=== PATIENT | female | born 1955 | race Two or more races ===

== ENCOUNTER → 2020-06-14 13:26 | Outpatient (BNVA) | payer MEDICARE, SELFPAY | PROVIDERS: PCP Internal Medicine; Visit Provider Advanced Practice Midwife | DX: Z76.89 Persons encountering health services in other specified circumstances (principal) ==

== ENCOUNTER 2020-07-06 09:36 | Outpatient (REF) | payer MEDICARE, SELFPAY ==
[2020-07-06 10:52] LABS: Alanine Aminotransferase 10 U/L (0-31); Albumin Level 4.1 g/dL (3.5-5.0); Alkaline Phosphatase 78 U/L (39-117); Anion Gap 12 (12-20); Aspartate Amino Transferase 18 U/L (5-31); Bilirubin Total 0.7 mg/dL (0.0-1.0); Blood Urea Nitrogen 16 mg/dL (9-16); Calcium 9.4 mg/dL (8.4-10.2); Carbon Dioxide 32 mmol/L (22-29); Chloride 97 mmol/L (96-108); Cholesterol 232 mg/dL; Estimated Glomerular Filt Rate > 60; Glucose Fasting 93 mg/dL (60-99); HDL Cholesterol 78 mg/dL; LDL Cholesterol Calculated 133 mg/dl; Potassium 4.2 mmol/l (3.3-5.1); Sodium 137 mmol/L (135-145); Total Protein 7.5 g/dL (6.5-8.0); Triglycerides 105 mg/dL
== END 2020-07-06 09:37 | disposition home or self-care (01) ==
LOC: HO.LAB 09:36
PROVIDERS: PCP Internal Medicine; Visit Provider Internal Medicine
DX: I10 Essential (primary) hypertension (principal)
CPT/HCPCS: 80053; 80061

== ENCOUNTER 2020-10-17 15:07 | Outpatient (REF) | payer MEDICARE, SELFPAY ==
--- NOTE | ~2020-10-17 | MM_ITS ---
EXAMINATION: MM SCREENING DIGITAL BREAST TOMOSYNTHESIS, BILATERAL CLINICAL INFORMATION: Screening. Asymptomatic. The lifetime risk of breast cancer based on the Tyrer-Cuzick Model is 4%. COMPARISON: Mammography: 07/28/2019, 04/24/2013 TECHNIQUE: Digital breast tomosynthesis is performed in both the craniocaudal and mediolateral oblique views along with computer-aided detection (CAD). Synthesized 2D images are generated from the tomosynthesis. Additional left MLO view is provided. FINDINGS: There are scattered areas of fibroglandular density (ACR BI-RADS breast composition Category b). Breast tissue composition borders on predominantly fatty. Background fibroglandular and stromal densities are similar to prior exams. There is no interval mass or architectural abnormality or developing density. No abnormal calcifications. The axilla and skin contours are unremarkable. No significant changes. MM/MM tomosynthesis screening BI IMPRESSION: No mammographic evidence of malignancy. ASSESSMENT: BI-RADS 1: Negative RECOMMENDATION: Routine annual mammography screening. This patient's information was entered into a reminder system with a target due date for their next mammogram.
== END 2020-10-17 15:08 | disposition home or self-care (01) ==
LOC: HO.MAMMO 15:07
PROVIDERS: PCP Internal Medicine; Visit Provider Internal Medicine
DX: Z12.31 Encounter for screening mammogram for malignant neoplasm of breast (principal)
CPT/HCPCS: 77063; 77067

== ENCOUNTER 2020-10-26 12:54 | Outpatient (REF) | payer MEDICARE, SELFPAY ==
--- NOTE | ~2020-10-26 | XR_ITS ---
EXAMINATION: XR LUMBOSACRAL SPINE CLINICAL INFORMATION: Pain COMPARISON: Previous exam December 2019 TECHNIQUE: Three views of the lumbosacral spine. FINDINGS: There is mild curvature of the lumbar spine to the right. Bone alignment is otherwise normal. No fracture or dislocation is seen. There is degenerative disc disease and spondylosis at L4-L5 and L5-S1. There is lower lumbar spine facet arthritis. There is evidence of atherosclerotic disease. XR/XR lumbar spine 2-3V IMPRESSION: Degenerative changes.
--- NOTE | ~2020-10-26 | XR_ITS ---
EXAMINATION: XR HIP, RIGHT CLINICAL INFORMATION: Pain in the right hip COMPARISON: X-rays of the right hip December 2019 TECHNIQUE: Two views of the right hip. FINDINGS: Right hip joint: Bones and soft tissues are normal. No fracture. Alignment is anatomic. Hip joint space is maintained. Miscellaneous: Degenerative changes of the symphysis pubis unchanged. XR/XR hip RT min 2V IMPRESSION: Normal right hip.
[2020-10-26 14:32] LABS: Alanine Aminotransferase 11 U/L (0-31); Albumin Level 4.2 g/dL (3.5-5.0); Alkaline Phosphatase 72 U/L (39-117); Anion Gap 12 (12-20); Aspartate Amino Transferase 15 U/L (5-31); Bilirubin Total 0.5 mg/dL (0.0-1.0); Blood Urea Nitrogen 18 mg/dL (9-16); Calcium 9.6 mg/dL (8.4-10.2); Carbon Dioxide 30 mmol/L (22-29); Chloride 100 mmol/L (96-108); Cholesterol 239 mg/dL; Estimated Glomerular Filt Rate > 60; Glucose Fasting 92 mg/dL (60-99); HDL Cholesterol 79 mg/dL; LDL Cholesterol Calculated 139 mg/dl; Sodium 138 mmol/L (135-145); Total Protein 7.3 g/dL (6.5-8.0); Triglycerides 107 mg/dL
== END 2020-10-26 12:55 | disposition home or self-care (01) ==
LOC: HO.HMGCLDS 12:54
PROVIDERS: PCP Internal Medicine; Visit Provider Internal Medicine
DX: E78.5 Hyperlipidemia, unspecified (principal); I10 Essential (primary) hypertension; M54.9 Dorsalgia, unspecified; M25.551 Pain in right hip
CPT/HCPCS: 36415; 72100; 73502; 80053; 80061

== ENCOUNTER 2020-11-15 08:52 | Outpatient (REF) | payer MEDICARE, SELFPAY ==
--- NOTE | ~2020-11-15 | XR_ITS ---
EXAMINATION: XR KNEE, LEFT CLINICAL INFORMATION: Pain in the left knee. COMPARISON: Left knee 04/01/2020 TECHNIQUE: Four views of the left knee. FINDINGS: There is mild reduction in tricompartment joint space with periarticular marginal osteophytes especially in the medial and patellofemoral compartment. No bony erosive changes, loose bodies or joint effusion are seen. No soft tissue swelling or calcifications are seen. Previously seen calcification adjacent to the medial femoral condyle is not visualized at this time. XR/XR knee LT 4V IMPRESSION: Mild tricompartmental degenerative arthritic changes without any loose bodies, joint effusion or bony erosive changes. No major change compared to 04/01/2020
== END 2020-11-15 08:53 | disposition home or self-care (01) ==
LOC: HO.XRAY 08:52
PROVIDERS: PCP Internal Medicine; Visit Provider Internal Medicine
DX: M25.562 Pain in left knee (principal)
CPT/HCPCS: 73564

== ENCOUNTER 2020-12-06 10:00 | Outpatient (REF) | payer MEDICARE, SELFPAY ==
--- NOTE | ~2020-12-06 | XR_ITS ---
EXAMINATION: XR STANDING AP KNEES XR KNEE, RIGHT XR KNEE, LEFT CLINICAL INFORMATION: Bilateral knee pain COMPARISON: Standing AP knees and right knee 02/02/2016, radiographs left knee 11/15/2020 TECHNIQUE: Standing AP view of both knees is performed. Each knee is also imaged in lateral and axial patella views. FINDINGS: Right: There is no fracture, dislocation, or destructive process. There is normal bony mineralization. Tricompartment osteoarthritis is present greater medial knee joint compartment with joint narrowing and mild genu varus. No erosive change or definite chondrocalcinosis. There are marginal osteophytes from the femoral condyles and tibial plateau. There is trace fluid suprapatellar bursa. No significant effusion. Hoffa's fat pad appears normal. Axial view patella shows lateral tilting and borderline lateralization with narrowing of the lateral patellofemoral joint and lateral patellar spur. Left: There is no fracture, dislocation, or destructive process. There is normal bony mineralization. Tricompartment osteoarthritis is present, greater medial knee joint compartment with joint narrowing. Severity is less than that on the right. No erosive change or definite chondrocalcinosis. There are marginal osteophytes from the femoral condyles and tibial plateau. There is trace fluid suprapatellar bursa. No significant effusion. Hoffa's fat pad appears within normal. Axial view patella shows lateral tilting and borderline lateralization with narrowing of the lateral patellofemoral joint. XR/XR knee RT 2V IMPRESSION: 1. 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 2. Bilateral patellar tilting and borderline lateralization with narrowing lateral patellofemoral joints. 3. No erosive change or chondrocalcinosis. No significant effusion.
--- NOTE | ~2020-12-06 | XR_ITS ---
EXAMINATION: XR STANDING AP KNEES XR KNEE, RIGHT XR KNEE, LEFT CLINICAL INFORMATION: Bilateral knee pain COMPARISON: Standing AP knees and right knee 02/02/2016, radiographs left knee 11/15/2020 TECHNIQUE: Standing AP view of both knees is performed. Each knee is also imaged in lateral and axial patella views. FINDINGS: Right: There is no fracture, dislocation, or destructive process. There is normal bony mineralization. Tricompartment osteoarthritis is present greater medial knee joint compartment with joint narrowing and mild genu varus. No erosive change or definite chondrocalcinosis. There are marginal osteophytes from the femoral condyles and tibial plateau. There is trace fluid suprapatellar bursa. No significant effusion. Hoffa's fat pad appears normal. Axial view patella shows lateral tilting and borderline lateralization with narrowing of the lateral patellofemoral joint and lateral patellar spur. Left: There is no fracture, dislocation, or destructive process. There is normal bony mineralization. Tricompartment osteoarthritis is present, greater medial knee joint compartment with joint narrowing. Severity is less than that on the right. No erosive change or definite chondrocalcinosis. There are marginal osteophytes from the femoral condyles and tibial plateau. There is trace fluid suprapatellar bursa. No significant effusion. Hoffa's fat pad appears within normal. Axial view patella shows lateral tilting and borderline lateralization with narrowing of the lateral patellofemoral joint. XR/XR knee LT 2V IMPRESSION: 1. 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 2. Bilateral patellar tilting and borderline lateralization with narrowing lateral patellofemoral joints. 3. No erosive change or chondrocalcinosis. No significant effusion.
--- NOTE | ~2020-12-06 | XR_ITS ---
EXAMINATION: XR STANDING AP KNEES XR KNEE, RIGHT XR KNEE, LEFT CLINICAL INFORMATION: Bilateral knee pain COMPARISON: Standing AP knees and right knee 02/02/2016, radiographs left knee 11/15/2020 TECHNIQUE: Standing AP view of both knees is performed. Each knee is also imaged in lateral and axial patella views. FINDINGS: Right: There is no fracture, dislocation, or destructive process. There is normal bony mineralization. Tricompartment osteoarthritis is present greater medial knee joint compartment with joint narrowing and mild genu varus. No erosive change or definite chondrocalcinosis. There are marginal osteophytes from the femoral condyles and tibial plateau. There is trace fluid suprapatellar bursa. No significant effusion. Hoffa's fat pad appears normal. Axial view patella shows lateral tilting and borderline lateralization with narrowing of the lateral patellofemoral joint and lateral patellar spur. Left: There is no fracture, dislocation, or destructive process. There is normal bony mineralization. Tricompartment osteoarthritis is present, greater medial knee joint compartment with joint narrowing. Severity is less than that on the right. No erosive change or definite chondrocalcinosis. There are marginal osteophytes from the femoral condyles and tibial plateau. There is trace fluid suprapatellar bursa. No significant effusion. Hoffa's fat pad appears within normal. Axial view patella shows lateral tilting and borderline lateralization with narrowing of the lateral patellofemoral joint. XR/XR knee standing BI IMPRESSION: 1. 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 2. Bilateral patellar tilting and borderline lateralization with narrowing lateral patellofemoral joints. 3. No erosive change or chondrocalcinosis. No significant effusion.
== END 2020-12-06 10:01 | disposition home or self-care (01) ==
LOC: HO.HOSX 10:00
PROVIDERS: Visit Provider Physician Assistant
DX: M17.0 Bilateral primary osteoarthritis of knee (principal); M25.562 Pain in left knee; M25.561 Pain in right knee; E66.01 Morbid (severe) obesity due to excess calories; M54.9 Dorsalgia, unspecified; I10 Essential (primary) hypertension; I48.91 Unspecified atrial fibrillation; Z88.8 Allergy status to other drugs, medicaments and biological substances
CPT/HCPCS: 73560; 73565; 99202

== ENCOUNTER 2021-01-31 14:00 | Outpatient (RCR) | payer MEDICARE, SELFPAY ==
--- NOTE | 2020-12-15 14:34 | MHC.PT.EP ---
[facility] [place] Office [place] Office [place] Office [address] Viet Macdonald [address] [phone] F: [phone] F: [phone] F: [phone] F: [phone] Physical Therapy Plan of Care Date of Evaluation: Date of Surgery: Diagnosis: dorsalgia Assessment: 65 y/o female referred to PT with dorsalgia. Reports pain and difficulty with hosuehold chores, bending, squatting, walking, stair management, and sleeping. Of note, PMH significant for AFIB, HTN, and asthma. Examination shows decreased lumbar AROM, decreased thoracic mobility, decreased B LE and core strength, decreased hip AROM, impaired postural awareness and impaired gait pattern. Recommend PT 2x/week for 5 weeks to address impairments, implement HEP, and optimize functional mobility. Frequency and Duration: The patient will be seen 2x/week for 5 weeks Short Term Goals: 3 weeks 1. I with HEP 2. Improve lumbar AROM by 25% 3. Pt will demonstrate 25% squat with proper mechanics Half-Way Goals: 5 weeks 1. I with HEP and self management of sx 2. Pt will impmrove B LE strength by one MMT grade to facilitate walking 3. 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 Treatment Plan: Modalities to reduce pain, spasms and effusion. Manual therapy to restore motion and function. Therapeutic exercise to improve strength and flexibility. Neuromuscular re-education for posture and balance. Therapeutic activities to return to functional activities of daily living. Electronically signed by: Linsey Huynh PT Please sign and return to therapist. Thank you for your referral.
--- NOTE | 2021-02-06 16:26 | MHC.PT.DC ---
[facility] [place] Office [place] Office [place] Office [address] Viet Macdonald [address] [phone] F: [phone] F: [phone] F: [phone] F: [phone] Physical Therapy Discharge Report Diagnosis: dorsalgia Date of Surgery: Date of Evaluation: 12/15/20 Date of Discharge: 02/06/21 Treatments to Date: 7 Cancellations to Date: 0 No Shows to Date: 0 Discharge Status: Visit Non-compliance Discharge Summary: Patient with too many no shows and cancellations. DC per attendance policy. DC to HEP. Patient was called and made aware. Electronically signed by: Mahsa Chang PT Please sign and return to therapist. Thank you for your referral.
== END 2021-02-06 16:26 | disposition home or self-care (01) ==
LOC: HO.PTCHIC 14:00
PROVIDERS: PCP Internal Medicine; Visit Provider Internal Medicine
DX: M54.9 Dorsalgia, unspecified (principal)
CPT/HCPCS: 97110; 97161

== ENCOUNTER 2021-05-16 10:13 | Outpatient (REF) | payer MEDICARE, SELFPAY ==
[2021-05-16 10:23] LABS: MANUAL DIFF FLAG NO
[2021-05-16 10:43] LABS: Basophils Percent Auto 0.3 % (0-2); Eosinophils Absolute Auto 0.1 X10*3/uL (0.0-0.4); Eosinophils Percent Auto 1.2 % (0-4); Hematocrit 42.7 % (37.0-47.0); Hemoglobin 13.1 g/dl (12.0-16.0); Imm Gran Abs Auto 0.01 X10*3/uL (0.00-0.03); Imm Gran Pct Auto 0.1 % (0.0-0.4); Lymphocytes Absolute Auto 2.1 X10*3/uL (1.2-4.9); Lymphocytes Percent Auto 29.1 % (20-40); Mean Corpuscular HGB Conc 30.7 g/dl (31.0-35.0); Mean Corpuscular Hemoglobin 22.6 pg (27.0-33.0); Mean Corpuscular Volume 73.7 fL (80.0-98.0); Mean Platelet Volume 11.1 fL (9.4-12.3); Monocytes Absolute Auto 0.7 X10*3/uL (0.1-1.2); Monocytes Percent Auto 9.2 % (2-11); Neutrophils Absolute Auto 4.42 x10*3/uL (2.0-8.3); Neutrophils Percent Auto 60.1 % (45-73); Platelet Count 265 X10*3/uL (160-400); Red Blood Count 5.79 X10*6/uL (4.20-5.50); Red Cell Distribution Width 15.9 % (11.0-16.0); White Blood Count 7.4 X10*3/uL (4.8-10.8)
[2021-05-16 11:27] LABS: Alanine Aminotransferase 13 U/L (0-31); Albumin Level 4.2 g/dL (3.5-5.0); Alkaline Phosphatase 68 U/L (39-117); Anion Gap 12 (12-20); Aspartate Amino Transferase 19 U/L (5-31); Bilirubin Total 0.8 mg/dL (0.0-1.0); Blood Urea Nitrogen 25 mg/dL (9-16); Calcium 9.1 mg/dL (8.4-10.2); Carbon Dioxide 30 mmol/L (22-29); Chloride 101 mmol/L (96-108); Cholesterol 228 mg/dL; Estimated Glomerular Filt Rate 45; Glucose Fasting 97 mg/dL (60-99); HDL Cholesterol 75 mg/dL; LDL Cholesterol Calculated 136 mg/dl; Potassium 4.5 mmol/L (3.3-5.1); Sodium 138 mmol/L (135-145); Total Protein 7.4 g/dL (6.5-8.0); Triglycerides 87 mg/dL
[2021-05-20 13:26] LABS: Vitamin D 25-OH, D2 <4 ng/mL; Vitamin D 25-OH, D3 26 ng/mL; Vitamin D 25-OH, Total 26 ng/mL (30-100)
== END 2021-05-16 10:14 | disposition home or self-care (01) ==
LOC: HO.LAB 10:13
PROVIDERS: PCP Internal Medicine; Visit Provider Internal Medicine
DX: E55.9 Vitamin D deficiency, unspecified (principal); E78.5 Hyperlipidemia, unspecified; D64.9 Anemia, unspecified; M17.0 Bilateral primary osteoarthritis of knee
CPT/HCPCS: 36415; 80053; 80061; 82306; 85025

== ENCOUNTER 2021-06-15 13:11 | Outpatient (REF) | payer MEDICARE, SELFPAY ==
--- NOTE | ~2021-06-15 | US_ITS ---
EXAMINATION: US ABDOMEN LIMITED CLINICAL INFORMATION: Unspecified abdominal pain. COMPARISON: None. TECHNIQUE: Real-time imaging of the right lower quadrant. Technically difficult study secondary to body habitus. FINDINGS: Limited imaging through the right lower quadrant reveals peristaltic bowel. No evidence of hernia, mass or fluid collection. US/US abdomen limited IMPRESSION: Limited imaging through the right lower quadrant reveals no focal mass, hernia or fluid collection.
== END 2021-06-15 13:12 | disposition home or self-care (01) ==
LOC: HO.HMGCX 13:11
PROVIDERS: PCP Internal Medicine; Visit Provider Internal Medicine
DX: R10.9 Unspecified abdominal pain (principal)
CPT/HCPCS: 76705

== ENCOUNTER → 2021-07-04 11:23 | Outpatient (BNVA) | payer MEDICARE, SELFPAY | PROVIDERS: PCP Internal Medicine; Visit Provider Advanced Practice Midwife ==

== ENCOUNTER 2021-07-27 12:57 | Outpatient (REF) | payer MEDICARE, SELFPAY ==
--- NOTE | ~2021-07-27 | US_ITS ---
EXAMINATION: US PELVIS CLINICAL INFORMATION: Pelvic and perineal pain COMPARISON: None TECHNIQUE: Ultrasound of the pelvis is performed using both transabdominal and transvaginal transducers along with Doppler. Transvaginal imaging is performed due to inadequate visualization transabdominally. FINDINGS: Uterus: The uterus is anteverted, anteflexed and measures 6.2 cm in length, 3.1 mL in AP and 4.1 cm in transverse dimension. The endometrium is heterogeneous with double wall endometrial thickness measuring 1.0 cm. The uterus is smooth in contour and has normal myometrial echogenicity. No visible fibroid. There are small nabothian cysts seen in the cervix. Adnexa: Both ovaries are visualized. There is normal color flow to the adnexa. There is no ovarian torsion. There is no pelvic ascites or fluid collection. Right ovary measures 2.2 x 1.3 x 1.5 cm and volume 2.2 mL. Left ovary measures 2.0 x 1.1 x 1.7 cm and volume 2.0 mL. US/US pelvic and transvaginal IMPRESSION: Nabothian cysts in cervix. Heterogeneous endometrium measuring 1.0 cm. The ovaries are unremarkable.
== END 2021-07-27 12:58 | disposition home or self-care (01) ==
LOC: HO.US 12:57
PROVIDERS: Visit Provider Advanced Practice Midwife
DX: Z01.419 Encounter for gynecological examination (general) (routine) without abnormal findings (principal); R10.2 Pelvic and perineal pain
CPT/HCPCS: 76830; 76856

== ENCOUNTER → 2021-08-10 10:40 | Outpatient (BNVA) | payer MEDICARE, SELFPAY | PROVIDERS: PCP Internal Medicine; Visit Provider Advanced Practice Midwife | DX: R93.89 Abnormal findings on diagnostic imaging of other specified body structures (principal); R10.2 Pelvic and perineal pain; E66.01 Morbid (severe) obesity due to excess calories | CPT/HCPCS: 99212 ==

== ENCOUNTER 2021-08-11 13:17 | Outpatient (REF) | payer MEDICARE, SELFPAY ==
--- NOTE | ~2021-08-11 | XR_ITS ---
EXAMINATION: XR HIP, RIGHT CLINICAL INFORMATION: Pain right hip COMPARISON: None TECHNIQUE: Two views of the right hip. FINDINGS: Bones and soft tissues are normal. No fracture. Alignment is anatomic. Hip joint space is maintained. XR/XR hip RT min 2V IMPRESSION: Unremarkable right hip.
== END 2021-08-11 13:18 | disposition home or self-care (01) ==
LOC: HO.XRAY 13:17
PROVIDERS: PCP Internal Medicine; Visit Provider Internal Medicine
DX: M25.551 Pain in right hip (principal)
CPT/HCPCS: 73502

== ENCOUNTER → 2021-08-29 14:20 | Outpatient (BNVA) | payer MEDICARE, SELFPAY | PROVIDERS: PCP Internal Medicine; Referring Provider Internal Medicine; Visit Provider Nurse Practitioner Family | DX: R10.9 Unspecified abdominal pain (principal); I10 Essential (primary) hypertension; I48.0 Paroxysmal atrial fibrillation; E78.00 Pure hypercholesterolemia, unspecified; M25.551 Pain in right hip; Z88.8 Allergy status to other drugs, medicaments and biological substances | CPT/HCPCS: 99202 ==

== ENCOUNTER → 2021-09-18 14:42 | Outpatient (BNVA) | payer MEDICARE, SELFPAY | PROVIDERS: PCP Internal Medicine; Visit Provider Physician Assistant | DX: M54.16 Radiculopathy, lumbar region (principal) | CPT/HCPCS: 99202 ==

== ENCOUNTER 2021-09-19 09:10 | Outpatient (REF) | payer MEDICARE, SELFPAY ==
[2021-09-19 10:29] LABS: Alanine Aminotransferase 11 U/L (0-31); Albumin Level 4.1 g/dL (3.5-5.0); Alkaline Phosphatase 62 U/L (39-117); Anion Gap 11 (12-20); Aspartate Amino Transferase 17 U/L (5-31); Bilirubin Total 0.8 mg/dL (0.0-1.0); Blood Urea Nitrogen 22 mg/dL (9-16); Calcium 9.6 mg/dL (8.4-10.2); Carbon Dioxide 30 mmol/L (22-29); Chloride 102 mmol/L (96-108); Cholesterol 228 mg/dL; Estimated Glomerular Filt Rate 47; Glucose Fasting 94 mg/dL (60-99); HDL Cholesterol 75 mg/dL; LDL Cholesterol Calculated 138 mg/dl; Lipase 25 U/L (8-78); Potassium 4.8 mmol/L (3.3-5.1); Sodium 138 mmol/L (135-145); Total Protein 7.5 g/dL (6.5-8.0); Triglycerides 75 mg/dL
[2021-09-19 10:54] LABS: TSH reflex Free T4 1.79 uIU/mL (0.32-4.0)
[2021-09-19 11:02] LABS: Folate 14.5 ng/mL (> or = 4.0); Vitamin B12 598 pg/mL (200-900)
[2021-09-20 20:37] LABS: Transglutaminase Ab IgG <1.0 U/mL; Transglutaminase IgA <1.0 U/mL
[2021-09-23 13:26] LABS: Vitamin D 25-OH, D2 <4 ng/mL; Vitamin D 25-OH, D3 31 ng/mL; Vitamin D 25-OH, Total 31 ng/mL (30-100)
== END 2021-09-19 09:11 | disposition home or self-care (01) ==
LOC: HO.LAB 09:10
PROVIDERS: Absent Provider Internal Medicine; PCP Internal Medicine; Visit Provider Nurse Practitioner Family
DX: Z12.11 Encounter for screening for malignant neoplasm of colon (principal); R10.11 Right upper quadrant pain; R19.7 Diarrhea, unspecified; E78.5 Hyperlipidemia, unspecified; E55.9 Vitamin D deficiency, unspecified; R14.0 Abdominal distension (gaseous)
CPT/HCPCS: 36415; 80053; 80061; 82306; 82607; 82746; 83690; 84443; 86364

== ENCOUNTER → 2021-09-22 08:49 | Outpatient (BNVA) | payer MEDICARE, SELFPAY | PROVIDERS: PCP Internal Medicine; Visit Provider Nurse Practitioner Family | DX: M53.3 Sacrococcygeal disorders, not elsewhere classified (principal); M47.816 Spondylosis without myelopathy or radiculopathy, lumbar region; M54.16 Radiculopathy, lumbar region; M51.36 Other intervertebral disc degeneration, lumbar region; M25.551 Pain in right hip; E66.01 Morbid (severe) obesity due to excess calories; Z68.42 Body mass index [BMI] 45.0-49.9, adult | CPT/HCPCS: 99202 ==

== ENCOUNTER 2021-10-31 06:28 | Outpatient (REF) | payer OTHER, SELFPAY ==
--- NOTE | ~2021-10-31 | FL_ITS ---
EXAMINATION: XR FLUOROSCOPY WITH IMAGES CLINICAL INFORMATION: M53.3 - Sacrococcygeal disorders, not elsewhere classified COMPARISON: Radiographs lumbar spine 10/26/2020 TECHNIQUE: Fluoroscopy performed by Dr. New Pratt. Fluoroscopy time: 0.1 minutes DAP: 2.12 Gycm2 Images: 1 FINDINGS: Spinal needle overlies mid to lower right SI joint. There is contrast in the periarticular soft tissues with probable early intra-articular contrast. There is some spurring of the lower lumbar vertebral bodies again seen. FL/FL guidance in treatment room IMPRESSION: Fluoroscopy for pain management procedure.
== END 2021-10-31 06:29 | disposition home or self-care (01) ==
LOC: HO.RADIR 06:28
PROVIDERS: Visit Provider Anesthesiology
DX: M53.3 Sacrococcygeal disorders, not elsewhere classified (principal); M47.816 Spondylosis without myelopathy or radiculopathy, lumbar region; M54.16 Radiculopathy, lumbar region; M51.36 Other intervertebral disc degeneration, lumbar region; M25.551 Pain in right hip; E66.01 Morbid (severe) obesity due to excess calories; Z68.42 Body mass index [BMI] 45.0-49.9, adult
CPT/HCPCS: 27096; J2795; J3300; Q9967

== ENCOUNTER → 2021-11-07 12:52 | Outpatient (BNVA) | payer MEDICARE, MEDICAID, SELFPAY | PROVIDERS: PCP Internal Medicine; Visit Provider Nurse Practitioner Family | DX: M53.3 Sacrococcygeal disorders, not elsewhere classified (principal); M51.36 Other intervertebral disc degeneration, lumbar region; E66.01 Morbid (severe) obesity due to excess calories; Z68.42 Body mass index [BMI] 45.0-49.9, adult; Z98.890 Other specified postprocedural states | CPT/HCPCS: 99212 ==

== ENCOUNTER 2022-01-26 13:29 | Outpatient (REF) | payer MEDICARE, MEDICAID, SELFPAY ==
--- NOTE | ~2022-01-26 | MM_ITS ---
EXAMINATION: MM SCREENING DIGITAL BREAST TOMOSYNTHESIS, BILATERAL CLINICAL INFORMATION: Screening. Asymptomatic. The lifetime risk of breast cancer based on the Tyrer-Cuzick Model is 5%. COMPARISON: Mammography: 10/17/2020, 07/28/2019, 04/24/2013 TECHNIQUE: Digital breast tomosynthesis is performed in both the craniocaudal and mediolateral oblique views along with computer-aided detection (CAD). Synthesized 2D images are generated from the tomosynthesis. Additional bilateral CC views are obtained. FINDINGS: There are scattered areas of fibroglandular density (ACR BI-RADS breast composition Category b). There are no significant masses, abnormal calcifications, or other abnormalities. Breast tissue composition borders on predominantly fatty. Background stromal and fibroglandular densities are similar to prior studies. No developing density. No significant changes. MM/MM tomosynthesis screening BI IMPRESSION: No mammographic evidence of malignancy. ASSESSMENT: BI-RADS 1: Negative RECOMMENDATION: Routine annual mammography screening. This patient's information was entered into a reminder system with a target due date for their next mammogram.
--- NOTE | ~2022-01-26 | MM_ITS ---
EXAMINATION: BONE DENSITOMETRY CLINICAL INDICATION: Asymptomatic menopausal state. COMPARISON: None (current study represents initial baseline exam). TECHNIQUE: Using a [employer] DXA System (software version: 13.1) manufactured by [employer], dual-energy x-ray absorptiometry was performed of the lumbar spine and left hip. The images are of good technical quality. Summary results are attached. FINDINGS: AP SPINE L1-L4: BMD 1.361 g/cm2, Z-score 2.0, T-score 1.5, normal. LEFT FEMUR, NECK: BMD 0.918 g/cm2, Z-score 0.0, T-score -0.9, normal. LEFT FEMUR, TOTAL: BMD 0.959 g/cm2, Z-score 0.1, T-score -0.4, normal. IDENTIFIED RISK FACTORS: Dementia, anticonvulsants, menopause. HISTORY OF FRACTURE: No insufficiency fracture reported. MEDICATIONS: Vitamin D. MM/XR DEXA axial skeleton IMPRESSION: 1. DIAGNOSIS: Normal bone density based on the lowest T-score value of -0.9 in the femoral neck applying World Health Organization criteria. 2. 10- 10-YEAR FRACTURE RISK PREDICTION, FRAX: According to the guidelines, FRAX calculation should only be performed on patients in the osteopenia bone density category. Therefore, FRAX was not performed on this patient. 3. Treatment Recommendations: NOF guidelines recommend consideration for treatment in postmenopausal women and men age 50 and older presenting with the following: -A hip or vertebral (clinical or morphometric) fracture. -T-score less than or equal to -2.5 at the femoral neck or spine after appropriate evaluation to exclude secondary causes. -Low bone mass at the hip or spine and a 10-year fracture probability by FRAX of greater than or equal to 3% for hip fracture or greater than or equal to 20% for major osteoporotic fracture based on the [place] adapted WHO algorithm. 4. Other Recommendations: All treatment decisions require clinical judgment and consideration of individual patient factors, including patient preferences, comorbidities, previous drug use, risk factors not captured in the FRAX model (e.g. frailty, falls, vitamin D deficiency, increased bone turnover, interval significant decline in bone density) and possible under or overestimation of fracture risk by FRAX. FUTURE SCAN RECOMMENDATION: People with diagnosed cases of osteoporosis or at high risk for fracture should have regular bone mineral density tests. For patients eligible for Medicare, routine testing is allowed once every 2 years. The testing frequency can be increased to one year for patients who have rapidly progressing disease, those who are receiving or discontinuing medical therapy to restore bone mass, or have additional risk factors.
== END 2022-01-26 13:30 | disposition home or self-care (01) ==
LOC: HO.MAMMO 13:29
PROVIDERS: Visit Provider Internal Medicine
DX: Z12.31 Encounter for screening mammogram for malignant neoplasm of breast (principal); Z13.820 Encounter for screening for osteoporosis; Z78.0 Asymptomatic menopausal state
CPT/HCPCS: 77063; 77067; 77080

== ENCOUNTER 2022-07-20 08:40 | Outpatient (REF) | payer MEDICARE, MEDICAID, SELFPAY ==
[2022-07-20 08:56] LABS: MANUAL DIFF FLAG NO
[2022-07-20 09:32] LABS: Basophils Absolute Auto 0.1 X10*3/uL (0.0-0.2); Basophils Percent Auto 0.6 % (0-2); Eosinophils Absolute Auto 0.1 X10*3/uL (0.0-0.4); Eosinophils Percent Auto 1.7 % (0-4); Hematocrit 38.3 % (37.0-47.0); Hemoglobin 11.8 g/dl (12.0-16.0); Imm Gran Abs Auto 0.03 X10*3/uL (0.00-0.03); Imm Gran Pct Auto 0.4 % (0.0-0.4); Lymphocytes Absolute Auto 1.9 X10*3/uL (1.2-4.9); Lymphocytes Percent Auto 24.3 % (20-40); Mean Corpuscular HGB Conc 30.8 g/dl (31.0-35.0); Mean Corpuscular Hemoglobin 22.6 pg (27.0-33.0); Mean Corpuscular Volume 73.4 fL (80.0-98.0); Mean Platelet Volume 11.6 fL (9.4-12.3); Monocytes Absolute Auto 0.8 X10*3/uL (0.1-1.2); Monocytes Percent Auto 9.5 % (2-11); Neutrophils Percent Auto 63.5 % (45-73); Platelet Count 299 X10*3/uL (160-400); Red Blood Count 5.22 X10*6/uL (4.20-5.50); Red Cell Distribution Width 15.6 % (11.0-16.0); White Blood Count 7.9 X10*3/uL (4.8-10.8)
[2022-07-20 11:34] LABS: Alanine Aminotransferase 10 U/L (0-31); Albumin Level 4.1 g/dL (3.5-5.0); Alkaline Phosphatase 69 U/L (39-117); Anion Gap 16 (12-20); Aspartate Amino Transferase 18 U/L (5-31); Bilirubin Total 0.4 mg/dL (0.0-1.0); Blood Urea Nitrogen 24 mg/dL (9-16); Calcium 9.7 mg/dL (8.4-10.2); Carbon Dioxide 29 mmol/L (22-29); Chloride 101 mmol/L (96-108); Cholesterol 228 mg/dL; Estimated Glomerular Filt Rate 37; Glucose Fasting 89 mg/dL (60-99); HDL Cholesterol 69 mg/dL; LDL Cholesterol Calculated 138 mg/dl; Potassium 4.5 mmol/L (3.3-5.1); Sodium 141 mmol/L (135-145); Total Protein 7.3 g/dL (6.5-8.0); Triglycerides 107 mg/dL
[2022-07-20 11:36] LABS: Vitamin D 25-OH Total 30.7 ng/mL (>30)
== END 2022-07-20 08:41 | disposition home or self-care (01) ==
LOC: HO.LAB 08:40
PROVIDERS: PCP Internal Medicine; Visit Provider Internal Medicine
DX: M47.816 Spondylosis without myelopathy or radiculopathy, lumbar region (principal); E55.9 Vitamin D deficiency, unspecified; E78.5 Hyperlipidemia, unspecified
CPT/HCPCS: 36415; 80053; 80061; 82306; 85025

== ENCOUNTER → 2022-08-02 08:51 | Outpatient (BNVA) | payer MEDICARE, MEDICAID, SELFPAY | PROVIDERS: Visit Provider Advanced Practice Midwife | DX: Z13.89 Encounter for screening for other disorder (principal) ==

== ENCOUNTER 2022-09-25 09:53 | Outpatient (REF) | payer MEDICARE, SELFPAY ==
--- NOTE | ~2022-09-25 | XR_ITS ---
EXAMINATION: XR HIP, RIGHT CLINICAL INFORMATION: Pain. COMPARISON: None available. TECHNIQUE: Two views of the right hip. FINDINGS: There is no visible acute fracture, dislocation or subluxation. No bony erosive changes. The soft tissues are normal. XR/XR hip RT min 2V IMPRESSION: Unremarkable right hip exam.
--- NOTE | ~2022-09-25 | XR_ITS ---
EXAMINATION: XR RIBS, RIGHT CLINICAL INFORMATION: Pleurodynia. COMPARISON: None available. TECHNIQUE: Chest and right RIBS 4 views. FINDINGS: CHEST: The lungs are well-expanded and clear acute process. The heart size and pulmonary vascularity is normal. RIGHT RIBS: Multiple views of right ribs reveal no visible fracture or bony abnormality. There is mild spondylosis mid to lower dorsal spine. XR/XR ribs RT min 3V w CXR1V IMPRESSION: 1. Unremarkable chest exam. 2. Unremarkable right rib exam. 3. There is mild spondylosis mid to lower dorsal spine.
== END 2022-09-25 09:54 | disposition home or self-care (01) ==
LOC: HO.XRAY 09:53
PROVIDERS: PCP Internal Medicine; Visit Provider Internal Medicine
DX: M25.551 Pain in right hip (principal); R07.81 Pleurodynia
CPT/HCPCS: 71101; 73502

== ENCOUNTER 2022-12-07 09:02 | Outpatient (REF) | payer MEDICARE, SELFPAY ==
[2022-12-07 10:25] LABS: Alanine Aminotransferase 13 U/L (0-31); Albumin Level 4.1 g/dL (3.5-5.0); Alkaline Phosphatase 70 U/L (39-117); Anion Gap 14 (12-20); Aspartate Amino Transferase 18 U/L (5-31); Bilirubin Total 0.7 mg/dL (0.0-1.0); Blood Urea Nitrogen 18 mg/dL (9-16); Calcium 9.6 mg/dL (8.4-10.2); Carbon Dioxide 29 mmol/L (22-29); Chloride 104 mmol/L (96-108); Cholesterol 235 mg/dL; Estimated Glomerular Filt Rate 50; Glucose Fasting 94 mg/dL (60-99); HDL Cholesterol 68 mg/dL; LDL Cholesterol Calculated 145 mg/dl; Potassium 4.3 mmol/L (3.3-5.1); Sodium 143 mmol/L (135-145); Total Protein 7.4 g/dL (6.5-8.0); Triglycerides 113 mg/dL
[2022-12-07 10:41] LABS: Vitamin D 25-OH Total 32.9 ng/mL (>30)
== END 2022-12-07 09:03 | disposition home or self-care (01) ==
LOC: HO.LAB 09:02
PROVIDERS: PCP Internal Medicine; Visit Provider Internal Medicine
DX: E66.01 Morbid (severe) obesity due to excess calories (principal); Z68.42 Body mass index [BMI] 45.0-49.9, adult; E78.5 Hyperlipidemia, unspecified; E55.9 Vitamin D deficiency, unspecified
CPT/HCPCS: 36415; 80053; 80061; 82306

== ENCOUNTER 2023-01-22 14:23 | Outpatient (AMB) | payer MEDICARE, MEDICAID, SELFPAY ==
[2023-01-22 14:39] VITALS: BP 132/78; BMI 50.8
--- NOTE | 2023-01-22 14:39 | MHC.PC.OV ---
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 Accompanied by: Self / Same As Patient Allergies ibuprofen [From MOTRIN] Allergy (Intermediate, Verified 01/22/23 14:46) REDNESS, HIVES,GI Medication List - Last Reconciled 01/22/23 by Mi Hua MD acetaminophen 1,000 mg (2 x 500 mg) PO Q8H 90 days albuterol sulfate 2.5 mg inhalation Q6H PRN albuterol sulfate 90 mcg/actuation 1 puff PO Q4H PRN 30 days amlodipine 5 mg PO DAILY apixaban (Eliquis) 5 mg PO BID 30 days atorvastatin 40 mg PO BEDTIME 90 days cholecalciferol (vitamin D3) 50 mcg PO DAILY 90 days [compression stockings As directed] [cpap supplies As directed] flecainide 100 mg PO DIRECTED 90 days fluticasone propionate 50 mcg/actuation (Flonase Allergy Relief) 1 spray intranasal DAILY 30 days furosemide 20 mg PO DAILY 90 days gabapentin 600 mg PO BID 90 days lidocaine 5% 1 patch topical DAILY 90 days lisinopril 40 mg PO DAILY 90 days lorazepam (Ativan) 0.5 mg PO BEDTIME PRN 2 days metoprolol succinate ER 25 mg PO DAILY 90 days miscellaneous medical supply (Anti-Embolism Stockings) Use daily scopolamine base 1 patch transdermal Q3D PRN 12 days sertraline 50 mg PO QAM 90 days sumatriptan succinate 50 mg PO ONCE PRN 90 days Tobacco use date assessed: 08/01/22 Fall risk assessment: No Falls in past year Last assessed Fall Risk: 01/22/23 Dental Screening Dental Screen Date: 01/22/23 Did you have a dental visit in the last 12 months?: Yes Did you have a dental problem in the last 6 months where you did not have access to dental care?: No Was dental information given to patient?: Patient has dentist HPI HPI Comments History of Present Illness Details This is a 67-year-old female with mild recurrent major depression and morbid obesity that comes for her physical exam. Last mammogram was January 2022 and she has another mammogram scheduled for this month. Last colonoscopy was at 48 years old and will be referred for another colonoscopy. OBGYN pelvic exam are up-to-date. No need for Pap smears. She is morbidly obese with a BMI of 50.8 and was advised to diet and exercise as tolerated. Depression stable with sertraline. Has atrial fibrillation follow by cardiology. Last bone density was January 2022 and was normal. [facility] Medical History (Updated 01/22/23 @ 14:57 by Mi Hua MD) Asthma Back pain Essential hypertension History of atrial fibrillation Left knee pain Leg edema Migraines Moderate asthma Paroxysmal atrial fibrillation Pure hypercholesterolemia Right hip pain Vaginal pruritus Venous (peripheral) insufficiency Venous (peripheral) insufficiency Surgical History History of mammogram History of tubal ligation Hx laparoscopic cholecystectomy Family History Father HTN (hypertension) CVD (cardiovascular disease) Diabetes Mother HTN (hypertension) CVD (cardiovascular disease) Sister Bone cancer Lymphoma Family/Other Substance use disorder Social History Housing: Apartment Alcohol intake: former Patient Tobacco Use Status: Never used Tobacco e-Cigarette/Vaping Use: Never Used Second Hand Smoke Exposure: No service: No Current occupational status: disabled Cognitive needs: Yes Hearing needs: No Vision needs: No Female Reproductive History Menstrual Age of Menarche: 11 Questionnaire Thrive Questionnaire Date Thrive assessed: 08/01/22 REGINALD-7 AMB Questionnaire REGINALD-7 Date REGINALD - 7 assessed: 08/01/22 Source: Developed by Drs. Wero Lowery, Anat Stafford, Mark Slater and colleagues, with an educational lex from [employer] at work. Review of Systems Const All systems reviewed & are unremarkable except as noted in HPI and below Eyes Reports no additional complaints, Denies change in vision and Denies other visual disturbances Card Denies chest pain at rest, Denies chest pain with activity, Denies edema, Denies irregular heart rhythm, Denies claudication, Denies dyspnea, Denies dyspnea on exertion, Denies orthopnea, Denies paroxysmal nocturnal dyspnea and Denies slow heart rate Resp Denies cough, Denies dyspnea and Denies dyspnea on exertion GI Denies abdominal pain, Denies change in bowel habits, Denies excessive flatus, Denies nausea and Denies vomiting Denies urinary incontinence, Denies urinary hesitancy and Denies urinary urgency Musc Denies abnormal gait, Denies atrophy, Denies deformity and Denies limited range of motion Skin/Breast Denies bleeding lesions, Denies changing lesions and Denies rash Neuro Denies abnormal gait and Denies lack of coordination Physical exam (Primary Care) Vital Signs: Last Vital Signs BP 132/78 01/22/23 14:39 BMI result Body Mass Index 50.8 Tobacco/Smoking Status: Tobacco use Status Tobacco use date assessed 08/01/22 01/22/23 14:42 Patient Tobacco Use Status Never used Tobacco 01/22/23 14:42 e-Cigarette/Vaping Use Never Used 01/22/23 14:42 Thrive Assessment: Date of Thrive Assessment Date Thrive assessed 08/01/22 01/22/23 14:42 Const Orientation/consciousness: patient oriented x3 HENMT Head: Yes normal to inspection, Yes normocephalic and Yes atraumatic Ears: external ears normal Eyes General: appearance normal, both eyes and all related structures Eyelids: Yes eyelids normal Conjunctivae: conjunctivae normal Neck Neck: Yes normal visual inspection and Yes supple Resp Effort & Inspection: normal respiratory effort Auscultation: clear to auscultation bilaterally Cardio Jugular venous distension: no JVD Rate: regular rate Rhythm: regular rhythm Heart sounds: S1 normal heart sound present and S2 normal heart sound present GI Inspection: Yes normal to inspection Palpation (GI): Soft to palpation and nontender Auscultation: normal bowel sounds Skin General skin exam: no rashes or lesions noted Neuro General: patient oriented x3 and no focal motor deficits Extrem General: Yes full ROM Psych Appearance: grossly normal Assessment and Plan Assessment & Plan (1) Physical exam: Code(s): Z00.00 - Encounter for general adult medical examination without abnormal findings Plan: Repeat in a year (2) Obesity, morbid, BMI 50 or higher: Code(s): E66.01 - Morbid (severe) obesity due to excess calories Plan: Advised to diet and exercise. BMI goal is less than 30. (3) Mild recurrent major depression: Code(s): F33.0 - Major depressive disorder, recurrent, mild Plan: Continue SSRIs (4) Paroxysmal atrial fibrillation: Code(s): I48.0 - Paroxysmal atrial fibrillation Plan: Continue flecainide and chronic anticoagulation. Orders: Orders Comprehensive [place]. Panel Fast 4 Months N18.30 - Chronic kidney disease, stage 3 unspecified Lipid Panel 4 Months E78.5 - Hyperlipidemia, unspecified Vitamin D 25-OH Total 4 Months E55.9 - Vitamin D deficiency, unspecified Referrals Gastroenterology Referral Z12.11 - Encounter for screening for malignant neoplasm of colon Coding Level of Care Code Est Pt Prev Care >65y(39082) Diagnoses Physical exam Z00.00 Obesity, morbid, BMI 50 or higher E66.01 Mild recurrent major depression F33.0 Paroxysmal atrial fibrillation I48.0 Time Spent (min) 32
== END 2023-01-22 15:00 | disposition home or self-care (01) ==
PROVIDERS: Visit Provider Internal Medicine
DX: Z00.00 Encounter for general adult medical examination without abnormal findings (principal); E66.01 Morbid (severe) obesity due to excess calories; F33.0 Major depressive disorder, recurrent, mild; I48.0 Paroxysmal atrial fibrillation
CPT/HCPCS: 99397

== ENCOUNTER 2023-02-21 13:30 | Outpatient (REF) | payer MEDICARE, SELFPAY | END 2023-02-21 13:31 | disposition home or self-care (01) | LOC: HO.MAMMO 13:30 | PROVIDERS: PCP Internal Medicine; Visit Provider Internal Medicine | DX: Z12.31 Encounter for screening mammogram for malignant neoplasm of breast (principal) | CPT/HCPCS: 77063; 77067 ==

== ENCOUNTER → 2023-02-21 14:00 | Outpatient (BNV) | payer MEDICARE, SELFPAY | PROVIDERS: PCP Internal Medicine; Visit Provider Radiology Diagnostic Radiology | DX: Z12.31 Encounter for screening mammogram for malignant neoplasm of breast (principal) | CPT/HCPCS: 77063; 77067 ==

== ENCOUNTER 2023-02-22 09:51 | Outpatient (AMB) | payer MEDICARE, SELFPAY ==
--- NOTE | 2023-02-22 10:58 | MHC.OFFWIV ---
Intake Vital Signs 02/22/23 11:03 Height 5 ft Weight 117.934 kg BMI 50.8 BP 120/68 Blood Pressure Location Rt brachial Position Sitting Pulse 49 L Pulse Source Pulse Oximeter Temp 96.5 F L Temp Source Temporal Artery Scan Pulse Oximetry (%) 98 Oxygen Delivery Method Room Air Intake Visit Reasons: EP, Left lower leg pain Intake Note: Pt is here c/o left lower leg pain for the last three days. Pt states no injuries or falls. Patient Tobacco Use Status: Never used Tobacco Allergies ibuprofen [From MOTRIN] Allergy (Intermediate, Verified 02/22/23 11:03) REDNESS, HIVES,GI HPI HPI Comments History of Present Illness Details 67-year-old female presents with chronic lower back pain and pain radiating to her left lower extremity. She does report several falls back in August, and has a history of chronic back pain and was evaluated by pain management back in October of 2021. Patient states that she has been taking a 1000 mg of Tylenol every 3 hours for the past 3 days. She does not report any symptoms indicating cauda equina, denies fevers, chills, recent falls, weakness or dizziness. [facility] Medical History Asthma Back pain Essential hypertension History of atrial fibrillation Left knee pain Leg edema Migraines Moderate asthma Paroxysmal atrial fibrillation Pure hypercholesterolemia Right hip pain Vaginal pruritus Venous (peripheral) insufficiency Venous (peripheral) insufficiency Surgical History History of mammogram History of tubal ligation Hx laparoscopic cholecystectomy Family History Father HTN (hypertension) CVD (cardiovascular disease) Diabetes Mother HTN (hypertension) CVD (cardiovascular disease) Sister Bone cancer Lymphoma Family/Other Substance use disorder Social History Housing: Apartment Alcohol intake: former Patient Tobacco Use Status: Never used Tobacco e-Cigarette/Vaping Use: Never Used Second Hand Smoke Exposure: No service: No Current occupational status: disabled Cognitive needs: Yes Hearing needs: No Vision needs: No Female Reproductive History Menstrual Age of Menarche: 11 Review of Systems Const Details: Constitutional: No Fever, No Chills Cardiovascular: No Chest Pain, No SOB Respiratory: No Cough, No Dyspnea Gastrointestinal: No Nausea, No Vomiting, No Diarrhea, No abdominal Pain Genitourinary: No Dysuria, No Hematuria Musculoskeletal: positive lower back pain radiating to the left lower leg, No Myalgias, No Joint Swelling Skin: No Skin lacerations, No rash Neuro: No Weakness, No Numbness, No Paresthesias, No Dizziness, No Headache All systems reviewed & are unremarkable except as noted in HPI and below Physical Exam Vital Signs: Last Vital Signs Temp 96.5 F L 02/22/23 11:03 Pulse 49 L 02/22/23 11:03 BP 120/68 02/22/23 11:03 Pulse Ox 98 02/22/23 11:03 Oxygen Delivery Method Room Air 02/22/23 11:03 BMI result Body Mass Index 50.8 Appearance: Alert. Oriented X3. No acute distress. Eyes: Pupils equal, round and reactive to light. Neck: Normal inspection. Neck supple. CVS: Normal heart rate and rhythm. Pulses normal. Respiratory: No respiratory distress. Skin: Skin warm and dry. Normal skin color. Normal skin turgor. Extremities: No lower extremity edema. Ambulatory with cane. Neuro: No motor deficit. No sensory deficit. Cranial nerves 2-12 intact. Assessment & Plan Assessment & Plan (1) Lumbar radiculopathy: Code(s): M54.16 - Radiculopathy, lumbar region (2) Sciatica: Code(s): M54.30 - Sciatica, unspecified side Plan 67-year-old female with past medical history of chronic lower back pain, morbid obesity, lumbar spondylosis, AFib on Eliquis, hypertension, hyperlipidemia, CKD stage 3, presents with chronic lower back pain and pain radiating to her left lower extremity. She does report several falls back in August, and has a history of chronic back pain and was evaluated by pain management back in October of 2021. Patient states that she has been taking a 1000 mg of Tylenol every 3 hours for the past 3 days. She does not report any symptoms indicating cauda equina, denies fevers, chills, recent falls, weakness or dizziness. Patient is alert oriented x4, answering questions appropriately, afebrile, nontoxic. While patient does report multiple falls during our discussion, I do not feel that these falls have any association with the back pain that she has been experiencing over the past 4 days. States that she fell in August, but not recently. Review of records indicates that patient was evaluated by pain management for lumbar spondylosis and chronic lower back with radiculopathy. I feel that patient's symptoms are consistent with prior presentation. Patient is adamant that she has been taking a 1000 mg every 3 hours, but is unable to give me the last time she took the medication. I did not feel that providing her medication would be beneficial at this time, as she is on gabapentin, Ativan, had a lidocaine patch, and is on Eliquis for AFib. I did recommend that patient continue to take Tylenol 650 mg every 6 hours, I did discuss the dangers of overdosing on Tylenol with her. Will order lumbar x-rays, and have patient follow-up with pain management. I did make a referral to pain management. matrix repairer utilized for all correspondence. Google translate utilized for discharge instructions. Patient verbalized understanding of discharge instructions. Verbalized understandings of signs and symptoms indicating need for emergent intervention. Orders: Orders XR lumbar spine 2-3V Today M54.16 - Radiculopathy, lumbar region, M54.30 - Sciatica, unspecified side Referrals Pain Management Referral M54.16 - Radiculopathy, lumbar region, M54.30 - Sciatica, unspecified side Patient Instructions: Se le evalu? por dolor de espalda lumbar que se irradia a la pierna izquierda. Urie Tylenol 650 mg cada 6 horas para controlar el dolor. Tylenol es el mismo medicamento que el paracetamol. Es muy peligroso sufrir rajni sobredosis de rj medicamento. Si lilli 1000 mg de Tylenol, solo puede tomarlo cada 8 horas. Seguimiento con manejo del dolor. Lo he referido a la [facility]. Bety por elegir esta atenci?n de urgencia para mercado evaluaci?n. Por favor, josé un seguimiento con el m?dico de atenci?n primaria seg?n sea necesario. Regrese al departamento de emergencias por cualquier s?ntoma nuevo, preocupante o que empeore You were evaluated for lumbar back pain radiating to the left leg. Take Tylenol 650 mg every 6 hours for pain management. Tylenol is the same medication is acetaminophen. It Is very dangerous to overdose on this medication. If you take 1000 mg of Tylenol, you can only take it every 8 hours. Follow-up with pain management. I have referred you to [facility]. Thank you for choosing this urgent care for evaluation. Please follow-up with primary care physician as needed. Return to the emergency department for any new, concerning, or worsening symptoms. Coding Level of Care Code Est Pt Level 3 (08564) Diagnoses Lumbar radiculopathy M54.16 Sciatica M54.30
[2023-02-22 11:03] VITALS: BP 120/68; PULSE 49; TEMP 35.8; O2SAT 98; BMI 50.8
== END 2023-02-22 11:34 | disposition home or self-care (01) ==
PROVIDERS: PCP Internal Medicine; Visit Provider Nurse Practitioner Family
DX: M54.16 Radiculopathy, lumbar region (principal); M54.30 Sciatica, unspecified side
CPT/HCPCS: 99213

== ENCOUNTER 2023-02-22 11:31 | Outpatient (REF) | payer MEDICARE, SELFPAY ==
--- NOTE | ~2023-02-22 | XR_ITS ---
EXAMINATION: XR LUMBOSACRAL SPINE CLINICAL INFORMATION: Radiculopathy COMPARISON: 10/26/2020 TECHNIQUE: Three views of the lumbosacral spine. FINDINGS: There is no significant interval change in appearance of straightening of lumbar lordosis and narrowing cough L3-L4 more prominent L4-L5 and L5-S1 with marginal spurring. Pedicles are preserved. Sacroiliac joints unremarkable. Soft tissues are normal. XR/XR lumbar spine 2-3V IMPRESSION: Degenerative changes in lower lumbar spine with straightening of lumbar lordosis.
== END 2023-02-22 11:32 | disposition home or self-care (01) ==
LOC: HO.HMGCX 11:31
PROVIDERS: PCP Internal Medicine; Visit Provider Nurse Practitioner Family
DX: M54.16 Radiculopathy, lumbar region (principal); M54.30 Sciatica, unspecified side
CPT/HCPCS: 72100

== ENCOUNTER 2023-03-08 12:47 | Outpatient (AMB) | payer MEDICARE, SELFPAY ==
--- NOTE | 2023-03-08 12:58 | A.OFFVIS_ITS ---
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 She was last seen in our office in October,. Patient reports worsening low back pain with radiation into her left lateral hip and lateral leg and anterior cruz and her toes with numbness and tingling and occasional weakness. Reports multiple falls due to back pain since August. Denies any hip or groin pain. Bending forward, walking, prolonged sitting or standing, changing positions increase her pain. Pain negatively affects her daily general activities, mood, sleep and quality of life. Her recent lumbar spine xray on 02/22/23 showed degenerative changes in lower lumbar spine with straightening of lumbar lordosis, and narrowing L3-L4 more prominent L4-L5 and L5-S1 with marginal spurring. No previous lumbar spine MRI has been done per patient. Patient avoids NSAIDs due to allergies as well as CKD stage 3 with last Renal follow up in December 2022. Patient takes Tylenol, lidocaine patches and gabapentin for moderate pain with minimal effects. She is interested in interventional treatments to alleviate her radicular symptoms. She takes Eliquis for Afib. Denies any fever, abdominal or groin pain, bladder or bowel incontinence or saddle anesthesia. PRIOR: Patient presents today for follow up to assess response to Right Diagnostic SIJ on 10/31/[address] Pratt. Patient reports that her pain was 10/10 prior to procedure and 9/10 immediately after procedure, with slow reduction of pain that day to 7/10 for 48 hours post procedure. She reports after 48 hours, her pain has decreased and still ongoing 2/10 with 80% pain relief and only increases to 3/10 with walking or stairs climbing. Patient is not willing to undergo same procedure in order to establish reproducible response to the treatment. She denies pain with internal and external right hip rotations on exam today and only mild pain with provocative test for right SIJ. Patient reports lidocaine patches have been helpful as well for her lower back pain. Patient states she would like to pause all interventional treatment options at this time and will call us once her pain significantly returns. [facility] Medical History Asthma Back pain Essential hypertension History of atrial fibrillation Left knee pain Leg edema Migraines Moderate asthma Paroxysmal atrial fibrillation Pure hypercholesterolemia Right hip pain Vaginal pruritus Venous (peripheral) insufficiency Venous (peripheral) insufficiency Surgical History History of mammogram History of tubal ligation Hx laparoscopic cholecystectomy Family History Father HTN (hypertension) CVD (cardiovascular disease) Diabetes Mother HTN (hypertension) CVD (cardiovascular disease) Sister Bone cancer Lymphoma Family/Other Substance use disorder Social History Housing: Apartment Alcohol intake: former Patient Tobacco Use Status: Never used Tobacco e-Cigarette/Vaping Use: Never Used Second Hand Smoke Exposure: No service: No Current occupational status: disabled Cognitive needs: Yes Hearing needs: No Vision needs: No Female Reproductive History Menstrual Age of Menarche: 11 Review of Systems Const All systems reviewed & are unremarkable except as noted in HPI and below Physical Exam Vital Signs: Last Vital Signs Pulse 64 03/08/23 13:04 BP 154/65 H 03/08/23 13:04 Pulse Ox 98 03/08/23 13:04 Oxygen Delivery Method Room Air 03/08/23 13:04 BMI result Body Mass Index 51.2 General: Appears afebrile. Alert and oriented. Mood and affect appropriate. Follows and participates in conversation appropriately. Respiratory effort is unlabored. No cough. Able to transition from sit to stand unassisted. Const General: no acute distress Nutritional Appearance: obese morbidly obese Limitations: no limitations Back/Spine/Pelvis Other: Patient is able to walk and stand on heels and tip toes with moderate difficulty on the left. Antalgic gait with limping. Can flex forward to 65-70 degrees and extend to 5-10 degrees before experiencing lumbar pain. Demonstrates 5/5 strength of quadriceps bilaterally as well as flexion/dorsiflexion of bilateral feet against resistance. 2+ pedal pulses bilaterally. Seated straight leg rise with dorsiflexion positive on the left. +1 patellar and achilles reflexes bilaterally. Facet loading test positive bilaterally. Kaykay sign positive bilaterally, Jass?s, ASHLEY and Stinchfield tests are positive on the left. No groin pain with I/E hip rotations. Valsalva maneuver negative. Results Reviewed Results Reviewed: XR LUMBOSACRAL SPINE 02/22/23 CLINICAL INFORMATION: Radiculopathy COMPARISON: 10/26/2020 FINDINGS: There is no significant interval change in appearance of straightening of lumbar lordosis and narrowing cough L3-L4 more prominent L4-L5 and L5-S1 with marginal spurring. Pedicles are preserved. Sacroiliac joints unremarkable. Soft tissues are normal. IMPRESSION: Degenerative changes in lower lumbar spine with straightening of lumbar lordosis. XR LUMBOSACRAL SPINE 10/26/20 CLINICAL INFORMATION: Pain COMPARISON: Previous exam December 2019 FINDINGS: There is mild curvature of the lumbar spine to the right. Bone alignment is otherwise normal. No fracture or dislocation is seen. There is degenerative disc disease and spondylosis at L4-L5 and L5-S1. There is lower lumbar spine facet arthritis. There is evidence of atherosclerotic disease. IMPRESSION: Degenerative changes. Assessment & Plan Assessment & Plan (1) Lumbar spondylosis: Code(s): M47.816 - Spondylosis without myelopathy or radiculopathy, lumbar region (2) Lumbar back pain with radiculopathy affecting left lower extremity: Code(s): M54.16 - Radiculopathy, lumbar region (3) Frequent falls: Code(s): R29.6 - Repeated falls (4) Obesity, morbid, BMI 50 or higher: Code(s): E66.01 - Morbid (severe) obesity due to excess calories Plan MRI of the lumbar spine to assess for neural integrity and compression. Patient reports frequent falls due to significant back pain and loosing her balance. Pain appears to be a combination of facetogenic, discogenic and radicular pain components. Will consider interventions targeted towards these pain generators based on the MRI results. Patient will return to the clinic to discuss results of the MRI findings when it is done and consider interventional therapy as indicated. Patient is aware to call if pain worsens or if she develops any red flag symptoms to seek emergency care. Patient denies any cauda equina syndrome symptoms at this time. All questions and concerns have been answered and the patient agreed with the plan. Follow up for MRI results and sooner as needed. Orders: Orders MR lumbar spine wo con Today M47.816 - Spondylosis without myelopathy or radiculopathy, lumbar region, M54.16 - Radiculopathy, lumbar region, R29.6 - Repeated falls Coding Level of Care Code Est Pt Level 4 (10746) Diagnoses Lumbar spondylosis M47.816 Lumbar back pain with radiculopathy affecting left lower extremity M54.16 Frequent falls R29.6 Obesity, morbid, BMI 50 or higher E66.01
[2023-03-08 13:04] VITALS: BP 154/65; PULSE 64; O2SAT 98; BMI 51.2
== END 2023-03-08 13:13 | disposition home or self-care (01) ==
PROVIDERS: PCP Internal Medicine; Visit Provider Nurse Practitioner Family
DX: M47.816 Spondylosis without myelopathy or radiculopathy, lumbar region (principal); M54.16 Radiculopathy, lumbar region; R29.6 Repeated falls; E66.01 Morbid (severe) obesity due to excess calories; Z68.43 Body mass index [BMI] 50.0-59.9, adult
CPT/HCPCS: 99214

== ENCOUNTER → 2023-03-08 12:47 | Outpatient (BNVA) | payer MEDICARE, SELFPAY | PROVIDERS: PCP Internal Medicine; Visit Provider Nurse Practitioner Family | DX: M47.26 Other spondylosis with radiculopathy, lumbar region (principal); R29.6 Repeated falls; E66.01 Morbid (severe) obesity due to excess calories; Z68.43 Body mass index [BMI] 50.0-59.9, adult | CPT/HCPCS: 99212 ==

== ENCOUNTER 2023-05-23 14:05 | Outpatient (AMB) | payer MEDICARE, SELFPAY ==
--- NOTE | 2023-05-23 14:10 | A.OFFPC_ITS ---
Vital Signs 05/23/23 14:22 Height 5 ft Weight 262 lb BMI 51.2 BP 158/80 H Blood Pressure Location Lt brachial Position Sitting Pulse 51 Pulse Source Pulse Oximeter Pulse Oximetry (%) 100 Oxygen Delivery Method Room Air Intake Visit Reasons: rescheduled appt Intake Note: Patient here for a follow up bp, weakness on right arm and pain, rash around groin Nutritional Services Director Required: Yes Accompanied by: Self / Same As Patient Allergies ibuprofen [From MOTRIN] Allergy (Intermediate, Verified 05/23/23 14:37) REDNESS, HIVES,GI Medication List - Last Reconciled 05/23/23 by JUDITH Garcia acetaminophen 1,000 mg (2 x 500 mg) PO Q8H 90 days albuterol sulfate 2.5 mg inhalation Q6H PRN albuterol sulfate 90 mcg/actuation 1 puff PO Q4H PRN 30 days amlodipine 5 mg PO DAILY apixaban (Eliquis) 5 mg PO BID 30 days atorvastatin 40 mg PO BEDTIME 90 days cholecalciferol (vitamin D3) 50 mcg PO DAILY 90 days [compression stockings As directed] [cpap supplies As directed] flecainide 100 mg PO DIRECTED 90 days fluticasone propionate 50 mcg/actuation (Flonase Allergy Relief) 1 spray intranasal DAILY 30 days furosemide 20 mg PO DAILY 90 days gabapentin 600 mg PO BID 90 days lidocaine 5% 1 patch topical DAILY 90 days lisinopril 40 mg PO DAILY 90 days lorazepam (Ativan) 0.5 mg PO BEDTIME PRN 2 days metoprolol succinate ER 25 mg PO DAILY 90 days miscellaneous medical supply (Anti-Embolism Stockings) Use daily rosuvastatin 20 mg PO BEDTIME 90 days scopolamine base 1 patch transdermal Q3D PRN 12 days sertraline 100 mg PO DAILY sumatriptan succinate 50 mg PO ONCE PRN 90 days torsemide 10 mg PO DAILY Ventolin HFA 90 mcg/actuation (albuterol sulfate) 2 puffs inhalation Q6H PRN 30 days NS Tobacco use date assessed: 08/01/22 Fall risk assessment: No Falls in past year Last assessed Fall Risk: 05/23/23 Dental Screening Dental Screen Date: 05/23/23 Did you have a dental visit in the last 12 months?: Yes Did you have a dental problem in the last 6 months where you did not have access to dental care?: No Was dental information given to patient?: Patient has dentist HPI HPI Comments History of Present Illness Details 67-year-old female past medical history significant for hypertension, asthma, migraines, paroxysmal AFib, hypercholesteremia lumbar spondylosis, depression and CKD, obesity. Patient presents today for follow-up visit. Review of the patient currently lumbar spondylosis patient lumbar spine MRI in June. Patient follow with nephrology for her CKD. Patient reports ongoing right arm pain and decreased range of motion, denies acute injury. Patient states over the counter Tylenol with some relief her pain. Discussed referral to physical therapy, patient agreeable. Patient also reports she gets recurrent right groin rash due to wearing overnight pads at night for urinary leakage. Patient states does not have rash at this time, likely fungal. Will send nystatin powder. Patient reminded to get previously ordered fasting blood work completed. Patient reports she no longer has a MILLSTONE CLEANER, but her grandaaughter comes on the weekend to help her with graphic user interface designer. [facility] multi media specialist utilized for this appointment. [facility] Medical History Asthma Back pain Essential hypertension History of atrial fibrillation Left knee pain Leg edema Migraines Moderate asthma Paroxysmal atrial fibrillation Pure hypercholesterolemia Right hip pain Vaginal pruritus Venous (peripheral) insufficiency Venous (peripheral) insufficiency Surgical History History of mammogram History of tubal ligation Hx laparoscopic cholecystectomy Family History Father HTN (hypertension) CVD (cardiovascular disease) Diabetes Mother HTN (hypertension) CVD (cardiovascular disease) Sister Bone cancer Lymphoma Family/Other Substance use disorder Social History Housing: Apartment Alcohol intake: former Patient Tobacco Use Status: Never used Tobacco e-Cigarette/Vaping Use: Never Used Second Hand Smoke Exposure: No service: No Current occupational status: disabled Cognitive needs: Yes Hearing needs: No Vision needs: No Female Reproductive History Menstrual Age of Menarche: 11 Questionnaire Thrive Questionnaire Date Thrive assessed: 08/01/22 REGINALD-7 AMB Questionnaire REGINALD-7 Date REGINALD - 7 assessed: 08/01/22 Source: Developed by Drs. Wero Lowery, Anat Stafford, Mark Slater and colleagues, with an educational lex from [employer]. Review of Systems Const Denies chills, Denies fatigue, Denies fever(s) and Denies poor appetite Eyes Denies no additional complaints ENT Reports Normal hearing present Card Denies chest pain, Denies syncope, Denies rapid heart rate and Denies dyspnea Resp Denies cough and Denies dyspnea GI Denies change in stool character, Denies constipation, Denies diarrhea, Denies nausea and Denies vomiting Denies urinary frequency, Denies dysuria and Denies urinary urgency Musc Reports other (right arm pain ) Neuro Reports Normal hearing present, Denies confusion and Denies syncope Psych Denies confusion Endo Denies fatigue Physical exam (Primary Care) Vital Signs: Last Vital Signs Pulse 51 05/23/23 14:22 BP 158/80 H 05/23/23 14:22 Pulse Ox 100 05/23/23 14:22 Oxygen Delivery Method Room Air 05/23/23 14:22 BMI result Body Mass Index 51.2 Tobacco/Smoking Status: Tobacco use Status Tobacco use date assessed 08/01/22 05/23/23 14:12 Patient Tobacco Use Status Never used Tobacco 05/23/23 14:12 e-Cigarette/Vaping Use Never Used 05/23/23 14:12 Thrive Assessment: Date of Thrive Assessment Date Thrive assessed 08/01/22 05/23/23 14:12 Const General: No confusion Orientation/consciousness: No confusion HENMT Head: Yes normocephalic and Yes atraumatic Eyes Conjunctivae: conjunctivae normal Chest Chest palpation & inspection: normal inspection of the chest Resp Effort & Inspection: normal respiratory effort Auscultation: clear to auscultation bilaterally, no crackles, no rhonchi and no wheezes Cardio Rate: regular rate Rhythm: regular rhythm Heart sounds: S1 normal heart sound present and S2 normal heart sound present GI Inspection: Yes normal to inspection Neuro General: No confusion Cranial nerves: Yes Normal hearing present Extrem General: No edema Right upper extremity: normal to inspection, normal capillary refill and shoulder/upper arm Details: abnormal ROM Details: pain with active ROM Details: in ABduction and external rotation- and pain with passive ROM Details: with ABduction and external rotation- Left upper extremity: normal to inspection and full ROM Office Procedures Flu Questionnaire Does the patient have a severe egg allergy?: No Immunizations flu vacc [id number] 6mos up(PF) 60 mcg(15 mcgx4)/0.5 mL IM syringe Performing Provider: JUDITH Garcia [place] [facility] [place] [facility] [place] [facility] Documented (not given) by: SILVIANO Jain on 05/23/23 14:35 Reason Not Given: Patient Refused Assessment and Plan Assessment & Plan (1) Right arm pain: Code(s): M79.601 - Pain in right arm Plan: Can take [id number] Tylenol as needed for pain. Will refer to physical therapy. (2) Essential hypertension: Code(s): I10 - Essential (primary) hypertension Plan: Continue on metoprolol, lisinopril, amlodipine. Follow low-salt diet and exercise. (3) Groin rash: Code(s): R21 - Rash and other nonspecific skin eruption Plan: Patient describing likely recurrent fungal rash due to urinary incontinence will send nystatin powder for this. (4) CKD (chronic kidney disease) stage 3, GFR 30-59 ml/min: Code(s): N18.30 - Chronic kidney disease, stage 3 unspecified Plan: Continue to follow with Nephrology. (5) KARISSA (obstructive sleep apnea): Code(s): G47.33 - Obstructive sleep apnea (adult) (pediatric) Plan: Continue to use CPAP for greater than 4 hours a night and benefits from this. (6) Lumbar spondylosis: Code(s): M47.816 - Spondylosis without myelopathy or radiculopathy, lumbar region Plan: Continue with pain management. (7) Paroxysmal atrial fibrillation: Code(s): I48.0 - Paroxysmal atrial fibrillation Plan: Continue on flecainide and Eliquis Orders: Orders Influenza [id number] Immunization 05/23/23 Z23 - Encounter for immunization PT Evaluation and Treatment 05/23/23 M79.601 - Pain in right arm, S80.00XA - Contusion of unspecified knee, initial encounter Medications: New nystatin 1 appl topical BID 30 grams 0RF R21 - Rash and other nonspecific skin eruption Coding Level of Care Code Est Pt Level 4 (68339) Diagnoses Right arm pain M79.601 Essential hypertension I10 Groin rash R21 CKD (chronic kidney disease) stage 3, GFR 30-59 ml/min N18.30 KARISSA (obstructive sleep apnea) G47.33 Lumbar spondylosis M47.816 Paroxysmal atrial fibrillation I48.0
[2023-05-23 14:22] VITALS: BP 158/80; PULSE 51; O2SAT 100; BMI 51.2
== END 2023-05-23 15:08 | disposition home or self-care (01) ==
PROVIDERS: PCP Internal Medicine; Visit Provider Nurse Practitioner Family
DX: I12.9 Hypertensive chronic kidney disease with stage 1 through stage 4 chronic kidney disease, or unspecified chronic kidney disease (principal); N18.30 Chronic kidney disease, stage 3 unspecified; I48.0 Paroxysmal atrial fibrillation; M79.601 Pain in right arm; R21 Rash and other nonspecific skin eruption; G47.33 Obstructive sleep apnea (adult) (pediatric); M47.816 Spondylosis without myelopathy or radiculopathy, lumbar region
CPT/HCPCS: 99214

== ENCOUNTER 2023-06-28 07:58 | Outpatient (REF) | payer MEDICARE, SELFPAY ==
--- NOTE | ~2023-06-28 | MR_ITS ---
EXAMINATION: MR LUMBAR SPINE WITHOUT CONTRAST CLINICAL INFORMATION: Right lower extremity pain. Radiculopathy. COMPARISON: Lumbar spine radiographs 02/22/2023. TECHNIQUE: MRI of the lumbar spine was obtained using routine sequences without contrast. FINDINGS: Alignment is normal. Vertebral body heights are preserved. There are mixed degenerative endplate changes at L4-L5. There is slight loss of intervertebral disc height and T2 signal intensity at L4-L5 related to disc degeneration. Disc desiccation visualized at multiple additional levels. The tip of the conus medullaris is located at L2. No mass effect on the conus. Visualized distal cord signal intensity is normal. At L1-L2 there is a bulging disc. Bilateral facet degenerative change. No canal stenosis. No mass effect on traversing or foraminal nerve roots. At L2-L3 there is a small right subarticular protrusion superimposed upon a bulging disc. No canal stenosis. No mass effect on the traversing or foraminal nerve roots. At L3-L4 there is a bulging disc. Bilateral facet degenerative change. No canal stenosis. No mass effect on traversing or foraminal nerve roots. At L4-L5 there is an asymmetrically bulging disc to the left. Bilateral facet degenerative change. No canal stenosis. Subtle abutment of left traversing L5 nerve roots. No foraminal nerve root compression. At L5-S1 there is a slightly bulging disc. Bilateral facet degenerative change. Moderate compression of the right L5 foraminal nerve root. Limited visualization of the retroperitoneal anatomy reveals no abnormal finding. Psoas and paraspinal structures. MR/MR lumbar spine wo con IMPRESSION: There is multilevel degenerative spondylosis of the lumbar spine. A bulging disc in conjunction with facet degenerative change at L5-S1 causes moderate compression of the right L5 foraminal nerve root. Otherwise no substantial mass effect on the traversing or foraminal nerve roots elsewhere within the lumbar spine. No canal stenosis.
[2023-06-28 09:22] LABS: Alanine Aminotransferase 10 U/L (0-31); Albumin Level 3.8 g/dL (3.5-5.0); Alkaline Phosphatase 64 U/L (39-117); Anion Gap 10 (12-20); Aspartate Amino Transferase 17 U/L (5-31); Bilirubin Total 0.4 mg/dL (0.0-1.0); Blood Urea Nitrogen 16 mg/dL (9-16); Calcium 9.4 mg/dL (8.4-10.2); Carbon Dioxide 30 mmol/L (22-29); Chloride 104 mmol/L (96-108); Cholesterol 202 mg/dL (<200); Estimated Glomerular Filt Rate 47; Glucose Fasting 93 mg/dL (60-99); HDL Cholesterol 69 mg/dL (>40); LDL Cholesterol Calculated 120 mg/dL (<100); Potassium 4.3 mmol/L (3.3-5.1); Sodium 140 mmol/L (135-145); Total Protein 7.2 g/dL (6.5-8.0); Triglycerides 66 mg/dL (<150)
[2023-06-28 09:35] LABS: Vitamin D 25-OH Total 40.9 ng/mL (>30)
== END 2023-06-28 07:59 | disposition home or self-care (01) ==
LOC: HO.MRI 07:58
PROVIDERS: Absent Provider Internal Medicine; PCP Internal Medicine; Visit Provider Nurse Practitioner Family
DX: M54.16 Radiculopathy, lumbar region (principal); M47.816 Spondylosis without myelopathy or radiculopathy, lumbar region; E78.5 Hyperlipidemia, unspecified; E55.9 Vitamin D deficiency, unspecified; N18.30 Chronic kidney disease, stage 3 unspecified; R29.6 Repeated falls
CPT/HCPCS: 36415; 72148; 80053; 80061; 82306

== ENCOUNTER 2023-08-01 12:51 | Outpatient (AMB) | payer MEDICARE, SELFPAY ==
--- NOTE | 2023-08-01 12:52 | MHC.OFFVIS ---
Intake Vital Signs 08/01/23 12:57 Height 5 ft Weight 270 lb BMI 52.7 BP 179/72 H Blood Pressure Location Rt brachial Position Sitting Pulse 68 Pulse Source Pulse Oximeter Pulse Oximetry (%) 97 Oxygen Delivery Method Room Air Intake Visit Reasons: MRI follow up/lvm Intake Note: Pain today 01/21 Head Sawyer Required: Yes Head Sawyer Language: Lapping Machine Set Up Operator Name: [id number] MA Accompanied by: Self / Same As Patient Allergies ibuprofen [From MOTRIN] Allergy (Intermediate, Verified 05/23/23 14:37) REDNESS, HIVES,GI HPI HPI Comments History of Present Illness Details Patient presents today to review recent lumbar spine MRI results. Patient continues to endorse right sided radicular pain with associated numbness and tingling in her right thigh and lateral right leg and toes without weakness or foot drop on the right. She reports occasional symptoms in left lower extremity. Reports axial low back pain with movements and prolonged standing. Radicular pain increases with walking and bending forward. Patient is concerned about her weight and BMI 52.7. Patient reports she is interested in Weight Management Referral to assist her in weight loss goals and to reduce back pain and pain in her joints. She denies any recent cough, cold, infection, fever or other significant changes in medical history since last office visit. Denies any changes to medications, medical history or recent hospitalizations. PRIOR: Patient presents today for follow up for low back pain with left radicular symptoms after long absence. She was last seen in our office in October,. Patient reports worsening low back pain with radiation into her left lateral hip and lateral leg and anterior cruz and her toes with numbness and tingling and occasional weakness. Reports multiple falls due to back pain since August. Denies any hip or groin pain. Bending forward, walking, prolonged sitting or standing, changing positions increase her pain. Pain negatively affects her daily general activities, mood, sleep and quality of life. Her recent lumbar spine xray on 02/22/23 showed degenerative changes in lower lumbar spine with straightening of lumbar lordosis, and narrowing L3-L4 more prominent L4-L5 and L5-S1 with marginal spurring. No previous lumbar spine MRI has been done per patient. Patient avoids NSAIDs due to allergies as well as CKD stage 3 with last Renal follow up in December 2022. Patient takes Tylenol, lidocaine patches and gabapentin for moderate pain with minimal effects. She is interested in interventional treatments to alleviate her radicular symptoms. She takes Eliquis for Afib. Denies any fever, abdominal or groin pain, bladder or bowel incontinence or saddle anesthesia. PRIOR: Patient presents today for follow up to assess response to Right Diagnostic SIJ on 10/31/[address] Pratt. Patient reports that her pain was 10/10 prior to procedure and 9/10 immediately after procedure, with slow reduction of pain that day to 7/10 for 48 hours post procedure. She reports after 48 hours, her pain has decreased and still ongoing 2/10 with 80% pain relief and only increases to 3/10 with walking or stairs climbing. Patient is not willing to undergo same procedure in order to establish reproducible response to the treatment. She denies pain with internal and external right hip rotations on exam today and only mild pain with provocative test for right SIJ. Patient reports lidocaine patches have been helpful as well for her lower back pain. Patient states she would like to pause all interventional treatment options at this time and will call us once her pain significantly returns. [facility] Medical History Venous (peripheral) insufficiency Leg edema Pure hypercholesterolemia Paroxysmal atrial fibrillation Back pain Right hip pain Asthma Left knee pain Venous (peripheral) insufficiency History of atrial fibrillation Migraines Vaginal pruritus Moderate asthma Essential hypertension Surgical History History of mammogram History of tubal ligation Hx laparoscopic cholecystectomy Family History Father HTN (hypertension) CVD (cardiovascular disease) Diabetes Mother HTN (hypertension) CVD (cardiovascular disease) Sister Bone cancer Lymphoma Family/Other Substance use disorder Social History Housing: Apartment Alcohol intake: former Patient Tobacco Use Status: Never used Tobacco e-Cigarette/Vaping Use: Never Used Second Hand Smoke Exposure: No service: No Current occupational status: disabled Cognitive needs: Yes Hearing needs: No Vision needs: No Female Reproductive History Menstrual Age of Menarche: 11 Review of Systems Const All systems reviewed & are unremarkable except as noted in HPI and below Physical Exam Vital Signs: Last Vital Signs Pulse 68 08/01/23 12:57 BP 179/72 H 08/01/23 12:57 Pulse Ox 97 08/01/23 12:57 Oxygen Delivery Method Room Air 08/01/23 12:57 BMI result Body Mass Index 52.7 General: Appears afebrile. Alert and oriented. Mood and affect appropriate. Follows and participates in conversation appropriately. Respiratory effort is unlabored. No cough. Able to transition from sit to stand unassisted. Const General: no acute distress Nutritional Appearance: obese morbidly obese Limitations: no limitations Back/Spine/Pelvis Other: Patient is able to walk and stand on heels and tip toes with moderate difficulty on the right. Antalgic gait with limping. Can flex forward to 60-70 degrees and extend to 5-10 degrees before experiencing lumbar pain. Demonstrates 5/5 strength of quadriceps bilaterally as well as flexion/dorsiflexion of bilateral feet against resistance. 2+ pedal pulses bilaterally. Seated straight leg rise with dorsiflexion positive on the right, equivocal on the left. +1 patellar and achilles reflexes bilaterally. Facet loading test positive bilaterally. Kaykay sign positive bilaterally, Jass?s, ASHLEY and Stinchfield tests are positive on the left. No groin pain with I/E hip rotations. Valsalva maneuver negative. Cervical Spine: cervical ROM normal, cervical muscular tenderness and No Cervical spine tenderness Thoracic/Lumbar Spine: thoracic and lumbar spine normal to inspection, No Thoracic/lumbar spine scar(s), Lasegue's sign positive, pain with thoraco-lumbar ROM, paraspinal muscle tenderness, thoraco-lumbar ROM limited, No thoracic spinal tenderness and lumbar spinal tenderness (L4-S1) Pelvis: buttock tenderness bilaterally Sacroiliac joints: bilaterally tender to palpation Results Reviewed Results Reviewed: XR LUMBOSACRAL SPINE 02/22/23 CLINICAL INFORMATION: Radiculopathy COMPARISON: 10/26/2020 FINDINGS: There is no significant interval change in appearance of straightening of lumbar lordosis and narrowing cough L3-L4 more prominent L4-L5 and L5-S1 with marginal spurring. Pedicles are preserved. Sacroiliac joints unremarkable. Soft tissues are normal. IMPRESSION: Degenerative changes in lower lumbar spine with straightening of lumbar lordosis. MR LUMBAR SPINE WITHOUT CONTRAST 06/28/23 CLINICAL INFORMATION: Right lower extremity pain. Radiculopathy. COMPARISON: Lumbar spine radiographs 02/22/2023. FINDINGS: Alignment is normal. Vertebral body heights are preserved. There are mixed degenerative endplate changes at L4-L5. There is slight loss of intervertebral disc height and T2 signal intensity at L4-L5 related to disc degeneration. Disc desiccation visualized at multiple additional levels. The tip of the conus medullaris is located at L2. No mass effect on the conus. Visualized distal cord signal intensity is normal. At L1-L2 there is a bulging disc. Bilateral facet degenerative change. No canal stenosis. No mass effect on traversing or foraminal nerve roots. At L2-L3 there is a small right subarticular protrusion superimposed upon a bulging disc. No canal stenosis. No mass effect on the traversing or foraminal nerve roots. At L3-L4 there is a bulging disc. Bilateral facet degenerative change. No canal stenosis. No mass effect on traversing or foraminal nerve roots. At L4-L5 there is an asymmetrically bulging disc to the left. Bilateral facet degenerative change. No canal stenosis. Subtle abutment of left traversing L5 nerve roots. No foraminal nerve root compression. At L5-S1 there is a slightly bulging disc. Bilateral facet degenerative change. Moderate compression of the right L5 foraminal nerve root. Limited visualization of the retroperitoneal anatomy reveals no abnormal finding. Psoas and paraspinal structures. IMPRESSION: There is multilevel degenerative spondylosis of the lumbar spine. A bulging disc in conjunction with facet degenerative change at L5-S1 causes moderate compression of the right L5 foraminal nerve root. Otherwise no substantial mass effect on the traversing or foraminal nerve roots elsewhere within the lumbar spine. No canal stenosis. Assessment & Plan Assessment & Plan (1) Obesity, morbid, BMI 50 or higher: Code(s): E66.01 - Morbid (severe) obesity due to excess calories (2) Degenerative disc disease, lumbar: Code(s): M51.36 - Other intervertebral disc degeneration, lumbar region (3) Lumbar radiculopathy: Code(s): M54.16 - Radiculopathy, lumbar region (4) Lumbar spondylosis: Code(s): M47.816 - Spondylosis without myelopathy or radiculopathy, lumbar region (5) Osteoarthritis of both knees: Code(s): M17.0 - Bilateral primary osteoarthritis of knee Plan 1. For ongoing radicular pain, we will schedule Bilateral L4-L5 TFESI with local and fluoroscopy. 2. For ongoing axial low back pain will tentatively plan for diagnostic bilateral L3-L4 DR L5 medial branch blocks with local and fluoroscopy. If she has significant relief from the diagnostic blocks for her axial low back pain, will consider either therapeutic injections, Sprint PNS or RFA depending on her preference. 3. Weight Management Referral to assist to address morbid obesity which significantly affects patient's low back and bilateral knee pain. Current BMI 52.7. All questions and concerns have been answered and patient agreed with the plan. Follow up after injections and sooner as needed. Anticoagulation: Patient on anticoagulation (Eliquis) and instructions given on when to pause with prescribing physician permission. Justification for interventional therapy: ? Patient with average pain > 6/10 ? Patient has exhausted conservative therapy The risks, consequences, alternatives, and benefits of various treatment options were discussed with the patient in great detail, including conservative management, injections and procedures. Patient is aware of hyperglycemic effects of steroids. Orders: Referrals Medical Weight Management Referral E66.01 - Morbid (severe) obesity due to excess calories, M51.36 - Other intervertebral disc degeneration, lumbar region, M54.16 - Radiculopathy, lumbar region Coding Level of Care Code Est Pt Level 4 (86169) Diagnoses Obesity, morbid, BMI 50 or higher E66.01 Degenerative disc disease, lumbar M51.36 Lumbar radiculopathy M54.16 Lumbar spondylosis M47.816 Osteoarthritis of both knees M17.0
[2023-08-01 12:57] VITALS: BP 179/72; PULSE 68; O2SAT 97; BMI 52.7
== END 2023-08-01 13:13 | disposition home or self-care (01) ==
PROVIDERS: PCP Internal Medicine; Visit Provider Nurse Practitioner Family
DX: E66.01 Morbid (severe) obesity due to excess calories (principal); M51.36 Other intervertebral disc degeneration, lumbar region; M54.16 Radiculopathy, lumbar region; M47.816 Spondylosis without myelopathy or radiculopathy, lumbar region; M17.0 Bilateral primary osteoarthritis of knee
CPT/HCPCS: 99214

== ENCOUNTER → 2023-08-01 12:51 | Outpatient (BNVA) | payer MEDICARE, SELFPAY | PROVIDERS: PCP Internal Medicine; Visit Provider Nurse Practitioner Family | DX: M51.36 Other intervertebral disc degeneration, lumbar region (principal); M54.16 Radiculopathy, lumbar region; M47.816 Spondylosis without myelopathy or radiculopathy, lumbar region; M17.0 Bilateral primary osteoarthritis of knee; E66.01 Morbid (severe) obesity due to excess calories; Z68.43 Body mass index [BMI] 50.0-59.9, adult | CPT/HCPCS: 99212 ==

== ENCOUNTER 2023-09-18 13:10 | Outpatient (AMB) | payer MEDICARE, SELFPAY ==
[2023-09-18 13:13] VITALS: BP 150/70; BMI 51.0
--- NOTE | 2023-09-18 13:13 | A.OFFPC_ITS ---
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 Accompanied by: Self / Same As Patient Allergies ibuprofen [From MOTRIN] Allergy (Intermediate, Verified 09/18/23 13:38) REDNESS, HIVES,GI Medication List - Last Reconciled 09/18/23 by Mi Hua MD acetaminophen 1,000 mg (2 x 500 mg) PO Q8H 90 days albuterol sulfate 2.5 mg inhalation Q6H PRN albuterol sulfate 90 mcg/actuation 1 puff PO Q4H PRN 30 days amlodipine 5 mg PO DAILY apixaban (Eliquis) 5 mg PO BID 30 days atorvastatin 40 mg PO BEDTIME 90 days cholecalciferol (vitamin D3) 50 mcg PO DAILY 90 days [compression stockings As directed] [cpap supplies As directed] flecainide 100 mg PO DIRECTED 90 days fluticasone propionate 50 mcg/actuation (Flonase Allergy Relief) 1 spray intranasal DAILY 30 days furosemide 20 mg PO DAILY 90 days gabapentin 600 mg PO BID 90 days lidocaine 5% 1 patch topical DAILY 90 days lisinopril 40 mg PO DAILY 90 days lorazepam (Ativan) 0.5 mg PO BEDTIME PRN 2 days metoprolol succinate ER 25 mg PO DAILY 90 days miscellaneous medical supply (Anti-Embolism Stockings) Use daily rosuvastatin 20 mg PO BEDTIME 90 days torsemide 10 mg PO DAILY Ventolin HFA 90 mcg/actuation (albuterol sulfate) 2 puffs inhalation Q6H PRN 30 days NS Tobacco use date assessed: 09/18/23 Fall risk assessment: No Falls in past year Last assessed Fall Risk: 09/18/23 Dental Screening Dental Screen Date: 09/18/23 Did you have a dental visit in the last 12 months?: No Did you have a dental problem in the last 6 months where you did not have access to dental care?: No Was dental information given to patient?: Patient has dentist HPI HPI Comments History of Present Illness Details This is a 68-year-old female with hypertension, paroxysmal atrial fibrillation, dyslipidemia and morbid obesity with BMI of 51 that comes today for follow-up on her conditions. Blood pressure still elevated and I will increase amlodipine from 5 mg to 10 mg. Blood pressure will be recheck in 3 weeks by nurse navigator. On chronic anticoagulation for atrial fibrillation and the goal is heart rate control. Lipid panel will be order. She is morbidly obese with a BMI of 51 and would like to go to weight management for evaluation of weight loss surgery. Denies any chest pain or shortness of breath. She also has chronic kidney disease stage 3 with a GFR of 57 and is aware that has to avoid NSAIDs. [facility] Medical History (Updated 09/18/23 @ 14:27 by Mi Hua MD) Mild recurrent major depression Morbid obesity with BMI of 45.0-49.9, adult Venous (peripheral) insufficiency Leg edema Pure hypercholesterolemia Paroxysmal atrial fibrillation Back pain Right hip pain Asthma Left knee pain Venous (peripheral) insufficiency History of atrial fibrillation Migraines Vaginal pruritus Moderate asthma Essential hypertension Surgical History History of mammogram History of tubal ligation Hx laparoscopic cholecystectomy Family History Father HTN (hypertension) CVD (cardiovascular disease) Diabetes Mother HTN (hypertension) CVD (cardiovascular disease) Sister Bone cancer Lymphoma Family/Other Substance use disorder Social History Housing: Apartment Alcohol intake: former Patient Tobacco Use Status: Never used Tobacco e-Cigarette/Vaping Use: Never Used Second Hand Smoke Exposure: No service: No Current occupational status: disabled Cognitive needs: Yes Hearing needs: No Vision needs: No Female Reproductive History Menstrual Age of Menarche: 11 Questionnaire PHQ-9 Over the last 2 weeks, how often have you been bothered by any of the following problems? 1. Little interest or pleasure in doing things: several days 2. Feeling down, depressed, or hopeless: several days 3. Trouble falling or staying asleep, or sleeping too much: not at all 4. Feeling tired or having little energy: several days 5. Poor appetite or overeating: several days 6. Feeling bad about yourself - or that you are a failure or have let yourself or your family down: not at all 7. Trouble concentrating on things, such as reading the newspaper or watching television: several days 8. Moving or speaking so slowly that other people could have noticed. Or the opposite - being so fidgety or restless that you have been moving around a lot more than usual: several days 9. Thoughts that you would be better off or of hurting yourself in some way: not at all Total score: 6 Depression Screening Interpretation: Positive Depression Screening Follow-up: Existing condition Depression Screening Done: Yes 53945 - PHQ-9 Billing: Yes Source: Developed by Drs. Wero Lowery, Anat Stafford, Mark Slater and colleagues, with an educational lex from [employer]. Thrive Questionnaire Date Thrive assessed: 09/18/23 I am a: Patient What is your living situation today?: I have a steady place to live Within the past 12 months, did the food you bought not last and you didn't have the money to get more?: Never true Within the past 12 months, did you worry whether your food would run out before you got money to buy more?: Never true Do you have trouble paying for medicines?: No Do you have trouble getting transportation to medical appointments?: No Do you have trouble paying your heating and electricity bill?: No Do you have trouble taking care of your child, family member or friend?: No Do you have trouble with day-to-day activities such as bathing, preparing meals, shopping, managing finances, etc.?: No Are you currently unemployed and looking for a job?: No Are you interested in more education?: No Please select the resources that you would like help with: None Currently or been in a relationship where the following occur: no concerns reported THRIVE Score: 0 AUDIT C Alcohol Use Questionnaire (AUDIT-C) 1. How often do you have a drink containing alcohol?: Never Total Score: 0 REGINALD-7 AMB Questionnaire REGINALD-7 Date REGINALD - 7 assessed: 09/18/23 Feeling nervous, anxious, or on edge: 0 = Not at all Not being able to stop or control worryin = Not at all Worrying too much about different things: 0 = Not at all Trouble relaxin = Not at all Being so restless that it is hard to sit still: 0 = Not at all Becoming easily annoyed or irritable: 0 = Not at all Feeling afraid as if something awful might happen: 0 = Not at all Total REGINALD-7 score (0-4 normal; 5-9 mild; 10-14 moderate; 15-21 severe): 0 Source: Developed by Drs. Wero Lowery, Anat Stafford, Mark Slater and colleagues, with an educational lex from [employer]. REGINALD-7 Assessment Billing REGINALD-7 Assessment Tool: REGINALD-7 Assessment 54571 Review of Systems Const All systems reviewed & are unremarkable except as noted in HPI and below Eyes Reports no additional complaints, Denies change in vision and Denies other visual disturbances Card Denies chest pain at rest, Denies chest pain with activity, Denies edema, Denies irregular heart rhythm, Denies claudication, Denies dyspnea, Denies dyspnea on exertion, Denies orthopnea, Denies paroxysmal nocturnal dyspnea and Denies slow heart rate Resp Denies cough, Denies dyspnea and Denies dyspnea on exertion GI Denies abdominal pain, Denies change in bowel habits, Denies excessive flatus, Denies nausea and Denies vomiting Denies urinary incontinence, Denies urinary hesitancy and Denies urinary urgency Musc Denies abnormal gait, Denies atrophy, Denies deformity and Denies limited range of motion Skin/Breast Denies bleeding lesions, Denies changing lesions and Denies rash Neuro Denies abnormal gait and Denies lack of coordination Physical exam (Primary Care) Vital Signs: Last Vital Signs BP 150/70 H 09/18/23 13:13 BMI result Body Mass Index 51.0 Tobacco/Smoking Status: Tobacco use Status Tobacco use date assessed 09/18/23 09/18/23 13:22 Patient Tobacco Use Status Never used Tobacco 09/18/23 13:22 e-Cigarette/Vaping Use Never Used 09/18/23 13:22 PHQ-9: PHQ-9 Score PHQ-9: Total score 6 09/18/23 13:22 Depression Screening Interpretation: Positive Depression Screening Follow-up: Existing condition Thrive Assessment: Date of Thrive Assessment Date Thrive assessed 09/18/23 09/18/23 13:22 Currently or been in a relationship where the following occur: no concerns reported Eyes General: appearance normal, both eyes and all related structures Eyelids: Yes eyelids normal Conjunctivae: conjunctivae normal Neck Neck: Yes normal visual inspection and Yes supple Resp Effort & Inspection: normal respiratory effort Auscultation: clear to auscultation bilaterally Cardio Jugular venous distension: no JVD Rate: regular rate Rhythm: regular rhythm Heart sounds: S1 normal heart sound present and S2 normal heart sound present Extrem General: Yes full ROM Assessment and Plan Assessment & Plan (1) Essential hypertension: Code(s): I10 - Essential (primary) hypertension Plan: Continue lisinopril. Increase amlodipine to 10 mg. Blood pressure goal is equal or less than 130/80. (2) Dyslipidemia: Code(s): E78.5 - Hyperlipidemia, unspecified Plan: Continue statins. (3) CKD (chronic kidney disease) stage 3, GFR 30-59 ml/min: Code(s): N18.30 - Chronic kidney disease, stage 3 unspecified Qualifiers: Chronic kidney disease stage 3 subtype: stage 3a (GFR 45-59) Qualified Code(s): N18.31 - Chronic kidney disease, stage 3a Plan: Avoid NSAIDs. Blood pressure should be less than 130/80. (4) Obesity, morbid, BMI 50 or higher: Code(s): E66.01 - Morbid (severe) obesity due to excess calories Plan: Referred to weight management. BMI goal is less than 30. (5) Paroxysmal atrial fibrillation: Code(s): I48.0 - Paroxysmal atrial fibrillation Plan: Continue chronic anticoagulation. Continue flecainide. The goal is heart rate control. Orders: Orders Lipid Panel 4 Months E78.5 - Hyperlipidemia, unspecified Comprehensive [place]. Panel Fast 4 Months N18.30 - Chronic kidney disease, stage 3 unspecified Referrals Gastroenterology Referral Z12.11 - Encounter for screening for malignant neoplasm of colon Medical Weight Management Referral E66.01 - Morbid (severe) obesity due to excess calories Medications: New amlodipine 10 mg PO DAILY 90 days 90 tabs 1RF Coding Level of Care Code Est Pt Level 4 (52561) Diagnoses Essential hypertension I10 Dyslipidemia E78.5 Stage 3a chronic kidney disease N18.31 Chronic kidney disease stage 3 subtype: stage 3a (GFR 45-59) Obesity, morbid, BMI 50 or higher E66.01 Paroxysmal atrial fibrillation I48.0 Additional Codes REGINALD-7 Assessment Billing - REGINALD-7 Assessment Tool: REGINALD-7 Assessment 09956 ([id number]) Time Spent (min) 24
== END 2023-09-18 13:51 | disposition home or self-care (01) ==
PROVIDERS: PCP Internal Medicine; Visit Provider Internal Medicine
DX: I12.9 Hypertensive chronic kidney disease with stage 1 through stage 4 chronic kidney disease, or unspecified chronic kidney disease (principal); N18.31 Chronic kidney disease, stage 3a; E78.5 Hyperlipidemia, unspecified; I48.0 Paroxysmal atrial fibrillation
CPT/HCPCS: 99214

== ENCOUNTER 2023-09-24 06:16 | Outpatient (REF) | payer MEDICARE, SELFPAY ==
--- NOTE | ~2023-09-24 | FL_ITS ---
EXAMINATION: XR FLUOROSCOPY WITH IMAGES CLINICAL INFORMATION: Radiculopathy. COMPARISON: None available. TECHNIQUE: Fluoroscopy Supervised By: JUDITH Andersen. Fluoroscopy Time: 0.4 minutes. Cumulative Dose: 8.58 mGy. DAP: 0.149 Gy-cm2. Images: 4. FINDINGS: There are 4 digital images of lumbar spine revealing needle positioned adjacent to the L4 pedicles with contrast opacifying the epidural space. There is moderate ventral spondylosis at L4-L5 and L5-S1 disc levels. No aggressive lytic or sclerotic process seen. FL/FL guidance in treatment room IMPRESSION: Fluoroscopy guidance was provided to referrer for pain management as described above.
== END 2023-09-24 06:17 | disposition home or self-care (01) ==
LOC: CF 06:16
PROVIDERS: Visit Provider Anesthesiology
DX: M54.16 Radiculopathy, lumbar region (principal); M51.36 Other intervertebral disc degeneration, lumbar region; M47.816 Spondylosis without myelopathy or radiculopathy, lumbar region; M17.0 Bilateral primary osteoarthritis of knee; E66.01 Morbid (severe) obesity due to excess calories
CPT/HCPCS: 64483; J3301; Q9967

== ENCOUNTER 2023-09-24 10:36 | Outpatient (AMB) | payer MEDICARE, SELFPAY ==
[2023-09-24 10:44] VITALS: BP 144/72; PULSE 50; RESP 16; O2SAT 99; BMI 51.0
--- NOTE | 2023-09-24 10:44 | MHC.OFFVIS ---
Intake Vital Signs 09/24/23 10:44 09/24/23 11:42 Height 5 ft Weight 261 lb BMI 51.0 BP 144/72 H 140/88 H Blood Pressure Location Lt brachial Lt brachial Position Sitting Sitting Respiration 16 18 Pulse 50 56 Pulse Source Pulse Oximeter Pulse Oximeter Pulse Oximetry (%) 99 97 Oxygen Delivery Method Room Air Room Air Comment Pre-Op Post-Op Intake Visit Reasons: BILATERAL L4, L5 TFESI Allergies ibuprofen [From MOTRIN] Allergy (Intermediate, Verified 09/18/23 13:38) REDNESS, HIVES,GI PFSH Medical History (Updated 09/18/23 @ 14:27 by Mi Hua MD) Mild recurrent major depression Morbid obesity with BMI of 45.0-49.9, adult Venous (peripheral) insufficiency Leg edema Pure hypercholesterolemia Paroxysmal atrial fibrillation Back pain Right hip pain Asthma Left knee pain Venous (peripheral) insufficiency History of atrial fibrillation Migraines Vaginal pruritus Moderate asthma Essential hypertension Surgical History History of mammogram History of tubal ligation Hx laparoscopic cholecystectomy Family History Father HTN (hypertension) CVD (cardiovascular disease) Diabetes Mother HTN (hypertension) CVD (cardiovascular disease) Sister Bone cancer Lymphoma Family/Other Substance use disorder Social History Housing: Apartment Alcohol intake: former Patient Tobacco Use Status: Never used Tobacco e-Cigarette/Vaping Use: Never Used Second Hand Smoke Exposure: No service: No Current occupational status: disabled Cognitive needs: Yes Hearing needs: No Vision needs: No Female Reproductive History Menstrual Age of Menarche: 11 Physical Exam Vital Signs: Last Vital Signs Pulse 56 09/24/23 11:42 Resp 18 09/24/23 11:42 BP 140/88 H 09/24/23 11:42 Pulse Ox 97 09/24/23 11:42 Oxygen Delivery Method Room Air 09/24/23 11:42 BMI result Body Mass Index 51.0 Assessment & Plan Assessment & Plan (1) Obesity, morbid, BMI 50 or higher: Code(s): E66.01 - Morbid (severe) obesity due to excess calories Plan: Transforaminal epidural steroid injection Informed consent was thoroughly explained to the patient before the procedure.? The patient came to the operating room.? He was positioned prone on operating table with a pillow under his abdomen.? Time-out was performed delineating correct site and side of the procedure, nature of the injection, name and date of of the patient. The lower back of the patient was prepped with ChloraPrep and draped with sterile utility towels.? C-arm was brought over the operating field and sq picture of L4 vertebra were demonstrated on the screen.? The right side was chosen as the side of the injection.? Tilting machine ipsilateral to the right at the level of L4 the most prominent picture of the right pedicle was obtained on the screen.? 3 mm below the level of the lowest point of the pedicle projection to the skin small amount of lidocaine 1% 3-4 cc was injected to anesthetize the skin.? After that 5 in 22 gauge Quincke point needle was inserted through the skin wheal and was advanced to were the L4-5 foramina on anterior posterior , lateral and oblique views intermittently.? When tip of the needle entered foramina projection on AP view injection of the contrast was performed demonstrating epidural and perineural spread of the contrast.? On the lateral view contrast was spread in the epidural fashion. After that injection of the treatment medicine 4 cc of lidocaine 1% mixed with Kenalog 20 mg was injected into the foramina.? Injection of the contrast and injection of the treatment medicine was observed live on the screen.? No intrathecal and no intravascular spread of the contrast was noted. After that the procedure was performed in the mirroring fashion on L4-5 level on the left. Upon completion of the procedure sterile Band-Aids were applied. Patient tolerated procedure well he was taken outside of the operating room where she recovered uneventfully.? He went home without immediate complications. (2) Degenerative disc disease, lumbar: Code(s): M51.36 - Other intervertebral disc degeneration, lumbar region (3) Lumbar radiculopathy: Code(s): M54.16 - Radiculopathy, lumbar region (4) Lumbar spondylosis: Code(s): M47.816 - Spondylosis without myelopathy or radiculopathy, lumbar region (5) Osteoarthritis of both knees: Code(s): M17.0 - Bilateral primary osteoarthritis of knee Plan 1. For ongoing radicular pain, we will schedule Bilateral L4-L5 TFESI with local and fluoroscopy. 2. For ongoing axial low back pain will tentatively plan for diagnostic bilateral L3-L4 DR L5 medial branch blocks with local and fluoroscopy. If she has significant relief from the diagnostic blocks for her axial low back pain, will consider either therapeutic injections, Sprint PNS or RFA depending on her preference. 3. Weight Management Referral to assist to address morbid obesity which significantly affects patient's low back and bilateral knee pain. Current BMI 52.7. All questions and concerns have been answered and patient agreed with the plan. Follow up after injections and sooner as needed. Anticoagulation: Patient on anticoagulation (Eliquis) and instructions given on when to pause with prescribing physician permission. Justification for interventional therapy: ? Patient with average pain > 6/10 ? Patient has exhausted conservative therapy The risks, consequences, alternatives, and benefits of various treatment options were discussed with the patient in great detail, including conservative management, injections and procedures. Patient is aware of hyperglycemic effects of steroids. Orders: Orders FL guidance in treatment room Today M54.16 - Radiculopathy, lumbar region Coding Level of Care Code Procedure Only Diagnoses Obesity, morbid, BMI 50 or higher E66.01 Degenerative disc disease, lumbar M51.36 Lumbar radiculopathy M54.16 Lumbar spondylosis M47.816 Osteoarthritis of both knees M17.0
[2023-09-24 11:42] VITALS: BP 140/88; PULSE 56; RESP 18; O2SAT 97
== END 2023-09-24 11:39 | disposition home or self-care (01) ==
LOC: HO.PMCPRC 10:36
PROVIDERS: PCP Internal Medicine; Visit Provider Anesthesiology
DX: M54.16 Radiculopathy, lumbar region (principal)
CPT/HCPCS: 64483

== ENCOUNTER 2023-10-07 13:20 | Outpatient (REF) | payer MEDICARE, SELFPAY ==
[2023-10-07 15:35] LABS: Alanine Aminotransferase 13 U/L (0-31); Albumin Level 4.1 g/dL (3.5-5.0); Alkaline Phosphatase 68 U/L (39-117); Anion Gap 12 (12-20); Aspartate Amino Transferase 17 U/L (5-31); Bilirubin Total 0.6 mg/dL (0.0-1.0); Blood Urea Nitrogen 18 mg/dL (9-16); Calcium 9.6 mg/dL (8.4-10.2); Carbon Dioxide 27 mmol/L (22-29); Chloride 106 mmol/L (96-108); Cholesterol 207 mg/dL (<200); Estimated Glomerular Filt Rate 49; Glucose Fasting 80 mg/dL (60-99); HDL Cholesterol 74 mg/dL (>40); LDL Cholesterol Calculated 114 mg/dL (<100); Potassium 4.3 mmol/L (3.3-5.1); Sodium 141 mmol/L (135-145); Total Protein 7.6 g/dL (6.5-8.0); Triglycerides 99 mg/dL (<150)
[2023-10-10 07:48] LABS: TS Negative Control Passed; TS Panel A 0; TS Panel B 2; TS Positive Control Passed; TSpotTB Negative (Negative)
== END 2023-10-07 13:21 | disposition home or self-care (01) ==
LOC: HO.LAB 13:20
PROVIDERS: PCP Internal Medicine; Visit Provider Internal Medicine
DX: N18.30 Chronic kidney disease, stage 3 unspecified (principal); E78.5 Hyperlipidemia, unspecified; Z11.1 Encounter for screening for respiratory tuberculosis
CPT/HCPCS: 36415; 80053; 80061; 86481

== ENCOUNTER 2023-11-22 13:17 | Outpatient (AMB) | payer MEDICARE, SELFPAY ==
[2023-11-22 13:23] VITALS: BP 132/68; PULSE 62; TEMP 36.5; O2SAT 100; BMI 49.9
--- NOTE | 2023-11-22 13:23 | MHC.OFFWIV ---
Intake Vital Signs 11/22/23 13:23 Height 5 ft Weight 255 lb 6 oz BMI 49.9 BP 132/68 Blood Pressure Location Lt brachial Position Sitting Pulse 62 Pulse Source Pulse Oximeter Temp 97.7 F Temp Source Temporal Artery Scan Pulse Oximetry (%) 100 Oxygen Delivery Method Room Air Intake Visit Reasons: EP cough for a week Intake Note: Pt presents to the office today for c/o a cough for a week in the mornings and afternoons. She states she has congestion and nausea as well. Patient Tobacco Use Status: Never used Tobacco Allergies ibuprofen [From MOTRIN] Allergy (Intermediate, Verified 11/22/23 13:24) REDNESS, HIVES,GI HPI HPI Comments History of Present Illness Details 68 y/o female patient who presents to the in clinic with c/o cough x 1 week. Reports trying OTC remedies with no much relief. [facility] Medical History (Updated 09/18/23 @ 14:27 by Mi Hua MD) Mild recurrent major depression Morbid obesity with BMI of 45.0-49.9, adult Venous (peripheral) insufficiency Leg edema Pure hypercholesterolemia Paroxysmal atrial fibrillation Back pain Right hip pain Asthma Left knee pain Venous (peripheral) insufficiency History of atrial fibrillation Migraines Vaginal pruritus Moderate asthma Essential hypertension Surgical History History of mammogram History of tubal ligation Hx laparoscopic cholecystectomy Family History Father HTN (hypertension) CVD (cardiovascular disease) Diabetes Mother HTN (hypertension) CVD (cardiovascular disease) Sister Bone cancer Lymphoma Family/Other Substance use disorder Social History Housing: Apartment Alcohol intake: former Patient Tobacco Use Status: Never used Tobacco e-Cigarette/Vaping Use: Never Used Second Hand Smoke Exposure: No service: No Current occupational status: disabled Cognitive needs: Yes Hearing needs: No Vision needs: No Female Reproductive History Menstrual Age of Menarche: 11 Physical Exam Vital Signs: Last Vital Signs Temp 97.7 F 11/22/23 13:23 Pulse 62 11/22/23 13:23 BP 132/68 11/22/23 13:23 Pulse Ox 100 11/22/23 13:23 Oxygen Delivery Method Room Air 11/22/23 13:23 BMI result Body Mass Index 49.9 Const General: comfortable and no acute distress Nutritional Appearance: obese Orientation/consciousness: patient oriented x3 HEENT Head: Yes normocephalic Ears: external ears normal and TM abnormal bulging and with fluid behind the TM bilateral; not perforated, not retracted and not scarred General nose exam: Normal nasal mucous membranes and turbinates present Face and sinus: Yes sinuses nontender Mouth: moist mucous membranes Throat: Yes posterior oropharynx normal Resp Effort & Inspection: normal respiratory effort and able to speak in complete sentences Auscultation: clear to auscultation bilaterally, no crackles, no rales, no rhonchi and no wheezes Cardio Rate: regular rate Rhythm: regular rhythm Neuro General: patient oriented x3 Assessment & Plan Assessment & Plan (1) Cough in adult: Code(s): R05.9 - Cough, unspecified Plan: - OTC cough remedies. - RTC if not better. Orders: Orders SARS-CoV2/FLU/RSV Today R05.9 - Cough, unspecified, R09.89 - Other specified symptoms and signs involving the circulatory and respiratory systems Medications: New benzonatate 100 mg PO TID 30 caps 0RF cough R05.9 - Cough, unspecified cetirizine (Zyrtec) 10 mg PO DAILY PRN 30 tabs 0RF allergy symptoms J30.9 - Allergic rhinitis, unspecified Changed From fluticasone propionate 50 mcg/actuation (Flonase Allergy Relief) administer into each nostril 1 spray intranasal DAILY 30 days 16 grams 1RF J30.9 - Allergic rhinitis, unspecified To fluticasone propionate 50 mcg/actuation (Flonase Allergy Relief) administer into each nostril 2 sprays intranasal DAILY 30 days 16 grams 1RF J30.9 - Allergic rhinitis, unspecified Coding Level of Care Code Est Pt Level 3 (91734) Diagnoses Cough in adult R05.9 Time Spent (min) 15
== END 2023-11-22 13:53 | disposition home or self-care (01) ==
PROVIDERS: PCP Internal Medicine; Visit Provider Nurse Practitioner Family
DX: R05.9 Cough, unspecified (principal)
CPT/HCPCS: 99213

== ENCOUNTER 2023-11-22 13:38 | Outpatient (REF) | payer MEDICARE, SELFPAY ==
[2023-11-22 17:12] LABS: Influenza A PCR NEGATIVE (Negative); Influenza B PCR NEGATIVE (Negative); Resp Syncy Virus RNA Qual PCR NEGATIVE (Negative); SARS COV2 PCR INHOUSE POSITIVE (Negative)
== END 2023-11-22 13:39 | disposition home or self-care (01) ==
LOC: HO.LAB 13:38
PROVIDERS: Visit Provider Nurse Practitioner Family
DX: R09.89 Other specified symptoms and signs involving the circulatory and respiratory systems (principal); R05.9 Cough, unspecified; J06.9 Acute upper respiratory infection, unspecified
CPT/HCPCS: 0241U

== ENCOUNTER 2024-01-02 14:12 | Outpatient (AMB) | payer MEDICARE, SELFPAY ==
--- NOTE | 2024-01-02 14:15 | MHC.OFFWIV ---
Intake Vital Signs 01/02/24 14:17 Height 5 ft BP 130/78 Blood Pressure Location Lt brachial Position Sitting Pulse 76 Pulse Source Pulse Oximeter Temp 98.6 F Temp Source Oral Pulse Oximetry (%) 97 Intake Visit Reasons: EP RT shoulder/side pain/shingles? Intake Note: patient is here for right shoulder and side pain, patient suspects it may be shingles Patient Tobacco Use Status: Never used Tobacco Allergies ibuprofen [From MOTRIN] Allergy (Intermediate, Verified 01/02/24 14:18) REDNESS, HIVES,GI Do you need a note to return to daycare/school/sports/work: No HPI HPI Comments History of Present Illness Details Patient is a 68-year-old female complaining of pins and needle pain on her right shoulder to her right forearm as well as her right side of her body extending from her shoulder down to her right hip. She has taken Tylenol with no relief. She states laying on her right side makes it worse and nothing seems to make it better. She denies any weakness in any of these areas on her right side. She denies any additional traumas or falls since the ones noted in October of 2021. Records indicate she was seeing pain management in 2022 for right hip radiculopathy and lumbar spondylosis; she was given lidocaine patches but she states she is out of these patches. She also has not returned to pain management. [facility] Medical History (Updated 01/02/24 @ 15:04 by Shama Duarte PA-C) Mild recurrent major depression Morbid obesity with BMI of 45.0-49.9, adult Venous (peripheral) insufficiency Leg edema Pure hypercholesterolemia Paroxysmal atrial fibrillation Back pain Right hip pain Asthma Left knee pain Venous (peripheral) insufficiency History of atrial fibrillation Migraines Vaginal pruritus Moderate asthma Essential hypertension Surgical History History of mammogram History of tubal ligation Hx laparoscopic cholecystectomy Family History Father HTN (hypertension) CVD (cardiovascular disease) Diabetes Mother HTN (hypertension) CVD (cardiovascular disease) Sister Bone cancer Lymphoma Family/Other Substance use disorder Social History Housing: Apartment Alcohol intake: former Patient Tobacco Use Status: Never used Tobacco e-Cigarette/Vaping Use: Never Used Second Hand Smoke Exposure: No service: No Current occupational status: disabled Cognitive needs: Yes Hearing needs: No Vision needs: No Female Reproductive History Menstrual Age of Menarche: 11 Review of Systems Const All systems reviewed & are unremarkable except as noted in HPI and below Physical Exam Vital Signs: Last Vital Signs Temp 98.6 F 01/02/24 14:17 Pulse 76 01/02/24 14:17 BP 130/78 01/02/24 14:17 Pulse Ox 97 01/02/24 14:17 Const General: cooperative, healthy appearing, comfortable, no acute distress and well developed Orientation/consciousness: patient oriented x3 Limitations: no limitations HEENT Head: Yes normal to inspection Eyes General: appearance normal, both eyes and all related structures Neck Neck: Yes normal visual inspection and Yes full ROM Skin General skin exam: no rashes or lesions noted Neuro General: patient oriented x3 Extrem General: Yes normal to inspection Right upper extremity: normal to inspection, full ROM and shoulder/upper arm Details: normal to inspection, tenderness Location: of the proximal humerus and normal ROM; no swelling Right lower extremity: normal to inspection and full ROM Assessment & Plan Assessment & Plan (1) Nerve pain: Code(s): M79.2 - Neuralgia and neuritis, unspecified Plan: Advised I would send a small dose of gabapentin to help her pain at night so she can sleep. Also will send lidocaine patches but should follow-up with pain management or her primary care doctor. Plan See above Medications: New gabapentin 100 mg PO BEDTIME 20 caps 0RF lidocaine 5% leave on most painful area for up to 12 hrs 2 patches topical DAILY 30 ea 0RF Discontinued gabapentin Discontinued Reason: Doctor's Order 600 mg PO BID 90 days 180 tabs 1RF Coding Level of Care Code Est Pt Level 4 (14200) Diagnoses Nerve pain M79.2
[2024-01-02 14:17] VITALS: BP 130/78; PULSE 76; TEMP 37; O2SAT 97
== END 2024-01-02 15:02 | disposition home or self-care (01) ==
PROVIDERS: PCP Internal Medicine; Visit Provider Physician Assistant
DX: M79.2 Neuralgia and neuritis, unspecified (principal)
CPT/HCPCS: 99214

== ENCOUNTER 2024-01-06 08:08 | Outpatient (REF) | payer MEDICARE, SELFPAY ==
[2024-01-06 08:17] LABS: MANUAL DIFF FLAG NO
[2024-01-06 08:40] LABS: Basophils Absolute Auto 0.1 X10*3/uL (0.0-0.2); Basophils Percent Auto 0.8 % (0-2); Eosinophils Absolute Auto 0.1 X10*3/uL (0.0-0.4); Eosinophils Percent Auto 1.6 % (0-4); Hematocrit 37.8 % (37.0-47.0); Hemoglobin 11.9 g/dl (12.0-16.0); Imm Gran Abs Auto 0.02 X10*3/uL (0.00-0.03); Imm Gran Pct Auto 0.3 % (0.0-0.4); Lymphocytes Absolute Auto 1.5 X10*3/uL (1.2-4.9); Mean Corpuscular HGB Conc 31.5 g/dl (31.0-35.0); Mean Corpuscular Hemoglobin 23.2 pg (27.0-33.0); Mean Corpuscular Volume 73.5 fL (80.0-98.0); Mean Platelet Volume 10.8 fL (9.4-12.3); Monocytes Absolute Auto 0.9 X10*3/uL (0.1-1.2); Monocytes Percent Auto 11.4 % (2-11); Neutrophils Absolute Auto 5.3 x10*3/uL (2.0-8.3); Neutrophils Percent Auto 66.9 % (45-73); Platelet Count 315 X10*3/uL (160-400); Red Blood Count 5.14 X10*6/uL (4.20-5.50); Red Cell Distribution Width 16.5 % (11.0-16.0)
[2024-01-06 09:19] LABS: Alanine Aminotransferase 18 U/L (0-31); Albumin Level 3.6 g/dL (3.5-5.0); Alkaline Phosphatase 127 U/L (39-117); Anion Gap 14 (12-20); Aspartate Amino Transferase 30 U/L (5-31); Bilirubin Total 0.8 mg/dL (0.0-1.0); Blood Urea Nitrogen 25 mg/dL (9-16); Calcium 9.6 mg/dL (8.4-10.2); Carbon Dioxide 28 mmol/L (22-29); Chloride 101 mmol/L (96-108); Cholesterol 192 mg/dL (<200); Estimated Glomerular Filt Rate 28; Glucose Fasting 89 mg/dL (60-99); HDL Cholesterol 32 mg/dL (>40); LDL Cholesterol Calculated 137 mg/dL (<100); Potassium 4.7 mmol/L (3.3-5.1); Sodium 138 mmol/L (135-145); Triglycerides 118 mg/dL (<150)
[2024-01-06 09:31] LABS: Vitamin D 25-OH Total 46.8 ng/mL (>30)
== END 2024-01-06 08:09 | disposition home or self-care (01) ==
LOC: HO.LAB 08:08
PROVIDERS: PCP Internal Medicine; Visit Provider Internal Medicine
DX: E55.9 Vitamin D deficiency, unspecified (principal); E78.5 Hyperlipidemia, unspecified; N18.31 Chronic kidney disease, stage 3a
CPT/HCPCS: 36415; 80053; 80061; 82306; 85025

== ENCOUNTER 2024-01-18 10:46 | Emergency (ER) | payer MEDICARE, SELFPAY ==
--- NOTE | ~2024-01-18 | XR_ITS ---
EXAMINATION: XR LUMBOSACRAL SPINE CLINICAL INFORMATION: Reason for Exam back pain COMPARISON: Lumbar spine radiographs 02/22/2023 TECHNIQUE: 3 views of the lumbar spine FINDINGS: 5 nonrib-bearing lumbar-type vertebral bodies. Vertebral body heights are maintained. Loss of the usual lumbar lordosis. Moderate to advanced multilevel degenerative disc disease worst at L5-S1 where there is loss of disc space height and facet arthropathy. Findings are slightly progressed from prior. Right upper quadrant cholecystectomy clips. Atherosclerotic vascular calcification. XR/XR lumbar spine 2-3V IMPRESSION: 1. Loss of the usual lumbar lordosis. Moderate to advanced multilevel degenerative disc disease worst at L5-S1 where there is loss of disc space height and facet arthropathy. Findings are slightly progressed from prior.
[2024-01-18 10:58] VITALS: BP 116/56; PULSE 85; RESP 16; TEMP 36.3; O2SAT 95; BMI 47.2
--- OUTSIDE RECORDS SUMMARY | 2024-01-18 11:11 | XMS_ITS | Continuity of Care Document ---
Author Organization [facility] Address [address] [place] [phone]- Care Team Providers Care Dermatologist Managing Partner Name Role Phone Nalini Goldberg MD Primary Care Physician Encounter [facility] [place] Date(s): 02/01/20 - 03/02/20 [facility] [address] [place] [id number]- [facility] Allergies, Adverse Reactions, Alerts Substance Reaction Severity Status ibuprofen stomach pain dizziness Active Motrin Active Immunizations Given and Recorded Vaccine Date Status Refusal Reason influenza virus vaccine, inactivated 04/17/18 Give n influenza virus vaccine, inactivated 1 04/11/11 Gi eulogio pneumococcal 23-valent vaccine 04/17/18 Given tetanus/diphtheria/pertussis, acel(Tdap) 2 08/06/11 Given 1Admin Note: VIS 02/06/2011GIVEN 2Admin Note: [facility] ([facility]) VIS 06/01/08 GIVEN Medications amLODIPine 5 mg oral tablet 5 mg, 1, tablet, By Mouth, Daily, Refills 0, Maintenance, 01/21/18 14:23:12 EDT Start Date: 01/21/18 Status: Ordered apixaban 5 mg oral tablet = 5 mg, By Mouth, 2 times a day, # 60 tablet, 3 Refills, Maintenance, 04/17/18 10:17:20 EDT, Tablet Start Date: 04/17/18 Status: Ordered BP machine. Dx Htn BP machine. Dx Htn, See Instructions, # 1 each, Refills 0, Tot. Refills 0, Maintenance, use as directed, 01/14/12 16:26:50 Start Date: 01/14/12 Status: Ordered Cartia XT 240 mg/24 hours oral capsule, extended release 1 capsule = 240 mg, By Mouth, Daily, TK 1 C PO QD, # 30 capsule, 11 Refills, Maintenance, 11/23/19 15:47:00 EDT, CD Capsule, [facility] #[id number], 152, cm, 12/18/18 14:30:00 EDT, Height, 109, kg, 11/13/18 19:09:00 EDT, Dry Weight Start Date: 11/23/19 Stop Date: 11/17/20 Status: Ordered Compression Stockings See Instructions, # 1 pair, Refills 3, Tot. Refills 3, Maintenance, surgical, knee length 20-30 mm Hg, 11/26/12 14:59:12 Start Date: 11/26/12 Status: Ordered Compression Stockings See Instructions, # 3 pair, Refills 3, Tot. Refills 3, Maintenance, surgical, thigh high length 20-30 mm Hg, 01/09/16 15:33:20, Compound Start Date: 01/09/16 Status: Ordered Compression Stockings See Instructions, # 1 pair, Refills 2, Tot. Refills 2, Maintenance, surgical, thigh high length 20-30 mm Hg, 06/29/11 12:00:51 Start Date: 06/29/11 Status: Ordered Compression Stockings See Instructions, # 2 pair, Refills 3, Tot. Refills 3, Maintenance, surgical, knee length 20-30 mm Hg, 11/08/11 12:00:36 Start Date: 11/08/11 Status: Ordered Compression Stockings See Instructions, # 3 pair, Refills 3, Tot. Refills 3, Maintenance, surgical, panty hose length 20-30 mm Hg Dx: Varicose veins, 08/28/16 14:15:47, Compound Start Date: 08/28/16 Status: Ordered flecainide 100 mg oral tablet 100 mg, 1, tablet, By Mouth, Every 12 hours, # 60 tablet, Refills 5, Tot. Refills 5, Maintenance, 02/01/20 13:31:00 EDT, Route to Pharmacy Electronically, [facility] #[id number], 152, cm, 11/30/19 15:57:00 EDT, Height, 109, kg, 11/13/18 19:09:00... Start Date: 02/01/20 Stop Date: 07/30/20 Status: Ordered Gabapentin = 600 mg, By Mouth, 2 times a day, 0 Refills, Maintenance Start Date: 05/12/10 Status: Ordered lisinopril 40 mg oral tablet 1 tablet = 40 mg, By Mouth, Daily, wolof., # 30 tablet, 0 Refills, Maintenance, 11/14/18 16:06:42EDT, Tablet Start Date: 11/14/18 Stop Date: 12/14/18 Status: Ordered nebivolol 2.5 mg oral tablet 1 tablet = 2.5 mg, By Mouth, Daily, # 30 tablet, 5 Refills, Maintenance, 12/16/19 15:21:00 EDT, Tablet, [facility] #[id number], 152, cm, 11/30/19 15:57:00 EDT, Height, 109, kg, 11/13/18 19:09:00EDT, Dry Weight Start Date: 12/16/19 Status: Ordered sertraline 50 mg oral tablet 1 tablet = 50 mg, By Mouth, Daily in AM, Maintenance, 04/15/18 14:15:38 EDT, Tablet Start Date: 04/15/18 Status: Ordered torsemide 20 mg oral tablet 0.5 tablet = 10 mg, By Mouth, Daily, # 15 tablet, 5 Refills, Maintenance, 02/15/20 9:26:00 EDT, Tablet, [facility] #[id number], 152, cm, 11/30/19 15:57:00 EDT, Height, 109, kg, 11/13/18 19:09:00EDT, Dry Weight Start Date: 02/15/20 Stop Date: 08/13/20 Status: Ordered Problem List Condition Effective Dates Status Health Status Inform ant AF (atrial fibrillation)(Confirmed) Active Hyperlipidemia(Confirmed) Active Hypertension(Confirmed) Active Migraine(Confirmed) Active Obesity(Confirmed) Active KARISSA - Obstructive sleep apnea(Confirmed) Active Varicose vein(Confirmed) Active Well female adult(Confirmed) Active Social History Social History Type Response Smoking Status Never smoker entered on: 01/09/16 Sex
--- OUTSIDE RECORDS SUMMARY | 2024-01-18 11:11 | XMS_ITS | Continuity of Care Document ---
Author Organization [facility] Address Unknown Care Team Providers Care Herbicide Sprayer Name Role Phone Mesfin Hua MD, Mi Ambrose Primary Care Physician [place] [facility] [place] Date(s): 07/06/21 - 08/05/21 [facility] Allergies, Adverse Reactions, Alerts Substance Reaction Severity Status ibuprofen stomach pain dizziness Active Motrin Active Immunizations Given and Recorded Vaccine Date Status Refusal Reason influenza virus vaccine, inactivated 04/17/18 Give n influenza virus vaccine, inactivated 1 04/11/11 Gi eulogio pneumococcal 23-valent vaccine 04/17/18 Given tetanus/diphtheria/pertussis, acel(Tdap) 2 08/06/11 Given 1Admin Note: VIS 02/06/2011GIVEN 2Admin Note: [facility] ([facility]) VIS 06/01/08 GIVEN Medications Acetaminophen = 500 mg, 0 Refills, Maintenance, 12/01/20 13:34:00 EDT, Partial fill upon patient request if the prescription is for a schedule II opioid drug. Start Date: 12/01/20 Status: Ordered Albuterol (Eqv-ProAir HFA) Inhalation, Every 6 hours, 0 Refills, Maintenance, 12/01/20 13:34:00 EDT, Partial fill upon patientrequest if the prescription is for a schedule II opioid drug. Start Date: 12/01/20 Status: Ordered apixaban 5 mg oral tablet = 5 mg, By Mouth, 2 times a day, # 60 tablet, 3 Refills, Maintenance, 04/17/18 10:17:20 EDT, Tablet Start Date: 04/17/18 Status: Ordered BP machine. Dx Htn BP machine. Dx Htn, See Instructions, # 1 each, Refills 0, Tot. Refills 0, Maintenance, use as directed, 01/14/12 16:26:50 Start Date: 7/2/12 Status: Ordered Compression Stockings See Instructions, # 1 pair, Refills 2, Tot. Refills 2, Maintenance, surgical, thigh high length 20-30 mm Hg, 06/29/11 12:00:51 Start Date: 06/29/11 Status: Ordered flecainide 100 mg oral tablet 1, tablet, By Mouth, Every 12 hours, # 60 tablet, Refills 12, Tot. Refills 0, Maintenance, :33:00 EDT, Route to Pharmacy Electronically, [facility] #[id number], 152, cm, 12/01/20 13:10:00 EDT, Height, 114.5, kg, 04/15/20 11:03:00 EDT, D... Start Date: 12/05/20 Status: Ordered Gabapentin = 600 mg, By Mouth, 2 times a day, 0 Refills, Maintenance Start Date: 05/12/10 Status: Ordered lisinopril 40 mg oral tablet 1 tablet = 40 mg, By Mouth, Daily, stateless., # 30 tablet, 0 Refills, Maintenance, 11/14/18 16:06:42EDT, Tablet Start Date: 11/14/18 Stop Date: 12/14/18 Status: Ordered metoprolol 25 mg oral tablet, extended release 25 mg, 1, tablet, By Mouth, Daily, # 30 tablet, Refills 5, Tot. Refills 5, Maintenance, 12/01/20 13:59:00 EDT, Route to Pharmacy Electronically, [facility] #[id number], Partial fill upon patientrequest if the prescription is for a schedule II op... Start Date: 12/01/20 Stop Date: 05/30/21 Status: Ordered Metoprolol Succinate ER 25 mg oral tablet, extended release 1 tablet, By Mouth, Daily, # 30 tablet, 6 Refills, [facility] #[id number], 152, cm, 12/01/20 13:10:00 EDT, Height, 114.5, kg, 04/15/20 11:03:00 EDT, Dry Weight Start Date: 05/26/21 Status: Ordered Metoprolol Succinate ER 25 mg oral tablet, extended release 1 tablet, By Mouth, Daily, # 30 tablet, 5 Refills, [facility] #[id number], 152, cm, 12/01/20 13:10:00 EDT, Height, 114.5, kg, 04/15/20 11:03:00 EDT, Dry Weight Start Date: 03/07/21 Status: Ordered Metoprolol Succinate ER 25 mg oral tablet, extended release 1 tablet, By Mouth, Daily, # 30 tablet, 11 Refills, [facility] #[id number], 152, cm, 12/01/20 13:10:00 EDT, Height, 114.5, kg, 04/15/20 11:03:00 EDT, Dry Weight Start Date: 05/19/21 Status: Ordered sertraline 50 mg oral tablet 1 tablet = 50 mg, By Mouth, Daily in AM, Maintenance, 04/15/18 14:15:38 EDT, Tablet Start Date: 04/15/18 Status: Ordered Topiramate = 50 mg, By Mouth, Daily, 0 Refills, Maintenance, 12/01/20 13:34:00 EDT, Partial fill upon patient request if the prescription is for a schedule II opioid drug. Start Date: 12/01/20 Status: Ordered torsemide 20 mg oral tablet 0.5 tablet = 10 mg, By Mouth, Daily, # 15 tablet, 5 Refills, Maintenance, 06/10/20 7:27:00 EST, Tablet, [facility] #[id number], 152, cm, 04/15/20 10:56:00 EDT, Height, 114.5, kg, 04/15/20 11:03:00 EDT, Dry Weight Start Date: 06/10/20 Stop Date: 12/07/20 Status: Ordered torsemide 20 mg oral tablet 0.5 tablet, By Mouth, Daily, # 15 tablet, 5 Refills, Maintenance, 02/13/21 14:06:00 EDT, [facility] #[id number], 152, cm, 12/01/20 13:10:00 EDT, Height, 114.5, kg, 04/15/20 11:03:00 EDT, Dry Weight Start Date: 02/13/21 Status: Ordered Problem List Condition Effective Dates Status Health Status Inform ant AF (atrial fibrillation)(Confirmed) Active Hyperlipidemia(Confirmed) Active Hypertension(Confirmed) Active Migraine(Confirmed) Active Obesity(Confirmed) Active KARISSA - Obstructive sleep apnea(Confirmed) Active Varicose vein(Confirmed) Active Well female adult(Confirmed) Active Social History Social History Type Response Smoking Status Never smoker entered on: 01/09/16 Sex
--- OUTSIDE RECORDS SUMMARY | 2024-01-18 11:11 | XMS_ITS | Continuity of Care Document ---
Author Organization [facility] Address [address] [place] [id number]- Care Team Providers Care Band Cutter Name Role Phone Mesfin Hua MD, Mi Ambrose Primary Care Physician [place] [facility] [place]22 - 12/19/22 [facility] [address] [place] [id number]- [place] Allergies, Adverse Reactions, Alerts Substance Reaction Severity [...] By Mouth, 2 times a day, # 180 tablet, 3 Refills, Maintenance, 05/01/22 13:21:00 EDT, Tablet, [facility] #[id number], 152, cm, 05/01/22 10:29:00 EDT, Height Start Date: 05/01/22 Stop Date: 04/26/23 Status: Ordered BP machine. Dx Htn BP machine. Dx Htn, See Instructions, # 1 each, Refills 0, Tot. Refills 0, Maintenance, use as directed, 01/14/12 16:26:50 Start Date: 01/14/12 Status: Ordered Compression Stockings See Instructions, # 1 pair, Refills 2, Tot. Refills 2, Maintenance, surgical, thigh high length 20-30 mm Hg, 06/29/11 12:00:51 Start Date: 06/29/11 Status: Ordered flecainide 100 mg oral tablet 1, tablet, By Mouth, Every 12 hours, for 30 days, # 60 tablet, Refills 11, Tot. Refills 11, Hard Stop 02/15/23 16:23:00 EDT, 02/20/22 16:23:00 EDT, Route to Pharmacy Electronically, [facility] #[id number], 152, cm, 02/15/22 15:27:00 EDT, Height,... Start Date: 02/20/22 Stop Date: 02/15/23 Status: Ordered flecainide 100 mg oral tablet 1, tablet, By Mouth, Every 12 hours, # 180 tablet, Refills 3, Tot. Refills 3, Maintenance, 02/16/2316:23:00 EDT, Route to Pharmacy Electronically, [facility] #[id number], 152, cm, 05/01/22 10:29:00 EDT, Height Start Date: 02/15/23 Stop Date: 02/10/24 Status: Ordered Gabapentin = 600 mg, By Mouth, 2 times a day, 0 Refills, Maintenance Start Date: 05/12/10 Status: Ordered lisinopril 40 mg oral tablet 1 tablet = 40 mg, By Mouth, Daily, persian., # 30 tablet, 0 Refills, Maintenance, 11/14/18 16:06:42EDT, Tablet Start Date: 11/14/18 Stop Date: 12/14/18 Status: Ordered metoprolol 25 mg oral tablet, extended release 25 mg, 1, tablet, By Mouth, Daily, # 30 tablet, Refills 5, Tot. Refills 5, Maintenance, 12/01/20 13:59:00 EDT, Route to Pharmacy Electronically, [facility] #[id number], Partial fill upon patientrequest if the prescription is for a schedule II op... Start Date: 12/01/20 Stop Date: 05/30/21 Status: Ordered Metoprolol Succinate ER 25 mg oral tablet, extended release 1 tablet, By Mouth, Daily, # 30 tablet, 6 Refills, [facility] #[id number], 152, cm, 12/01/20 13:10:00 EDT, Height, 114.5, kg, 04/15/20 11:03:00 EDT, Dry Weight Start Date: 05/26/21 Status: Ordered Metoprolol Succinate ER 25 mg oral tablet, extended release 1 tablet, By Mouth, Daily, # 30 tablet, 11 Refills, [facility] #[id number], 152, cm, 12/01/20 13:10:00 EDT, Height, 114.5, kg, 04/15/20 11:03:00 EDT, Dry Weight Start Date: 05/19/21 Status: Ordered nortriptyline 25 mg oral capsule 25 mg, 1, capsule, By Mouth, Daily at supper, # 90 capsule, Refills 2, Tot. Refills 2, Maintenance,09/14/22 14:03:00 EST, Route to Pharmacy Electronically, [facility] #[id number], aware pt on sertraline, 152, cm, 05/01/22 10:29:00 EDT, Height Start Date: 09/14/22 Stop Date: 06/11/23 Status: Ordered ondansetron 4 mg oral tablet 1 tablet = 4 mg, By Mouth, Every 12 hours, PRN Migraine Headache, take at onset of migraines, # 10 tablet, 2 Refills, Acute 05/01/23 10:52:00 EDT, 05/01/22 10:51:00 EDT, Tablet, [facility] #[id number], Partial fill upon patient request if the pre... Start Date: 05/01/22 Stop Date: 05/01/23 Status: Ordered sertraline 50 mg oral tablet 1 tablet = 50 mg, By Mouth, Daily in AM, Maintenance, 04/15/18 14:15:38 EDT, Tablet Start Date: 04/15/18 Status: Ordered torsemide 20 mg oral tablet 0.5 tablet = 10 mg, By Mouth, Daily, # 15 tablet, 5 Refills, Maintenance, 06/10/20 7:27:00 EST, Tablet, [facility] #[id number], 152, cm, 04/15/20 10:56:00 EDT, Height, 114.5, kg, 04/15/20 11:03:00 EDT, Dry Weight Start Date: 06/10/20 Stop Date: 12/07/20 Status: Ordered torsemide 20 mg oral tablet 0.5 tablet, By Mouth, Daily, # 45 tablet, 3 Refills, Maintenance, 05/01/22 13:20:00 EDT, [facility] #[id number], 152, cm, 05/01/22 10:29:00 EDT, Height Start Date: 05/01/22 Stop Date: 04/26/23 Status: Ordered Problem List Condition Confirmation Course Effective Dates Status H ealth Status Informant AF (atrial fibrillation) Confirmed Active Hyperlipidemia Confirmed Active Hypertension Confirmed Active Migraine Confirmed Active Obesity Confirmed Active KARISSA - Obstructive sleep apnea Confirmed Active Severe obesity Confirmed Active Varicose vein Confirmed Active Well female adult Confirmed Active Social History Social History Type Response Smoking Status Never smoker entered on: 01/09/16 Sex Patient Care team information Care Team Personnel Name: Mesfin Hua MD , Mi Ambrose Position: Reference Physician Member Role: PCP Address: Address: [address] [place] [address]- Care Team Related Persons Name: EVELYN PAUL Address: [address] [place] [address] Name: SYLVESTER MEDRANO Address: [address] [place] [address]
--- OUTSIDE RECORDS SUMMARY | 2024-01-18 11:11 | XMS_ITS | Continuity of Care Document ---
Author Organization [facility] Address [address] [facility], [address] Floor, [address] [place] [id number]- Care Team Providers Care Cdl Driver Name Role Phone Mesfin Hua MD, Mi Ambrose Primary Care Physician [place] [facility] [place] 09/14/22 - 10/14/22 [facility] [address] [facility], [address], [address] [place] [id number] Attending Physician: Jessica Quintana Admitting Physician: AdmJessica wilcox Referring Physician: AdmtrJessica Allergies, Adverse Reactions, Alerts Substance Reaction Severity [...] 3 Refills, Maintenance, 05/01/22 13:21:00 EDT, Tablet, [facility] #[id number], 152, cm, 05/01/22 10:29:00 EDT, Height Start [...] 02/20/22 16:23:00 EDT, Route to Pharmacy Electronically, [facility] #[id number], 152, cm, 02/15/22 15:27:00 EDT, Height,... Start Date: 02/20/22 Stop Date: 02/15/23 Status: Ordered flecainide 100 mg oral tablet 1, tablet, By Mouth, Every 12 hours, # 180 tablet, Refills 3, Tot. Refills 3, Maintenance, 02/16/2316:23:00 EDT, Route to Pharmacy Electronically, [facility] #[id number], 152, cm, 05/01/22 10:29:00 EDT, Height Start Date: 02/15/23 Stop Date: 02/10/24 Status: Ordered Gabapentin = 600 mg, By Mouth, 2 times a day, 0 Refills, Maintenance Start Date: 05/12/10 Status: Ordered lisinopril 40 mg oral tablet 1 tablet = 40 mg, By Mouth, Daily, turkmen., # 30 tablet, 0 Refills, Maintenance, 11/14/18 16:06:42EDT, Tablet Start Date: 11/14/18 Stop Date: 12/14/18 Status: Ordered metoprolol 25 mg oral tablet, extended release 25 mg, 1, tablet, By Mouth, Daily, # 30 tablet, Refills 5, Tot. Refills 5, Maintenance, 12/01/20 13:59:00 EDT, Route to Pharmacy Electronically, [facility] #[id number], Partial fill upon patientrequest if the prescription is for a schedule II op... Start Date: 12/01/20 Stop Date: 05/30/21 Status: Ordered Metoprolol Succinate ER 25 mg oral tablet, extended release 1 tablet, By Mouth, Daily, # 30 tablet, 6 Refills, [facility] #[id number], 152, cm, 12/01/20 13:10:00 EDT, Height, 114.5, kg, 04/15/20 11:03:00 EDT, Dry Weight Start Date: 05/26/21 Status: Ordered Metoprolol Succinate ER 25 mg oral tablet, extended release 1 tablet, By Mouth, Daily, # 30 tablet, 11 Refills, [facility] #[id number], 152, cm, 12/01/20 13:10:00 EDT, Height, 114.5, kg, 04/15/20 11:03:00 EDT, Dry Weight Start Date: 05/19/21 Status: Ordered nortriptyline 25 mg oral capsule 25 mg, 1, capsule, By Mouth, Daily at supper, # 90 capsule, Refills 2, Tot. Refills 2, Maintenance,09/14/22 14:03:00 EST, Route to Pharmacy Electronically, [facility] #[id number], aware pt on sertraline, 152, cm, 05/01/22 10:29:00 EDT, Height Start Date: 09/14/22 Stop Date: 06/11/23 Status: Ordered ondansetron 4 mg oral tablet 1 tablet = 4 mg, By Mouth, Every 12 hours, PRN Migraine Headache, take at onset of migraines, # 10 tablet, 2 Refills, Acute 05/01/23 10:52:00 EDT, 05/01/22 10:51:00 EDT, Tablet, [facility] #[id number], Partial fill upon patient request if the [...] 5 Refills, Maintenance, 06/10/20 7:27:00 EST, Tablet, [facility] #[id number], 152, cm, 04/15/20 10:56:00 EDT, Height, 114.5, kg, 04/15/20 11:03:00 EDT, Dry Weight Start Date: 06/10/20 Stop Date: 12/07/20 Status: Ordered torsemide 20 mg oral tablet 0.5 tablet, By Mouth, Daily, # 45 tablet, 3 Refills, Maintenance, 05/01/22 13:20:00 EDT, [facility] #[id number], 152, cm, 05/01/22 10:29:00 EDT, Height Start [...] Reference Physician Member Role: PCP Address: Address: [address] [place] [phone]- Care Team Related Persons Name: EVELYN PAUL Address: [address] [place] [address] Name: SYLVESTER MEDRANO Address: [address] [place] [address]
--- OUTSIDE RECORDS SUMMARY | 2024-01-18 11:11 | XMS_ITS | Continuity of Care Document ---
Author Organization [facility] Address [address] [place] [address]- Care Team Providers Care Mobile Marketing Specialist Name Role Phone Nalini Goldberg MD Primary Care Physician [place] [facility] [place] [facility] [address] [place] [id number] Attending Physician: Admtr, Ar8 Admitting Physician: Admtr, Ar8 Referring Physician: Admtr, Ar8 Allergies, Adverse Reactions, Alerts Substance Reaction Severity [...] Refills, Maintenance, 11/23/19 15:47:00 EDT, CD Capsule, [facility] #[id number], 152, cm, 12/18/18 14:30:00 EDT, Height, 109, [...] Every 12 hours, # 60 tablet, Refills 0, Tot. Refills 0, Maintenance, 11/03/20 8:00:00 EDT, Route to Pharmacy Electronically, [facility] #[id number], 152, cm, 04/15/20 10:56:00 EDT, Height, 114.5, kg, 04/15/20 11:03:00 EDT, . Start Date: 11/03/20 Status: Ordered Gabapentin = 600 mg, By Mouth, 2 times a day, 0 Refills, Maintenance Start Date: 05/12/10 Status: Ordered lisinopril 40 mg oral tablet 1 tablet = 40 mg, By Mouth, Daily, mauritian., # 30 tablet, 0 Refills, Maintenance, 11/14/18 16:06:42EDT, Tablet Start Date: 11/14/18 Stop Date: 12/14/18 Status: Ordered nebivolol 2.5 mg oral tablet 1 tablet = 2.5 mg, By Mouth, Daily, # 30 tablet, 5 Refills, Maintenance, 03/09/20 15:56:00 EDT, Tablet, [facility] #[id number], 152, cm, 11/30/19 15:57:00 EDT, Height, 109, kg, 11/13/18 19:09:00EDT, Dry Weight Start Date: 03/09/20 Stop Date: 09/05/20 Status: Ordered sertraline 50 mg oral tablet 1 tablet = 50 mg, By Mouth, Daily in AM, Maintenance, 04/15/18 14:15:38 EDT, Tablet Start Date: 04/15/18 Status: Ordered torsemide 20 mg oral tablet 0.5 tablet = 10 mg, By Mouth, Daily, # 15 tablet, 5 Refills, Maintenance, 06/10/20 7:27:00 EST, Tablet, [facility] #[id number], 152, cm, 04/15/20 10:56:00 EDT, Height, 114.5, kg, 04/15/20 11:03:00 EDT, Dry Weight Start Date: 06/10/20 Stop Date: 12/07/20 Status: Ordered Problem List Condition Effective Dates Status Health Status Inform ant AF (atrial fibrillation)(Confirmed) Active Hyperlipidemia(Confirmed) Active Hypertension(Confirmed) Active Migraine(Confirmed) Active Obesity(Confirmed) Active KARISSA - Obstructive sleep apnea(Confirmed) Active Varicose vein(Confirmed) Active Well female adult(Confirmed) Active Social History Social History Type Response Smoking Status Never smoker entered on: 01/09/16 Sex
--- OUTSIDE RECORDS SUMMARY | 2024-01-18 11:11 | XMS_ITS | Continuity of Care Document ---
Author Organization [facility] Address [address] [place] [address]- Care Team Providers Care Aquarium Specialist Name Role Phone Yusuf TYLER, Nalini Weber Primary Care Physician En[facility] ACCT R [id number] Date(s): 12/01/19 - 12/08/[address] [address]- [facility] Attending Physician: Brenna TYLER, Amos Minaya Admitting Physician: Amos Ceja MD Referring Physician: Brenna TYLER, Amos Minaya Allergies, Adverse Reactions, Alerts Substance Reaction Severity [...] Refills, Maintenance, 11/23/19 15:47:00 EDT, CD Capsule, [facility] #[id number], 152, cm, 12/18/18 14:30:00 EDT, Height, 109, [...] tablet, Refills 5, Tot. Refills 5, Maintenance, 02/26/19 15:18:58 EDT, Route to Pharmacy Electronically, [id number], [facility] #[id number] Start Date: 02/26/19 Stop Date: 08/25/19 Status: Ordered Gabapentin = 600 mg, By Mouth, 2 times a day, 0 Refills, Maintenance Start Date: 05/12/10 Status: Ordered lisinopril 40 mg oral tablet 1 tablet = 40 mg, By Mouth, Daily, albanian., # 30 tablet, 0 Refills, Maintenance, 11/14/18 16:06:42EDT, Tablet Start Date: 11/14/18 Stop Date: 12/14/18 Status: Ordered sertraline 50 mg oral tablet 1 tablet = 50 mg, By Mouth, Daily in AM, Maintenance, 04/15/18 14:15:38 EDT, Tablet Start Date: 04/15/18 Status: Ordered torsemide 20 mg oral tablet 0.5 tablet = 10 mg, By Mouth, Daily, # 15 tablet, 5 Refills, Maintenance, 08/24/19 8:16:00 EST, Tablet, [facility] #[id number], 152, cm, 12/18/18 14:30:00 EDT, Height, 109, kg, 11/13/18 19:09:00EDT, Dry Weight Start Date: 08/24/19 Stop Date: 02/20/20 Status: Ordered Problem List Condition Effective Dates Status Health Status Inform ant AF (atrial fibrillation)(Confirmed) Active Hyperlipidemia(Confirmed) Active Hypertension(Confirmed) Active Migraine(Confirmed) Active Obesity(Confirmed) Active KARISSA - Obstructive sleep apnea(Confirmed) Active Varicose vein(Confirmed) Active Well female adult(Confirmed) Active Vital Signs Most recent to oldest [Reference Range]: 1 Height 152 cm (11/30/19 3:57 PM) Weight 119 kg (11/30/19 3:57 PM) Body Mass Index [18.5-24.99] 51.51 *>HHI* (11/30/19 3:57 PM) Social History Social History Type Response Smoking Status Never smoker entered on: 01/09/16 Sex
--- OUTSIDE RECORDS SUMMARY | 2024-01-18 11:12 | XMS_ITS | Continuity of Care Document ---
Author Organization [facility] Address [address] [place] [address]- Care Team Providers Care Extension Specialist Name Role Phone Nalini Goldberg MD Primary Care Physician [place] [facility] [place] 04/15/20 - 05/15/20 [facility] [address] [place] [address]- [facility] Attending Physician: AdmJessica wilcox Admitting Physician: AdmtrJessica Referring Physician: Admtr, ArHanna Allergies, Adverse Reactions, Alerts Substance Reaction Severity [...] Refills, Maintenance, 11/23/19 15:47:00 EDT, CD Capsule, [facility] #[id number], 152, cm, 12/18/18 14:30:00 EDT, Height, 109, [...] 02/01/20 13:31:00 EDT, Route to Pharmacy Electronically, [facility] #[id number], 152, cm, 11/30/19 15:57:00 EDT, Height, 109, kg, 11/13/18 19:09:00... Start Date: 02/01/20 Stop Date: 07/30/20 Status: Ordered Gabapentin = 600 mg, By Mouth, 2 times a day, 0 Refills, Maintenance Start Date: 05/12/10 Status: Ordered lisinopril 40 mg oral tablet 1 tablet = 40 mg, By Mouth, Daily, chinese., # 30 tablet, 0 Refills, Maintenance, 11/14/18 16:06:42EDT, Tablet Start Date: 11/14/18 Stop Date: 12/14/18 Status: Ordered nebivolol 2.5 mg oral tablet 1 tablet = 2.5 mg, By Mouth, Daily, # 30 tablet, 5 Refills, Maintenance, 03/09/20 15:56:00 EDT, Tablet, [facility] #[id number], 152, cm, 11/30/19 15:57:00 EDT, Height, 109, [...] 5 Refills, Maintenance, 02/15/20 9:26:00 EDT, Tablet, [facility] #[id number], 152, cm, 11/30/19 15:57:00 EDT, Height, 109, [...]
--- OUTSIDE RECORDS SUMMARY | 2024-01-18 11:12 | XMS_ITS | Continuity of Care Document ---
Author Organization [facility] Address [address] [place] [address]- Care Team Providers Care High School Director Name Role Phone Mesfin Hua MD, Parisa Primary Care Physician [phone] Encounter [facility] [place] Date(s): 04/26/23 - 05/26/23 [facility] [address] [place] [address]- [place] Allergies, Adverse Reactions, Alerts Substance Reaction [...] day, # 180 tablet, 3 Refills, Maintenance, 04/26/23 17:16:00 EDT, Tablet, [facility] #[id number], 152.4, cm, 04/23/23 9:59:00 EDT, Height, 121.5, kg, 04/23/23 9:59:00EDT, Dry Weight Start Date: 04/26/23 Stop Date: 04/20/24 Status: Ordered BP machine. Dx Htn BP [...] Maintenance, 02/16/2316:23:00 EDT, Route to Pharmacy Electronically, [facility] #[id number], 152, cm, 05/01/22 10:29:00 EDT, Height Start Date: 02/15/23 Stop Date: 02/10/24 Status: Ordered Gabapentin = 600 mg, By Mouth, 2 times a day, 0 Refills, Maintenance Start Date: 05/12/10 Status: Ordered lisinopril 40 mg oral tablet 1 tablet = 40 mg, By Mouth, Daily, estonian., # 30 tablet, 0 Refills, Maintenance, 11/14/18 16:06:42EDT, Tablet Start Date: 11/14/18 Stop Date: 12/14/18 Status: Ordered Metoprolol Succinate ER 25 mg oral tablet, extended release 1 tablet, By Mouth, Daily, # 30 tablet, 6 Refills, [facility] #[id number], 152, cm, 12/01/20 13:10:00 EDT, Height, 114.5, kg, 04/15/20 11:03:00 EDT, Dry Weight Start Date: 05/26/21 Status: Ordered nortriptyline 25 mg oral capsule 25 mg, 1, capsule, By Mouth, Daily at supper, # 90 capsule, Refills 2, Tot. Refills 2, Maintenance,06/11/23 14:03:00 EST, Route to Pharmacy Electronically, [facility] #[id number], aware pt on sertraline, 152, cm, 03/21/23 9:53:00 EDT, Height Start Date: 06/11/23 Stop Date: 03/07/24 Status: Ordered Rosuvastatin = 20 mg, By Mouth, Daily, 0 Refills, Maintenance, 04/23/23 9:45:00 EDT, Partial fill upon patient request if the prescription is for a schedule II opioid drug. Start Date: 04/23/23 Status: Ordered sertraline 50 mg oral tablet 1 tablet = 50 mg, By Mouth, Daily in AM, Maintenance, 04/15/18 14:15:38 EDT, Tablet Start Date: 04/15/18 Status: Ordered torsemide 20 mg oral tablet 0.5 tablet, By Mouth, Daily, # 45 tablet, 3 Refills, Maintenance, 05/01/22 13:20:00 EDT, [facility] #[id number], 152, cm, 05/01/22 10:29:00 EDT, Height Start [...] Reference Physician Member Role: PCP Address: Address: [address] [place] [address] [address] [place] [address]- Name: Raulito Uriarte MD Position: [facility] Renal MD Member Role: Lifetime Consulting Physician Address: Address: [address] [place] [address] [facility] [place] [address]- Care Team Related Persons Name: EVELYN PAUL Address: [address] [place] [address] Name: SYLVESTER MEDRANO Address: home [address] [place] [address]
--- OUTSIDE RECORDS SUMMARY | 2024-01-18 11:12 | XMS_ITS | Continuity of Care Document ---
Author Organization [facility] Address [address] [place] [address]- Care Team Providers Care Pediatric Sports Medicine Specialist Name Role Phone Yusuf TYLER, Nalini Weber Primary Care Physician [phone] [place] [facility] [place] [id number] Date(s): 11/30/19 - 12/30/[address] [address]- [facility] Attending Physician: Jessica Quintana Admitting Physician: Jessica Quintana Referring Physician: Jessica Quintana Allergies, Adverse Reactions, Alerts Substance Reaction Severity [...] Refills, Maintenance, 11/23/19 15:47:00 EDT, CD Capsule, [facility] #[id number], 152, cm, 12/18/18 14:30:00 EDT, Height, 109, [...] 02/26/19 15:18:58 EDT, Route to Pharmacy Electronically, [id number], [facility] #[id number] Start Date: 02/26/19 Stop Date: 08/25/19 Status: Ordered Gabapentin = 600 mg, By Mouth, 2 times a day, 0 Refills, Maintenance Start Date: 05/12/10 Status: Ordered lisinopril 40 mg oral tablet 1 tablet = 40 mg, By Mouth, Daily, telugu., # 30 tablet, 0 Refills, Maintenance, 11/14/18 16:06:42EDT, Tablet Start Date: 11/14/18 Stop Date: 12/14/18 Status: Ordered nebivolol 2.5 mg oral tablet 1 tablet = 2.5 mg, By Mouth, Daily, # 30 tablet, 5 Refills, Maintenance, 12/16/19 15:21:00 EDT, Tablet, [facility] #[id number], 152, cm, 11/30/19 15:57:00 EDT, Height, 109, [...] 5 Refills, Maintenance, 08/24/19 8:16:00 EST, Tablet, [facility] #[id number], 152, cm, 12/18/18 14:30:00 EDT, Height, 109, [...]
--- OUTSIDE RECORDS SUMMARY | 2024-01-18 11:12 | XMS_ITS | Continuity of Care Document ---
Author Organization [facility] Address [address] [place] [address]- Care Team Providers Care Call Worker Person Name Role Phone Mesfin Hua MD, iM Ambrose Primary Care Physician [phone] [place] [facility] [place](s): 02/19/23 - 03/21/23 [facility] [address] [place] [address]- [place] Allergies, Adverse Reactions, Alerts Substance Reaction [...] 3 Refills, Maintenance, 05/01/22 13:21:00 EDT, Tablet, [facility] #[id number], 152, cm, 05/01/22 10:29:00 EDT, Height Start [...] Maintenance, 02/16/2316:23:00 EDT, Route to Pharmacy Electronically, [facility] #[id number], 152, cm, 05/01/22 10:29:00 EDT, Height Start Date: 02/15/23 Stop Date: 02/10/24 Status: Ordered Gabapentin = 600 mg, By Mouth, 2 times a day, 0 Refills, Maintenance Start Date: 05/12/10 Status: Ordered lisinopril 40 mg oral tablet 1 tablet = 40 mg, By Mouth, Daily, canadian., # 30 tablet, 0 Refills, Maintenance, 11/14/18 16:06:42EDT, Tablet Start Date: 11/14/18 Stop Date: 12/14/18 Status: Ordered metoprolol 25 mg oral tablet, extended release 25 mg, 1, tablet, By Mouth, Daily, # 30 tablet, Refills 5, Tot. Refills 5, Maintenance, 12/01/20 13:59:00 EDT, Route to Pharmacy Electronically, [facility] #[id number], Partial fill upon patientrequest if the prescription is for a schedule II op... Start Date: 12/01/20 Stop Date: 05/30/21 Status: Ordered Metoprolol Succinate ER 25 mg oral tablet, extended release 1 tablet, By Mouth, Daily, # 30 tablet, 6 Refills, [facility] #[id number], 152, cm, 12/01/20 13:10:00 EDT, Height, 114.5, kg, 04/15/20 11:03:00 EDT, Dry Weight Start Date: 05/26/21 Status: Ordered Metoprolol Succinate ER 25 mg oral tablet, extended release 1 tablet, By Mouth, Daily, # 30 tablet, 11 Refills, [facility] #[id number], 152, cm, 12/01/20 13:10:00 EDT, Height, 114.5, kg, 04/15/20 11:03:00 EDT, Dry Weight Start Date: 05/19/21 Status: Ordered nortriptyline 25 mg oral capsule 25 mg, 1, capsule, By Mouth, Daily at supper, # 90 capsule, Refills 2, Tot. Refills 2, Maintenance,06/11/23 14:03:00 EST, Route to Pharmacy Electronically, [facility] #[id number], aware pt on sertraline, 152, cm, 03/21/23 9:53:00 EDT, Height Start Date: 06/11/23 Stop Date: 03/07/24 Status: Ordered nortriptyline 25 mg oral capsule 25 mg, 1, capsule, By Mouth, Daily at supper, for 90 days, # 90 capsule, Refills 2, Tot. Refills 2,Hard Stop 06/11/23 14:03:00 EST, 09/14/22 14:03:00 EST, Route to Pharmacy Electronically, [facility] #[id number], aware pt on sertraline, 152, cm... Start Date: 09/14/22 Stop Date: 06/11/23 Status: Ordered ondansetron 4 mg oral tablet 1 tablet = 4 mg, By Mouth, Every 12 hours, PRN Migraine Headache, take at onset of migraines, # 10 tablet, 2 Refills, Acute 05/01/23 10:52:00 EDT, 05/01/22 10:51:00 EDT, Tablet, [facility] #[id number], Partial fill upon patient request if the [...] 5 Refills, Maintenance, 06/10/20 7:27:00 EST, Tablet, [facility] #[id number], 152, cm, 04/15/20 10:56:00 EDT, Height, 114.5, kg, 04/15/20 11:03:00 EDT, Dry Weight Start Date: 06/10/20 Stop Date: 12/07/20 Status: Ordered torsemide 20 mg oral tablet 0.5 tablet, By Mouth, Daily, # 45 tablet, 3 Refills, Maintenance, 05/01/22 13:20:00 EDT, [facility] #[id number], 152, cm, 05/01/22 10:29:00 EDT, Height Start Date: 05/01/22 Stop Date: 04/26/23 Status: Ordered Problem List Condition Confirmation Course Effective Dates Status H ealth Status Informant AF (atrial fibrillation) Confirmed Active Hyperlipidemia Confirmed Active Hypertension Confirmed Active Migraine Confirmed Active Obesity Confirmed Active KARSISA - Obstructive sleep apnea Confirmed Active Severe obesity Confirmed Active Varicose vein Confirmed Active Well female adult Confirmed Active Social History Social History Type Response Smoking Status Never smoker entered on: 01/09/16 Sex Patient Care team information Care Team Personnel Name: Mesfin Hua MD , Mi Ambrose Position: Reference Physician Member Role: PCP Address: Address: [address] [place], [place] [address] Name: Raulito rUiarte MD Position: [facility] Renal MD Member Role: Lifetime Consulting Physician Address: Address: [address] [place] [address] [facility] [place], [place] [address] Care Team Related Persons Name: EVELYN PAUL Address: [address] [place] [address] Name: SYLVESTER MEDRANO Address: [address] [place] [address]
--- OUTSIDE RECORDS SUMMARY | 2024-01-18 11:12 | XMS_ITS | Continuity of Care Document ---
Author Organization [facility] Address [address] [place] [address]- Care Team Providers Care Heading Pinner Name Role Phone Mesfin Hua MD, Mi Ambrose Primary Care Physician [phone] Encounter [facility] [place] Date(s): 03/21/23 - 04/20/23 [facility] [address] [place] [address]- [place] Allergies, Adverse Reactions, Alerts Substance Reaction [...] 3 Refills, Maintenance, 05/01/22 13:21:00 EDT, Tablet, [facility] #[id number], 152, cm, 05/01/22 10:29:00 EDT, Height Start [...] Maintenance, 02/16/2316:23:00 EDT, Route to Pharmacy Electronically, [facility] #[id number], 152, cm, 05/01/22 10:29:00 EDT, Height Start Date: 02/15/23 Stop Date: 02/10/24 Status: Ordered Gabapentin = 600 mg, By Mouth, 2 times a day, 0 Refills, Maintenance Start Date: 05/12/10 Status: Ordered lisinopril 40 mg oral tablet 1 tablet = 40 mg, By Mouth, Daily, botswanan., # 30 tablet, 0 Refills, Maintenance, 11/14/18 16:06:42EDT, Tablet Start Date: 11/14/18 Stop Date: 12/14/18 Status: Ordered metoprolol 25 mg oral tablet, extended release 25 mg, 1, tablet, By Mouth, Daily, # 30 tablet, Refills 5, Tot. Refills 5, Maintenance, 12/01/20 13:59:00 EDT, Route to Pharmacy Electronically, [facility] #[id number], Partial fill upon patientrequest if the prescription is for a schedule II op... Start Date: 12/01/20 Stop Date: 05/30/21 Status: Ordered Metoprolol Succinate ER 25 mg oral tablet, extended release 1 tablet, By Mouth, Daily, # 30 tablet, 6 Refills, [facility] #[id number], 152, cm, 12/01/20 13:10:00 EDT, Height, 114.5, kg, 04/15/20 11:03:00 EDT, Dry Weight Start Date: 05/26/21 Status: Ordered Metoprolol Succinate ER 25 mg oral tablet, extended release 1 tablet, By Mouth, Daily, # 30 tablet, 11 Refills, [facility] #[id number], 152, cm, 12/01/20 13:10:00 EDT, Height, 114.5, kg, 04/15/20 11:03:00 EDT, Dry Weight Start Date: 05/19/21 Status: Ordered nortriptyline 25 mg oral capsule 25 mg, 1, capsule, By Mouth, Daily at supper, # 90 capsule, Refills 2, Tot. Refills 2, Maintenance,06/11/23 14:03:00 EST, Route to Pharmacy Electronically, [facility] #[id number], aware pt on sertraline, 152, cm, 03/21/23 9:53:00 EDT, Height Start Date: 06/11/23 Stop Date: 03/07/24 Status: Ordered nortriptyline 25 mg oral capsule 25 mg, 1, capsule, By Mouth, Daily at supper, for 90 days, # 90 capsule, Refills 2, Tot. Refills 2,Hard Stop 06/11/23 14:03:00 EST, 09/14/22 14:03:00 EST, Route to Pharmacy Electronically, [facility] #[id number], aware pt on sertraline, 152, cm... Start Date: 09/14/22 Stop Date: 06/11/23 Status: Ordered ondansetron 4 mg oral tablet 1 tablet = 4 mg, By Mouth, Every 12 hours, PRN Migraine Headache, take at onset of migraines, # 10 tablet, 2 Refills, Acute 05/01/23 10:52:00 EDT, 05/01/22 10:51:00 EDT, Tablet, [facility] #[id number], Partial fill upon patient request if the [...] 5 Refills, Maintenance, 06/10/20 7:27:00 EST, Tablet, [facility] #[id number], 152, cm, 04/15/20 10:56:00 EDT, Height, 114.5, kg, 04/15/20 11:03:00 EDT, Dry Weight Start Date: 06/10/20 Stop Date: 12/07/20 Status: Ordered torsemide 20 mg oral tablet 0.5 tablet, By Mouth, Daily, # 45 tablet, 3 Refills, Maintenance, 05/01/22 13:20:00 EDT, [facility] #[id number], 152, cm, 05/01/22 10:29:00 EDT, Height Start [...] Physician Member Role: PCP Address: Address: [address] [place] [address]- Name: Raulito Uriarte MD Position: [facility] Renal MD Member Role: Lifetime Consulting Physician Address: Address: [address] [place] [address] [facility] [place] [address]- Care Team Related Persons Name: EVELYN PAUL Address: [address] [place] [address] Name: SYLVESTER MEDRANO Address: [address] [place] [address]
--- OUTSIDE RECORDS SUMMARY | 2024-01-18 11:12 | XMS_ITS | Continuity of Care Document ---
Author Organization [facility] Address [address] [place] [address]- Care Team Providers Care Shelter Supervisor Name Role Phone Yusuf TYLER, Nalini Weber Primary Care Physician [place] [facility] [id number] Date(s): 09/01/19 - 12/30/[address] [address]- [facility] Attending Physician: Brenna TYLER, Amos Minaya Admitting [...] Refills, Maintenance, 11/23/19 15:47:00 EDT, CD Capsule, [facility] #[id number], 152, cm, 12/18/18 14:30:00 EDT, Height, 109, [...] 02/26/19 15:18:58 EDT, Route to Pharmacy Electronically, [id number], [facility] #[id number] Start Date: 02/26/19 Stop Date: 08/25/19 Status: Ordered Gabapentin = 600 mg, By Mouth, 2 times a day, 0 Refills, Maintenance Start Date: 05/12/10 Status: Ordered lisinopril 40 mg oral tablet 1 tablet = 40 mg, By Mouth, Daily, amharic., # 30 tablet, 0 Refills, Maintenance, 11/14/18 16:06:42EDT, Tablet Start Date: 11/14/18 Stop Date: 12/14/18 Status: Ordered nebivolol 2.5 mg oral tablet 1 tablet = 2.5 mg, By Mouth, Daily, # 30 tablet, 5 Refills, Maintenance, 12/16/19 15:21:00 EDT, Tablet, [facility] #[id number], 152, cm, 11/30/19 15:57:00 EDT, Height, 109, [...] 5 Refills, Maintenance, 08/24/19 8:16:00 EST, Tablet, [facility] #[id number], 152, cm, 12/18/18 14:30:00 EDT, Height, 109, [...]
--- OUTSIDE RECORDS SUMMARY | 2024-01-18 11:12 | XMS_ITS | Continuity of Care Document ---
Author Organization [facility] Address [address] [place] [address]- Care Team Providers Care Cognos Bi Developer Name Role Phone Nalini Goldberg MD Primary Care Physician [phone] Encounter [facility] [place] Date(s): 02/22/20 - 03/23/20 [facility] [address] [place] [address]- [facility] Allergies, Adverse Reactions, Alerts Substance Reaction Severity [...] Refills, Maintenance, 11/23/19 15:47:00 EDT, CD Capsule, [facility] #[id number], 152, cm, 12/18/18 14:30:00 EDT, Height, 109, [...] 02/01/20 13:31:00 EDT, Route to Pharmacy Electronically, [facility] #[id number], 152, cm, 11/30/19 15:57:00 EDT, Height, 109, kg, 11/13/18 19:09:00... Start Date: 02/01/20 Stop Date: 07/30/20 Status: Ordered Gabapentin = 600 mg, By Mouth, 2 times a day, 0 Refills, Maintenance Start Date: 05/12/10 Status: Ordered lisinopril 40 mg oral tablet 1 tablet = 40 mg, By Mouth, Daily, hong konger., # 30 tablet, 0 Refills, Maintenance, 11/14/18 16:06:42EDT, Tablet Start Date: 11/14/18 Stop Date: 12/14/18 Status: Ordered nebivolol 2.5 mg oral tablet 1 tablet = 2.5 mg, By Mouth, Daily, # 30 tablet, 5 Refills, Maintenance, 03/09/20 15:56:00 EDT, Tablet, [facility] #09697, 152, cm, 11/30/19 15:57:00 EDT, Height, 109, [...] 5 Refills, Maintenance, 02/15/20 9:26:00 EDT, Tablet, [facility] #02493, 152, cm, 11/30/19 15:57:00 EDT, Height, 109, [...]
--- OUTSIDE RECORDS SUMMARY | 2024-01-18 11:12 | XMS_ITS | Continuity of Care Document ---
Author Organization [facility] Address [address] [place] [address]- Care Team Providers Care Will Call Clerk Name Role Phone Mesfin Hua MD, Mi Ambrose Primary Care Physician [place] [facility] [place] - 03/01/[address] [address]- Allergies, Adverse Reactions, Alerts Substance Reaction Severity [...] 3 Refills, Maintenance, 05/01/22 13:21:00 EDT, Tablet, [facility][id number], 152, cm, 05/01/22 10:29:00 EDT, Height Start [...] Maintenance, 02/16/2316:23:00 EDT, Route to Pharmacy Electronically, [facility] #[id number], 152, cm, 05/01/22 10:29:00 EDT, Height Start Date: 02/15/23 Stop Date: 02/10/24 Status: Ordered Gabapentin = 600 mg, By Mouth, 2 times a day, 0 Refills, Maintenance Start Date: 05/12/10 Status: Ordered lisinopril 40 mg oral tablet 1 tablet = 40 mg, By Mouth, Daily, ivorian., # 30 tablet, 0 Refills, Maintenance, 11/14/18 16:06:42EDT, Tablet Start Date: 11/14/18 Stop Date: 12/14/18 Status: Ordered metoprolol 25 mg oral tablet, extended release 25 mg, 1, tablet, By Mouth, Daily, # 30 tablet, Refills 5, Tot. Refills 5, Maintenance, 12/01/20 13:59:00 EDT, Route to Pharmacy Electronically, [facility] #[id number], Partial fill upon patientrequest if the prescription is for a schedule II op... Start Date: 12/01/20 Stop Date: 05/30/21 Status: Ordered Metoprolol Succinate ER 25 mg oral tablet, extended release 1 tablet, By Mouth, Daily, # 30 tablet, 6 Refills, [facility] #[id number], 152, cm, 12/01/20 13:10:00 EDT, Height, 114.5, kg, 04/15/20 11:03:00 EDT, Dry Weight Start Date: 05/26/21 Status: Ordered Metoprolol Succinate ER 25 mg oral tablet, extended release 1 tablet, By Mouth, Daily, # 30 tablet, 11 Refills, [facility] #[id number], 152, cm, 12/01/20 13:10:00 EDT, Height, 114.5, kg, 04/15/20 11:03:00 EDT, Dry Weight Start Date: 05/19/21 Status: Ordered nortriptyline 25 mg oral capsule 25 mg, 1, capsule, By Mouth, Daily at supper, # 90 capsule, Refills 2, Tot. Refills 2, Maintenance,09/14/22 14:03:00 EST, Route to Pharmacy Electronically, [facility] #[id number], aware pt on sertraline, 152, cm, 05/01/22 10:29:00 EDT, Height Start Date: 09/14/22 Stop Date: 06/11/23 Status: Ordered ondansetron 4 mg oral tablet 1 tablet = 4 mg, By Mouth, Every 12 hours, PRN Migraine Headache, take at onset of migraines, # 10 tablet, 2 Refills, Acute 05/01/23 10:52:00 EDT, 05/01/22 10:51:00 EDT, Tablet, [facility] #[id number], Partial fill upon patient request if the [...] 5 Refills, Maintenance, 06/10/20 7:27:00 EST, Tablet, [facility] #[id number], 152, cm, 04/15/20 10:56:00 EDT, Height, 114.5, kg, 04/15/20 11:03:00 EDT, Dry Weight Start Date: 06/10/20 Stop Date: 12/07/20 Status: Ordered torsemide 20 mg oral tablet 0.5 tablet, By Mouth, Daily, # 45 tablet, 3 Refills, Maintenance, 05/01/22 13:20:00 EDT, [facility] #[id number], 152, cm, 05/01/22 10:29:00 EDT, Height Start [...] Reference Physician Member Role: PCP Address: Address: [address] [place] [address] [address] [place] [id number]- Name: Raulito Uriarte MD Position: [facility] Renal MD Member Role: Lifetime Consulting Physician Address: Address: [address] [place] [address] [facility] [place] [address]- Care Team Related Persons Name: EVELYN PAUL Address: [address] [place] [address] Name: SYLVESTER MEDRANO Address: [address] [place] [address]
--- OUTSIDE RECORDS SUMMARY | 2024-01-18 11:12 | XMS_ITS | Continuity of Care Document ---
Author Organization [facility] Address [address] [place] [address], [address] Floor, [address] [place] [address]- Care Team Providers Care Law Instructor Name Role Phone Mesfin Hua MD, Mi Ambrose Primary Care Physician [phone] [place] [facility] [place](s): 01/31/22 - 05/31/22 [facility] [address] [facility], 3rd Floor, [address] [place] [address]- Attending Physician: Shamar Navarro NP Admitting Physician: Shamar Navarro NP Allergies, Adverse Reactions, Alerts Substance Reaction Severity [...] 3 Refills, Maintenance, 05/01/22 13:21:00 EDT, Tablet, [facility] #[id number], 152, cm, 05/01/22 10:29:00 EDT, Height Start [...] 02/20/22 16:23:00 EDT, Route to Pharmacy Electronically, [facility] #[id number], 152, cm, 02/15/22 15:27:00 EDT, Height,... Start Date: 02/20/22 Stop Date: 02/15/23 Status: Ordered flecainide 100 mg oral tablet 1, tablet, By Mouth, Every 12 hours, # 180 tablet, Refills 3, Tot. Refills 3, Maintenance, 02/16/2316:23:00 EDT, Route to Pharmacy Electronically, [facility] #[id number], 152, cm, 05/01/22 10:29:00 EDT, Height Start Date: 02/15/23 Stop Date: 02/10/24 Status: Ordered Gabapentin = 600 mg, By Mouth, 2 times a day, 0 Refills, Maintenance Start Date: 05/12/10 Status: Ordered lisinopril 40 mg oral tablet 1 tablet = 40 mg, By Mouth, Daily, tajik., # 30 tablet, 0 Refills, Maintenance, 11/14/18 16:06:42EDT, Tablet Start Date: 11/14/18 Stop Date: 12/14/18 Status: Ordered metoprolol 25 mg oral tablet, extended release 25 mg, 1, tablet, By Mouth, Daily, # 30 tablet, Refills 5, Tot. Refills 5, Maintenance, 12/01/20 13:59:00 EDT, Route to Pharmacy Electronically, [facility] #[id number], Partial fill upon patientrequest if the prescription is for a schedule II op... Start Date: 12/01/20 Stop Date: 05/30/21 Status: Ordered Metoprolol Succinate ER 25 mg oral tablet, extended release 1 tablet, By Mouth, Daily, # 30 tablet, 6 Refills, [facility] #[id number], 152, cm, 12/01/20 13:10:00 EDT, Height, 114.5, kg, 04/15/20 11:03:00 EDT, Dry Weight Start Date: 05/26/21 Status: Ordered Metoprolol Succinate ER 25 mg oral tablet, extended release 1 tablet, By Mouth, Daily, # 30 tablet, 11 Refills, [facility] #[id number], 152, cm, 12/01/20 13:10:00 EDT, Height, 114.5, kg, 04/15/20 11:03:00 EDT, Dry Weight Start Date: 05/19/21 Status: Ordered nortriptyline 25 mg oral capsule 25 mg, 1, capsule, By Mouth, Daily at supper, # 30 capsule, Refills 5, Tot. Refills 5, Maintenance,05/01/22 10:47:00 EDT, Route to Pharmacy Electronically, [facility] #[id number], aware pt on sertraline, 152, cm, 05/01/22 10:29:00 EDT, Height Start Date: 05/01/22 Stop Date: 10/28/22 Status: Ordered ondansetron 4 mg oral tablet 1 tablet = 4 mg, By Mouth, Every 12 hours, PRN Migraine Headache, take at onset of migraines, # 10 tablet, 2 Refills, Acute 05/01/23 10:52:00 EDT, 05/01/22 10:51:00 EDT, Tablet, [facility] #[id number], Partial fill upon patient request if the [...] 5 Refills, Maintenance, 06/10/20 7:27:00 EST, Tablet, [facility] #[id number], 152, cm, 04/15/20 10:56:00 EDT, Height, 114.5, kg, 04/15/20 11:03:00 EDT, Dry Weight Start Date: 06/10/20 Stop Date: 12/07/20 Status: Ordered torsemide 20 mg oral tablet 0.5 tablet, By Mouth, Daily, # 45 tablet, 3 Refills, Maintenance, 05/01/22 13:20:00 EDT, [facility] #[id number], 152, cm, 05/01/22 10:29:00 EDT, Height Start [...] Reference Physician Member Role: PCP Address: Address: [address] [place] [address]- Care Team Related Persons Name: EVELYN PAUL Address: [address] [place] [address] Name: SYLVESTER MEDRANO Address: home [address] [place] [address]
--- OUTSIDE RECORDS SUMMARY | 2024-01-18 11:12 | XMS_ITS | Continuity of Care Document ---
Author Organization [facility] Address [address] [place] [address]- Care Team Providers Care Embossed Or Impressed Lettering Painter Name Role Phone Nalini Goldberg MD Primary Care Physician [place] [facility] [place] [facility] [address] [place] [address]- [facility] Allergies, Adverse Reactions, Alerts [...] Refills, Maintenance, 11/23/19 15:47:00 EDT, CD Capsule, [facility] #[id number], 152, cm, 12/18/18 14:30:00 EDT, Height, 109, [...] 02/01/20 13:31:00 EDT, Route to Pharmacy Electronically, [facility] #[id number], 152, cm, 11/30/19 15:57:00 EDT, Height, 109, kg, 11/13/18 19:09:00... Start Date: 02/01/20 Stop Date: 07/30/20 Status: Ordered Gabapentin = 600 mg, By Mouth, 2 times a day, 0 Refills, Maintenance Start Date: 05/12/10 Status: Ordered lisinopril 40 mg oral tablet 1 tablet = 40 mg, By Mouth, Daily, belizean., # 30 tablet, 0 Refills, Maintenance, 11/14/18 16:06:42EDT, Tablet Start Date: 11/14/18 Stop Date: 12/14/18 Status: Ordered nebivolol 2.5 mg oral tablet 1 tablet = 2.5 mg, By Mouth, Daily, # 30 tablet, 5 Refills, Maintenance, 03/09/20 15:56:00 EDT, Tablet, [facility] #[id number], 152, cm, 11/30/19 15:57:00 EDT, Height, 109, [...] 5 Refills, Maintenance, 02/15/20 9:26:00 EDT, Tablet, [facility] #[id number], 152, cm, 11/30/19 15:57:00 EDT, Height, 109, [...]
--- OUTSIDE RECORDS SUMMARY | 2024-01-18 11:12 | XMS_ITS | Continuity of Care Document ---
Author Organization [facility] Address [address] [place] [address]- Care Team Providers Care Oracle Obiee Developer Name Role Phone Mesfin Hua MD, Parisa Primary Care Physician En[place] [facility] [place](s): 08/08/23 - 12/06/[address] [facility] [address] [place], [place] [id number]- Attending Physician: Freddy Cooper MD Allergies, Adverse Reactions, Alerts Substance Reaction Severity [...] 3 Refills, Maintenance, 04/26/23 17:16:00 EDT, Tablet, [facility] #[id number], 152.4, cm, 04/23/23 9:59:00 EDT, Height, 121.5, [...] tablet, Refills 3, Tot. Refills 3, Maintenance, 06/13/2311:59:00 EST, Route to Pharmacy Electronically, [facility] #[id number], 152.4, cm, 05/27/23 14:39:00 EST, Height, 121.5, kg, 04/23/23 9:59:00 EDT,... Start Date: 06/13/23 Stop Date: 06/07/24 Status: Ordered Gabapentin = 600 mg, By Mouth, 2 times a day, 0 Refills, Maintenance Start Date: 05/12/10 Status: Ordered lisinopril 40 mg oral tablet 1 tablet = 40 mg, By Mouth, Daily, slovenian., # 30 tablet, 0 Refills, Maintenance, 11/14/18 16:06:42EDT, Tablet Start Date: 11/14/18 Stop Date: 12/14/18 Status: Ordered Metoprolol Succinate ER 25 mg oral tablet, extended release 1 tablet, By Mouth, Daily, # 30 tablet, 6 Refills, [facility] #[id number], 152, cm, 12/01/20 13:10:00 EDT, Height, 114.5, kg, 04/15/20 11:03:00 EDT, Dry Weight Start Date: 05/26/21 Status: Ordered nortriptyline 25 mg oral capsule 25 mg, 1, capsule, By Mouth, Daily at supper, # 90 capsule, Refills 2, Tot. Refills 2, Maintenance,06/11/23 14:03:00 EST, Route to Pharmacy Electronically, [facility] #[id number], aware pt on sertraline, 152, cm, 03/21/23 [...] Tablet Start Date: 04/15/18 Status: Ordered torsemide 10 mg oral tablet 1 tablet = 10 mg, By Mouth, Daily, # 30 tablet, 11 Refills, Maintenance, 10/08/23 15:41:00 EDT, Tablet, [facility] #[id number], Partial fill upon patient request if the prescription is for a schedule II opioid drug., 152.4, cm, 05/27/23 14:39:00... Start Date: 10/08/23 Status: Ordered Problem List Condition Confirmation Course [...] Status Never smoker entered on: 01/09/16 Sex Female Patient Care team information Care Team Personnel Name: Mesfin Hua MD , Mi Ambrose Position: Reference Physician Member Role: PCP Address: Address: [address] [place] [address]- Name: Raulito Uriarte MD Position: [facility] Renal MD Member Role: Lifetime Consulting Physician Address: Address: [address] [place] [address] [facility] [place] [address]- Care Team Related Persons Name: EVELYN PAUL Address: [address] [place] [address] Name: SYLVESTER MEDRANO Address: [address] [place] [address]
--- OUTSIDE RECORDS SUMMARY | 2024-01-18 11:12 | XMS_ITS | Continuity of Care Document ---
Author Organization [facility] Address [address] [place] [address]- Care Team Providers Care Road Conductor Name Role Phone Nalini Goldberg MD Primary Care Physician Encounter [facility] [place] Date(s): 05/31/20 - 06/30/20 [facility] [address] [address] Attending Physician: Jessica Quintana Admitting Physician: Jessica Quintana Referring Physician: AdmtrJessica Allergies, Adverse Reactions, Alerts [...] Refills, Maintenance, 11/23/19 15:47:00 EDT, CD Capsule, [facility] #[id number], 152, cm, 12/18/18 14:30:00 EDT, Height, 109, [...] 02/01/20 13:31:00 EDT, Route to Pharmacy Electronically, [facility] #[id number], 152, cm, 11/30/19 15:57:00 EDT, Height, 109, kg, 11/13/18 19:09:00... Start Date: 02/01/20 Stop Date: 07/30/20 Status: Ordered Gabapentin = 600 mg, By Mouth, 2 times a day, 0 Refills, Maintenance Start Date: 05/12/10 Status: Ordered lisinopril 40 mg oral tablet 1 tablet = 40 mg, By Mouth, Daily, liberian., # 30 tablet, 0 Refills, Maintenance, 11/14/18 16:06:42EDT, Tablet Start Date: 11/14/18 Stop Date: 12/14/18 Status: Ordered nebivolol 2.5 mg oral tablet 1 tablet = 2.5 mg, By Mouth, Daily, # 30 tablet, 5 Refills, Maintenance, 03/09/20 15:56:00 EDT, Tablet, [facility] #[id number], 152, cm, 11/30/19 15:57:00 EDT, Height, 109, [...] 5 Refills, Maintenance, 06/10/20 7:27:00 EST, Tablet, [facility] #[id number], 152, cm, 04/15/20 10:56:00 EDT, Height, 114.5, [...]
--- OUTSIDE RECORDS SUMMARY | 2024-01-18 11:12 | XMS_ITS | Continuity of Care Document ---
Author Organization [facility] Address [address] [place] [address]- Care Team Providers Care Music Director Name Role Phone Mesfin Hua MD, Mi Ambrose Primary Care Physician [place] [facility] [place]22 [facility] [address] [place] [address]- Attending Physician: Mimi Enciso NP Allergies, Adverse Reactions, Alerts Substance Reaction [...] 3 Refills, Maintenance, 05/01/22 13:21:00 EDT, Tablet, [facility] #[id number], 152, cm, 05/01/22 10:29:00 EDT, Height Start [...] 02/20/22 16:23:00 EDT, Route to Pharmacy Electronically, [facility] #[id number], 152, cm, 02/15/22 15:27:00 EDT, Height,... Start Date: 02/20/22 Stop Date: 02/15/23 Status: Ordered flecainide 100 mg oral tablet 1, tablet, By Mouth, Every 12 hours, # 180 tablet, Refills 3, Tot. Refills 3, Maintenance, 02/16/2316:23:00 EDT, Route to Pharmacy Electronically, [facility] #[id number], 152, cm, 05/01/22 10:29:00 EDT, Height Start Date: 02/15/23 Stop Date: 02/10/24 Status: Ordered Gabapentin = 600 mg, By Mouth, 2 times a day, 0 Refills, Maintenance Start Date: 05/12/10 Status: Ordered lisinopril 40 mg oral tablet 1 tablet = 40 mg, By Mouth, Daily, qatari., # 30 tablet, 0 Refills, Maintenance, 11/14/18 16:06:42EDT, Tablet Start Date: 11/14/18 Stop Date: 12/14/18 Status: Ordered metoprolol 25 mg oral tablet, extended release 25 mg, 1, tablet, By Mouth, Daily, # 30 tablet, Refills 5, Tot. Refills 5, Maintenance, 12/01/20 13:59:00 EDT, Route to Pharmacy Electronically, [facility] #[id number], Partial fill upon patientrequest if the prescription is for a schedule II op... Start Date: 12/01/20 Stop Date: 05/30/21 Status: Ordered Metoprolol Succinate ER 25 mg oral tablet, extended release 1 tablet, By Mouth, Daily, # 30 tablet, 6 Refills, [facility] #[id number], 152, cm, 12/01/20 13:10:00 EDT, Height, 114.5, kg, 04/15/20 11:03:00 EDT, Dry Weight Start Date: 05/26/21 Status: Ordered Metoprolol Succinate ER 25 mg oral tablet, extended release 1 tablet, By Mouth, Daily, # 30 tablet, 11 Refills, [facility] #[id number], 152, cm, 12/01/20 13:10:00 EDT, Height, 114.5, kg, 04/15/20 11:03:00 EDT, Dry Weight Start Date: 05/19/21 Status: Ordered nortriptyline 25 mg oral capsule 25 mg, 1, capsule, By Mouth, Daily at supper, # 90 capsule, Refills 2, Tot. Refills 2, Maintenance,09/14/22 14:03:00 EST, Route to Pharmacy Electronically, [facility] #[id number], aware pt on sertraline, 152, cm, 05/01/22 10:29:00 EDT, Height Start Date: 09/14/22 Stop Date: 06/11/23 Status: Ordered ondansetron 4 mg oral tablet 1 tablet = 4 mg, By Mouth, Every 12 hours, PRN Migraine Headache, take at onset of migraines, # 10 tablet, 2 Refills, Acute 05/01/23 10:52:00 EDT, 05/01/22 10:51:00 EDT, Tablet, [facility] #[id number], Partial fill upon patient request if the [...] 5 Refills, Maintenance, 06/10/20 7:27:00 EST, Tablet, [facility] #[id number], 152, cm, 04/15/20 10:56:00 EDT, Height, 114.5, kg, 04/15/20 11:03:00 EDT, Dry Weight Start Date: 06/10/20 Stop Date: 12/07/20 Status: Ordered torsemide 20 mg oral tablet 0.5 tablet, By Mouth, Daily, # 45 tablet, 3 Refills, Maintenance, 05/01/22 13:20:00 EDT, [facility] #[id number], 152, cm, 05/01/22 10:29:00 EDT, Height Start Date: 05/01/22 Stop Date: 04/26/23 Status: Ordered Problem List Condition Confirmation Course Effective Dates Status H ealth Status Informant AF (atrial fibrillation) Confirmed Active Hyperlipidemia Confirmed Active Hypertension Confirmed Active Migraine Confirmed Active Obesity Confirmed Active KARISSA - Obstructive sleep apnea Confirmed Active Severe obesity Confirmed Active Varicose vein Confirmed Active Well female adult Confirmed Active Vital Signs Most recent to oldest [Reference Range]: 1 2 Height 152 cm (11/29/22 8:55 AM) 152 cm (11/28/22 1:54 PM) Weight 116 kg (11/29/22 8:55 AM) 116 kg (11/28/22 1:54 PM) Oxygen Saturation [94-100 %] 96 % (11/28/22 1:54 PM) Pulse Rate [55-90 bpm] 82 bpm (11/28/22 1:54 PM) Body Mass Index [18.5-24.99 kg/m2] 50.21 kg/m2 *>HHI* (11/28/22 1:54 PM) Blood Pressure [90-138/55-84 mm Hg] 136/ 56mm Hg (11/28/22 1:54 PM) Blood pressure sites Arm, left (11/28/22 1:54 PM) Social History Social History Type Response Smoking Status Never smoker entered on: 01/09/16 Sex EKG study * Event Display: ECG 12-Lead Authored Date: [id number] Please click on pdf link to open report * Event Display: ECG 12-Lead Authored Date: [id number] Ventricular Rate: 43 BPM Atrial Rate: 43 BPM P-R Interval: 208 ms QRS Duration: 92 ms Q-T Interval: 506 ms QTC Calculation(Bazett): 427 ms P [place]: 78 degrees R [place]: 8 degrees T [place]: 15 degrees Marked sinus bradycardia Abnormal ECG When compared with ECG of 15-FEB-2022 15:01, No significant change was found Confirmed by JENNIFER MAYS MD ([id number]) on 11/28/2022 3:47:04 PM [place]: JENNIFER MAYS MD Cardiology Outpatient Note * Fernie BONILLA, Mimi Deluca: PERFORM, MODIFY Event Display: Cardiology Note Office Authored Date: Patient: ??TRUNG PAUL ? Age:??67 Years?Sex:??Female?:??1955?? Patient Hx Cardiology Shared Clinical Summary Problem list: 1.?? 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 Paroxysmal atrial fibrillation status post NARENDRA guided cardioversion 2017 3.?? Hypertension 4.?? Dyslipidemia 5.?? KARISSA 6.?? Migraines Indication for Consult Follow Up History of Present Illness/Interval History patient is seen today for reevaluation after her granddaughter telephoned in earlier this month reporting her grandmother's only??been able??to walk a short distance without shortness of breath and??legs felt heavy and painful.?? Apparently had been going on for a few months and was becoming increasingly worse.?? Follow-up in the office was recommended ?? On interview??patient is accompanied by her granddaughter??and??was interviewed with the aid of a video diesel engine ii pipe fitter??reports??shortness of breath with walking. ??Also with mopping sweeping doing any activity??or walking upstairs she feels tired.?? She walking around the house she feels tired.?? She notes that night she feels??her chest??tightening??with the??sensation of throbbing??pulse. ??Isbeen going on for 2 months last a few seconds??happens just about every night after she gets into bed.?? She denies any pain with??exertion or activity??only with the fatigue or shortness of breath.?? She is using her CPAP at night.?? She denies any??syncope near syncope falls palpitations.?? She wears a Fitbit and notes her heart rate is never above 48- 50.?? She goes to the center exercising on the treadmill for 20 to 25 minutes.?? She does get chest discomfort on the treadmill??again her heart rate never goes very fast.?? She will have to stop??and it gets better.?? It happened 3 times in August.?? Her legs feel heavy??and swell.?? She tells me her sister??has A- fib. ??She had 9 siblings??but may have had A-fib.?? Her parents both have heart disease. Review of Systems As above??in HPI. Physical Exam Vitals & Measurements HR:??82??(Peripheral)?? BP:??136/56?? SpO2:??96%?? HT:??152??cm?? WT:??116??kg?? BMI:??50.21?? Weight lb/oz: 255 lb 12 oz General: Well-developed well-nourished female in no acute distress HEENT: No scleral icterus or xanthelasmas. ??Carotids with normal upstrokes no bruits. Respiratory: Lungs clear to auscultation bilaterally with normal respiratory effort Cardiac: Heart sounds irregular rate rhythm S1-S2??no murmur rub or gallop noted.?? No JVD or HJR noted. GI: Abdomen soft nontender nondistended Extremities:??No pitting edema noted??to her lower extremities.?? Radial and pedal pulses??palpableand symmetric Neuro: Alert oriented x3 no gross neurological deficits noted. ?? ECG in the office today??at rest revealed a sinus bradycardia at 43 bpm PA interval 208 ms QRS duration 92 ms QT 506 ms QTc 427 ms.?? It was essentially unchanged from previous ECG from 02/15/2022. Assessment/Plan Impression: 1.?? Symptoms of??fatigue shortness of breath??and some chest discomfort with exertion??or exercise 2.?? Sinus bradycardia??without documented recurrent atrial fibrillation 3. ??Hypertension 4. ??Hyperlipidemia 5.?? KARISSA and migraines ?? Recommend: 1.?? I will go ahead and get an exercise nuclear stress test??to assess her heart rate BP response to exercise, looking for dysrhythmias with exertion or exercise??or ischemia??as well as LV function. 2. ??I suspect??her bradycardia may be the culprit for her symptoms. 3. ??Follow-up??with myself or Dr. Garcia after testing. Problem List/Past Medical History Ongoing AF (atrial fibrillation) Hyperlipidemia Hypertension Migraine Obesity KARISSA - Obstructive sleep apnea Severe obesity Varicose vein Well female adult Procedure/Surgical History tubular ligation angioplasty Home Medications Acetaminophen, 500 mg Albuterol (Eqv-ProAir HFA), Inhalation, Every 6 hours apixaban 5 mg oral tablet, 5 mg, By Mouth, 2 times a day, 3 refills BP machine. Dx Htn, See Instructions Compression Stockings, See Instructions, 2 refills flecainide 100 mg oral tablet, 1 tablet, By Mouth, Every 12 hours, 11 refills flecainide 100 mg oral tablet, 1 tablet, By Mouth, Every 12 hours, 3 refills Gabapentin, 600 mg, By Mouth, 2 times a day lisinopril 40 mg oral tablet, 40 mg= 1 tablet, By Mouth, Daily metoprolol 25 mg oral tablet, extended release, 25 mg= 1 tablet, By Mouth, Daily, 5 refills Metoprolol Succinate ER 25 mg oral tablet, extended release, 1 tablet, By Mouth, Daily Metoprolol Succinate ER 25 mg oral tablet, extended release, 1 tablet, By Mouth, Daily nortriptyline 25 mg oral capsule, 25 mg= 1 capsule, By Mouth, Daily at supper, 2 refills ondansetron 4 mg oral tablet, 4 mg= 1 tablet, By Mouth, Every 12 hours, PRN, 2 refills sertraline 50 mg oral tablet, 50 mg= 1 tablet, By Mouth, Daily in AM torsemide 20 mg oral tablet, 10 mg= 0.5 tablet, By Mouth, Daily, 5 refills torsemide 20 mg oral tablet, 0.5 tablet, By Mouth, Daily, 3 refills Diagnostic Impression ECG ECG 12-Lead ?? 13:39:36 Please click on pdf link to open report ?? Signed By: Jennifer Mays DO ?? ECG 12-Lead ?? 13:39:36 Ventricular Rate: 43 BPM Atrial Rate: 43 BPM P-R Interval: 208 ms QRS Duration: 92 ms Q-T Interval: 506 ms QTC Calculation(Bazett): 427 ms P [place]: 78 degrees R [place]: 8 degrees T [place]: 15 degrees Marked sinus bradycardia Abnormal ECG When compared with ECG of 15-FEB-2022 15:01, No significant change was found Confirmed by JENNIFER MAYS MD ([id number]) on 11/28/2022 3:47:04 PM ?? [place]: JENNIFER MAYS MD ?? Signed By: Jennifer Mays DO Echo Echocardiogram - Complete ?? 14:31:46 Summary The left ventricle is normal in size, wall thickness and systolic function. The ejection fraction is 55-60%. No regional wall motion abnormalities seen. LV filling pressures are normal. The right ventricle is normal in size and function. The pulmonary artery systolic pressure estimation is 35-40 mmHg. ?? Comparison No prior study available for comparison. ?? Signature ?? Signed By: Norman Mcclendon DO Patient Care team information Care Team Personnel Name: Mesfin Hua MD , Parisa Position: Reference Physician Member Role: PCP Address: Address: [address] [place] [address]- Care Team Related Persons Name: EVELYN PAUL Address: [address] [place] [address] Name: SYLVESTER MEDRANO Address: home [address] [place] [address]
--- OUTSIDE RECORDS SUMMARY | 2024-01-18 11:12 | XMS_ITS | Continuity of Care Document ---
Author Organization [facility] Address [address] [place] [address]- Care Team Providers Care Jeweler Apprentice Name Role Phone Mesfin Hua MD, Parisa Primary Care Physician Encounter [facility] [place] Date(s): 09/10/22 - 10/10/[address] [address] Attending Physician: Admtr, [id number] Admitting Physician: Admtr, [id number] Referring Physician: Admtr, [...] 3 Refills, Maintenance, 05/01/22 13:21:00 EDT, Tablet, [facility] #[id number], 152, cm, 05/01/22 10:29:00 EDT, Height Start [...] 02/20/22 16:23:00 EDT, Route to Pharmacy Electronically, [facility] #[id number], 152, cm, 02/15/22 15:27:00 EDT, Height,... Start Date: 02/20/22 Stop Date: 02/15/23 Status: Ordered flecainide 100 mg oral tablet 1, tablet, By Mouth, Every 12 hours, # 180 tablet, Refills 3, Tot. Refills 3, Maintenance, 02/16/2316:23:00 EDT, Route to Pharmacy Electronically, [facility] #[id number], 152, cm, 05/01/22 10:29:00 EDT, Height Start Date: 02/15/23 Stop Date: 02/10/24 Status: Ordered Gabapentin = 600 mg, By Mouth, 2 times a day, 0 Refills, Maintenance Start Date: 05/12/10 Status: Ordered lisinopril 40 mg oral tablet 1 tablet = 40 mg, By Mouth, Daily, cook islander., # 30 tablet, 0 Refills, Maintenance, 11/14/18 16:06:42EDT, Tablet Start Date: 11/14/18 Stop Date: 12/14/18 Status: Ordered metoprolol 25 mg oral tablet, extended release 25 mg, 1, tablet, By Mouth, Daily, # 30 tablet, Refills 5, Tot. Refills 5, Maintenance, 12/01/20 13:59:00 EDT, Route to Pharmacy Electronically, [facility] #[id number], Partial fill upon patientrequest if the prescription is for a schedule II op... Start Date: 12/01/20 Stop Date: 05/30/21 Status: Ordered Metoprolol Succinate ER 25 mg oral tablet, extended release 1 tablet, By Mouth, Daily, # 30 tablet, 6 Refills, [facility] #[id number], 152, cm, 12/01/20 13:10:00 EDT, Height, 114.5, kg, 04/15/20 11:03:00 EDT, Dry Weight Start Date: 05/26/21 Status: Ordered Metoprolol Succinate ER 25 mg oral tablet, extended release 1 tablet, By Mouth, Daily, # 30 tablet, 11 Refills, [facility] #[id number], 152, cm, 12/01/20 13:10:00 EDT, Height, 114.5, kg, 04/15/20 11:03:00 EDT, Dry Weight Start Date: 05/19/21 Status: Ordered nortriptyline 25 mg oral capsule 25 mg, 1, capsule, By Mouth, Daily at supper, # 90 capsule, Refills 2, Tot. Refills 2, Maintenance,09/14/22 14:03:00 EST, Route to Pharmacy Electronically, [facility] #[id number], aware pt on sertraline, 152, cm, 05/01/22 10:29:00 EDT, Height Start Date: 09/14/22 Stop Date: 06/11/23 Status: Ordered ondansetron 4 mg oral tablet 1 tablet = 4 mg, By Mouth, Every 12 hours, PRN Migraine Headache, take at onset of migraines, # 10 tablet, 2 Refills, Acute 05/01/23 10:52:00 EDT, 05/01/22 10:51:00 EDT, Tablet, [facility] #[id number], Partial fill upon patient request if the [...] 5 Refills, Maintenance, 06/10/20 7:27:00 EST, Tablet, [facility] #[id number], 152, cm, 04/15/20 10:56:00 EDT, Height, 114.5, kg, 04/15/20 11:03:00 EDT, Dry Weight Start Date: 06/10/20 Stop Date: 12/07/20 Status: Ordered torsemide 20 mg oral tablet 0.5 tablet, By Mouth, Daily, # 45 tablet, 3 Refills, Maintenance, 05/01/22 13:20:00 EDT, [facility] #[id number], 152, cm, 05/01/22 10:29:00 EDT, Height Start [...] Reference Physician Member Role: PCP Address: Address: [address] [place] [id number]- Care Team Related Persons Name: EVELYN PAUL Address: home [address] [place] [address] Name: SYLVESTER MEDRANO Address: home [address] [place] [address]
--- OUTSIDE RECORDS SUMMARY | 2024-01-18 11:12 | XMS_ITS | Continuity of Care Document ---
Author Organization [facility] Address [address], [address], [address] [place] [address]- Care Team Providers Care Open Source Developer Name Role Phone Mesfin Hua MD, Mi Ambrose Primary Care Physician [phone] [place]counter [facility] [place] Date(s): 05/01/22 - 05/31/22 [facility] [address] [facility], [address], [address] [place] [id number] Attending Physician: Jessica Quintana Admitting Physician: [...] 3 Refills, Maintenance, 05/01/22 13:21:00 EDT, Tablet, [facility] #[id number], 152, cm, 05/01/22 10:29:00 EDT, Height Start [...] 02/20/22 16:23:00 EDT, Route to Pharmacy Electronically, [facility] #[id number], 152, cm, 02/15/22 15:27:00 EDT, Height,... Start Date: 02/20/22 Stop Date: 02/15/23 Status: Ordered flecainide 100 mg oral tablet 1, tablet, By Mouth, Every 12 hours, # 180 tablet, Refills 3, Tot. Refills 3, Maintenance, 02/16/2316:23:00 EDT, Route to Pharmacy Electronically, [facility] #[id number], 152, cm, 05/01/22 10:29:00 EDT, Height Start Date: 02/15/23 Stop Date: 02/10/24 Status: Ordered Gabapentin = 600 mg, By Mouth, 2 times a day, 0 Refills, Maintenance Start Date: 05/12/10 Status: Ordered lisinopril 40 mg oral tablet 1 tablet = 40 mg, By Mouth, Daily, bhutanese., # 30 tablet, 0 Refills, Maintenance, 11/14/18 16:06:42EDT, Tablet Start Date: 11/14/18 Stop Date: 12/14/18 Status: Ordered metoprolol 25 mg oral tablet, extended release 25 mg, 1, tablet, By Mouth, Daily, # 30 tablet, Refills 5, Tot. Refills 5, Maintenance, 12/01/20 13:59:00 EDT, Route to Pharmacy Electronically, [facility] #[id number], Partial fill upon patientrequest if the prescription is for a schedule II op... Start Date: 12/01/20 Stop Date: 05/30/21 Status: Ordered Metoprolol Succinate ER 25 mg oral tablet, extended release 1 tablet, By Mouth, Daily, # 30 tablet, 6 Refills, [facility] #[id number], 152, cm, 12/01/20 13:10:00 EDT, Height, 114.5, kg, 04/15/20 11:03:00 EDT, Dry Weight Start Date: 05/26/21 Status: Ordered Metoprolol Succinate ER 25 mg oral tablet, extended release 1 tablet, By Mouth, Daily, # 30 tablet, 11 Refills, [facility] #[id number], 152, cm, 12/01/20 13:10:00 EDT, Height, 114.5, kg, 04/15/20 11:03:00 EDT, Dry Weight Start Date: 05/19/21 Status: Ordered nortriptyline 25 mg oral capsule 25 mg, 1, capsule, By Mouth, Daily at supper, # 30 capsule, Refills 5, Tot. Refills 5, Maintenance,05/01/22 10:47:00 EDT, Route to Pharmacy Electronically, [facility] #[id number], aware pt on sertraline, 152, cm, 05/01/22 10:29:00 EDT, Height Start Date: 05/01/22 Stop Date: 10/28/22 Status: Ordered ondansetron 4 mg oral tablet 1 tablet = 4 mg, By Mouth, Every 12 hours, PRN Migraine Headache, take at onset of migraines, # 10 tablet, 2 Refills, Acute 05/01/23 10:52:00 EDT, 05/01/22 10:51:00 EDT, Tablet, [facility] #[id number], Partial fill upon patient request if the pre... Start Date: 05/01/22 Stop Date: 10/18/23 Status: Ordered sertraline 50 mg oral tablet [...] 5 Refills, Maintenance, 06/10/20 7:27:00 EST, Tablet, [facility] #[id number], 152, cm, 04/15/20 10:56:00 EDT, Height, 114.5, kg, 04/15/20 11:03:00 EDT, Dry Weight Start Date: 06/10/20 Stop Date: 12/07/20 Status: Ordered torsemide 20 mg oral tablet 0.5 tablet, By Mouth, Daily, # 45 tablet, 3 Refills, Maintenance, 05/01/22 13:20:00 EDT, [facility] #[id number], 152, cm, 05/01/22 10:29:00 EDT, Height Start [...] Reference Physician Member Role: PCP Address: Address: [address] [place] [address]- Care Team Related Persons Name: EVELYN PAUL Address: [address] [place] [address] Name: SYLVESTER MEDRANO Address: home [address] [place] [address]
--- OUTSIDE RECORDS SUMMARY | 2024-01-18 11:12 | XMS_ITS | Continuity of Care Document ---
Author Organization [facility] Address Unknown Care Team Providers Care Millinery Designer Name Role Phone Mesfin Hua MD, Mi Ambrose Primary Care Physician Encounter [facility] [place] Date(s): 01/05/22 - 02/04/22 [facility] Allergies, Adverse Reactions, Alerts Substance [...] Maintenance, :33:00 EDT, Route to Pharmacy Electronically, [facility] #[id number], 152, cm, 12/01/20 13:10:00 EDT, Height, 114.5, kg, 04/15/20 11:03:00 EDT, D... Start Date: 12/05/20 Status: Ordered Gabapentin = 600 mg, By Mouth, 2 times a day, 0 Refills, Maintenance Start Date: 05/12/10 Status: Ordered lisinopril 40 mg oral tablet 1 tablet = 40 mg, By Mouth, Daily, icelandic., # 30 tablet, 0 Refills, Maintenance, 11/14/18 16:06:42EDT, Tablet Start Date: 11/14/18 Stop Date: 12/14/18 Status: Ordered metoprolol 25 mg oral tablet, extended release 25 mg, 1, tablet, By Mouth, Daily, # 30 tablet, Refills 5, Tot. Refills 5, Maintenance, 12/01/20 13:59:00 EDT, Route to Pharmacy Electronically, [facility] #[id number], Partial fill upon patientrequest if the prescription is for a schedule II op... Start Date: 12/01/20 Stop Date: 05/30/21 Status: Ordered Metoprolol Succinate ER 25 mg oral tablet, extended release 1 tablet, By Mouth, Daily, # 30 tablet, 6 Refills, [facility] #[id number], 152, cm, 12/01/20 13:10:00 EDT, Height, 114.5, kg, 04/15/20 11:03:00 EDT, Dry Weight Start Date: 05/26/21 Status: Ordered Metoprolol Succinate ER 25 mg oral tablet, extended release 1 tablet, By Mouth, Daily, # 30 tablet, 5 Refills, [facility] #[id number], 152, cm, 12/01/20 13:10:00 EDT, Height, 114.5, kg, 04/15/20 11:03:00 EDT, Dry Weight Start Date: 03/07/21 Status: Ordered Metoprolol Succinate ER 25 mg oral tablet, extended release 1 tablet, By Mouth, Daily, # 30 tablet, 11 Refills, [facility] #[id number], 152, cm, 12/01/20 13:10:00 EDT, Height, 114.5, [...] 5 Refills, Maintenance, 06/10/20 7:27:00 EST, Tablet, [facility] #[id number], 152, cm, 04/15/20 10:56:00 EDT, Height, 114.5, kg, 04/15/20 11:03:00 EDT, Dry Weight Start Date: 06/10/20 Stop Date: 12/07/20 Status: Ordered torsemide 20 mg oral tablet 0.5 tablet, By Mouth, Daily, # 15 tablet, 5 Refills, Maintenance, 02/13/21 14:06:00 EDT, [facility] #[id number], 152, cm, 12/01/20 13:10:00 EDT, Height, 114.5, kg, 04/15/20 11:03:00 EDT, Dry Weight Start Date: 02/13/21 Status: Ordered Problem List Condition Effective Dates Status Health Status Inform ant AF (atrial fibrillation)(Confirmed) Active Hyperlipidemia(Confirmed) Active Hypertension(Confirmed) Active Migraine(Confirmed) Active Obesity(Confirmed) Active KARISSA - Obstructive sleep apnea(Confirmed) Active Severe obesity(Confirmed) Active Varicose vein(Confirmed) Active Well female adult(Confirmed) Active Social History Social History Type Response Smoking Status Never smoker entered on: 01/09/16 Sex
--- OUTSIDE RECORDS SUMMARY | 2024-01-18 11:12 | XMS_ITS | Continuity of Care Document ---
Author Organization [facility] Address [address] [place] [address]- Care Team Providers Care Animal Care Assistant Name Role Phone Mesfin Hua MD, Parisa Primary Care Physician Encounter [facility] [place] Date(s): 11/06/23 - 12/06/23 [facility] [address] [place] [address]- Attending Physician: Jessica Quintana Admitting Physician: Jessica Quintana Referring Physician: [id number] Allergies, Adverse Reactions, Alerts Substance Reaction Severity [...] 3 Refills, Maintenance, 04/26/23 17:16:00 EDT, Tablet, [facility] #[id number], 152.4, cm, 04/23/23 9:59:00 EDT, Height, 121.5, [...] Maintenance, 06/13/2311:59:00 EST, Route to Pharmacy Electronically, [facility] #[id number], 152.4, cm, 05/27/23 14:39:00 EST, Height, 121.5, kg, 04/23/23 9:59:00 EDT,... Start Date: 06/13/23 Stop Date: 06/07/24 Status: Ordered Gabapentin = 600 mg, By Mouth, 2 times a day, 0 Refills, Maintenance Start Date: 05/12/10 Status: Ordered lisinopril 40 mg oral tablet 1 tablet = 40 mg, By Mouth, Daily, kyrgyz., # 30 tablet, 0 Refills, Maintenance, 11/14/18 16:06:42EDT, Tablet Start Date: 11/14/18 Stop Date: 12/14/18 Status: Ordered Metoprolol Succinate ER 25 mg oral tablet, extended release 1 tablet, By Mouth, Daily, # 30 tablet, 6 Refills, [facility] #[id number], 152, cm, 12/01/20 13:10:00 EDT, Height, 114.5, kg, 04/15/20 11:03:00 EDT, Dry Weight Start Date: 05/26/21 Status: Ordered nortriptyline 25 mg oral capsule 25 mg, 1, capsule, By Mouth, Daily at supper, # 90 capsule, Refills 2, Tot. Refills 2, Maintenance,06/11/23 14:03:00 EST, Route to Pharmacy Electronically, [facility] #[id number], aware pt on sertraline, 152, cm, 03/21/23 [...] 11 Refills, Maintenance, 10/08/23 15:41:00 EDT, Tablet, [facility][id number], Partial fill upon patient request if the [...] Physician Member Role: PCP Address: Address: [address] [place] [address]- Name: Raulito Uriarte MD Position: Tl Renal MD Member Role: Lifetime Consulting Physician Address: Address: [address] [place] [address] [facility] [place] [address]- Care Team Related Persons Name: EVELYN PAUL Address: home [address] [place] [address] Name: SYLVESTER MEDRANO Address: [address] [place] [address]
--- OUTSIDE RECORDS SUMMARY | 2024-01-18 11:12 | XMS_ITS | Continuity of Care Document ---
Author Organization [facility] Address [address] [place] [address]- Care Team Providers Care Clinical Nurse Educator Name Role Phone Mesfin Hua MD, Mi Ambrose Primary Care Physician Encounter [facility] Date(s): 06/13/23 - 07/13/23 [facility] [address] [place] [phone]- [place] Allergies, Adverse Reactions, Alerts Substance Reaction [...] 3 Refills, Maintenance, 04/26/23 17:16:00 EDT, Tablet, [facility] #[id number], 152.4, cm, 04/23/23 9:59:00 EDT, Height, 121.5, [...] Maintenance, 06/13/2311:59:00 EST, Route to Pharmacy Electronically, [facility] #[id number], 152.4, cm, 05/27/23 14:39:00 EST, Height, 121.5, kg, 04/23/23 9:59:00 EDT,... Start Date: 06/13/23 Stop Date: 06/07/24 Status: Ordered Gabapentin = 600 mg, By Mouth, 2 times a day, 0 Refills, Maintenance Start Date: 05/12/10 Status: Ordered lisinopril 40 mg oral tablet 1 tablet = 40 mg, By Mouth, Daily, burkinan., # 30 tablet, 0 Refills, Maintenance, 11/14/18 16:06:42EDT, Tablet Start Date: 11/14/18 Stop Date: 12/14/18 Status: Ordered Metoprolol Succinate ER 25 mg oral tablet, extended release 1 tablet, By Mouth, Daily, # 30 tablet, 6 Refills, [facility] #[id number], 152, cm, 12/01/20 13:10:00 EDT, Height, 114.5, kg, 04/15/20 11:03:00 EDT, Dry Weight Start Date: 05/26/21 Status: Ordered nortriptyline 25 mg oral capsule 25 mg, 1, capsule, By Mouth, Daily at supper, # 90 capsule, Refills 2, Tot. Refills 2, Maintenance,06/11/23 14:03:00 EST, Route to Pharmacy Electronically, [facility] #[id number], aware pt on sertraline, 152, cm, 03/21/23 [...] tablet, 3 Refills, Maintenance, 05/01/22 13:20:00 EDT, [facility] #[id number], 152, cm, 05/01/22 10:29:00 EDT, Height Start [...] Physician Member Role: PCP Address: Address: [address] [place] [address]- Name: Raulito Uriarte MD Position: Tl Renal MD Member Role: Lifetime Consulting Physician Address: Address: [address] [place] [address] [facility] [place] [address]- Care Team Related Persons Name: EVELYN PAUL Address: [address] [place] [address] Name: SYLVESTER MEDRANO Address: [address] [place] [address]
--- OUTSIDE RECORDS SUMMARY | 2024-01-18 11:12 | XMS_ITS | Continuity of Care Document ---
Author Organization [facility] Address [address] [place] [address]- Care Team Providers Care Ballistician Name Role Phone Nalini Goldberg MD Primary Care Physician [phone] Encounter [facility] [place] Date(s): 10/12/19 - 12/23/19 [facility] [address] [place] [address]- [facility] Attending Physician: Bonifacio Callejas Admitting Physician: Bonifacio Callejas Referring Physician: Nalini Goldberg MD Allergies, Adverse Reactions, Alerts Substance Reaction [...] Refills, Maintenance, 11/23/19 15:47:00 EDT, CD Capsule, [facility] #[id number], 152, cm, 12/18/18 14:30:00 EDT, Height, 109, [...] 02/26/19 15:18:58 EDT, Route to Pharmacy Electronically, [id number], [facility] #[id number] Start Date: 02/26/19 Stop Date: 08/25/19 Status: Ordered Gabapentin = 600 mg, By Mouth, 2 times a day, 0 Refills, Maintenance Start Date: 05/12/10 Status: Ordered lisinopril 40 mg oral tablet 1 tablet = 40 mg, By Mouth, Daily, romanian., # 30 tablet, 0 Refills, Maintenance, 11/14/18 16:06:42EDT, Tablet Start Date: 11/14/18 Stop Date: 12/14/18 Status: Ordered nebivolol 2.5 mg oral tablet 1 tablet = 2.5 mg, By Mouth, Daily, # 30 tablet, 5 Refills, Maintenance, 12/16/19 15:21:00 EDT, Tablet, [facility] #[id number], 152, cm, 11/30/19 15:57:00 EDT, Height, 109, [...] 5 Refills, Maintenance, 08/24/19 8:16:00 EST, Tablet, [facility] #[id number], 152, cm, 12/18/18 14:30:00 EDT, Height, 109, [...]
--- OUTSIDE RECORDS SUMMARY | 2024-01-18 11:12 | XMS_ITS | Continuity of Care Document ---
Author Organization [facility] Address [address] [place] [address]- Care Team Providers Care Rn Documentation Specialist Name Role Phone Mesfin Hua MD, Parisa Primary Care Physician [place] [facility] [place] Date(s): 05/27/23 - 06/26/[address] [address] Attending Physician: Admjeri, Jessica Admitting Physician: AdmtrJessica Referring Physician: Admtr, Ar8 Allergies, Adverse Reactions, [...] 3 Refills, Maintenance, 04/26/23 17:16:00 EDT, Tablet, [facility] #[id number], 152.4, cm, 04/23/23 9:59:00 EDT, Height, 121.5, [...] Maintenance, 06/13/2311:59:00 EST, Route to Pharmacy Electronically, [facility] #[id number], 152.4, cm, 05/27/23 14:39:00 EST, Height, 121.5, kg, 04/23/23 9:59:00 EDT,... Start Date: 06/13/23 Stop Date: 06/07/24 Status: Ordered Gabapentin = 600 mg, By Mouth, 2 times a day, 0 Refills, Maintenance Start Date: 05/12/10 Status: Ordered lisinopril 40 mg oral tablet 1 tablet = 40 mg, By Mouth, Daily, micronesian., # 30 tablet, 0 Refills, Maintenance, 11/14/18 16:06:42EDT, Tablet Start Date: 11/14/18 Stop Date: 12/14/18 Status: Ordered Metoprolol Succinate ER 25 mg oral tablet, extended release 1 tablet, By Mouth, Daily, # 30 tablet, 6 Refills, [facility] #[id number], 152, cm, 12/01/20 13:10:00 EDT, Height, 114.5, kg, 04/15/20 11:03:00 EDT, Dry Weight Start Date: 05/26/21 Status: Ordered nortriptyline 25 mg oral capsule 25 mg, 1, capsule, By Mouth, Daily at supper, # 90 capsule, Refills 2, Tot. Refills 2, Maintenance,06/11/23 14:03:00 EST, Route to Pharmacy Electronically, [facility] #[id number], aware pt on sertraline, 152, cm, 03/21/23 [...] tablet, 3 Refills, Maintenance, 05/01/22 13:20:00 EDT, [facility] #[id number], 152, cm, 05/01/22 10:29:00 EDT, Height Start [...] Physician Member Role: PCP Address: Address: [address] [place] [address]- Name: Raulito Uriarte MD Position: [facility] Renal MD Member Role: Lifetime Consulting Physician Address: Address: [address] [place] [address] [facility] [place] [address]- Care Team Related Persons Name: EVELYN PAUL Address: home [address] [place] [address] Name: SYLVESTER MEDRANO Address: [address] [place] [address]
--- OUTSIDE RECORDS SUMMARY | 2024-01-18 11:13 | XMS_ITS | Continuity of Care Document ---
Author Organization [facility] Address [address] [place] [address]- Care Team Providers Care Student Development Specialist Name Role Phone Nalini Goldberg MD Primary Care Physician [phone] Encounter [facility] Date(s): 03/09/20 - 04/08/20 [facility] [address] [place] [address]- [facility] Allergies, Adverse Reactions, Alerts Substance Reaction Severity [...] Refills, Maintenance, 11/23/19 15:47:00 EDT, CD Capsule, [facility] #[id number], 152, cm, 12/18/18 14:30:00 EDT, Height, 109, [...] 02/01/20 13:31:00 EDT, Route to Pharmacy Electronically, [facility] #[id number], 152, cm, 11/30/19 15:57:00 EDT, Height, 109, kg, 11/13/18 19:09:00... Start Date: 02/01/20 Stop Date: 07/30/20 Status: Ordered Gabapentin = 600 mg, By Mouth, 2 times a day, 0 Refills, Maintenance Start Date: 05/12/10 Status: Ordered lisinopril 40 mg oral tablet 1 tablet = 40 mg, By Mouth, Daily, belarusian., # 30 tablet, 0 Refills, Maintenance, 11/14/18 16:06:42EDT, Tablet Start Date: 11/14/18 Stop Date: 12/14/18 Status: Ordered nebivolol 2.5 mg oral tablet 1 tablet = 2.5 mg, By Mouth, Daily, # 30 tablet, 5 Refills, Maintenance, 03/09/20 15:56:00 EDT, Tablet, [facility] #[id number], 152, cm, 11/30/19 15:57:00 EDT, Height, 109, [...] 5 Refills, Maintenance, 02/15/20 9:26:00 EDT, Tablet, [facility] #[id number], 152, cm, 11/30/19 15:57:00 EDT, Height, 109, [...]
--- OUTSIDE RECORDS SUMMARY | 2024-01-18 11:13 | XMS_ITS | Continuity of Care Document ---
Author Organization [facility] Address [address] [place] [address]- Care Team Providers Care Chrome Plater Name Role Phone Mesfin Hua MD, Parisa Primary Care Physician Encounter [facility] [place] Date(s): 02/15/22 - 03/17/22 [facility] [address] [place] [address]- Attending Physician: Jessica Quintana Admitting Physician: AdmtrJessica Referring Physician: Admtr, Ar8 [...] Every 12 hours, # 60 tablet, Refills 11, Tot. Refills 11, Maintenance, 02/20/22 16:23:00 EDT, Route to Pharmacy Electronically, [facility] #[id number], 152, cm, 02/15/22 15:27:00 EDT, Height, 114.5, kg, 04/15/20 11:03:00 EDT,... Start Date: 02/20/22 Stop Date: 02/15/23 Status: Ordered Gabapentin = 600 mg, By Mouth, 2 times a day, 0 Refills, Maintenance Start Date: 05/12/10 Status: Ordered lisinopril 40 mg oral tablet 1 tablet = 40 mg, By Mouth, Daily, english., # 30 tablet, 0 Refills, Maintenance, 11/14/18 16:06:42EDT, Tablet Start Date: 11/14/18 Stop Date: 12/14/18 Status: Ordered metoprolol 25 mg oral tablet, extended release 25 mg, 1, tablet, By Mouth, Daily, # 30 tablet, Refills 5, Tot. Refills 5, Maintenance, 12/01/20 13:59:00 EDT, Route to Pharmacy Electronically, [facility] #[id number], Partial fill upon patientrequest if the prescription is for a schedule II op... Start Date: 12/01/20 Stop Date: 05/30/21 Status: Ordered Metoprolol Succinate ER 25 mg oral tablet, extended release 1 tablet, By Mouth, Daily, # 30 tablet, 6 Refills, [facility] #[id number], 152, cm, 12/01/20 13:10:00 EDT, Height, 114.5, kg, 04/15/20 11:03:00 EDT, Dry Weight Start Date: 05/26/21 Status: Ordered Metoprolol Succinate ER 25 mg oral tablet, extended release 1 tablet, By Mouth, Daily, # 30 tablet, 5 Refills, [facility] #[id number], 152, cm, 12/01/20 13:10:00 EDT, Height, 114.5, kg, 04/15/20 11:03:00 EDT, Dry Weight Start Date: 03/07/21 Status: Ordered Metoprolol Succinate ER 25 mg oral tablet, extended release 1 tablet, By Mouth, Daily, # 30 tablet, 11 Refills, [facility] #[id number], 152, cm, 12/01/20 13:10:00 EDT, Height, 114.5, [...] 5 Refills, Maintenance, 06/10/20 7:27:00 EST, Tablet, [facility] #[id number], 152, cm, 04/15/20 10:56:00 EDT, Height, 114.5, kg, 04/15/20 11:03:00 EDT, Dry Weight Start Date: 06/10/20 Stop Date: 12/07/20 Status: Ordered torsemide 20 mg oral tablet 0.5 tablet, By Mouth, Daily, # 15 tablet, 5 Refills, Maintenance, 02/13/21 14:06:00 EDT, [facility] #[id number], 152, cm, 12/01/20 13:10:00 EDT, Height, 114.5, [...] Status Never smoker entered on: 01/09/16 Sex Care Team Personnel Name: Mesfin Hua MD , Mi Ambrose Address: [address] [place] [id number]
--- OUTSIDE RECORDS SUMMARY | 2024-01-18 11:13 | XMS_ITS | Continuity of Care Document ---
Author Organization [facility] Address [address] [place] [address]- Care Team Providers Care Color Sprayer Name Role Phone Nalini Goldberg MD Primary Care Physician [phone] En[place] [facility] [place] Date(s): 04/15/20 - 04/22/20 [facility] [address] [place] [address]- [facility] Attending Physician: Linda Gayle MD Referring Physician: Nalini Goldberg MD Allergies, Adverse [...] Refills, Maintenance, 11/23/19 15:47:00 EDT, CD Capsule, [facility] #[id number], 152, cm, 12/18/18 14:30:00 EDT, Height, 109, [...] 02/01/20 13:31:00 EDT, Route to Pharmacy Electronically, [facility] #[id number], 152, cm, 11/30/19 15:57:00 EDT, Height, 109, kg, 11/13/18 19:09:00... Start Date: 02/01/20 Stop Date: 07/30/20 Status: Ordered Gabapentin = 600 mg, By Mouth, 2 times a day, 0 Refills, Maintenance Start Date: 05/12/10 Status: Ordered lisinopril 40 mg oral tablet 1 tablet = 40 mg, By Mouth, Daily, sri lankan., # 30 tablet, 0 Refills, Maintenance, 11/14/18 16:06:42EDT, Tablet Start Date: 11/14/18 Stop Date: 12/14/18 Status: Ordered nebivolol 2.5 mg oral tablet 1 tablet = 2.5 mg, By Mouth, Daily, # 30 tablet, 5 Refills, Maintenance, 03/09/20 15:56:00 EDT, Tablet, [facility] #[id number], 152, cm, 11/30/19 15:57:00 EDT, Height, 109, [...] 5 Refills, Maintenance, 02/15/20 9:26:00 EDT, Tablet, [facility] #[id number], 152, cm, 11/30/19 15:57:00 EDT, Height, 109, [...] oldest [Reference Range]: 1 Height 152 cm (04/15/20 10:56 AM) Weight 114.5 kg (04/15/20 10:56 AM) Oxygen Saturation [94-100 %] 100 % (04/15/20 10:56 AM) Pulse Rate [55-90 bpm] 67 bpm (04/15/20 10:56 AM) Body Mass Index [18.5-24.99] 49.56 *>HHI* (04/15/20 10:56 AM) Blood Pressure [90-138/55-84 mm Hg] 150/ 68mm Hg *H* (04/15/20 10:56 AM) Respiratory Rate [16-30 br/min] 16 br/mi n (04/15/20 10:56 AM) Temperature [96.8-100.4 DegF] 96.4 DegF *L* (04/15/20 10:56 AM) Mode of Delivery (Oxygen) Room air (04/15/20 10:56 AM) Blood pressure sites Arm, right (04/15/20 10:56 AM) Temperature Route Temporal (04/15/20 10:56 AM) Dry Weight 114.5 kg (04/15/20 10:56 AM) Weight Obtained Via Standing scale (04/15/20 10:56 AM) Dry Weight Obtained Via Standing scale (04/15/20 10:56 AM) Social History Social History Type Response Smoking Status Never smoker entered on: 01/09/16 Sex
--- OUTSIDE RECORDS SUMMARY | 2024-01-18 11:13 | XMS_ITS | Continuity of Care Document ---
Author Organization [facility] Address [address] [place] [address]- Care Team Providers Care Editor House Organ Name Role Phone Nalini Goldberg MD Primary Care Physician Encounter [facility] Date(s): 11/23/19 - 11/30/19 [facility] [address] [place] [address]- [facility] Attending Physician: Bonifacio Callejas Allergies, Adverse Reactions, Alerts Substance Reaction Severity [...] Refills, Maintenance, 11/23/19 15:47:00 EDT, CD Capsule, [facility] #[id number], 152, cm, 12/18/18 14:30:00 EDT, Height, 109, [...] 02/26/19 15:18:58 EDT, Route to Pharmacy Electronically, [id number], [facility] #[id number] Start Date: 02/26/19 Stop Date: 08/25/19 Status: [...] 5 Refills, Maintenance, 08/24/19 8:16:00 EST, Tablet, [facility] #[id number], 152, cm, 12/18/18 14:30:00 EDT, Height, 109, [...]
--- OUTSIDE RECORDS SUMMARY | 2024-01-18 11:13 | XMS_ITS | Continuity of Care Document ---
Author Organization [facility] Address [address] [place] [address]- Care Team Providers Care Market Maker Name Role Phone Nalini Goldberg MD Primary Care Physician En[place] [facility] [place] Date(s[place] 09/28/20 - 11/30/20 [facility] [address] [place] [address] Attending Physician: Bonifacio Callejas Admitting Physician: Bonifacio Callejas Allergies, Adverse Reactions, Alerts [...] Refills, Maintenance, 11/23/19 15:47:00 EDT, CD Capsule, [facility] #[id number], 152, cm, 12/18/18 14:30:00 EDT, Height, 109, [...] 11/03/20 8:00:00 EDT, Route to Pharmacy Electronically, [facility] #[id number], 152, cm, 04/15/20 10:56:00 EDT, Height, 114.5, kg, 04/15/20 11:03:00 EDT, Dr... Start Date: 11/03/20 Status: Ordered Gabapentin = 600 mg, By Mouth, 2 times a day, 0 Refills, Maintenance Start Date: 05/12/10 Status: Ordered lisinopril 40 mg oral tablet 1 tablet = 40 mg, By Mouth, Daily, senegalese., # 30 tablet, 0 Refills, Maintenance, 11/14/18 16:06:42EDT, Tablet Start Date: 11/14/18 Stop Date: 12/14/18 Status: Ordered nebivolol 2.5 mg oral tablet 1 tablet = 2.5 mg, By Mouth, Daily, # 30 tablet, 5 Refills, Maintenance, 03/09/20 15:56:00 EDT, Tablet, [facility] #[id number], 152, cm, 11/30/19 15:57:00 EDT, Height, 109, [...] 5 Refills, Maintenance, 06/10/20 7:27:00 EST, Tablet, [facility] #[id number], 152, cm, 04/15/20 10:56:00 EDT, Height, 114.5, [...]
--- OUTSIDE RECORDS SUMMARY | 2024-01-18 11:13 | XMS_ITS | Continuity of Care Document ---
Author Organization [facility] Address [address] [place] [address]- Care Team Providers Care Congressional Representative Name Role Phone Mesfin Hua MD, Mi Ambrose Primary Care Physician [place] [facility] [place](s[place] 08/21/22 - 10/21/[address] [address]- Encounter Diagnosis Cervicogenic headache(Final) - Discharge Disposition: A-D/C Home Attending Physician: Melanie BONILLA, Shamar Admitting Physician: Shamar Navarro NP Referring Physician: Melanie BONILLA, Shamar Allergies, Adverse Reactions, Alerts Substance Reaction Severity [...] 3 Refills, Maintenance, 05/01/22 13:21:00 EDT, Tablet, [facility] #[id number], 152, cm, 05/01/22 10:29:00 EDT, Height Start [...] 02/20/22 16:23:00 EDT, Route to Pharmacy Electronically, [facility] #[id number], 152, cm, 02/15/22 15:27:00 EDT, Height,... Start Date: 02/20/22 Stop Date: 02/15/23 Status: Ordered flecainide 100 mg oral tablet 1, tablet, By Mouth, Every 12 hours, # 180 tablet, Refills 3, Tot. Refills 3, Maintenance, 02/16/2316:23:00 EDT, Route to Pharmacy Electronically, [facility] #[id number], 152, cm, 05/01/22 10:29:00 EDT, Height Start Date: 02/15/23 Stop Date: 02/10/24 Status: Ordered Gabapentin = 600 mg, By Mouth, 2 times a day, 0 Refills, Maintenance Start Date: 05/12/10 Status: Ordered lisinopril 40 mg oral tablet 1 tablet = 40 mg, By Mouth, Daily, kuwaiti., # 30 tablet, 0 Refills, Maintenance, 11/14/18 16:06:42EDT, Tablet Start Date: 11/14/18 Stop Date: 12/14/18 Status: Ordered metoprolol 25 mg oral tablet, extended release 25 mg, 1, tablet, By Mouth, Daily, # 30 tablet, Refills 5, Tot. Refills 5, Maintenance, 12/01/20 13:59:00 EDT, Route to Pharmacy Electronically, [facility] #[id number], Partial fill upon patientrequest if the prescription is for a schedule II op... Start Date: 12/01/20 Stop Date: 05/30/21 Status: Ordered Metoprolol Succinate ER 25 mg oral tablet, extended release 1 tablet, By Mouth, Daily, # 30 tablet, 6 Refills, [facility] #[id number], 152, cm, 12/01/20 13:10:00 EDT, Height, 114.5, kg, 04/15/20 11:03:00 EDT, Dry Weight Start Date: 05/26/21 Status: Ordered Metoprolol Succinate ER 25 mg oral tablet, extended release 1 tablet, By Mouth, Daily, # 30 tablet, 11 Refills, [facility] #[id number], 152, cm, 12/01/20 13:10:00 EDT, Height, 114.5, kg, 04/15/20 11:03:00 EDT, Dry Weight Start Date: 05/19/21 Status: Ordered nortriptyline 25 mg oral capsule 25 mg, 1, capsule, By Mouth, Daily at supper, # 90 capsule, Refills 2, Tot. Refills 2, Maintenance,09/14/22 14:03:00 EST, Route to Pharmacy Electronically, [facility] #[id number], aware pt on sertraline, 152, cm, 05/01/22 10:29:00 EDT, Height Start Date: 09/14/22 Stop Date: 06/11/23 Status: Ordered ondansetron 4 mg oral tablet 1 tablet = 4 mg, By Mouth, Every 12 hours, PRN Migraine Headache, take at onset of migraines, # 10 tablet, 2 Refills, Acute 05/01/23 10:52:00 EDT, 05/01/22 10:51:00 EDT, Tablet, [facility] #[id number], Partial fill upon patient request if the [...] 5 Refills, Maintenance, 06/10/20 7:27:00 EST, Tablet, [facility] #[id number], 152, cm, 04/15/20 10:56:00 EDT, Height, 114.5, kg, 04/15/20 11:03:00 EDT, Dry Weight Start Date: 06/10/20 Stop Date: 12/07/20 Status: Ordered torsemide 20 mg oral tablet 0.5 tablet, By Mouth, Daily, # 45 tablet, 3 Refills, Maintenance, 05/01/22 13:20:00 EDT, [facility] #[id number], 152, cm, 05/01/22 10:29:00 EDT, Height Start [...] Reference Physician Member Role: PCP Address: Address: [address] [place] [address]- Care Team Related Persons Name: EVELYN PAUL Address: home [address] [place] [address] Name: SYLVESTER MEDRANO Address: [address] [place] [address]
--- OUTSIDE RECORDS SUMMARY | 2024-01-18 11:13 | XMS_ITS | Continuity of Care Document ---
Author Organization [facility] ter Address [address] [place] [id number]- Care Team Providers Care Rx Specialist Name Role Phone Mesfin Hua MD, Parisa Primary Care Physician Encounter [facility] Date(s): 04/23/23 - 04/23/[address] [address] Discharge Disposition: A-D/C Home Attending Physician: Lance Jon MD Admitting Physician: Lance Jon MD Referring Physician: Lance Jon MD Allergies, Adverse Reactions, Alerts Substance Reaction [...] 3 Refills, Maintenance, 05/01/22 13:21:00 EDT, Tablet, [facility][id number], 152, cm, 05/01/22 10:29:00 EDT, Height Start [...] Maintenance, 02/16/2316:23:00 EDT, Route to Pharmacy Electronically, [facility] #[id number], 152, cm, 05/01/22 10:29:00 EDT, Height Start Date: 02/15/23 Stop Date: 02/10/24 Status: Ordered Gabapentin = 600 mg, By Mouth, 2 times a day, 0 Refills, Maintenance Start Date: 05/12/10 Status: Ordered lisinopril 40 mg oral tablet 1 tablet = 40 mg, By Mouth, Daily, uzbek., # 30 tablet, 0 Refills, Maintenance, 11/14/18 16:06:42EDT, Tablet Start Date: 11/14/18 Stop Date: 12/14/18 Status: Ordered Metoprolol Succinate ER 25 mg oral tablet, extended release 1 tablet, By Mouth, Daily, # 30 tablet, 6 Refills, [facility] #[id number], 152, cm, 12/01/20 13:10:00 EDT, Height, 114.5, kg, 04/15/20 11:03:00 EDT, Dry Weight Start Date: 05/26/21 Status: Ordered nortriptyline 25 mg oral capsule 25 mg, 1, capsule, By Mouth, Daily at supper, # 90 capsule, Refills 2, Tot. Refills 2, Maintenance,06/11/23 14:03:00 EST, Route to Pharmacy Electronically, [facility] #[id number], aware pt on sertraline, 152, cm, 03/21/23 9:53:00 EDT, Height Start Date: 06/11/23 Stop Date: 03/07/24 Status: Ordered ondansetron 4 mg oral tablet 1 tablet = 4 mg, By Mouth, Every 12 hours, PRN Migraine Headache, take at onset of migraines, # 10 tablet, 2 Refills, Acute 05/01/23 10:52:00 EDT, 05/01/22 10:51:00 EDT, Tablet, [facility] #[id number], Partial fill upon patient request if the pre... Start Date: 05/01/22 Stop Date: 05/01/23 Status: Ordered Rosuvastatin = 20 mg, By [...] tablet, 3 Refills, Maintenance, 05/01/22 13:20:00 EDT, [facility] #[id number], 152, cm, 05/01/22 10:29:00 EDT, Height Start [...] recent to oldest [Reference Range]: 1 2 3 Height 152.4 cm (04/23/23 9:59 AM) Weight 121.5 kg (04/23/23 9:59 AM) Oxygen Saturation [94-100 %] 99 % (04/23/23 1:45 PM) 98 % (04/23/23 1:30 PM) 99 % (04/23/23 9:59 AM) Pulse Rate [55-90 bpm] 64 bpm (04/23/23 9:59 AM) Body Mass Index [18.5-24.99 kg/m2] 52.31 kg/m2 *>HHI* (04/23/23 9:59 AM) Blood Pressure [90-138/55-84 mm Hg] 141/63mm Hg *H* (04/23/23 4:15 PM) 133/53mm Hg (04/23/23 3:45 PM) 129/60mm Hg (04/23/23 3:15 PM) Respiratory Rate [16-30 br/min] 22 br/min (04/23/23 4:15 PM) 19 br/min (04/23/23 3:45 PM) 16 br/min (04/23/23 3:15 PM) Temperature [96.8-100.4 DegF] 97.4 DegF (04/23/23 9:59 AM) Mode of Delivery (Oxygen) Room air (04/23/23 4:15 PM) Room air (04/23/23 3:45 PM) Room air (04/23/23 3:15 PM) Blood pressure sites Arm, left (04/23/23 9:59 AM) Arm, left (04/23/23 9:30 AM) Temperature Route Temporal (04/23/23 9:59 AM) Dry Weight 121.5 kg (04/23/23 9:59 AM) Weight Obtained Via Standing scale (04/23/23 9:59 AM) Dry Weight Obtained Via Standing scale (04/23/23 9:59 AM) Social History Social History Type Response Smoking Status Never smoker entered on: 01/09/16 Sex Cardiac catheterization study * Event Display: Cardiac Edge Banding Machine Offbearer Report Authored Date: Cardiac Diagnostic Report Demographics Patient Name PAUL TRUNG Gender Female [employer] Room Number [id number] Height 60 inches Date of 1955 Weight 267.86 pounds Age 67 year(s) BSA 2.11 m2 Accession Number [id number] BMI 52.31 kg/m2 Referring Physician Mimi Enciso NP Date of Study 04/23/2023 Gavin Jon MD Performing Physician Lance Jon MD Fellow Gayatri Espinosa MD Interventional Lance Jon MD Physician Procedure Procedure Type Diagnostic procedure:Coronary Angiography with [facility] Diagnostic Catheterization Status:Elective Indications Indications: Atypical chest pain, Dyspnea and Abnormal nuclear perfusion study. Clinical History Admission Medications + +------+-------+ + + +---------+ !Medication !Dosage!Times !Last !Last !Administered !Comments ! ! ! !Per Day!Delivery !Delivery ! ! ! ! ! ! !Date !Time ! ! ! + +------+-------+ + + +---------+ !Beta Chichi !25 mg !x 1 !04/22/2023 !00:00 ! ! ! !(any) ! ! ! ! ! ! ! + +------+-------+ + + +---------+ !Aspirin (any)!324 mg!x 1 !04/23/2023 !00:00 ! ! ! + +------+-------+ + + +---------+ !Apixaban !5 mg !x 2 !04/19/2023 !00:00 ! ! ! + +------+-------+ + + +---------+ !DONNIE Inhibitor!40 mg !x 1 !04/22/2023 !00:00 ! ! ! !(any) ! ! ! ! ! ! ! + +------+-------+ + + +---------+ !Statin (any) !20 mg !x 1 !04/22/2023 !00:00 ! ! ! + +------+-------+ + + +---------+ Clinical Evaluation Leading to Procedure - The patient's CAD presentation was assessed as: Symptom unlikely to be ischemic. 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 Anti-anginal medications were prescribed during the past two weeks. The medication is: Beta Blockers. - The patient was diagnosed with a heart failure condition. Heart failure type: Diastolic. - The patient's heart failure status was assessed as NYHA Class II, with CHF symptoms of [employer] Nuclear study showed Indeterminant results ACC Risk Factors The patient risk factors include:obesity, physical activity, hypercholesterolemia, treated hypertension, family history of premature CAD, last creatinine: 1.3 mg/dl, creatinine clearance: 78.34 ml/min and dyslipidemia. Additional Clinical History:67-year-old female with a past medical history of proximal atrial fibrillation, RVOT PVCs status post ablation in 2019, hypertension, hyperlipidemia, KARISSA, obstructive sleep apnea presenting for left heart cath due to indeterminate nuclear stress test. Patient has been complain about dyspnea on exertion for the past couple months associated with sharp intermittent chest pain on the left side that goes away with rest. Is not consistent at times she may have chest pain at rest . she has been compliant with her CPAP machine. She had a regadenoson on nuclear stress test which revealed no EKG evidence of ischemia however the nuclear scan revealed a moderate size, moderate intensity fixed defect predominantly in basal to mid anterior and septal segments with mild reversibility suggestive of shifting breast and breast artifact versus prior infarct with donna-infarct ischemia. LVEF was 75%. Procedure Data Procedure Date Date: 04/23/2023Start: 13:02End: 13:17 The procedure was explained in detail to the patient. Risks, complications and alternative treatments were reviewed. Written consent was obtained. Entry Locations - Retrograde Percutaneous access was performed through the Right Radial artery (Primary location). A 6 Fr sheath was inserted. Hemostasis was successfully obtained using TR Band. Closure Comments: 12ml. Procedure Medications - Versed (Midazolam) I.V. 1 mg. - Fentanyl I.V. 50 mcg. - Oxygen NC 2 l/min. - Lidocaine 2% S.C. Right Wrist 2 ml. - Verapamil I.A. 2.5 mg. - Heparin I.V. 8000 units. - Nitroglycerin I.A. 200 mcg. - 0.9NS I.V. bolus 500 ml. Sedation: My intra-service moderate sedation time was: from 1301 to 1315. Refer to procedural log for detailed chronological information. Contrast Material - Omnipaque 25 ml Diagnostic Catheters - A5F JL 3.5 INFINITI CATHETERwas used for: Left coronary angiography. - A5F JR 4.0 DxTERITY DIAGNOSTIC CATHETERwas used for: Left heart catheterization. - A5F JR 4.0 DxTERITY DIAGNOSTIC CATHETERwas used for: Right coronary angiography. Fluoroscopy Time: Diagnostic: 2:37 minutes. Total: 2:37 minutes. Fluoroscopy Dose: Diagnostic: 198 mGy. Total: 198 mGy. Dose Area Product:Diagnostic: 35619 mGy/cm2. Total: 25483 mGy/cm2. Procedure Narrative We placed a 6 Resler sheath in the right radial artery. We performed coronary angiography with a JL 3.5 and a JR4. Requested the LV to obtain hemodynamics. We closed arteriotomy with a radial band. Angiographic Findings Cardiac Arteries and Lesion Findings LMCA: Normal. LAD: Normal. LCx: Normal. RCA: Normal. Hemodynamics Condition: Rest O2 Consumption: Estimated: 195.21Heart Rate: 70 bpm Pressures (mmHg) +-----+ + !Site !Pressure ! +-----+ + !AO !155/58 (98)! +-----+ + !LV !162/-9 ,14 ! +-----+ + !AO !155/58 (98)! +-----+ + !LV !158/-9 ,14 ! +-----+ + Valve Gradients and Areas +------+----+----+----+-----+----+------+ !Valve !Peak!Mean!Area!Index!Flow!Source! +------+----+----+----+-----+----+------+ !Aortic!3 !0 ! ! ! ! ! +------+----+----+----+-----+----+------+ !Aortic!3 !0 ! ! ! ! ! +------+----+----+----+-----+----+------+ Shunts Oxygen Values O2 Capacity 157.76 O2 Consumption 195.21 Interventional Procedure Conclusions Diagnostic Summary Dyspnea on exertion Atypical chest pain Abnormal nuclear perfusion study-showing predominant fixed anterior/septal defect. The LVEF is normal. The defect is a false positive finding Right radial artery, 6 Georgian slender-closed with radial band Coronary angiography with left heart catheterization Right dominant coronary circulation Angiographically normal coronary arteries LVEDP 14 mmHg, no pullback gradient across aortic valve The patient presents with dyspnea and atypical chest pain. Nuclear perfusion study suggested predominantly fixed anterior/septal defect. The LVEF is normal. Coronary angiography shows angiographically normal coronary arteries. The LVEDP is normal. There is no explanation for the patient's chest discomfort or dyspnea. The nuclear perfusion study findings are false positive. Diagnostic Recommendations 1. Consider searching for other causes of symptoms ACC Diagnostic Recommendations: Medical therapy and/or counseling. Signatures VA LV function assessed as:Normal. Ejection Fraction - Method: Radionucleotide. EF%: 70.Date: 02/25/2023. * Event Display: Cardiac Edge Banding Machine Offbearer Report Authored Date: EKG study * Event Display: ECG 12-Lead Authored Date: Please click on pdf link to open report * Event Display: ECG 12-Lead Authored Date: Ventricular Rate: 70 BPM Atrial Rate: 70 BPM P-R Interval: 202 ms QRS Duration: 90 ms Q-T Interval: 412 ms QTC Calculation(Bazett): 444 ms P [place]: 91 degrees R [place]: 12 degrees T [place]: 34 degrees Sinus rhythm with Premature atrial complexes Otherwise normal ECG When compared with ECG of 28-NOV-2022 13:39, Premature atrial complexes are now Present Vent. rate has increased BY 27 BPM Confirmed by GAVIN JUNG MD ([id number]) on 04/23/2023 8:56:14 PM [place]: GAVIN JUNG MD Note * Shaina Madison RN: PERFORM Event Display: Discharge/Transfer Note Hospital Authored Date: [id number] Nursing Discharge Note Entered On: 04/23/2023 17:39 EDT Performed On: 04/23/2023 16:57 EDT by Shaina Madison RN Nursing Discharge Note 2 Discharge Time : 04/23/2023 16:57 EDT Discharge Level of Care at Discharge : Home/Detention/Foster Care Patient Left Unit Via : Wheelchair Patient Accompanied Off Unit with : Responsible adult DC Instructions Provided & Signed by Pt : Yes Patient Understands D/C Instructions : Yes Patient Instructions Discharge Signed : Yes Discharge Comments : R radial cath site stable Did Pt have Specialty Bed or Wound Vac : No Shaina Madison RN - 04/23/2023 17:37 EDT * Shaina Madison RN: PERFORM Event Display: Patient Education/Instruction Authored Date: [id number] Inpatient Adult Discharge Instructions [address] [address] Name: TRUNG PAUL : 1955 Visit: 04/23/2023 08:37:00 Current Date: 04/23/2023 16:47 Account: [id number] Inpatient Adult Discharge Instructions We would like to thank you for allowing us to assist you with your healthcare needs. The following includes patient education materials and information regarding your injury/illness. Our entire staffstrives to provide an excellent experience for our patients and their families. PLEASE ENSURE YOU FOLLOW-UP PER THE INSTRUCTIONS BELOW! ?? YOUR OPINION IS IMPORTANT TO US! Please complete the survey you may receive by mail or email. Your feedback will be used to make improvements to the healthcare experiences of our patients and their families. Surveys are administered by [employer] ?? If further treatment with your primary care physician or another doctor is recommended, it is important for you to keep the appointment. Call your primary care physician or return to the Emergency Department immediately if your condition worsens, fails to improve, or new symptoms develop. If you need to find a doctor, you can call [facility] [employer] for a referral at [phone] or toll free at [phone] or log in to [email or web address] ?? [facility], in keeping with [facility] guidance, no longer requires face masks for staff, patientsor visitors in most situations. Similiar to time spent indoors at other locations, there is the chance that you were exposed to repiratory viruses during your time with us (such as flu or COVID-19). If you develop symptoms concerning for a viral respiratory infection, please seek testing (and treatment if indicated) from your medical provider or home test kit. ?? You can view and manage your care through the patient portal or by using a health care raul of your choosing. [employer] is a website that allows you to securely view your medical information including your hospital discharge summary, office visit summaries, medications and follow-up visits. You can also request appointments, renew medications, and request access to your medical information using a health care raul of your choosing, or just ask a question. You can enroll at [email or web address] or register during your next office visit. You have been discharged from [facility], Patient Care Unit: CARE. If you have any questions regarding these instructions after you leave, please call us and we will be happy to assist you. [facility] Your Care Team Attending Physician Dontrell TYLER, Lance Abreu Discharging Providers Francisca TYLER, Gayatri Boothe Reason for Admission ABN STRESS TEST C?PCI HV2 830AM ARR Tests Performed Below is a partial list of the tests performed during your hospitalization. You may have had other tests and procedures not included in this list. Please discuss all test results with your provider. Type and Screen Primary Care Provider Mesfin Hua MD , Mi Ambrose Advance Directive Health Care Proxy on File No Discharge Vitals Temperature: 97.4 DegF Height: 152.4 cm Pulse Rate: 64 bpm Weight: 121.5 kg Respiratory Rate: 18 br/min Body Mass Index:??52.31 kg/m2??Critical Systolic Blood Pressure: 118 mm Hg Body surface area: 2.27 Diastolic Blood Pressure: 56 mm Hg ?? Oxygen Saturation: 99 % ?? Studies Pending All tests and labs ordered during this hospital stay have been completed unless listed below. Please discuss all pending results with your provider listed above in these instructions. ?? No incomplete studies found What to do next Instructions From Your Doctor Discharge Orders Scheduled Follow-Up Appointments Saturday 2:00 PM EST ?? With: Brenna TYLER, Amos Minaya Where: [facility] [address] [place] [address] [address] [place] [address]- Status: Pending You Need to Schedule the Following Appointments Follow Up with??As Needed Discharge Medications TRUNG PAUL :1955 Visit Date:04/23/2023 Medications: Please continue your medications until treatment is completed or stopped by your provider. Medications not listed below should be discontinued. Discuss any questions related to medications with your provider. What How Much When Instructions Next Dose Changed Metoprolol (Metoprolol Succinate ER 25 mg oral tablet, extended release) 1 tab(s) Oral Daily PRESCRIBED Changed Nortriptyline (nortriptyline 25 mg oral capsule) 1 capsule Oral Daily at supper Duration: 90 Days PRESCRIBED Changed torsemide (torsemide 20 mg oral tablet) 0.5 tab(s) Oral Daily Duration: 90 Days PRESCRIBED Unchanged Acetaminophen 500 Milligram PRESCRI BED Unchanged Albuterol (Albuterol (Eqv-ProAir HFA)) Inhalation Every 6 hours PRESCRIBED Unchanged apixaban (apixaban 5 mg oral tablet) 5 Milligram Oral Twice a day Duration: 90 Days PRESCRIBED Unchanged Durable Medical Equipment (BP machine. Dx Htn) See instructions use as directed ?? PRESCRIBED Unchanged Durable Medical Equipment (Compression Stockings) See instructions surgical, thigh high length 20-30 mm Hg ?? PRESCRIBED Unchanged Flecainide (flecainide 100 mg oral tablet) 1 tab(s) Oral Every 12 hours Duration: 90 Days PRESCRIBED Unchanged Gabapentin 600 Milligram Oral Twice a day PRESCRIBED Unchanged Lisinopril (lisinopril 40 mg oral tablet) 1 tab(s) Oral Daily Duration: 30 Days uzbek. ?? PRESCRIBED Unchanged Ondansetron (ondansetron 4 mg oral tablet) 1 tab(s) Oral Every 12 hours as needed for Migraine Headache take at onset of migraines ?? PRESCRIBED Unchanged Rosuvastatin 20 Milligram Oral Daily PRESCRIBED Unchanged Sertraline (sertraline 50 mg oral tablet) 1 tab(s) Oral Daily in the morning PRESCRIBED Test Results Below is a partial list of the most recent Laboratory test results done prior to this discharge. You may have had other tests and procedures not included in this list. Please discuss all test resultswith your provider. Type and Screen (04/23/2023) ???Blood Type - A Positive???Antibody Screen - Negative Allergies (NKA means No Known Allergies) Motrin ibuprofen??(stomach pain, dizziness) Problems Active Problems??(9) AF (atrial fibrillation)?? Hyperlipidemia?? Hypertension?? Migraine?? Obesity?? KARISSA - Obstructive sleep apnea?? Severe obesity?? Varicose vein?? Well female adult?? Education Materials Below is the list of Educational Leaflet Providered with your Discharge Instructions. Surgery Radial Cath Approach Discharge Instructions?? Valuables and Belongings I fully understand and agree that [facility] accepts no responsibility for all my personal property including clothing, toilet articles, radios, jewelry, dentures, hearing aids, rings, money, or any other property that is in my possession or is brought to me after admission. I understand certain valuables may be placed in a hospital safe for a short period of time. I understand that the hospital is not liable for loss or damage due to accident, fire, or other natural occurrence while said property is in the safe. I accept full responsibility for any personal property that I keep with me, and will not hold the hospital responsible in case of loss or disappearance. I acknowledge that i have been encouraged to send valuables and belongings home. ? Other Discharge Information ? Pulmonary Rehab Status?? Pulmonary Rehab Discharge Status?? Respiratory Rate: 18 br/min ? Common Emergency Awareness Tips IS IT A STROKE? Act FAST and Check for these signs: FACE Does the face look uneven? ARM Does one arm drift down? SPEECH Does their speech sound strange? TIME Call at any sign of stroke ?? Heart Attack Signs Chest discomfort: Most heart attacks involve discomfort in the center of the chest and lasts more than a few minutes, or goes away and comes back. It can feel like uncomfortable pressure, squeezing, fullness or pain. Discomfort in upper body: Symptoms can include pain or discomfort in one or both arms, back, neck, jaw or stomach. Shortness of breath: With or without discomfort. Other signs: Breaking out in a cold sweat, nausea, or lightheaded. Remember, MINUTES DO MATTER. If you experience any of these heart attack warning signs, call to get immediate medical attention! ?? Smoking can increase your chances of developing chronic health problems and can cause harmful effects to other family members in your house. If you smoke, you are strongly encouraged to quit. Please call [facility] [employer] at [phone] or [phone] ([phone]) or log in to [email or web address] for referrals to smoking cessation programs. ?? 548 Suicide & Crisis Lifeline is available 04/02 if you or someone you know needs to find a reason to keep living. By calling 207 you'll be connected to a skilled, trained counselor at a crisis center in your area. INPATIENT DISCHARGE INSTRUCTIONS SIGNATURE PAGE TRUNG PAUL Location:[facility] Registration Date and Time:04/23/2023 08:37 EDT Primary Care Physician: Mesfin Hua MD , Parisa, Attending Physician: Dontrell TYLER, Lance Abreu, I TRUNG PAUL, have received the above patient education materials/instructions and have verbalized understanding. If ambulance or transport services are being used I further acknowledge being given a choice of service. ?? If you need to contact me, please call me at this number: . Patient/Clinical Rn Liaison Name: Patient/Clinical Rn Liaison Signature: Relationship to Patient: Witness Name/Signature: Date: * Shaina Madison RN: PERFORM Event Display: Patient Education Leaflets Authored Date: [id number] Surgery Radial Cath Approach Discharge Instructions ?? 278 Radial Cath Approach Discharge Instructions ?? Activity Take it easy the rest of the day. Limit your activity on the affected side.?? Act as if your arm is broken for 24 hours. No lifting with affected arm for 24 hours. No pushing or pulling with the affected arm. Do not reach or lift with the affected arm. Do not place excessive pressure on the wrist. ?? Precautions Due to intravenous sedation: It is recommended that someone stay with you for the first night after your procedure. Do not drive or operate hazardous machinery for 24 hours. Do not make legal decisions for 24 hours. Avoid alcohol for 24 hours. Unless directed otherwise, keep yourself hydrated. ?? Dressing/Incision Care You may remove the dressing 24 hours after your procedure. Replace with band aid for an additional 24 hours. You may shower and cleanse the site with soap & water then pat dry. Avoid submersion of site in water x 5 days. Cover the with a clean band aid daily until site is healed. If the band aid becomes soiled, replacewith a clean new one. Do not apply any ointments, lotions, gels or powders to the puncture site. ?? When to contact your doctor If any of the following signs of infection occur: Fever greater than 100 degrees F Increased pain Drainage, redness or warmth at puncture site Tingling of the fingers and hand that last longer than 3 days Slight bubble of blood or bleeding from site: apply manual pressure and notify your doctor ?? Emergency situations: Bleeding from the site that will not stop: apply manual pressure and notify your doctor Profuse bleeding streaming from the puncture site: Apply manual pressure and notify your doctor immediately If your hand becomes bluish, cold to the touch, or painful, notify your doctor immediately or go toEmergency Department. For these emergent situations: If unable to contact your physician, call 911. ?? Patient Care team information Care Team Personnel Name: Mesfin Hua MD , Mi Ambrose Position: Reference Physician Member Role: PCP Address: Address: [address] [place] [address]- Name: Raulito Uriarte MD Position: [facility] Renal MD Member Role: Lifetime Consulting Physician Address: Address: [address] [place] [address] [facility] [place], [place] [address] Care Team Related Persons Name: EVELYN PAUL Address: home [address] [place] [address] Name: SYLVESTER MEDRANO Address: home [address] [place] [address]
--- OUTSIDE RECORDS SUMMARY | 2024-01-18 11:13 | XMS_ITS | Continuity of Care Document ---
Author Organization [facility] Address [address] [place] [address]- Care Team Providers Care Heel Cementer Machine Name Role Phone Nalini Goldberg MD Primary Care Physician Encounter [facility] [place] Date(s): 09/03/19 - 11/14/19 [facility] [address] [place] [address]- [facility] Attending Physician: Bonifacio Callejas Admitting Physician: Bonifacio [...] Tot. Refills 0, Maintenance, use as directed, 07/02/12 16:26:50 Start Date: 01/14/12 Status: Ordered Cartia XT 240 mg/24 hours oral capsule, extended release TK 1 C PO QD Start Date: 11/13/18 Status: Ordered Compression Stockings See Instructions, # [...] 02/26/19 15:18:58 EDT, Route to Pharmacy Electronically, [id number], [facility] #[id number] Start Date: 02/26/19 Stop Date: 08/25/19 Status: Ordered Gabapentin = 600 mg, By Mouth, 2 times a day, 0 Refills, Maintenance Start Date: 05/12/10 Status: Ordered lisinopril 40 mg oral tablet 1 tablet = 40 mg, By Mouth, Daily, bahraini., # 30 tablet, 0 Refills, Maintenance, 05/03/19 16:06:42EDT, Tablet Start Date: 11/14/18 Stop Date: 12/14/18 Status: Ordered sertraline 50 mg oral tablet 1 tablet = 50 mg, By Mouth, Daily in AM, Maintenance, 04/15/18 14:15:38 EDT, Tablet Start Date: 04/15/18 Status: Ordered torsemide 20 mg oral tablet 0.5 tablet = 10 mg, By Mouth, Daily, # 15 tablet, 5 Refills, Maintenance, 08/24/19 8:16:00 EST, Tablet, [facility] #[id number], 152, cm, 12/18/18 14:30:00 EDT, Height, 109, [...]
--- OUTSIDE RECORDS SUMMARY | 2024-01-18 11:13 | XMS_ITS | Continuity of Care Document ---
Author Organization [facility] Address [address], [address], [address] [place] [address]- Care Team Providers Care Ultrasound Technol Name Role Phone Mesfin Hua MD, Mi Ambrose Primary Care Physician Encounter [facility] [place] Date(s): 07/22/22 - 10/04/22 [facility] [address], [address], [address] [place] [id number] Attending Physician: Cabrera Bhatia MD Admitting Physician: Cabrera Bhatia MD Allergies, Adverse Reactions, Alerts Substance Reaction [...] 3 Refills, Maintenance, 05/01/22 13:21:00 EDT, Tablet, [facility] #[id number], 152, cm, 05/01/22 10:29:00 EDT, Height Start [...] 02/20/22 16:23:00 EDT, Route to Pharmacy Electronically, [facility] #[id number], 152, cm, 02/15/22 15:27:00 EDT, Height,... Start Date: 02/20/22 Stop Date: 02/15/23 Status: Ordered flecainide 100 mg oral tablet 1, tablet, By Mouth, Every 12 hours, # 180 tablet, Refills 3, Tot. Refills 3, Maintenance, 02/16/2316:23:00 EDT, Route to Pharmacy Electronically, [facility] #[id number], 152, cm, 05/01/22 10:29:00 EDT, Height Start Date: 02/15/23 Stop Date: 02/10/24 Status: Ordered Gabapentin = 600 mg, By Mouth, 2 times a day, 0 Refills, Maintenance Start Date: 05/12/10 Status: Ordered lisinopril 40 mg oral tablet 1 tablet = 40 mg, By Mouth, Daily, syriac., # 30 tablet, 0 Refills, Maintenance, 11/14/18 16:06:42EDT, Tablet Start Date: 11/14/18 Stop Date: 12/14/18 Status: Ordered metoprolol 25 mg oral tablet, extended release 25 mg, 1, tablet, By Mouth, Daily, # 30 tablet, Refills 5, Tot. Refills 5, Maintenance, 12/01/20 13:59:00 EDT, Route to Pharmacy Electronically, [facility] #[id number], Partial fill upon patientrequest if the prescription is for a schedule II op... Start Date: 12/01/20 Stop Date: 05/30/21 Status: Ordered Metoprolol Succinate ER 25 mg oral tablet, extended release 1 tablet, By Mouth, Daily, # 30 tablet, 6 Refills, [facility] #[id number], 152, cm, 12/01/20 13:10:00 EDT, Height, 114.5, kg, 04/15/20 11:03:00 EDT, Dry Weight Start Date: 05/26/21 Status: Ordered Metoprolol Succinate ER 25 mg oral tablet, extended release 1 tablet, By Mouth, Daily, # 30 tablet, 11 Refills, [facility] #[id number], 152, cm, 12/01/20 13:10:00 EDT, Height, 114.5, kg, 04/15/20 11:03:00 EDT, Dry Weight Start Date: 05/19/21 Status: Ordered nortriptyline 25 mg oral capsule 25 mg, 1, capsule, By Mouth, Daily at supper, # 90 capsule, Refills 2, Tot. Refills 2, Maintenance,09/14/22 14:03:00 EST, Route to Pharmacy Electronically, [facility] #[id number], aware pt on sertraline, 152, cm, 05/01/22 10:29:00 EDT, Height Start Date: 09/14/22 Stop Date: 06/11/23 Status: Ordered ondansetron 4 mg oral tablet 1 tablet = 4 mg, By Mouth, Every 12 hours, PRN Migraine Headache, take at onset of migraines, # 10 tablet, 2 Refills, Acute 05/01/23 10:52:00 EDT, 05/01/22 10:51:00 EDT, Tablet, [facility] #[id number], Partial fill upon patient request if the [...] 5 Refills, Maintenance, 06/10/20 7:27:00 EST, Tablet, [facility] #[id number], 152, cm, 04/15/20 10:56:00 EDT, Height, 114.5, kg, 04/15/20 11:03:00 EDT, Dry Weight Start Date: 06/10/20 Stop Date: 12/07/20 Status: Ordered torsemide 20 mg oral tablet 0.5 tablet, By Mouth, Daily, # 45 tablet, 3 Refills, Maintenance, 05/01/22 13:20:00 EDT, [facility] #[id number], 152, cm, 05/01/22 10:29:00 EDT, Height Start [...] Reference Physician Member Role: PCP Address: Address: [address] [place] [address]- Care Team Related Persons Name: EVELYN PAUL Address: home [address] [place] [address] Name: SYLVESTER MEDRANO Address: home [address] [place] [address]
--- OUTSIDE RECORDS SUMMARY | 2024-01-18 11:13 | XMS_ITS | Continuity of Care Document ---
Author Organization [facility] Address [address] [place] [address]- Care Team Providers Care Rivet Heater Gas Name Role Phone Mesfin Hua MD, Mi Ambrose Primary Care Physician Encounter [facility] [place] Date(s): 05/27/23 - 06/03/[address] [address]- Attending Physician: Amos Ceja MD Admitting Physician: Brenna TYLER, Amos Minaya Allergies, Adverse [...] 3 Refills, Maintenance, 04/26/23 17:16:00 EDT, Tablet, [facility] #[id number], 152.4, cm, 04/23/23 9:59:00 EDT, Height, 121.5, [...] Maintenance, 02/16/2316:23:00 EDT, Route to Pharmacy Electronically, [facility] #[id number], 152, cm, 05/01/22 10:29:00 EDT, Height Start Date: 02/15/23 Stop Date: 02/10/24 Status: Ordered Gabapentin = 600 mg, By Mouth, 2 times a day, 0 Refills, Maintenance Start Date: 05/12/10 Status: Ordered lisinopril 40 mg oral tablet 1 tablet = 40 mg, By Mouth, Daily, upper sorbian., # 30 tablet, 0 Refills, Maintenance, 11/14/18 16:06:42EDT, Tablet Start Date: 11/14/18 Stop Date: 12/14/18 Status: Ordered Metoprolol Succinate ER 25 mg oral tablet, extended release 1 tablet, By Mouth, Daily, # 30 tablet, 6 Refills, [facility] #[id number], 152, cm, 12/01/20 13:10:00 EDT, Height, 114.5, kg, 04/15/20 11:03:00 EDT, Dry Weight Start Date: 05/26/21 Status: Ordered nortriptyline 25 mg oral capsule 25 mg, 1, capsule, By Mouth, Daily at supper, # 90 capsule, Refills 2, Tot. Refills 2, Maintenance,06/11/23 14:03:00 EST, Route to Pharmacy Electronically, [facility] #[id number], aware pt on sertraline, 152, cm, 03/21/23 [...] tablet, 3 Refills, Maintenance, 05/01/22 13:20:00 EDT, [facility] #[id number], 152, cm, 05/01/22 10:29:00 EDT, Height Start [...] to oldest [Reference Range]: 1 2 Height 152.4 cm (05/27/23 2:39 PM) 152.4 cm (05/27/23 2:13 PM) Weight 119.5 kg (05/27/23 2:39 PM) 119.5 kg (05/27/23 2:13 PM) Oxygen Saturation [94-100 %] 97 % (05/27/23 2:13 PM) Pulse Rate [55-90 bpm] 51 bpm *L* (05/27/23 2:13 PM) Body Mass Index [18.5-24.99 kg/m2] 51.45 kg/m2 *>HHI* (05/27/23 2:13 PM) Blood Pressure [90-138/55-84 mm Hg] 148/ 47mm Hg *H* (05/27/23 2:13 PM) Mode of Delivery (Oxygen) Room air (05/27/23 2:13 PM) Blood pressure sites Arm, left (05/27/23 2:13 PM) Social History Social History Type Response Smoking Status Never smoker entered on: 01/09/16 Sex Female Patient Care team information Care Team Personnel Name: Mesfin Hua MD , Mi Ambrose Position: Reference Physician Member Role: PCP Address: Address: [address] [place] [address] [address] [place] [address]- Name: Raulito Uriarte MD Position: [facility] Renal MD Member Role: Lifetime Consulting Physician Address: Address: [address] [place] [address] [facility] [place] [address]- Care Team Related Persons Name: EVELYN PAUL Address: [address] [place] [address] Name: SYLVESTER MEDRANO Address: [address] [place] [address]
--- OUTSIDE RECORDS SUMMARY | 2024-01-18 11:13 | XMS_ITS | Continuity of Care Document ---
Author Organization [facility] Address [address] [place] [address]- Care Team Providers Care Liaison Engineer Name Role Phone Mesfin Hua MD, Mi Ambrose Primary Care Physician [place] [facility] [place]s): 07/22/23 - 08/21/23 [facility] [address] [place] [address]- [place] Allergies, Adverse Reactions, Alerts Substance Reaction [...] 3 Refills, Maintenance, 04/26/23 17:16:00 EDT, Tablet, [facility] #[id number], 152.4, cm, 04/23/23 9:59:00 EDT, Height, 121.5, [...] Maintenance, 06/13/2311:59:00 EST, Route to Pharmacy Electronically, [facility] #[id number], 152.4, cm, 05/27/23 14:39:00 EST, Height, 121.5, kg, 04/23/23 9:59:00 EDT,... Start Date: 06/13/23 Stop Date: 06/07/24 Status: Ordered Gabapentin = 600 mg, By Mouth, 2 times a day, 0 Refills, Maintenance Start Date: 05/12/10 Status: Ordered lisinopril 40 mg oral tablet 1 tablet = 40 mg, By Mouth, Daily, german., # 30 tablet, 0 Refills, Maintenance, 11/14/18 16:06:42EDT, Tablet Start Date: 11/14/18 Stop Date: 12/14/18 Status: Ordered Metoprolol Succinate ER 25 mg oral tablet, extended release 1 tablet, By Mouth, Daily, # 30 tablet, 6 Refills, [facility] #[id number], 152, cm, 12/01/20 13:10:00 EDT, Height, 114.5, kg, 04/15/20 11:03:00 EDT, Dry Weight Start Date: 05/26/21 Status: Ordered nortriptyline 25 mg oral capsule 25 mg, 1, capsule, By Mouth, Daily at supper, # 90 capsule, Refills 2, Tot. Refills 2, Maintenance,06/11/23 14:03:00 EST, Route to Pharmacy Electronically, [facility] #[id number], aware pt on sertraline, 152, cm, 03/21/23 [...] tablet, 3 Refills, Maintenance, 05/01/22 13:20:00 EDT, [facility] #[id number], 152, cm, 05/01/22 10:29:00 EDT, Height Start [...] Physician Member Role: PCP Address: Address: [address] [place] [address]- Name: Raulito Uriarte MD Position: [facility] Renal MD Member Role: Lifetime Consulting Physician Address: Address: [address] [place] [address] [facility] [address]- Care Team Related Persons Name: EVELYN PAUL Address: [address] [place] [address] Name: SYLVESTER MEDRANO Address: [address] [place] [address]
--- OUTSIDE RECORDS SUMMARY | 2024-01-18 11:13 | XMS_ITS | Continuity of Care Document ---
Author Organization [facility] Address [address] [place] [address]- Care Team Providers Care Global Logistics Analyst Name Role Phone Nalini Goldberg MD Primary Care Physician [place] [facility] [place] Date(s): 11/23/19 - 12/23/19 [facility] [address] [place] [address]- [facility] Attending Physician: Admtr, [id number] Admitting Physician: Admtr, [...] Refills, Maintenance, 11/23/19 15:47:00 EDT, CD Capsule, [facility] #[id number], 152, cm, 12/18/18 14:30:00 EDT, Height, 109, [...] 02/26/19 15:18:58 EDT, Route to Pharmacy Electronically, [id number], [facility] #[id number] Start Date: 02/26/19 Stop Date: 08/25/19 Status: [...] 5 Refills, Maintenance, 12/16/19 15:21:00 EDT, Tablet, [facility] #[id number], 152, cm, 11/30/19 15:57:00 EDT, Height, 109, [...] 5 Refills, Maintenance, 08/24/19 8:16:00 EST, Tablet, [facility] #[id number], 152, cm, 12/18/18 14:30:00 EDT, Height, 109, [...]
--- OUTSIDE RECORDS SUMMARY | 2024-01-18 11:13 | XMS_ITS | Continuity of Care Document ---
Author Organization [facility] Address [address] [place] [address]- Care Team Providers Care Armoured Car Escort Name Role Phone Mesfin Hua MD, Mi Ambrose Primary Care Physician [phone] Encounter [facility] [place] Date(s): 07/18/22 - 08/26/[address] [address] Attending Physician: Shamar Navarro NP Admitting Physician: Shamar Navarro NP Referring Physician: Shamar Navarro NP Allergies, Adverse Reactions, [...] 3 Refills, Maintenance, 05/01/22 13:21:00 EDT, Tablet, [facility] #[id number], 152, cm, 05/01/22 10:29:00 EDT, Height Start [...] 02/20/22 16:23:00 EDT, Route to Pharmacy Electronically, [facility] #[id number], 152, cm, 02/15/22 15:27:00 EDT, Height,... Start Date: 02/20/22 Stop Date: 02/15/23 Status: Ordered flecainide 100 mg oral tablet 1, tablet, By Mouth, Every 12 hours, # 180 tablet, Refills 3, Tot. Refills 3, Maintenance, 02/16/2316:23:00 EDT, Route to Pharmacy Electronically, [facility] #[id number], 152, cm, 05/01/22 10:29:00 EDT, Height Start Date: 02/15/23 Stop Date: 02/10/24 Status: Ordered Gabapentin = 600 mg, By Mouth, 2 times a day, 0 Refills, Maintenance Start Date: 05/12/10 Status: Ordered lisinopril 40 mg oral tablet 1 tablet = 40 mg, By Mouth, Daily, ukrainian., # 30 tablet, 0 Refills, Maintenance, 11/14/18 16:06:42EDT, Tablet Start Date: 11/14/18 Stop Date: 12/14/18 Status: Ordered metoprolol 25 mg oral tablet, extended release 25 mg, 1, tablet, By Mouth, Daily, # 30 tablet, Refills 5, Tot. Refills 5, Maintenance, 12/01/20 13:59:00 EDT, Route to Pharmacy Electronically, [facility] #[id number], Partial fill upon patientrequest if the prescription is for a schedule II op... Start Date: 12/01/20 Stop Date: 05/30/21 Status: Ordered Metoprolol Succinate ER 25 mg oral tablet, extended release 1 tablet, By Mouth, Daily, # 30 tablet, 6 Refills, [facility] #[id number], 152, cm, 12/01/20 13:10:00 EDT, Height, 114.5, kg, 04/15/20 11:03:00 EDT, Dry Weight Start Date: 05/26/21 Status: Ordered Metoprolol Succinate ER 25 mg oral tablet, extended release 1 tablet, By Mouth, Daily, # 30 tablet, 11 Refills, [facility] #[id number], 152, cm, 12/01/20 13:10:00 EDT, Height, 114.5, kg, 04/15/20 11:03:00 EDT, Dry Weight Start Date: 05/19/21 Status: Ordered nortriptyline 25 mg oral capsule 25 mg, 1, capsule, By Mouth, Daily at supper, # 30 capsule, Refills 5, Tot. Refills 5, Maintenance,05/01/22 10:47:00 EDT, Route to Pharmacy Electronically, [facility] #[id number], aware pt on sertraline, 152, cm, 05/01/22 10:29:00 EDT, Height Start Date: 05/01/22 Stop Date: 10/28/22 Status: Ordered ondansetron 4 mg oral tablet 1 tablet = 4 mg, By Mouth, Every 12 hours, PRN Migraine Headache, take at onset of migraines, # 10 tablet, 2 Refills, Acute 05/01/23 10:52:00 EDT, 05/01/22 10:51:00 EDT, Tablet, [facility] #[id number], Partial fill upon patient request if the [...] 5 Refills, Maintenance, 06/10/20 7:27:00 EST, Tablet, [facility] #[id number], 152, cm, 04/15/20 10:56:00 EDT, Height, 114.5, kg, 04/15/20 11:03:00 EDT, Dry Weight Start Date: 06/10/20 Stop Date: 12/07/20 Status: Ordered torsemide 20 mg oral tablet 0.5 tablet, By Mouth, Daily, # 45 tablet, 3 Refills, Maintenance, 05/01/22 13:20:00 EDT, [facility] #[id number], 152, cm, 05/01/22 10:29:00 EDT, Height Start [...] Reference Physician Member Role: PCP Address: Address: [address] [place] [address]- Care Team Related Persons Name: HUMBERTO EVELYN Address: [address] [place] [address] Name: SYLVESTER MEDRANO Address: [address] [place] [address]
--- NOTE | 2024-01-18 11:25 | ED.GENADULT ---
HPI - General Adult General Chief complaint: Back Pain/Injury Stated complaint: body pain Time Seen by Provider: 01/18/24 11:02 Source: patient and RN notes reviewed Mode of arrival: ambulatory Limitations: no limitations History of Present Illness ED Provider: Elvi Sandoval PA-C HPI narrative: This is a 68-year-old female, with a history of migraines, hypertension, atrial fibrillation, who presents emergency with complaints of acute on chronic back pain x2 weeks. No recent trauma or injury. Patient states that the pain is in her lower back and occasionally radiates down her entire left leg. Denies any fevers, chest pain, shortness breath, abdominal pain, nausea, vomiting or diarrhea. She was prescribed gabapentin several weeks ago for similar symptoms which has not provided her with any relief. Denies any urinary or bowel incontinence or retention. No saddle anesthesia. She was previously seeing pain management for this pain however has not been seen for several months. Denies any fevers, chest pain, shortness for breath, abdominal pain, nausea, vomiting or diarrhea. Patient also states that she was sick at home with COVID, reports right-sided sinus pressure and since. MD complaint: Acute on chronic back pain Radiation: back Severity: moderate Quality: aching Relieving factors: none Exacerbating factors: none Associated symptoms: denies other symptoms Treatments prior to arrival: none Related Data Home Medications ?Medication ?Instructions ?Recorded ?Confirmed albuterol sulfate 2.5 mg/3 mL 2.5 mg inhalation Q6H PRN 04/21/20 09/18/23 (0.083 %) solution for nebulization torsemide 20 mg tablet 10 mg PO DAILY 03/08/23 09/18/23 sertraline 100 mg tablet 100 mg PO DAILY 01/02/24 Previous Rx's ?Medication ?Instructions ?Recorded lorazepam 0.5 mg tablet (Ativan) 0.5 mg PO BEDTIME PRN anxiety 2 04/04/21 days #2 tabs cholecalciferol (vitamin D3) 50 50 mcg PO DAILY 90 days #90 caps 05/23/21 mcg (2,000 unit) capsule miscellaneous medical supply #2 ea 08/31/21 (Anti-Embolism Stockings) compression stockings #1 ea 10/31/21 flecainide 100 mg tablet 100 mg PO DIRECTED 90 days #90 01/18/22 tabs furosemide 20 mg tablet 20 mg PO DAILY 90 days #90 tabs 01/18/22 albuterol sulfate 90 mcg/actuation 1 puff PO Q4H PRN shortness of 02/07/22 aerosol inhaler breath or wheezing 30 days #6.7 grams acetaminophen 500 mg tablet 1,000 mg (2 x 500 mg) PO Q8H for 09/29/22 pain 90 days #540 tabs atorvastatin 40 mg tablet 40 mg PO BEDTIME 90 days #90 tabs 12/11/22 cpap supplies #1 ea 12/11/22 Ventolin HFA 90 mcg/actuation 2 puff inhalation Q6H PRN 01/22/23 aerosol inhaler (albuterol sulfate) shortness of breath or wheezing 30 days #8 grams apixaban 5 mg tablet (Eliquis) 5 mg PO BID 30 days #60 tabs 04/28/23 amlodipine 10 mg tablet 10 mg PO DAILY 90 days #90 tabs 09/18/23 metoprolol succinate 25 mg 25 mg PO DAILY 90 days #90 tabs 10/08/23 tablet,extended release 24 hr cetirizine 10 mg tablet (Zyrtec) 10 mg PO DAILY PRN allergy 11/22/23 symptoms #30 tabs fluticasone propionate 50 2 spray intranasal DAILY 30 days 11/22/23 mcg/actuation nasal #16 grams spray,suspension (Flonase Allergy Relief) gabapentin 100 mg capsule 100 mg PO BEDTIME #20 caps 01/02/24 lidocaine 5 % topical patch 2 patch topical DAILY #30 ea 01/02/24 lisinopril 40 mg tablet 40 mg PO DAILY 90 days #90 tabs 01/06/24 rosuvastatin 20 mg tablet 20 mg PO BEDTIME 90 days #90 tabs 01/06/24 amoxicillin 875 mg-potassium 1 tab PO BID 7 days #14 tabs 01/18/24 clavulanate 125 mg tablet cyclobenzaprine 5 mg tablet 5 mg PO TID PRN muscle spasm #10 01/18/24 tabs lidocaine 5 % topical patch 1 patch topical DAILY #30 ea 01/18/24 prednisone 20 mg tablet 20 mg PO DAILY 5 days #5 tabs 01/18/24 Allergies Allergy/AdvReac Type Severity Reaction Status Date / Time ibuprofen [From MOTRIN] Allergy Intermediate REDNESS, Verified 01/18/24 11:00 HIVES,GI Review of Systems Review of Systems: Yes all other systems are reviewed and are negative Constitutional: Constitutional: Reports as per HPI [facility] Past Medical History Medical History (Updated 01/18/24 @ 14:33 by FRANCESCA Singh) Mild recurrent major depression Morbid obesity with BMI of 45.0-49.9, adult Venous (peripheral) insufficiency Leg edema Pure hypercholesterolemia Paroxysmal atrial fibrillation Back pain Right hip pain Asthma Left knee pain Venous (peripheral) insufficiency History of atrial fibrillation Migraines Vaginal pruritus Moderate asthma Essential hypertension Surgical History History of mammogram History of tubal ligation Hx laparoscopic cholecystectomy Family History Family History Father HTN (hypertension) CVD (cardiovascular disease) Diabetes Mother HTN (hypertension) CVD (cardiovascular disease) Sister Bone cancer Lymphoma Family/Other Substance use disorder Social History Social History Housing: Apartment Alcohol intake: former Patient Tobacco Use Status: Never used Tobacco e-Cigarette/Vaping Use: Never Used Second Hand Smoke Exposure: No Advance Directives: No Advance Directives Information Provided: No Do you have a plan to hurt others: No Plan service: No Current occupational status: disabled Cognitive needs: Yes Hearing needs: No Vision needs: No Physical Exam ED Vital Signs: Vital Signs - 24 hr 01/18/24 10:58 01/18/24 12:05 01/18/24 14:42 Temperature 97.4 F 98.2 F 97.5 F Pulse Rate 85 92 79 Respiratory Rate 16 12 12 Blood Pressure 116/56 L 117/72 138/68 Pulse Oximetry 95 98 96 Oxygen Delivery Method Room Air Room Air Room Air 01/18/24 15:04 Temperature 97.5 F Pulse Rate 79 Respiratory Rate 12 Blood Pressure 138/68 Pulse Oximetry 96 Oxygen Delivery Method Room Air BMI result Body Mass Index 47.2 Const General: cooperative, comfortable and no acute distress Orientation/consciousness: patient oriented x3 Limitations: no limitations HENMT Other: Tenderness palpation along the right maxillary sinuses Head: Yes normal to inspection, Yes normocephalic and Yes atraumatic Ears: hearing grossly normal bilaterally General nose exam: Normal external nose present Face and sinus: Yes normal facial exam Mouth: Normal oral and palatal mucosa present, oropharynx normal and moist mucous membranes Throat: Yes posterior oropharynx normal Eyes General: appearance normal, both eyes and all related structures Eyelids: Yes eyelids normal Conjunctivae: conjunctivae normal Sclerae: sclerae normal Pupils: Equal, round and reactive pupils present EOM: EOMs intact bilaterally Neck Neck: Yes normal visual inspection, Yes full ROM and Yes no lymphadenopathy Lymphatic: no lymphadenopathy noted Chest Chest palpation & inspection: normal inspection of the chest Resp Effort & Inspection: normal respiratory effort and able to speak in complete sentences Auscultation: clear to auscultation bilaterally, no crackles, no rales, no rhonchi and no wheezes Cardio Rate: regular rate Rhythm: regular rhythm Heart sounds: S1 normal heart sound present and S2 normal heart sound present GI Inspection: Yes normal to inspection Back/Spine/Pelvis Other: Tenderness palpation along the left SI joint lumbar midline spine, strength 5/5 in lower extremities Skin General skin exam: no rashes or lesions noted Trauma: no lacerations or abrasions Wounds: no wounds Neuro General: patient oriented x3 and moves all extremities Cranial nerves: Yes Equal, round and reactive pupils present Extrem General: Yes normal to inspection Right upper extremity: normal to inspection Left upper extremity: normal to inspection Right lower extremity: normal to inspection Left lower extremity: normal to inspection Medications Administered Discontinued Medications Generic Name Dose Route Start Last Admin Trade Name Freq PRN Reason Stop Dose Admin Acetaminophen 650 mg 01/18/24 11:58 01/18/24 12:10 Acetaminophen 325 Mg Tablet PO 01/18/24 11:59 650 mg ONCE ONE Administration Diazepam 2 mg 01/18/24 11:58 01/18/24 12:10 Diazepam 2 Mg Tablet PO 01/18/24 11:59 2 mg ONCE ONE Administration Medical Decision Making Medical Decision Making [facility] Narrative: This is a 68-year-old female who presents emergency department with complaints of low back pain. She has a history of chronic low back pain which she has been seen sore in the past. Arrival, vital signs within normal limits. She is ambulatory. She has no red flag back symptoms This patient presents with back pain most consistent with acute on chronic pain. Differential diagnoses includes lumbago versus musculoskeletal spasm / strain versus sciatica.No back pain red flags on history or physical. Presentation not consistent with malignancy (lack of history of malignancy, lack of B symptoms), fracture (no trauma, no bony tenderness to palpation), cauda equina (no bowel or urinary incontinence/retention, no saddle anesthesia, no distal weakness), renal colic, pyelonephritis (afebrile, no CVAT, no urinary symptoms). X-rays were performed revealing degenerative changes. I discussed this with patient and daughter at bedside. Patient was medicated with Valium, and Tylenol in the department. This provided her with some relief. Encouraged to follow-up with her PCP. She does have tenderness palpation along her maxillary sinuses since COVID infection several weeks ago, patient was treated with Augmentin, given strict return precautions. She understands agrees with patient is stable discharge Differential Diagnosis Differential Diagnoses: The differential diagnosis associated with the presentation includes See above Lab Data MDM Lab Attestation statement: I reviewed the patient's lab results. Negative flu, COVID, RSV Labs: Lab Results 01/18/24 Range/Units 11:01 Influenza Type A (PCR) NEGATIVE (Negative) Influenza Type B (PCR) NEGATIVE (Negative) RSV RNA Qual (PCR) NEGATIVE (Negative) SARS-CoV-2 RNA (RT-PCR) NEGATIVE (Negative) Radiology Impression Discussion of test interpretation with radiology: I have reviewed the radiologist's reading. Radiologist Impression: XR/XR lumbar spine 2-3V IMPRESSION: 1. Loss of the usual lumbar lordosis. Moderate to advanced multilevel degenerative disc disease worst at L5-S1 where there is loss of disc space height and facet arthropathy. Findings are slightly progressed from prior. Dictated By: Meka Up MD Discharge Plan Discharge Clinical Impression: Back pain Patient Disposition: Home, Self-Care Instructions: Acute Low Back Pain (ED) Additional Instructions: You were seen in the emergency department due to back pain. You have moderate to advanced degenerative disc disease, worse at L5-S1. This is likely the source of your symptoms. Please take prescribed muscle relaxants as directed. Please follow-up with your bumper and painter, and primary care physician for further treatment of your symptoms. If any new or worsening symptoms occur including but not limited to severe back pain, chest pain, shortness breast, numbness or tingling, loss of bladder or bowel control, please return for re-evaluation. I am prescribing you steroids, antibiotics, and muscle relaxants. Please continue taking Tylenol as needed for pain. Please be advised that Flexeril can cause drowsiness, do not drink alcohol or drive while taking this medication. Prescriptions: New cyclobenzaprine 5 mg tablet 5 mg PO TID PRN (Reason: muscle spasm) Qty: 10 0RF lidocaine 5 % adhesive patch,medicated 1 patch topical DAILY Qty: 30 0RF Rx Instructions: leave on most painful area for up to 12 hrs prednisone 20 mg tablet 20 mg PO DAILY 5 Days Qty: 5 0RF amoxicillin-pot clavulanate 875-125 mg tablet 1 tab PO BID 7 Days Qty: 14 0RF No Action lorazepam [Ativan] 0.5 mg tablet 0.5 mg PO BEDTIME PRN (Reason: anxiety) 2 Days Qty: 2 0RF (DME) Anti-Embolism Stockings Misc See Rx Instructions .ROUTE .MEDSUPPLY Qty: 2 2RF Rx Instructions: Use daily (DME) compression stockings 40 mmHg See Rx Instructions .Route .MEDSUPPLY Qty: 1 0RF Rx Instructions: As directed albuterol sulfate 90 mcg/actuation HFA aerosol inhaler 1 puff PO Q4H PRN (Reason: shortness of breath or wheezing) 30 Days Qty: 6.7 11RF acetaminophen 500 mg tablet 1,000 mg PO Q8H 90 Days Qty: 540 1RF Eliquis 5 mg tablet 5 mg PO BID 30 Days Qty: 60 11RF metoprolol succinate 25 mg tablet extended release 24 hr 25 mg PO DAILY 90 Days Qty: 90 1RF lisinopril 40 mg tablet 40 mg PO DAILY 90 Days Qty: 90 3RF rosuvastatin 20 mg tablet 20 mg PO BEDTIME 90 Days Qty: 90 1RF albuterol sulfate 2.5 mg /3 mL (0.083 %) solution for nebulization 2.5 mg inhalation Q6H PRN cholecalciferol (vitamin D3) 50 mcg (2,000 unit) capsule 50 mcg PO DAILY 90 Days Qty: 90 1RF flecainide 100 mg tablet 100 mg PO DIRECTED 90 Days Qty: 90 1RF furosemide 20 mg tablet 20 mg PO DAILY 90 Days Qty: 90 1RF amlodipine 10 mg tablet 10 mg PO DAILY 90 Days Qty: 90 1RF cetirizine [Zyrtec] 10 mg tablet 10 mg PO DAILY PRN (Reason: allergy symptoms) Qty: 30 0RF fluticasone propionate [Flonase Allergy Relief] 50 mcg/actuation spray,suspension 2 spray intranasal DAILY 30 Days Qty: 16 1RF Rx Instructions: administer into each nostril albuterol sulfate [Ventolin HFA] 90 mcg/actuation HFA aerosol inhaler 2 puff inhalation Q6H PRN (Reason: shortness of breath or wheezing) 30 Days Qty: 8 3RF atorvastatin 40 mg tablet 40 mg PO BEDTIME 90 Days Qty: 90 1RF (DME) cpap supplies See Rx Instructions .Route .MEDSUPPLY Qty: 1 0RF Rx Instructions: As directed sertraline 100 mg tablet 100 mg PO DAILY gabapentin 100 mg capsule 100 mg PO BEDTIME Qty: 20 0RF lidocaine 5 % adhesive patch,medicated 2 patch topical DAILY Qty: 30 0RF Rx Instructions: leave on most painful area for up to 12 hrs torsemide 20 mg tablet 10 mg PO DAILY Interventions: ED Discharge Assessment Last Done: 01/18/24 15:04 Discharge Date/Time: 01/18/24 15:05 Print Language: [place]
[2024-01-18 11:45] LABS: Influenza A PCR NEGATIVE (Negative); Influenza B PCR NEGATIVE (Negative); Resp Syncy Virus RNA Qual PCR NEGATIVE (Negative); SARS COV2 PCR INHOUSE NEGATIVE (Negative)
[2024-01-18 12:05] VITALS: BP 117/72; PULSE 92; RESP 12; TEMP 36.8; O2SAT 98
[2024-01-18] MEDS: diazePAM 2 MG TABLET PO (12:10)
[2024-01-18] MEDS: Acetaminophen 325 MG TABLET 650 MG PO (12:10)
[2024-01-18 14:42] VITALS: BP 138/68; PULSE 79; RESP 12; TEMP 36.4; O2SAT 96
[2024-01-18 15:04] VITALS: BP 138/68; PULSE 79; RESP 12; TEMP 36.4; O2SAT 96
== END 2024-01-18 15:05 | disposition home or self-care (01) ==
PROVIDERS: Physician Assistant; Emergency Provider Emergency Medicine; PCP Internal Medicine
DX: M54.50 Low back pain, unspecified (principal); J45.909 Unspecified asthma, uncomplicated; Z03.818 Encounter for observation for suspected exposure to other biological agents ruled out
CPT/HCPCS: 0241U; 72100; 99283; 99284

== ENCOUNTER 2024-01-28 12:53 | Outpatient (AMB) | payer MEDICARE, SELFPAY ==
--- NOTE | 2024-01-28 12:53 | MHC.PC.OV ---
Vital Signs 01/28/24 12:54 Height 5 ft 1 in Weight 246 lb BMI 46.5 BP 112/72 Blood Pressure Location Lt brachial Position Sitting Intake Visit Reasons: pe Intake Note: Patient here for a physical exam Toe Puncher Required: No Accompanied by: Self / Same As Patient Allergies ibuprofen [From MOTRIN] Allergy (Intermediate, Verified 01/28/24 13:09) REDNESS, HIVES,GI Medication List - Last Reconciled 01/28/24 by Mi Hua MD acetaminophen 1,000 mg (2 x 500 mg) PO Q8H 90 days albuterol sulfate 2.5 mg inhalation Q6H PRN albuterol sulfate 90 mcg/actuation 1 puff PO Q4H PRN 30 days amlodipine 10 mg PO DAILY 90 days apixaban (Eliquis) 5 mg PO BID 30 days atorvastatin 40 mg PO BEDTIME 90 days cetirizine (Zyrtec) 10 mg PO DAILY PRN cholecalciferol (vitamin D3) 50 mcg PO DAILY 90 days [compression stockings As directed] [cpap supplies As directed] cyclobenzaprine 5 mg PO TID PRN flecainide 100 mg PO DIRECTED 90 days fluticasone propionate 50 mcg/actuation (Flonase Allergy Relief) 2 sprays intranasal DAILY 30 days furosemide 20 mg PO DAILY 90 days gabapentin 100 mg PO BEDTIME lidocaine 5% 2 patches topical DAILY lisinopril 40 mg PO DAILY 90 days lorazepam (Ativan) 0.5 mg PO BEDTIME PRN 2 days metoprolol succinate ER 25 mg PO DAILY 90 days miscellaneous medical supply (Anti-Embolism Stockings) Use daily rosuvastatin 20 mg PO BEDTIME 90 days sertraline 100 mg PO DAILY torsemide 10 mg PO DAILY Ventolin HFA 90 mcg/actuation (albuterol sulfate) 2 puffs inhalation Q6H PRN 30 days NS Tobacco use date assessed: 09/18/23 Fall risk assessment: No Falls in past year Last assessed Fall Risk: 01/28/24 Dental Screening Dental Screen Date: 09/18/23 HPI HPI Comments History of Present Illness Details This is a 68-year-old female with morbid obesity, hypertension, obstructive sleep apnea on CPAP machine and chronic kidney disease now stage IV that comes for her physical exam. Mammogram done 2022 was normal and already has an appointment for 2023. Will have colonoscopy in June 2024 at [facility]. Last DEXA scan was 2021 and I will order a DEXA scan for 2023. She is morbidly obese with a BMI of 46.5 and has tried diet and exercise with no relief. I will start her on Wegovy. Blood pressure stable but will like a blood pressure sphygmomanometer. Has obstructive sleep apnea and use CPAP machine. Will also like a pulse oximeter. Labs were discussed and her GFR decreased to 28 and this is follow by Nephrology. Recently use tizanidine but already completed treatment and I recommend to hold NSAIDs and muscle relaxers for now. She also has paroxysmal atrial fibrillation follow by cardiology and has been stable with medications. [facility] Medical History (Updated 01/28/24 @ 13:48 by Mi Hua MD) Morbid obesity Obesity, morbid, BMI 50 or higher CKD (chronic kidney disease) stage 3, GFR 30-59 ml/min Morbid obesity with BMI of 45.0-49.9, adult Mild recurrent major depression Venous (peripheral) insufficiency Leg edema Pure hypercholesterolemia Paroxysmal atrial fibrillation Back pain Right hip pain Asthma Left knee pain Venous (peripheral) insufficiency History of atrial fibrillation Migraines Vaginal pruritus Moderate asthma Essential hypertension Surgical History History of mammogram History of tubal ligation Hx laparoscopic cholecystectomy Family History Father HTN (hypertension) CVD (cardiovascular disease) Diabetes Mother HTN (hypertension) CVD (cardiovascular disease) Sister Bone cancer Lymphoma Family/Other Substance use disorder Social History Housing: Apartment Alcohol intake: former Patient Tobacco Use Status: Never used Tobacco e-Cigarette/Vaping Use: Never Used Second Hand Smoke Exposure: No service: No Current occupational status: disabled Cognitive needs: Yes Hearing needs: No Vision needs: No Female Reproductive History Menstrual Age of Menarche: 11 Questionnaire Thrive Questionnaire Date Thrive assessed: 09/18/23 REGINALD-7 AMB Questionnaire REGINALD-7 Date REGINALD - 7 assessed: 09/18/23 Source: Developed by Drs. Wero Lowery, Anat Stafford, Mark Slater and colleagues, with an educational lex from [employer]. Review of Systems Const All systems reviewed & are unremarkable except as noted in HPI and below Card Denies chest pain at rest, Denies chest pain with activity, Denies edema, Denies irregular heart rhythm, Denies claudication, Denies dyspnea, Denies dyspnea on exertion, Denies orthopnea, Denies paroxysmal nocturnal dyspnea and Denies slow heart rate Resp Denies cough, Denies dyspnea and Denies dyspnea on exertion GI Denies abdominal pain, Denies change in bowel habits, Denies excessive flatus, Denies nausea and Denies vomiting Physical exam (Primary Care) Vital Signs: Last Vital Signs BP 112/72 01/28/24 12:54 BMI result Body Mass Index 46.5 BMI Assessment/Plan discussion: High BMI High, discussed plan: lifestyle, weight reduction, dietary and physical activity Tobacco/Smoking Status: Tobacco use Status Tobacco use date assessed 09/18/23 01/28/24 13:00 Patient Tobacco Use Status Never used Tobacco 01/28/24 13:00 e-Cigarette/Vaping Use Never Used 01/28/24 13:00 Thrive Assessment: Date of Thrive Assessment Date Thrive assessed 09/18/23 01/28/24 13:00 HENDC Head: Yes normal to inspection, Yes normocephalic and Yes atraumatic Ears: external ears normal Eyes General: appearance normal, both eyes and all related structures Eyelids: Yes eyelids normal Conjunctivae: conjunctivae normal Neck Neck: Yes normal visual inspection and Yes supple Resp Effort & Inspection: normal respiratory effort Auscultation: clear to auscultation bilaterally Cardio Jugular venous distension: no JVD Rate: regular rate Rhythm: regular rhythm Heart sounds: S1 normal heart sound present and S2 normal heart sound present GI Inspection: Yes normal to inspection Palpation (GI): Soft to palpation and nontender Auscultation: normal bowel sounds Skin General skin exam: no rashes or lesions noted Neuro General: no focal motor deficits Extrem General: Yes full ROM Psych Appearance: grossly normal Assessment and Plan Assessment & Plan (1) Physical exam: Code(s): Z00.00 - Encounter for general adult medical examination without abnormal findings Plan: Repeat in a year. (2) KARISSA (obstructive sleep apnea): Code(s): G47.33 - Obstructive sleep apnea (adult) (pediatric) Plan: Continue CPAP machine. Pulse oximeter ordered. (3) Paroxysmal atrial fibrillation: Code(s): I48.0 - Paroxysmal atrial fibrillation Plan: Continue flecainide. Follow-up with Cardiology. (4) Essential hypertension: Code(s): I10 - Essential (primary) hypertension Plan: Continue lisinopril and amlodipine. Blood pressure goal is equal or less than 130/80. Blood pressure monitor ordered. Orders: Orders XR DEXA axial skeleton Today N95.9 - Unspecified menopausal and perimenopausal disorder Comprehensive [place]. Panel Fast 4 Months E66.01 - Morbid (severe) obesity due to excess calories, Z68.42 - Body mass index [BMI] 45.0-49.9, adult Medications: New blood pressure monitor As directed 1 ea 0RF I10 - Essential (primary) hypertension [pulse oximeter] As directed 1 ea 0RF G47.33 - Obstructive sleep apnea (adult) (pediatric) semaglutide (weight loss) (Wegovy) administer weeks 1 through 4 of therapy 0.25 mg (0.5 mL) subcut QWEEK 2 mL 0RF 4 weeks E66.01 - Morbid (severe) obesity due to excess calories, Z68.42 - Body mass index [BMI] 45.0-49.9, adult Coding Level of Care Code Est Pt Level 3 (89700) Est Pt Prev Care >65y(82123) Diagnoses Physical exam Z00.00 KARISSA (obstructive sleep apnea) G47.33 Paroxysmal atrial fibrillation I48.0 Essential hypertension I10 Time Spent (min) 35
[2024-01-28 12:54] VITALS: BP 112/72; BMI 46.5
== END 2024-01-28 13:21 | disposition home or self-care (01) ==
PROVIDERS: PCP Internal Medicine; Visit Provider Internal Medicine
DX: Z00.00 Encounter for general adult medical examination without abnormal findings (principal); I48.0 Paroxysmal atrial fibrillation; E66.01 Morbid (severe) obesity due to excess calories; Z68.42 Body mass index [BMI] 45.0-49.9, adult; I10 Essential (primary) hypertension; G47.33 Obstructive sleep apnea (adult) (pediatric)
CPT/HCPCS: 99213; 99397

== ENCOUNTER 2024-02-27 12:59 | Outpatient (REF) | payer MEDICARE, SELFPAY ==
--- NOTE | ~2024-02-27 | MM_ITS ---
EXAMINATION: BONE DENSITOMETRY CLINICAL INDICATION: Unspecified menopausal and perimenopausal disorder. COMPARISON: Baseline BD dated 01/26/2022. TECHNIQUE: Using a [employer] DXA System (software version: 13.1) manufactured by [employer], dual-energy x-ray absorptiometry was performed of the lumbar spine and left hip. The images are of good technical quality. Summary results are attached. FINDINGS: LEFT FEMUR, NECK: Current: BMD 0.965 g/cm2, Z-score 0.4, T-score -0.5, normal. Baseline: BMD 0.918 g/cm2. LEFT FEMUR, TOTAL: Current: BMD 1.025 g/cm2, Z-score 0.8, T-score 0.1, normal, 6.9% increase from baseline (<5% change is not significant). Baseline: BMD 0.959 g/cm2. AP SPINE L1-L4: Current: BMD 1.420 g/cm2, Z-score 2.5, T-score 2.0, normal, 4.3% increase from baseline (<5% change is not significant). Baseline: BMD 1.361 g/cm2. IDENTIFIED RISK FACTORS: Anticonvulsant, dementia, menopause, renal. HISTORY OF FRACTURE: None listed. MEDICATIONS: Vitamin D. MM/XR DEXA axial skeleton IMPRESSION: 1. DIAGNOSIS: Normal bone density based on the lowest T-score value of -0.5 in the femoral neck applying World Health Organization criteria. 2. 10-YEAR FRACTURE RISK PREDICTION, FRAX: According to the guidelines, FRAX calculation should only be performed on patients in the osteopenia bone density category. Therefore, FRAX was not performed on this patient. 3. Treatment Recommendations: NOF guidelines recommend consideration for treatment in postmenopausal women and men age 50 and older presenting with the following: -A hip or vertebral (clinical or morphometric) fracture. -T-score less than or equal to -2.5 at the femoral neck or spine after appropriate evaluation to exclude secondary causes. -Low bone mass at the hip or spine and a 10-year fracture probability by FRAX of greater than or equal to 3% for hip fracture or greater than or equal to 20% for major osteoporotic fracture based on the [place] adapted WHO algorithm. 4. Other Recommendations: All treatment decisions require clinical judgment and consideration of individual patient factors, including patient preferences, comorbidities, previous drug use, risk factors not captured in the FRAX model (e.g. frailty, falls, vitamin D deficiency, increased bone turnover, interval significant decline in bone density) and possible under or overestimation of fracture risk by FRAX. FUTURE SCAN RECOMMENDATION: People with diagnosed cases of osteoporosis or at high risk for fracture should have regular bone mineral density tests. For patients eligible for Medicare, routine testing is allowed once every 2 years. The testing frequency can be increased to one year for patients who have rapidly progressing disease, those who are receiving or discontinuing medical therapy to restore bone mass, or have additional risk factors.
--- NOTE | ~2024-02-27 | MM_ITS ---
EXAMINATION: MM SCREENING DIGITAL BREAST TOMOSYNTHESIS, BILATERAL CLINICAL INFORMATION: Screening. Asymptomatic. COMPARISON: Mammography: This study is compared with prior exams dating back to 2020. TECHNIQUE: Digital breast tomosynthesis is performed in both the craniocaudal and mediolateral oblique views along with computer-aided detection (CAD). Synthesized 2D images are generated from the tomosynthesis. FINDINGS: The breasts are almost entirely fatty (ACR BI-RADS breast composition Category a). There are no significant masses, abnormal calcifications, or other abnormalities. MM/MM tomosynthesis screening BI IMPRESSION: No mammographic evidence of malignancy. ASSESSMENT: BI-RADS BI-RADS 1 - Negative RECOMMENDATION: Routine annual mammography screening. 1 year F/U This examination should not preclude the clinical evaluation of a suspicious palpable abnormality. This patient's information was entered into a reminder system with a target due date for their next mammogram. Electronically signed by: Caitlyn Ortiz MD 03/26/2024 04:57 PM EDT
== END 2024-02-27 13:00 | disposition home or self-care (01) ==
LOC: HO.MAMMO 12:59
PROVIDERS: PCP Internal Medicine; Visit Provider Internal Medicine
DX: Z12.31 Encounter for screening mammogram for malignant neoplasm of breast (principal); Z13.820 Encounter for screening for osteoporosis; Z78.0 Asymptomatic menopausal state
CPT/HCPCS: 77063; 77067; 77080

== ENCOUNTER → 2024-02-27 13:15 | Outpatient (BNV) | payer MEDICARE, SELFPAY | PROVIDERS: PCP Internal Medicine; Visit Provider Radiology Diagnostic Radiology | DX: Z12.31 Encounter for screening mammogram for malignant neoplasm of breast (principal) | CPT/HCPCS: 77063; 77067 ==

== ENCOUNTER 2024-03-06 11:03 | Outpatient (REF) | payer MEDICARE, SELFPAY ==
[2024-03-11 08:53] LABS: HPV mRNA E6/E7 Not Detected (Not Detected)
== END 2024-03-06 11:04 | disposition home or self-care (01) ==
LOC: HO.LNP 11:03
PROVIDERS: PCP Internal Medicine; Visit Provider Advanced Practice Midwife
DX: Z01.419 Encounter for gynecological examination (general) (routine) without abnormal findings (principal)
CPT/HCPCS: 87624; 88175

== ENCOUNTER 2024-03-06 11:17 | Outpatient (AMB) | payer MEDICARE, SELFPAY ==
--- NOTE | 2024-03-06 11:07 | MHC.OFFVIS ---
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 She is doing well with no concerns. Attempting to eat a healthy diet with calcium and vitamin D and stays active with exercise. , not sexually active. Denies any vaginal dryness or irritation. Last pap smear; approx. age 62, no copy found today. Last mammogram; pending read. Bone density up-to-date. Colonoscopy appointment scheduled. Denies any family history of breast, ovarian or colon cancer. [facility] Medical History Morbid obesity Obesity, morbid, BMI 50 or higher CKD (chronic kidney disease) stage 3, GFR 30-59 ml/min Morbid obesity with BMI of 45.0-49.9, adult Mild recurrent major depression Venous (peripheral) insufficiency Leg edema Pure hypercholesterolemia Paroxysmal atrial fibrillation Back pain Right hip pain Asthma Left knee pain Venous (peripheral) insufficiency History of atrial fibrillation Migraines Vaginal pruritus Moderate asthma Essential hypertension Surgical History History of mammogram History of tubal ligation Hx laparoscopic cholecystectomy Family History Father HTN (hypertension) CVD (cardiovascular disease) Diabetes Mother HTN (hypertension) CVD (cardiovascular disease) Sister Bone cancer Lymphoma Family/Other Substance use disorder Social History Housing: Apartment Alcohol intake: former Patient Tobacco Use Status: Never used Tobacco e-Cigarette/Vaping Use: Never Used Second Hand Smoke Exposure: No service: No Current occupational status: disabled Cognitive needs: Yes Hearing needs: No Vision needs: No Female Reproductive History Menstrual Age of Menarche: 11 Total pregnancies: 5 Full term: 4 Number of Living Children: 4 Date of last pap smear: 06/01/08 (neg) Date of Mammogram: 02/27/24 Date of last Bone Density Screenin02/27/24 Review of Systems Const All systems reviewed & are unremarkable except as noted in HPI and below Reports as per HPI Eyes Reports no additional complaints ENT Reports no additional complaints Card Reports no additional complaints Resp Reports no additional complaints GI Reports as per HPI and Reports no additional complaints Reports as per HPI Musc Reports no additional complaints Skin/Breast Reports as per HPI Neuro Reports no additional complaints Psych Reports no additional complaints Endo Reports no additional complaints Adrian/Lymph Reports no additional complaints Aller/Immun Reports no additional complaints Physical Exam Vital Signs: Last Vital Signs BP 118/60 03/06/24 11:25 BMI result Body Mass Index 49.6 Const General: cooperative, healthy appearing, no acute distress, well developed and alert Orientation/consciousness: patient oriented x3 HEENT Head: Yes normal to inspection Eyes General: appearance normal, both eyes and all related structures Neck Neck: Yes normal visual inspection Thyroid: Thyroid normal Chest Chest palpation & inspection: normal inspection of the chest and other (no puckering, dimpling, peau de orange, retraction, discharge, masses) Breast/axilla inspection: normal inspection of the breasts Breast/axilla palpation: normal palpation of the breasts Resp Effort & Inspection: normal respiratory effort GI Inspection: Yes normal to inspection, Yes obesity and Yes scar Palpation (GI): Soft to palpation Rectal Exam - Female: deferred General: Yes bladder normal to inspection and Yes bladder normal to palpation External Female Exam: normal external appearance and normal appearance of the urethra Speculum Exam - Vagina: normal appearance of the vagina, normal palpation, normal vaginal discharge and vagina atrophic Speculum Exam - Cervix: normal appearance of the cervix and normal palpation Bimanual exam- vagina & uterus: normal bimanual exam, normal palpation, uterine size normal, bladder normal to palpation, normal palpation and non-tender Bimanual Exam- Adnexa, other: no masses Skin General skin exam: no rashes or lesions noted Rashes: no rashes Neuro General: patient oriented x3 Cognition (Neuro): normal cognition Extrem General: Yes normal to inspection Psych Attitude: cooperative Thought process: Normal thought process present Assessment & Plan Assessment & Plan (1) Well woman exam with routine gynecological exam: Code(s): Z01.419 - Encounter for gynecological examination (general) (routine) without abnormal findings Category: Medical Plan Discussed: Current recommendations for pap smears per ASCCP guidelines. Breast awareness, periodic self breast exams and yearly mammogram. Maintain a healthy lifestyle, well balanced diet including Calcium 1,200 mg and Vitamin D 800 IU daily, and routine exercise. Contact the office with any postmenopausal bleeding. Patient verbalizes understanding and agrees to the plan of care. She was given opportunity to ask questions and all questions were answered to the best of my ability. Return to the office 1 year. This note is constructed using voice recognition software. While every effort has been made to ensure accuracy, oncology technician errors may have been included. 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 Coding Level of Care Code Est Pt Prev Care >65y(55532) Diagnoses Well woman exam with routine gynecological exam Z01.419
[2024-03-06 11:25] VITALS: BP 118/60; BMI 49.6
--- OUTSIDE RECORDS SUMMARY | 2024-03-08 00:21 | XMS_ITS | Continuity of Care Document ---
Author Organization [facility] Address [address] [place] [id number]- Care Team Providers Care Contact Center Engineer Name Role Phone Mesfin Hua MD, Parisa Primary Care Physician Encounter [facility] [place] Date(s): 11/28/22 - 12/28/22 [facility] [address] [place] [id number]- Attending Physician: Jessica Quintana Admitting Physician: AdmtrJessica [...] 3 Refills, Maintenance, 05/01/22 13:21:00 EDT, Tablet, [facility] #[id number], 152, cm, 05/01/22 10:29:00 EDT, Height Start [...] 02/20/22 16:23:00 EDT, Route to Pharmacy Electronically, [facility] #[id number], 152, cm, 02/15/22 15:27:00 EDT, Height,... Start Date: 02/20/22 Stop Date: 02/15/23 Status: Ordered flecainide 100 mg oral tablet 1, tablet, By Mouth, Every 12 hours, # 180 tablet, Refills 3, Tot. Refills 3, Maintenance, 02/16/2316:23:00 EDT, Route to Pharmacy Electronically, [facility] #[id number], 152, cm, 05/01/22 10:29:00 EDT, Height Start Date: 02/15/23 Stop Date: 02/10/24 Status: Ordered Gabapentin = 600 mg, By Mouth, 2 times a day, 0 Refills, Maintenance Start Date: 05/12/10 Status: Ordered lisinopril 40 mg oral tablet 1 tablet = 40 mg, By Mouth, Daily, portuguese., # 30 tablet, 0 Refills, Maintenance, 11/14/18 16:06:42EDT, Tablet Start Date: 11/14/18 Stop Date: 12/14/18 Status: Ordered metoprolol 25 mg oral tablet, extended release 25 mg, 1, tablet, By Mouth, Daily, # 30 tablet, Refills 5, Tot. Refills 5, Maintenance, 12/01/20 13:59:00 EDT, Route to Pharmacy Electronically, [facility] #[id number], Partial fill upon patientrequest if the prescription is for a schedule II op... Start Date: 12/01/20 Stop Date: 05/30/21 Status: Ordered Metoprolol Succinate ER 25 mg oral tablet, extended release 1 tablet, By Mouth, Daily, # 30 tablet, 6 Refills, [facility] #[id number], 152, cm, 12/01/20 13:10:00 EDT, Height, 114.5, kg, 04/15/20 11:03:00 EDT, Dry Weight Start Date: 05/26/21 Status: Ordered Metoprolol Succinate ER 25 mg oral tablet, extended release 1 tablet, By Mouth, Daily, # 30 tablet, 11 Refills, [facility] #[id number], 152, cm, 12/01/20 13:10:00 EDT, Height, 114.5, kg, 04/15/20 11:03:00 EDT, Dry Weight Start Date: 05/19/21 Status: Ordered nortriptyline 25 mg oral capsule 25 mg, 1, capsule, By Mouth, Daily at supper, # 90 capsule, Refills 2, Tot. Refills 2, Maintenance,09/14/22 14:03:00 EST, Route to Pharmacy Electronically, [facility] #[id number], aware pt on sertraline, 152, cm, 05/01/22 10:29:00 EDT, Height Start Date: 09/14/22 Stop Date: 06/11/23 Status: Ordered ondansetron 4 mg oral tablet 1 tablet = 4 mg, By Mouth, Every 12 hours, PRN Migraine Headache, take at onset of migraines, # 10 tablet, 2 Refills, Acute 05/01/23 10:52:00 EDT, 05/01/22 10:51:00 EDT, Tablet, [facility] #[id number], Partial fill upon patient request if the [...] 5 Refills, Maintenance, 06/10/20 7:27:00 EST, Tablet, [facility] #[id number], 152, cm, 04/15/20 10:56:00 EDT, Height, 114.5, kg, 04/15/20 11:03:00 EDT, Dry Weight Start Date: 06/10/20 Stop Date: 12/07/20 Status: Ordered torsemide 20 mg oral tablet 0.5 tablet, By Mouth, Daily, # 45 tablet, 3 Refills, Maintenance, 05/01/22 13:20:00 EDT, [facility] #[id number], 152, cm, 05/01/22 10:29:00 EDT, Height Start [...] Physician Member Role: PCP Address: Address: [address] [place] [address]- Care Team Related Persons Name: EVELYN PAUL Address: [address] [place] [address] Name: SYLVESTER MEDRANO Address: [address] [place] [address]
== END 2024-03-06 11:53 | disposition home or self-care (01) ==
PROVIDERS: PCP Internal Medicine; Visit Provider Advanced Practice Midwife
DX: Z01.419 Encounter for gynecological examination (general) (routine) without abnormal findings (principal)
CPT/HCPCS: 99397

== ENCOUNTER 2024-06-04 14:38 | Outpatient (AMB) | payer MEDICARE, SELFPAY ==
[2024-06-04 14:41] VITALS: BP 132/70; BMI 50.0
--- NOTE | 2024-06-04 14:41 | MHC.PC.OV ---
Vital Signs 06/04/24 14:41 Height 5 ft Weight 256 lb BMI 50.0 BP 132/70 Blood Pressure Location Lt brachial Position Sitting Intake Visit Reasons: bp Intake Note: Patient here for a follow up bp Manufacturing Scheduler Required: No Accompanied by: Self / Same As Patient Allergies ibuprofen [From MOTRIN] Allergy (Intermediate, Verified 06/04/24 15:15) REDNESS, HIVES,GI Medication List - Last Reconciled 06/04/24 by Mi Hua MD acetaminophen 1,000 mg (2 x 500 mg) PO Q8H 90 days albuterol sulfate 2.5 mg inhalation Q6H PRN albuterol sulfate 90 mcg/actuation 1 puff PO Q4H PRN 30 days amlodipine 10 mg PO DAILY 90 days apixaban (Eliquis) 5 mg PO BID 30 days atorvastatin 40 mg PO BEDTIME 90 days blood pressure monitor As directed cetirizine (Zyrtec) 10 mg PO DAILY PRN cholecalciferol (vitamin D3) 50 mcg PO DAILY 90 days [compression stockings As directed] [cpap supplies As directed] cyclobenzaprine 5 mg PO TID PRN flecainide 100 mg PO DIRECTED 90 days fluticasone propionate 50 mcg/actuation (Flonase Allergy Relief) 2 sprays intranasal DAILY 30 days furosemide 20 mg PO DAILY 90 days gabapentin 100 mg PO BEDTIME lidocaine 5% 2 patches topical DAILY lisinopril 40 mg PO DAILY 90 days lorazepam (Ativan) 0.5 mg PO BEDTIME PRN 2 days metoprolol succinate ER 25 mg PO DAILY 90 days miscellaneous medical supply (Anti-Embolism Stockings) Use daily [pulse oximeter As directed] rosuvastatin 20 mg PO BEDTIME 90 days semaglutide (weight loss) (Wegovy) 0.25 mg (0.5 mL) subcut QWEEK 4 weeks sertraline 100 mg PO DAILY torsemide 10 mg PO DAILY Ventolin HFA 90 mcg/actuation (albuterol sulfate) 2 puffs inhalation Q6H PRN 30 days NS Tobacco use date assessed: 09/18/23 Fall risk assessment: No Falls in past year Last assessed Fall Risk: 06/04/24 Dental Screening Dental Screen Date: 06/04/24 Did you have a dental visit in the last 12 months?: No Did you have a dental problem in the last 6 months where you did not have access to dental care?: No Was dental information given to patient?: Patient has dentist HPI HPI Comments History of Present Illness Details The patient is a 68-year-old female presenting with leg weakness. The weakness has been ongoing but she noticed a lack of strength particularly in the legs. This issue has been associated with a couple of accidents, resulting in falls without significant injury. Previously, she was evaluated for osteopenia and osteoporosis in February; both were found to be unremarkable. She reports using albuterol sporadically for wheezing, and has been experiencing some dyspnea that might be related to her weight, with a BMI at 50. The weight issue has been prolonged. She has allergies, particularly reacting to ibuprofen with hives. Medications include amlodipine, apixaban, cetirizine, vitamin D, furosemide, gabapentin, lisinopril, metoprolol, rosuvastatin, sertraline, Wegovy (approved but not yet started), and a nasal spray for allergic rhinitis. She uses a CPAP machine nightly. The patient has prior history of myocardial infarctions twice in 2019 associated with significant life stressors. Her cardiac care includes annual evaluations and previous cardiac catheterization. She has not seen her reinsurance clerk this year despite a decline in renal function as noted in previous labs. [facility] Medical History (Updated 06/04/24 @ 16:56 by Mi Hua MD) Mild recurrent major depression Morbid obesity Obesity, morbid, BMI 50 or higher CKD (chronic kidney disease) stage 3, GFR 30-59 ml/min Morbid obesity with BMI of 45.0-49.9, adult Venous (peripheral) insufficiency Leg edema Pure hypercholesterolemia Paroxysmal atrial fibrillation Back pain Right hip pain Asthma Left knee pain Venous (peripheral) insufficiency History of atrial fibrillation Migraines Vaginal pruritus Moderate asthma Essential hypertension Surgical History History of mammogram History of tubal ligation Hx laparoscopic cholecystectomy Family History Father HTN (hypertension) CVD (cardiovascular disease) Diabetes Mother HTN (hypertension) CVD (cardiovascular disease) Sister Bone cancer Lymphoma Family/Other Substance use disorder Social History Housing: Apartment Alcohol intake: former Patient Tobacco Use Status: Never used Tobacco e-Cigarette/Vaping Use: Never Used Second Hand Smoke Exposure: No service: No Current occupational status: disabled Cognitive needs: Yes Hearing needs: No Vision needs: No Female Reproductive History Menstrual Age of Menarche: 11 Questionnaire Thrive Questionnaire Date Thrive assessed: 09/18/23 REGINALD-7 AMB Questionnaire REGINALD-7 Date REGINALD - 7 assessed: 09/18/23 Source: Developed by Drs. Wero Lowery, Anat Stafford, Mark Slater and colleagues, with an educational lex from [employer]. Review of Systems Const All systems reviewed & are unremarkable except as noted in HPI and below Card Denies chest pain at rest, Denies chest pain with activity, Denies edema, Denies irregular heart rhythm, Denies claudication, Denies dyspnea, Denies dyspnea on exertion, Denies orthopnea, Denies paroxysmal nocturnal dyspnea and Denies slow heart rate Resp Denies cough, Denies dyspnea and Denies dyspnea on exertion Musc Denies abnormal gait, Denies atrophy, Denies deformity, Reports arthralgias and Denies limited range of motion Skin/Breast Denies bleeding lesions, Denies changing lesions and Denies rash Neuro Denies abnormal gait, Denies behavioral changes and Denies lack of coordination Psych Denies behavioral changes Physical exam (Primary Care) Vital Signs: Last Vital Signs BP 132/70 06/04/24 14:41 BMI result Body Mass Index 50.0 BMI Assessment/Plan discussion: High BMI High, discussed plan: lifestyle, weight reduction, dietary and physical activity Tobacco/Smoking Status: Tobacco use Status Tobacco use date assessed 09/18/23 06/04/24 14:47 Patient Tobacco Use Status Never used Tobacco 06/04/24 14:47 e-Cigarette/Vaping Use Never Used 06/04/24 14:47 Thrive Assessment: Date of Thrive Assessment Date Thrive assessed 09/18/23 06/04/24 14:47 Resp Effort & Inspection: normal respiratory effort Auscultation: clear to auscultation bilaterally Cardio Jugular venous distension: no JVD Rate: regular rate Rhythm: regular rhythm Heart sounds: S1 normal heart sound present and S2 normal heart sound present Neuro General: no focal motor deficits Extrem General: Yes full ROM Office Procedures Flu Questionnaire Does the patient have a severe egg allergy?: No Immunizations Fluarix Triv [id number] (PF) 45 mcg (15 mcg x 3)/0.5 mL IM syringe Performing Provider: Mi Hua MD Performing Location: [facility] Documented (not given) by: SILVIANO Jain on 06/04/24 16:09 Reason Not Given: Patient Refused Coding Level of Care Code Est Pt Level 4 (48783) Complex EM visit Add On G2211 Diagnoses Osteoarthritis of right knee M17.11 Morbid obesity with BMI of 45.0-49.9, adult E66.01; Z68.42 CKD (chronic kidney disease) stage 4, GFR 15-29 ml/min N18.4 Paroxysmal atrial fibrillation I48.0 Essential hypertension I10 Coronary artery disease I25.10 KARISSA (obstructive sleep apnea) G47.33 Dyslipidemia E78.5 Mild recurrent major depression F33.0 Time Spent (min) 25 Assessment & Plan Assessment & Plan (1) Osteoarthritis of right knee: Code(s): M17.11 - Unilateral primary osteoarthritis, right knee Category: Medical (2) Morbid obesity with BMI of 45.0-49.9, adult: Code(s): E66.01 - Morbid (severe) obesity due to excess calories; Z68.42 - Body mass index [BMI] 45.0-49.9, adult Category: Medical (3) CKD (chronic kidney disease) stage 4, GFR 15-29 ml/min: Code(s): N18.4 - Chronic kidney disease, stage 4 (severe) Category: Medical (4) Paroxysmal atrial fibrillation: Code(s): I48.0 - Paroxysmal atrial fibrillation Category: Medical (5) Essential hypertension: Code(s): I10 - Essential (primary) hypertension Category: Medical (6) Coronary artery disease: Comment: [facility] angioplasty with no stent Code(s): I25.10 - Atherosclerotic heart disease of three affiliated coronary artery without angina pectoris Category: Medical (7) KARISSA (obstructive sleep apnea): Code(s): G47.33 - Obstructive sleep apnea (adult) (pediatric) Category: Medical (8) Dyslipidemia: Code(s): E78.5 - Hyperlipidemia, unspecified Category: Medical (9) Mild recurrent major depression: Code(s): F33.0 - Major depressive disorder, recurrent, mild Category: Medical Plan - Hypertension: Continue current antihypertensives; monitor blood pressure closely. - Leg Weakness: Referral to physical therapy for strengthening; reassess post-therapy. - Atrial Fibrillation: Continue flecainide and anticoagulation with apixaban. - Hyperlipidemia: Continue current statin therapy. - Obstructive Sleep Apnea: Encourage continued use of CPAP machine. - Chronic Kidney Disease: Recommend follow-up with nephrology; consider repeating renal function tests. - Overweight: Discuss initiation of Wegovy under a supervised dosage schedule for weight management. - Depression with anxiety: Maintain current treatment; assess efficacy regularly. Patient was informed and verbally consented to the use of an ambient scribe for clinic note documentation during this visit. I discussed the risks and benefits of using Wegovy for weight management, emphasizing the need to start at a low dosage and gradually increase to manage potential side effects such as nausea and vomiting. We also reviewed the importance of continued medication adherence for atrial fibrillation and the necessity of monitoring her renal function given the recent decline. The patient will follow up with nephrology for comprehensive renal care. Physical therapy was recommended to address leg weakness and prevent further falls. Future care considerations included maintaining CPAP use and continuing cardiac health evaluations at her regular cardiology appointments. Orders: Orders Comprehensive [place]. Panel Fast Today N18.4 - Chronic kidney disease, stage 4 (severe) Vitamin D 25-OH Total Today E55.9 - Vitamin D deficiency, unspecified Lipid Panel Today E78.5 - Hyperlipidemia, unspecified PT Evaluation and Treatment Today M17.11 - Unilateral primary osteoarthritis, right knee Influenza [id number] Immunization Today Z23 - Encounter for immunization Medications: New polyethylene glycol 3350 (Miralax) 17 grams PO DAILY PRN 238 grams 0RF constipation 30 days Refilled semaglutide (weight loss) (Wegovy) administer weeks 1 through 4 of therapy 0.25 mg (0.5 mL) subcut QWEEK 2 mL 0RF 4 weeks E66.01 - Morbid (severe) obesity due to excess calories, Z68.42 - Body mass index [BMI] 45.0-49.9, adult Patient Instructions: - Adhere to all prescribed medications and ensure correct daily doses. - Start on Wegovy under prescribed guidance and monitor for any adverse effects. - Schedule an appointment with a reinsurance clerk and repeat renal function tests. - Engage in physical therapy for leg strength and balance. - Continue using the CPAP machine every night. - Follow a heart-healthy diet and monitor dietary intake. - Seek medical attention if there is a significant increase in leg weakness or any new symptoms arise.
== END 2024-06-04 15:31 | disposition home or self-care (01) ==
PROVIDERS: PCP Internal Medicine; Visit Provider Internal Medicine
DX: I12.9 Hypertensive chronic kidney disease with stage 1 through stage 4 chronic kidney disease, or unspecified chronic kidney disease (principal); N18.4 Chronic kidney disease, stage 4 (severe); Z68.42 Body mass index [BMI] 45.0-49.9, adult; E66.01 Morbid (severe) obesity due to excess calories; I48.0 Paroxysmal atrial fibrillation; F33.0 Major depressive disorder, recurrent, mild; M17.11 Unilateral primary osteoarthritis, right knee; I25.10 Atherosclerotic heart disease of native coronary artery without angina pectoris; G47.33 Obstructive sleep apnea (adult) (pediatric); E78.5 Hyperlipidemia, unspecified

== ENCOUNTER → 2024-06-04 14:38 | Outpatient (BNVA) | payer MEDICARE, SELFPAY | PROVIDERS: PCP Internal Medicine; Visit Provider Internal Medicine | DX: M17.11 Unilateral primary osteoarthritis, right knee (principal); E66.01 Morbid (severe) obesity due to excess calories; Z68.42 Body mass index [BMI] 45.0-49.9, adult; I12.9 Hypertensive chronic kidney disease with stage 1 through stage 4 chronic kidney disease, or unspecified chronic kidney disease; N18.4 Chronic kidney disease, stage 4 (severe); I48.0 Paroxysmal atrial fibrillation; I25.10 Atherosclerotic heart disease of native coronary artery without angina pectoris; G47.33 Obstructive sleep apnea (adult) (pediatric); E78.5 Hyperlipidemia, unspecified; F33.0 Major depressive disorder, recurrent, mild | CPT/HCPCS: 99212 ==

== ENCOUNTER 2024-09-24 08:57 | Outpatient (REF) | payer OTHER, SELFPAY ==
--- OUTSIDE RECORDS SUMMARY | 2024-09-24 10:04 | XMS_ITS | Clinical Summary ---
Author Organization [facility] Address [address] [place] [address] Phone Care Team Providers Care District Claims Manager Name Role Phone Mi Fisher MD Primary Care Provider [phone] Allergies Active Allergy Reactions Criticality Noted Date Comments Aspirin 12/23/2012 Per prev PCP records Ibuprofen Other (see comments) 01/10/2023 Medications sertraline (ZOLOFT) 100 MG tablet 3 Active scopolamine (TRANSDERM-SCOP ) 1 MG/3DAYS patch 72 hour APPLY 1 PATCH TOPICALLY TO THE SKIN EVERY 3 DAYS FOR 12 DAYS NEEDED FOR NAUSEA OR VOMITING 3 Active nortriptyline (PAMELOR) 25 MG capsule TAKE 1 CAPSULE BY MOUTH DAILY AT SUPPER 3 Active metoprolol succinate XL (TOPROL XL) 25 MG 24 hr tablet Take 25 mg by mouth 1 (one) time each day 3 Active lisinopril 40 MG tablet Take 40 mg by mouth 1 (one) time each day 3 Active gabapentin (NEURONTIN) 600 MG tablet Take 600 mg by mouth in the morning and 600 mg in the evening. 3 Active furosemide (LASIX) 20 MG tablet Take by mouth 1 (one) time each day 9 Active flecainide (TAMBOCOR) 100 MG tablet Take 100 mg by mouth every 12 (twelve) hours 3 Active apixaban (ELIQUIS) 5 MG tablet Take 1 tablet by mouth in the morning and 1 tablet in the evening. 0 Active atorvastatin (LIPITOR) 40 MG tablet Take 40 mg by mouth at bed time 3 Active amLODIPine (NORVASC) 5 MG tablet 5 mg 02/23/201 9 Active acetaminophen (TYLENOL) 500 MG tablet Take 1,000 mg by mouth 9 Active Active Problems Problem Noted Date Diagnosed Date Hypertension 01/10/2023 Well female adult 01/10/2023 Stage 3a chronic kidney disease 01/10/2023 Chronic kidney disease due to benign hypertensio n 01/10/2023 Osteoarthritis of knee 04/13/2019 Lumbosacral radiculitis 07/17/2018 Paroxysmal atrial fibrillation 04/21/2018 Glucose level above reference range 10/04/2017 Cervicovaginal cytology: Low grade squamous intraepithelial lesion 11/07/2016 Overview (01/10/2023): With positive HRHPV 12/18/16 Colpo negative. 11/12/2018 Pap smear LSIL 01/16/[address] of chest abnormal 05/28/2016 Overview (01/10/2023): 03/02/2016 CT of the chest - Partially calcified nodule in the lingula. Calcifications in the mediastinum and left hilum. Depressive disorder 03/08/2016 Displacement of cervical intervertebral disc 08/2014 Obstructive sleep apnea syndrome 12/23/2012 Migraine 12/23/2012 Venous insufficiency 12/23/2012 Benign essential hypertension 08/18/2012 Body mass index 40+ - severely obese 08/18/2012 Hyperlipidemia 08/18/2012 Overview (01/10/2023): IMO update Neck pain 08/18/2012 Immunizations Name Administration Dates Next Due Influenza, Unspecified 04/17/2018,09/13/2014, PPD Test 03/08/2016 Pneumococcal Polysaccharide 04/17/2018 Tdap 08/06/2011 Family History Relation Status Comments Father Mother Social History Tobacco Use Types Packs/Day Years Used Date Smoking Tobacco: Never Tobacco Cessation:Counseling Given: Not Answered Alcohol Use Standard Drinks/Week Comments Never 0 (1 standard drink = 0.6 oz pur e alcohol) Comments Unknown Sex and Gender Information Value Date Recorded Sex Assigned at Not on file Legal Sex Female 3:10 PM EDT Gender Identity Not on file Sexual Orientation Not on file Last Filed Vital Signs Vital Sign Reading Time Taken Comments Blood Pressure 125/66 07/19/2023 11:03 AM EST Pulse 84 07/19/2023 11:03 AM EST Temperature - - Respiratory Rate - - Oxygen Saturation 97% 07/19/2023 11:03 AM EST Inhaled Oxygen Concentration - - Weight 119 kg (263 lb 6.4 oz) 07/19/2023 11:03 A M EST Height - - Body Mass Index - - Plan of Treatment Upcoming Encounters Date Type Department Care Team (Late st Contact Info) Description 09/28/2024 1:15 PM EDT Office Visit [facility] [address] [place] [address] Raulito Uriarte MD [address] [facility] [address] [place] [address] Health Maintenance Due Date Last Done Comments Breast Cancer Screening 1955 Colorectal Cancer Screening: Annual FOBT 2002 Colorectal Cancer Screening: Colonoscopy 2002 Colorectal Cancer Screening: Sigmoidoscopy 2002 Pneumococcal Vaccine: 65+ Years (2 of 2 - PCV) 04/17/2019 04/17/2018 Influenza Vaccine (#1) 2024 8, 09/13/2014, 04/11/2011 Hepatitis B Vaccine Aged Out No longe r eligible based on patient's age to complete this topic Insurance [facility] ONE CARE DUAL SNP ([id number]) [facility] ONE CARE DUAL SNP ([id number]) Care Teams District Claims Manager Relationship Specialty Start Date End Date Mi Fisher MD [address] [place], [place] PCP - General Internal Medicine 09/26/22
--- OUTSIDE RECORDS SUMMARY | 2024-09-24 10:04 | XMS_ITS | Data Portability ---
Author Organization [facility] Address [address] [place] [id number] Care Team Providers Care Body Shop Supervisor Name Role Phone HIM CCA OTHER PHILLY BERGMAN Primary Care Provider Assessment Encounter Date Assessment Date Assessment LastModified by Organization Details LastModified Time 01/14/2024 01/14/2024 I have reviewed and agree with the Assessment and Plan as documented by the Court Registry Officer. I provided real-time medical direction via phone for this encounter, and was available for additional phone based assistance as needed. Patient seen for R shoulder and neck pain x 2 weeks. Attributes pain beginning after sleeping on affected side. No anterior CP or SOB, fevers reported through third miller. AVSS and well appearing per report. Pain on palpation and with range of motion with associated parethesias through the R arm. No weakness. History and exam strongly suggest non cardiac etiology / likely MSK etiology of pain. Will trial topical lidocaine given NSAID allergy and requested close PCP follow up for consideration of MRI. pallfather Not available 01/15/2024 11:39:30 Plan of Treatment Reminders Order Date Submit Date Provider Last Modified By Organization Details Last Modified Time Details Appointments None recorded. Lab None recorded. Referral None recorded. Procedures None recorded. Surgeries None recorded. Imaging None recorded. Medication Orders lidocaine 5 % topical ointment 2023 024 [id number], [address] [place], [place], [phone], 11:36:48 Patient TargetsNo targets recorded. Patient InstructionsNo instructions recorded. Reason for Referral None Reported. Medical Equipment None Reported. Medications Name Sig Start Date Stop Date Status Note LastModified by Organization Details LastModified Time gabapentin 600 mg tablet TAKE 1 TABLET BY MOUTH TWICE DAILY active Not Available Not Available No t Available cetirizine 10 mg tablet TAKE 1 TABLET DAILY NEEDED FOR ALLERGY SYMPTOMS active Not Available Not Available No t Available Nystop 100,000 unit/gram topical powder APPLY TOPICALLY TWICE DAILY active Not Available Not Available No t Available prednisone 20 mg tablet TAKE 1 TABLET BY MOUTH DAILY FOR 5 DAYS active Not Available Not Available No t Available sertraline 100 mg tablet TAKE 1 TABLET BY MOUTH EVERY MORNING active Not Available Not Available No t Available torsemide 10 mg tablet TAKE 1 TABLET BY MOUTH DAILY active Not Available Not Available No t Available nortriptyline 25 mg capsule TAKE 1 CAPSULE BY MOUTH DAILY AT SUPPER active Not Available Not Available No t Available amlodipine 10 mg tablet TAKE 1 TABLET BY MOUTH DAILY active Not Available Not Available No t Available benzonatate 100 mg capsule TAKE 1 CAPSULE BY MOUTH THREE TIMES DAILY FOR COUGH active Not Available Not Available No t Available flecainide 100 mg tablet TAKE 1 TABLET BY MOUTH EVERY 12 HOURS active Not Available Not Available No t Available gabapentin 100 mg capsule TAKE 1 CAPSULE BY MOUTH AT BEDTIME active Not Available Not Available No t Available metoprolol succinate ER 25 mg tablet,extend ed release 24 hr TAKE 1 TABLET BY MOUTH DAILY active Not Available Not Available No t Available lisinopril 40 mg tablet TAKE 1 TABLET BY MOUTH DAILY active Not Available Not Available No t Available fluticasone propionate 50 mcg/actuation nasal spray,suspens ion SHAKE LIQUID AND USE 2 SPRAYS IN EACH NOSTRIL DAILY active Not Available Not Available No t Available amoxicillin 875 mg-potassium clavulanate 125 mg tablet TAKE 1 TABLET BY MOUTH TWICE DAILY FOR 7 DAYS active Not Available Not Available No t Available Ventolin HFA 90 mcg/actuation aerosol inhaler INHALE 2 PUFFS BY MOUTH EVERY 6 HOURS NEEDED FOR SHORTNESS OF BREATH OR WHEEZING active Not Available Not Available No t Available cyclobenzapri ne 5 mg tablet TAKE 1 TABLET BY MOUTH THREE TIMES DAILY NEEDED FOR MUSCLE SPASM active Not Available Not Available No t Available rosuvastatin 20 mg tablet TAKE 1 TABLET BY MOUTH AT BEDTIME active Not Available Not Available No t Available lidocaine 5 % topical ointment APPLY TOPICALLY TO THE AFFECTED AREA 1 TO 4 TIMES DAILY NEEDED active Not Available Not Available No t Available Eliquis 5 mg tablet TAKE 1 TABLET BY MOUTH TWICE DAILY active Not Available Not Available No t Available Wegovy 0.25 mg/0.5 mL subcutaneous pen injector active Not Available Not Available Not Available Vitals Date Recorded Respiratory rate Heart rate Body temperature Oxygen saturation Oxygen saturation in Arterial blood by Pulse oximetry Systolic blood pressure Diastolic blood pressure Provider Name and Address Organization Details Last Updated DateTime 4 18 /min 92 /min 97.8 [degF] 98 % 98 % 124 mm[Hg] 88 mm[Hg] Not Available [facility] - production 4 16:22:14 Social History None recorded. Functional Status None recorded. Mental Status None recorded. Family History Nothing Reported. Medical History No medical history recorded. Gynecological HistoryNo gynecological history recorded. Obstetrics History GPAL:G 0 P 0 0 0 0 Past Encounters Encounter ID Performer Location Encounter Start Date Encounter Closed Date Diagnosis/Indication Diagnosis SNOMED-CT Code Diagnosis ICD10 Code Diagnosis Note [id number] Michael Rollins MD Main - [address] [address] 01/14/2024 16:22:12 01/15/2024 16:55:29 Shoulder pain 20235311 M25.519 Health Concerns Section Related Observation LastModified by Organization Detai ls LastModified Time None Recorded Concern Status LastModified by Organization Details LastModified Time None Recorded Advance Directives Directive None Recorded Payers Encounter Date Sequence Insurance Name Policy Number Policy Dykes Covered Member ID Dykes Member ID Guarantor Name 01/14/2024 1 [facility] - DOS ON OR AFTER 2022 - DUAL ELIGIBLE - [employer] ONE [employer] (MEDICARE REPLACEMENT/ADV ANTAGE - HMO) Mary Kay Asher [id number] Mary Kay Asher Notes Date Note Type Note Provider Name and Address Organization Details Recorded Time 01/14/2024 text/html [facility] Nurse Triage Notes (Concetta Soto): Reason For Request: back pain from shoulder to waist Chief Complaints: Pain PMH: Heart Disease, Hypertension, Other Comments: Estonian speaking member calling to request visit for back pain and right arm pain x2 weeks. No trauma associated with pain. Has been to the clinic for evaluation of these symptoms. Taking Tylenol every 4 hours with no relief. Reports itching to back and right arm. ................. ................. ................. ................. ................. ................. ................. ................. ..... Court Registry Officer Note From Glenn Bello: Inst[facility] note Estonian speaking member calling to request visit for back pain and right arm pain x2 weeks. No trauma associated with pain. Has been to the clinic for evaluation of these symptoms. Taking Tylenol every 4 hours with no relief. Reports itching to back and right arm. Above was confirmed. Pt sts she awoke one morning with this pain and it just hurts She describes it as numbness and tingling, that starts in her neck and shoots down her right arm. Pt at first stated it felt like a rash was developing within her body, but then described it as this. Pt denies rash or fever, [facility] also checked, none noted. Pt denes SOB, CP, N/V/D, GRAHAM, or pain elsewhere. She has full ROM, but it is a weird feeling to move, and at certain angles pain intensifies. Allergies to Motrin.Pharmacy:[facility] in [place]. consult:Agrees with [facility] that it might be a pinched nerve and that she requires and MRI to make sure nothing is worsening and to find the cause. [facility] is unable to provide other pain management, but Rx for Lidocaine cream was called in to pt's pharmacy. Discussed red flags with pt. Note:Network Support Administrator services were used. ................. ................. ................. ................. ................. ................. ................. ................. ..... Disposition: Fulfilled Michael Rollins MD [address] [facility],[address], [place], [address], MANAS - TonaraTANIA, ED[facility] 01/15/2024 11:39:42 OBGyn Episode No OBEpisode recorded.
[2024-09-24 10:23] LABS: Alanine Aminotransferase 11 U/L (0-31); Albumin Level 3.9 g/dL (3.5-5.0); Alkaline Phosphatase 66 U/L (39-117); Anion Gap 10 (12-20); Aspartate Amino Transferase 20 U/L (5-31); Bilirubin Total 0.8 mg/dL (0.0-1.0); Blood Urea Nitrogen 24 mg/dL (9-16); Calcium 9.2 mg/dL (8.4-10.2); Carbon Dioxide 30 mmol/L (22-29); Chloride 105 mmol/L (96-108); Cholesterol 212 mg/dL (<200); Estimated Glomerular Filt Rate 49; Glucose Fasting 91 mg/dL (60-99); HDL Cholesterol 70 mg/dL (>40); LDL Cholesterol Calculated 126 mg/dL (<100); Potassium 4.4 mmol/L (3.3-5.1); Sodium 141 mmol/L (135-145); Total Protein 7.7 g/dL (6.5-8.0); Triglycerides 83 mg/dL (<150)
[2024-09-24 10:25] LABS: Vitamin D 25-OH Total 46.9 ng/mL (>30)
== END 2024-09-24 08:58 | disposition home or self-care (01) ==
LOC: HO.LAB 08:57
PROVIDERS: PCP Internal Medicine; Visit Provider Internal Medicine
DX: F33.0 Major depressive disorder, recurrent, mild (principal); E66.01 Morbid (severe) obesity due to excess calories; Z68.43 Body mass index [BMI] 50.0-59.9, adult; I12.9 Hypertensive chronic kidney disease with stage 1 through stage 4 chronic kidney disease, or unspecified chronic kidney disease; N18.31 Chronic kidney disease, stage 3a; E78.5 Hyperlipidemia, unspecified; I48.0 Paroxysmal atrial fibrillation; E55.9 Vitamin D deficiency, unspecified; Z79.899 Other long term (current) drug therapy
CPT/HCPCS: 36415; 80053; 80061; 82306; 96127; 99212

== ENCOUNTER 2024-09-24 15:42 | Outpatient (AMB) | payer MEDICARE, SELFPAY ==
[2024-09-24 15:47] VITALS: BP 136/62; BMI 50.6
--- NOTE | 2024-09-24 15:47 | MHC.PC.OV ---
Vital Signs 09/24/24 15:47 Height 5 ft Weight 259 lb BMI 50.6 BP 136/62 Blood Pressure Location Lt brachial Position Sitting Intake Visit Reasons: follow up regardings labs School Administrator Required: Yes School Administrator Language: Reduction Furnace Operator Helper Name: Mi Hua MD Information Interpreted: non-clinical & clinical Accompanied by: Self / Same As Patient Allergies ibuprofen [From MOTRIN] Allergy (Intermediate, Verified 09/24/24 16:14) REDNESS, HIVES,GI Medication List - Last Reconciled 09/24/24 by Mi Hua MD acetaminophen 1,000 mg (2 x 500 mg) PO Q8H 90 days albuterol sulfate 2.5 mg inhalation Q6H PRN albuterol sulfate 90 mcg/actuation 1 puff PO Q4H PRN 30 days amlodipine 10 mg PO DAILY 90 days apixaban (Eliquis) 5 mg PO BID 30 days atorvastatin 40 mg PO BEDTIME 90 days blood pressure monitor As directed cetirizine (Zyrtec) 10 mg PO DAILY PRN cholecalciferol (vitamin D3) 50 mcg PO DAILY 90 days [compression stockings As directed] [cpap supplies As directed] cyclobenzaprine 5 mg PO TID PRN flecainide 100 mg PO DIRECTED 90 days fluticasone propionate 50 mcg/actuation (Flonase Allergy Relief) 2 sprays intranasal DAILY 30 days furosemide 20 mg PO DAILY 90 days gabapentin 100 mg PO BEDTIME lidocaine 5% 2 patches topical DAILY lisinopril 40 mg PO DAILY 90 days lorazepam (Ativan) 0.5 mg PO BEDTIME PRN 2 days metoprolol succinate ER 25 mg PO DAILY 90 days miscellaneous medical supply (Anti-Embolism Stockings) Use daily polyethylene glycol 3350 (Miralax) 17 grams PO DAILY PRN 30 days [pulse oximeter As directed] rosuvastatin 20 mg PO BEDTIME 90 days semaglutide (weight loss) (Wegovy) 0.25 mg (0.5 mL) subcut QWEEK 4 weeks sertraline 100 mg PO DAILY torsemide 10 mg PO DAILY Ventolin HFA 90 mcg/actuation (albuterol sulfate) 2 puffs inhalation Q6H PRN 30 days NS Tobacco use date assessed: 09/24/24 Fall risk assessment: No Falls in past year Last assessed Fall Risk: 09/24/24 Dental Screening Dental Screen Date: 09/24/24 Did you have a dental visit in the last 12 months?: No Did you have a dental problem in the last 6 months where you did not have access to dental care?: No Was dental information given to patient?: Patient has dentist HPI HPI Comments History of Present Illness Details The patient is a 69-year-old female presenting for follow-up on multiple health issues, primarily focusing on hypertension, hyperlipidemia, and renal function management. Blood pressure appears well managed with Amlodipine 10 mg daily. Hyperlipidemia is a concern due to increased cholesterol levels, currently at 212 mg/dL following a switch from Atorvastatin to Rosuvastatin 20 mg. She struggles with morbid obesity (BMI 50). She attempts dietary changes, avoiding high-sugar foods and beverages but encounters difficulty due to a preference for sweets. Improved kidney function noted with a rise in GFR from 28 to 49, easing previous concerns. An allergic reaction to Ibuprofen, presenting as hives, limits pain management options, leading her to use Tylenol. Additionally, she is treated for atrial fibrillation with Eliquis and is on a comprehensive medication regimen for her conditions. She also has mild major depression that has been stable with SSRIs. [facility] Medical History (Updated 09/25/24 @ 11:03 by Mi Hua MD) CKD (chronic kidney disease) stage 3, GFR 30-59 ml/min CKD (chronic kidney disease) stage 4, GFR 15-29 ml/min Mild recurrent major depression Morbid obesity Obesity, morbid, BMI 50 or higher Morbid obesity with BMI of 45.0-49.9, adult Venous (peripheral) insufficiency Leg edema Pure hypercholesterolemia Paroxysmal atrial fibrillation Back pain Right hip pain Asthma Left knee pain Venous (peripheral) insufficiency History of atrial fibrillation Migraines Vaginal pruritus Moderate asthma Essential hypertension Surgical History History of mammogram History of tubal ligation Hx laparoscopic cholecystectomy Family History Father HTN (hypertension) CVD (cardiovascular disease) Diabetes Mother HTN (hypertension) CVD (cardiovascular disease) Sister Bone cancer Lymphoma Family/Other Substance use disorder Social History Housing: Apartment Alcohol intake: former Patient Tobacco Use Status: Never used Tobacco e-Cigarette/Vaping Use: Never Used Second Hand Smoke Exposure: No service: No Current occupational status: disabled Cognitive needs: Yes Hearing needs: No Vision needs: No Female Reproductive History Menstrual Age of Menarche: 11 Questionnaire PHQ-9 Over the last 2 weeks, how often have you been bothered by any of the following problems? 1. Little interest or pleasure in doing things: not at all 2. Feeling down, depressed, or hopeless: not at all 3. Trouble falling or staying asleep, or sleeping too much: not at all 4. Feeling tired or having little energy: not at all 5. Poor appetite or overeating: not at all 6. Feeling bad about yourself - or that you are a failure or have let yourself or your family down: not at all 7. Trouble concentrating on things, such as reading the newspaper or watching television: not at all 8. Moving or speaking so slowly that other people could have noticed. Or the opposite - being so fidgety or restless that you have been moving around a lot more than usual: not at all 9. Thoughts that you would be better off or of hurting yourself in some way: not at all Total score: 0 Depression Screening Interpretation: Negative Depression Screening Done: Yes 19494 - PHQ-9 Billing: Yes Source: Developed by Drs. Wero Lowery, Anat Stafford, Mark Slater and colleagues, with an educational lex from [employer]. Thrive Questionnaire Date Thrive assessed: 09/24/24 I am a: Patient What is your living situation today?: I have a steady place to live Within the past 12 months, did the food you bought not last and you didn't have the money to get more?: Never true Within the past 12 months, did you worry whether your food would run out before you got money to buy more?: Never true Do you have trouble paying for medicines?: No Do you have trouble getting transportation to medical appointments?: No Do you have trouble paying your heating and electricity bill?: No Do you have trouble taking care of your child, family member or friend?: No Do you have trouble with day-to-day activities such as bathing, preparing meals, shopping, managing finances, etc.?: No Are you currently unemployed and looking for a job?: No Are you interested in more education?: No Please select the resources that you would like help with: None Currently or been in a relationship where the following occur: No concerns reported THRIVE Score: 0 AUDIT C Alcohol Use Questionnaire (AUDIT-C) 1. How often do you have a drink containing alcohol?: Never Total Score: 0 Score Reviewed/Action Taken: No REGINALD-7 AMB Questionnaire REGINALD-7 Date REGINALD - 7 assessed: 09/24/24 Feeling nervous, anxious, or on edge: 0 = Not at all Not being able to stop or control worryin = Not at all Worrying too much about different things: 0 = Not at all Trouble relaxin = Not at all Being so restless that it is hard to sit still: 0 = Not at all Becoming easily annoyed or irritable: 0 = Not at all Feeling afraid as if something awful might happen: 0 = Not at all Total REGINALD-7 score (0-4 normal; 5-9 mild; 10-14 moderate; 15-21 severe): 0 Source: Developed by Drs. Wero Lowery, Anat Stafford, Mark Slater and colleagues, with an educational lex from [employer]. REGINALD-7 Assessment Billing REGINALD-7 Assessment Tool: REGINALD-7 Assessment 99716 Review of Systems Const All systems reviewed & are unremarkable except as noted in HPI and below Card Denies chest pain at rest, Denies chest pain with activity, Denies edema, Denies irregular heart rhythm, Denies claudication, Denies dyspnea, Denies dyspnea on exertion, Denies orthopnea, Denies paroxysmal nocturnal dyspnea and Denies slow heart rate Resp Denies cough, Denies dyspnea and Denies dyspnea on exertion GI Denies abdominal pain, Denies change in bowel habits, Denies excessive flatus, Denies nausea and Denies vomiting Denies urinary incontinence, Denies urinary hesitancy and Denies urinary urgency Neuro Denies lack of coordination Physical exam (Primary Care) Vital Signs: Last Vital Signs BP 136/62 09/24/24 15:47 BMI result Body Mass Index 50.6 BMI Assessment/Plan discussion: High BMI High, discussed plan: lifestyle, weight reduction, dietary and physical activity Tobacco/Smoking Status: Tobacco use Status Tobacco use date assessed 09/24/24 09/24/24 15:57 Patient Tobacco Use Status Never used Tobacco 09/24/24 15:57 e-Cigarette/Vaping Use Never Used 09/24/24 15:57 PHQ-9: PHQ-9 Score PHQ-9: Total score 0 09/24/24 16:16 Depression Screening Interpretation: Negative Thrive Assessment: Date of Thrive Assessment Date Thrive assessed 09/24/24 09/24/24 15:57 Currently or been in a relationship where the following occur: No concerns reported Resp Effort & Inspection: normal respiratory effort Auscultation: clear to auscultation bilaterally Cardio Jugular venous distension: no JVD Rate: regular rate Rhythm: regular rhythm Heart sounds: S1 normal heart sound present and S2 normal heart sound present Coding Level of Care Code Est Pt Level 4 (17527) Complex EM visit Add On G2211 Diagnoses Mild recurrent major depression F33.0 Morbid obesity with BMI of 50.0-59.9, adult E66.01; Z68.43 Stage 3a chronic kidney disease N18.31 Chronic kidney disease stage 3 subtype: stage 3a (GFR 45-59) Dyslipidemia E78.5 Paroxysmal atrial fibrillation I48.0 Essential hypertension I10 Additional Codes REGINALD-7 Assessment Billing - REGINALD-7 Assessment Tool: REGINALD-7 Assessment 41131 ([id number]) PHQ-9 - 86111 - PHQ-9 Billing: Yes ([id number]) Time Spent (min) 24 Assessment & Plan Assessment & Plan (1) Mild recurrent major depression: Code(s): F33.0 - Major depressive disorder, recurrent, mild Category: Medical (2) Morbid obesity with BMI of 50.0-59.9, adult: Code(s): E66.01 - Morbid (severe) obesity due to excess calories; Z68.43 - Body mass index [BMI] 50.0-59.9, adult Category: Medical (3) CKD (chronic kidney disease) stage 3, GFR 30-59 ml/min: Code(s): N18.30 - Chronic kidney disease, stage 3 unspecified Category: Medical Qualifiers: Chronic kidney disease stage 3 subtype: stage 3a (GFR 45-59) Qualified Code(s): N18.31 - Chronic kidney disease, stage 3a (4) Dyslipidemia: Code(s): E78.5 - Hyperlipidemia, unspecified Category: Medical (5) Paroxysmal atrial fibrillation: Code(s): I48.0 - Paroxysmal atrial fibrillation Category: Medical (6) Essential hypertension: Code(s): I10 - Essential (primary) hypertension Category: Medical Plan Hypertension management with Amlodipine to continue as levels remain stable. Hyperlipidemia management involves a reevaluation of Rosuvastatin efficacy and dietary assessment. Notable renal function improvement to be monitored. Emphasis on weight management strategies, focusing on dietary control and honey as an alternative to sugar intake. Monitoring atrial fibrillation with ongoing anticoagulation therapy. Continued caution advised against Ibuprofen use, with Tylenol as an alternative. Patient was informed and verbally consented to the use of an ambient scribe for clinic note documentation during this visit. I discussed with the patient the current management of her blood pressure and cholesterol, expressing the importance of adherence to her medication regimen. We reviewed her improved renal function, which alleviates prior concerns. I recommended dietary modifications, particularly reducing sweet intake and suggesting honey as a healthier alternative. We discussed her weight management goals in the context of obesity (BMI 50). I advised on maintaining current medications, with particular caution regarding Ibuprofen due to known allergies. Follow-up frequency and monitoring of lab work and physical symptoms were advised, with emphasis on understanding dietary impacts. Medications: Refilled rosuvastatin 20 mg PO BEDTIME 90 days 90 tabs 1RF Discontinued atorvastatin Discontinued Reason: Patient Completed Course 40 mg PO BEDTIME 90 days 90 tabs 1RF Patient Instructions: - Continue taking prescribed medications as directed, including Amlodipine, Rosuvastatin, and other current prescriptions. - Monitor and aim to gradually reduce sweet intake, potentially substituting with honey. - Keep track of weight and practice dietary changes, avoiding high-calorie and high-sugar foods. - Ensure regular follow-up appointments to monitor kidney function and cholesterol levels. - Report any new or worsening symptoms, especially any reactions or side effects from medications. - Keep an emergency plan ready for any allergic reactions and avoid Ibuprofen usage. - Strive to incorporate moderate physical activity, as tolerated, to support weight management goals.
--- OUTSIDE RECORDS SUMMARY | 2024-09-24 19:10 | XMS_ITS | Clinical Summary ---
Author Organization [facility] Address [address] [place] [address] Phone Care Team Providers Care Photographer News Name Role Phone Mi Fisher MD Primary Care Provider Allergies Active Allergy Reactions Criticality Noted Date [...] Visit [facility] [address] [place] [address] Raulito Urirate MD [phone] [facility] [address] [place] [address] Health Maintenance Due Date Last [...] patient's age to complete this topic Insurance [facility] [employer] DUAL SNP ([id number]) [facility] [employer] DUAL SNP ([id number]) Care Teams Photographer News Relationship Specialty Start Date End Date Mi Fisher MD [address] [place], [place] PCP - General Internal Medicine 09/26/22
== END 2024-09-24 16:19 | disposition home or self-care (01) ==
LOC: HO.HMCH 15:43
PROVIDERS: PCP Internal Medicine; Visit Provider Internal Medicine
DX: I12.9 Hypertensive chronic kidney disease with stage 1 through stage 4 chronic kidney disease, or unspecified chronic kidney disease (principal); F33.0 Major depressive disorder, recurrent, mild; E66.01 Morbid (severe) obesity due to excess calories; Z68.43 Body mass index [BMI] 50.0-59.9, adult; N18.31 Chronic kidney disease, stage 3a; I48.0 Paroxysmal atrial fibrillation; E78.5 Hyperlipidemia, unspecified

== ENCOUNTER 2024-11-08 12:46 | Emergency (ER) | payer OTHER, SELFPAY ==
--- NOTE | ~2024-11-08 | CT_ITS ---
CLINICAL HISTORY: dizziness CT head without contrast Comparison: None Findings: No intra-axial mass, midline shift, hydrocephalus, or acute hemorrhage. No significant atrophy-like change or white matter disease. Intracranial atherosclerosis. The visualized paranasal sinuses and mastoid air cells are normal. No acute findings in the orbits. There is no acute fracture. IMPRESSION: 1. No acute intracranial findings. This document has been electronically signed by: Shankar Raygoza MD on 11/08/2024 14:48:28
--- NOTE | 2024-11-08 07:39 | ECG_ITS ---
Test Reason : DIZZY AND NAUSEA Blood Pressure : */* mmHG Vent. Rate : 49 BPM Atrial Rate : 49 BPM P-R Int : 200 ms QRS Dur : 86 ms QT Int : 482 ms P-R-T Axes : 84 10 42 degrees QTcB Int : 435 ms Sinus bradycardia Otherwise normal ECG When compared with ECG of 17-Aug-2008 14:02, No significant change was found Referred By: Generic ED Physician Electronically Signed By: Gurvinder Chew
[2024-11-08 12:52] VITALS: BP 166/80; PULSE 47; RESP 19; TEMP 36.6; O2SAT 98; BMI 48.8
--- NOTE | 2024-11-08 12:55 | ECG_ITS ---
Test Reason : DIZZY AND NAUSEA Blood Pressure : */* mmHG Vent. Rate : 49 BPM Atrial Rate : 49 BPM P-R Int : 200 ms QRS Dur : 86 ms QT Int : 482 ms P-R-T Axes : 84 10 42 degrees QTcB Int : 435 ms Sinus bradycardia Otherwise normal ECG When compared with ECG of 08-Nov-2024 14:16, No significant change was found Referred By: Jourdan Eldridge Electronically Signed By: Gurvinder Chew
--- NOTE | 2024-11-08 12:57 | ED_ITS ---
HPI - General Adult General Chief complaint: Dizziness Stated complaint: dizzyness Time Seen by Provider: 11/08/24 15:52 Source: patient, family (daughter) and manufacturing specialist (moroccan) Mode of arrival: ambulatory Limitations: language barrier (moroccan) History of Present Illness ED Provider: CARLITOS SALINAS PA-C HPI narrative: 69-year-old female with past medical history significant for HTN, migraines, asthma, venous insufficiency, PAF (on apixaban), stage 4 CKD not on dialysis presents to the ED today for evaluation of intermittent dizziness x2 days. Reports waking 2 days ago with room spinning sensation on turning over in bed. States this happens a few times throughout the day. Reports exacerbation when closing her eyes and moving her head around. Reports mild double vision during dizzy spells. Denies any blurred vision or vision loss. She does have a history of vertigo and states that this feels like her typical vertigo. She has does not take any medication for vertigo. No recent medication adjustments or new medications. Denies any trauma or injury to the head. No falls. Denies headache, chest pain, shortness of breath, palpitations. No recent travel or long car rides. Related Data Home Medications ?Medication ?Instructions ?Recorded ?Confirmed albuterol sulfate 2.5 mg/3 mL 2.5 mg inhalation Q6H PRN 04/21/20 09/24/24 (0.083 %) solution for nebulization torsemide 20 mg tablet 10 mg PO DAILY 03/08/23 09/24/24 sertraline 100 mg tablet 100 mg PO DAILY 01/02/24 09/24/24 Previous Rx's ?Medication ?Instructions ?Recorded lorazepam 0.5 mg tablet (Ativan) 0.5 mg PO BEDTIME PRN anxiety 2 04/04/21 days #2 tabs cholecalciferol (vitamin D3) 50 50 mcg PO DAILY 90 days #90 caps 05/23/21 mcg (2,000 unit) capsule miscellaneous medical supply #2 ea 08/31/21 (Anti-Embolism Stockings) compression stockings #1 ea 10/31/21 flecainide 100 mg tablet 100 mg PO DIRECTED 90 days #90 01/18/22 tabs furosemide 20 mg tablet 20 mg PO DAILY 90 days #90 tabs 01/18/22 albuterol sulfate 90 mcg/actuation 1 puff PO Q4H PRN shortness of 02/07/22 aerosol inhaler breath or wheezing 30 days #6.7 grams acetaminophen 500 mg tablet 1,000 mg (2 x 500 mg) PO Q8H for 09/29/22 pain 90 days #540 tabs cpap supplies #1 ea 12/11/22 Ventolin HFA 90 mcg/actuation 2 puff inhalation Q6H PRN 01/22/23 aerosol inhaler (albuterol sulfate) shortness of breath or wheezing 30 days #8 grams cetirizine 10 mg tablet (Zyrtec) 10 mg PO DAILY PRN allergy 11/22/23 symptoms #30 tabs fluticasone propionate 50 2 spray intranasal DAILY 30 days 11/22/23 mcg/actuation nasal #16 grams spray,suspension (Flonase Allergy Relief) gabapentin 100 mg capsule 100 mg PO BEDTIME #20 caps 01/02/24 lidocaine 5 % topical patch 2 patch topical DAILY #30 ea 01/02/24 lisinopril 40 mg tablet 40 mg PO DAILY 90 days #90 tabs 01/06/24 cyclobenzaprine 5 mg tablet 5 mg PO TID PRN muscle spasm #10 01/18/24 tabs blood pressure monitor #1 ea 01/28/24 pulse oximeter #1 ea 01/28/24 amlodipine 10 mg tablet 10 mg PO DAILY 90 days #90 tabs 05/03/24 apixaban 5 mg tablet (Eliquis) 5 mg PO BID 30 days #60 tabs 05/17/24 polyethylene glycol 3350 17 17 g PO DAILY PRN constipation 30 06/04/24 gram/dose oral powder (Miralax) days #238 grams semaglutide (weight loss) 0.25 0.25 mg (0.5 mL) subcut QWEEK 4 06/04/24 mg/0.5 mL subcutaneous pen weeks #2 mL injector ([employer]) metoprolol succinate 25 mg 25 mg PO DAILY 90 days #90 tabs 09/16/24 tablet,extended release 24 hr rosuvastatin 20 mg tablet 20 mg PO BEDTIME 90 days #90 tabs 09/24/24 meclizine 25 mg tablet 25 mg PO BID PRN dizziness #20 tabs 11/08/24 Allergies Allergy/AdvReac Type Severity Reaction Status Date / Time ibuprofen [From MOTRIN] Allergy Intermediate REDNESS, Verified 11/08/24 12:54 HIVES,GI Review of Systems 2 Review of Systems: Yes all other systems are reviewed and are negative [facility] Past Medical History Attestation statement: The following information was validated with the patient. Source: old records reviewed and nursing notes reviewed Medical History CKD (chronic kidney disease) stage 3, GFR 30-59 ml/min CKD (chronic kidney disease) stage 4, GFR 15-29 ml/min Mild recurrent major depression Morbid obesity Obesity, morbid, BMI 50 or higher Morbid obesity with BMI of 45.0-49.9, adult Venous (peripheral) insufficiency Leg edema Pure hypercholesterolemia Paroxysmal atrial fibrillation Back pain Right hip pain Asthma Left knee pain Venous (peripheral) insufficiency History of atrial fibrillation Migraines Vaginal pruritus Moderate asthma Essential hypertension Surgical History History of mammogram History of tubal ligation Hx laparoscopic cholecystectomy Family History Family History Father HTN (hypertension) CVD (cardiovascular disease) Diabetes Mother HTN (hypertension) CVD (cardiovascular disease) Sister Bone cancer Lymphoma Family/Other Substance use disorder Social History Social History Housing: Apartment Alcohol intake: former Patient Tobacco Use Status: Never used Tobacco e-Cigarette/Vaping Use: Never Used Second Hand Smoke Exposure: No service: No Current occupational status: disabled Cognitive needs: Yes Hearing needs: No Vision needs: No Physical Exam ED Vital Signs: Vital Signs - 24 hr 11/08/24 15:45 11/08/24 16:15 11/08/24 16:19 Temperature 97.5 F Pulse Rate 59 54 50 Respiratory Rate 12 Blood Pressure 171/51 H 176/54 H 176/47 H Pulse Oximetry 100 Oxygen Delivery Method Room Air 11/08/24 16:23 11/08/24 18:20 Temperature 98.3 F Pulse Rate 46 L 46 L Respiratory Rate 20 Blood Pressure 185/67 H 153/87 H Pulse Oximetry 94 Oxygen Delivery Method Room Air BMI result Body Mass Index 48.8 Hypertensive (did not take her BP meds this morning), vitals otherwise WNL General: Well appearing, in no acute distress. Skin: Warm, dry, intact. No rashes or lesions. Head: Normocephalic, atraumatic. EENT: Hearing is intact b/l. Conjunctiva clear. PERRLA. EOM intact. Moist mucous membranes.? Neck: Supple without LAD Cardiac: Chest wall symmetric. RRR Lungs: Normal respiratory effort without accessory muscle use. CTA bilaterally Abdomen: Soft, non-tender, non-distended. No rebound tenderness or guarding Back: No midline spinous or paraspinal tenderness. No step off deformity. Ext: Upper and lower extremities atraumatic, without tenderness, deformity, swelling or erythema. Full ROM throughout Neuro: AOx3. Normal speech. NIH 0. No slurred speech, no facial droop. Normal dlvhai-mi-vmol, ibde-oh-zsxm. Ambulating with steady gait. Strength 5/5 intact throughout. Sensation intact to light touch. NV intact distally. Psych: Appropriate mood and affect. Responds appropriately to questions. Course Course Course Narrative: RME: 69-year-old female presents to ED for dizziness described as the room spinning nausea for the past 2 days. Patient denies any slurred speech, facial droop, paralysis of extremities or loss of vision. NIH score is 0. No neuro deficits. Lab EKG ordered. Reevaluation(s) Reevaluation #1: CBC without leukocytosis or left shift. h&h stable. troponin undetectable - ekg showing sinus bradycardia at rate of 49 bpm. similar to ekg >15 years ago. on beta ivanna. no acute ischemic changes or st elevations. chemistry without acute electrolyte abnormality, no antwan, liver function wnl. ct head unremarkable - no bleed, mass or shift. orthostatic vital signs are negative. > patient treated with IVF and meclizine - states her dizziness has completely resolved. she can move her head and shut her eyes without feeling as though the room in spinning. ambulating with steady gait. > given bradycardia and dizziness, I discussed case with my attending, Dr. Morejon. she has evaluated patient at bedside and reviewed labs/ ekg. given resolution of symptoms, likely peripheral cause such as vertigo. not recommending any further imaging/ work up at this time. > advised PCP/ cardiology follow up. Patient has remained stable throughout ED visit today. Discussed worrisome signs and symptoms and when to return to the ED. All questions answered at this time. Patient is agreeable with disposition and stable for discharge. her daughter will be driving her home today. Medications Administered Discontinued Medications Generic Name Dose Route Start Last Admin Trade Name Soraida PRN Reason Stop Dose Admin Sodium Chloride 1,000 mls @ 999 mls/hr 11/08/24 16:15 11/08/24 16:54 Ns IV 11/08/24 17:15 999 mls/hr .Q1H1M HESHAM Administration Meclizine HCl 25 mg 11/08/24 16:11 11/08/24 16:57 Meclizine Hcl 25 Mg Tablet PO 11/08/24 16:12 25 mg ONCE ONE Administration Medical Decision Making Medical Decision Making [facility] Narrative: 69-year-old female with past medical history significant for HTN, migraines, asthma, venous insufficiency, PAF (on apixaban), stage 4 CKD not on dialysis presents to the ED today for evaluation of intermittent dizziness x2 days. Differential diagnoses includes: viral syndrome, anemia, electrolyte abnormality, hypoglycemia, orthostatic hypotension, dehydration, medication side effect, BPPV vs labrynthitis No red flag features for central vertigo to include gradual onset, vertical/bidirectional or nonfatigable nystagmus, focal neurologic findings on exam (including inability to ambulate). Presentation not consistent with an acute ENTERPRISE RESOURCE ANALYST infection, vertebral basilar artery insufficiency, cerebellar hemorrhage or infarction,?intracranial mass or bleed, temporal lobe epilepsy,?MS, trauma, complex migraine headache. I have also considered ACS, arrhythmia although less likely. Plan: labs, ekg, ct head, trial of IVF + meclizine, supportive care, serial reassessment Differential Diagnosis Differential Diagnoses: The differential diagnosis associated with the presentation includes as above. Admission/Observation not indicated Lab Data [facility] Lab Attestation statement: I reviewed the patient's lab results. as above. 11/08/24 14:28 11/08/24 14:28 Labs: Lab Results 11/08/24 Range/Units 14:28 WBC 8.5 (4.8-10.8) X10*3/uL RBC 5.47 (4.20-5.50) X10*6/uL Hgb 12.6 (12.0-16.0) g/dl Hct 40.9 (37.0-47.0) % MCV 74.8 L (80.0-98.0) fL MCH 23.0 L (27.0-33.0) pg MCHC 30.8 L (31.0-35.0) g/dl RDW 15.3 (11.0-16.0) % Plt Count 266 (160-400) X10*3/uL MPV 10.8 (9.4-12.3) fL Immature Gran % (Auto) 0.4 (0.0-0.4) % Neut % (Auto) 66.8 (45-73) % Lymph % (Auto) 22.8 (20-40) % Graves % (Auto) 8.6 (2-11) % Eos % (Auto) 0.9 (0-4) % Baso % (Auto) 0.5 (0-2) % Lymph # (Auto) 1.9 (1.2-4.9) X10*3/uL Graves # (Auto) 0.7 (0.1-1.2) X10*3/uL Eos # (Auto) 0.1 (0.0-0.4) X10*3/uL Baso # (Auto) 0.0 (0.0-0.2) X10*3/uL Abs Immat Gran (auto) 0.03 (0.00-0.03) X10*3/uL Absolute Neuts (auto) 5.7 (2.0-8.3) x10*3/uL Absolute Nucleated RBC 0.000 (0.0-0.012) X10*3/uL Nucleated RBC % (auto) 0.0 (0.0-0.2) /100WBC PT 13.7 H (10.9-12.4) SEC INR 1.2 H (0.9-1.1) APTT 40.8 H (26.0-36.8) SEC Sodium 144 (135-145) mmol/L Potassium 4.6 (3.3-5.1) mmol/L Chloride 103 (96-108) mmol/L Carbon Dioxide 28 (22-29) mmol/L Anion Gap 18 (12-20) BUN 15 (9-16) mg/dL Creatinine 1.08 (0.5-1.4) mg/dL Estim Creat Clear Calc 54.7 Estimated GFR 50 Random Glucose 105 (60-115) mg/dL Calcium 9.7 (8.4-10.2) mg/dL Total Bilirubin 0.5 (0.0-1.0) mg/dL AST 21 (5-31) U/L ALT 12 (0-31) U/L Alkaline Phosphatase 68 (39-117) U/L Troponin I High Sens < 2.7 (<3.5-17.0) ng/L Total Protein 7.8 (6.5-8.0) g/dL Albumin 4.2 (3.5-5.0) g/dL Independent Interpretation I performed an independent interpretation of an: EKG and CT Scan Interpretation: CT head/brain without bleed or mass EKG showing sinus bradycardia, rate of 49 beats per minute, no acute ischemic changes or ST elevations Radiology Impression Discussion of test interpretation with radiology: I have reviewed the radiologist's reading. Radiologist Impression: Procedure(s): CT head/brain wo IV con Accession Number(s): [id number] cc: Jourdan Eldridge; Mi Fisher MD~ Report Number: [id number]: Total DLP = 668.00 mGy-cm CLINICAL HISTORY: dizziness CT head without contrast Comparison: None Findings: No intra-axial mass, midline shift, hydrocephalus, or acute hemorrhage. No significant atrophy-like change or white matter disease. Intracranial atherosclerosis. The visualized paranasal sinuses and mastoid air cells are normal. No acute findings in the orbits. There is no acute fracture. IMPRESSION: 1. No acute intracranial findings. This document has been electronically signed by: Shankar Raygoza MD on 11/08/2024 14:48:28 External Record Review External record reviewed: Inpatient record Prescription Management I considered prescription management with: Other (meclizine) Chronic Conditions Patient?s care impacted by: Hypertension and Other (vertigo) Social Determinants Patient?s care significantly limited by Social Determinants of Health including: Other Social Determinant of Health Critical Care Time Critical Care Time Critical Care Time: No Discharge Plan Discharge Clinical Impression: Dizziness Patient Disposition: Home, Self-Care Instructions: Vertigo (ED), Dizziness (ED) Additional Instructions: You were evaluated in the ED today for your dizziness. Your workup today is reassuring. You report improvement after receiving IV fluids and meclizine. Your symptoms are most consistent with vertigo-like dizziness. I am sending meclizine to your pharmacy. You may take this 1-2 times daily for dizziness. I recommend following up with your outpatient providers. Continue all home meds as prescribed. Return with any new or worsening symptoms. In the case of an emergency call 911. Prescriptions: New meclizine 25 mg tablet 25 mg PO BID PRN (Reason: dizziness) Qty: 20 0RF No Action lorazepam [Ativan] 0.5 mg tablet 0.5 mg PO BEDTIME PRN (Reason: anxiety) 2 Days Qty: 2 0RF (DME) Anti-Embolism Stockings Misc See Rx Instructions .ROUTE .MEDSUPPLY Qty: 2 2RF Rx Instructions: Use daily (DME) compression stockings 40 mmHg See Rx Instructions .Route .MEDSUPPLY Qty: 1 0RF Rx Instructions: As directed albuterol sulfate 90 mcg/actuation HFA aerosol inhaler 1 puff PO Q4H PRN (Reason: shortness of breath or wheezing) 30 Days Qty: 6.7 11RF acetaminophen 500 mg tablet 1,000 mg PO Q8H 90 Days Qty: 540 1RF lisinopril 40 mg tablet 40 mg PO DAILY 90 Days Qty: 90 3RF amlodipine 10 mg tablet 10 mg PO DAILY 90 Days Qty: 90 1RF Eliquis 5 mg tablet 5 mg PO BID 30 Days Qty: 60 11RF metoprolol succinate 25 mg tablet extended release 24 hr 25 mg PO DAILY 90 Days Qty: 90 1RF cyclobenzaprine 5 mg tablet 5 mg PO TID PRN (Reason: muscle spasm) Qty: 10 0RF albuterol sulfate 2.5 mg /3 mL (0.083 %) solution for nebulization 2.5 mg inhalation Q6H PRN cholecalciferol (vitamin D3) 50 mcg (2,000 unit) capsule 50 mcg PO DAILY 90 Days Qty: 90 1RF flecainide 100 mg tablet 100 mg PO DIRECTED 90 Days Qty: 90 1RF furosemide 20 mg tablet 20 mg PO DAILY 90 Days Qty: 90 1RF cetirizine [Zyrtec] 10 mg tablet 10 mg PO DAILY PRN (Reason: allergy symptoms) Qty: 30 0RF fluticasone propionate [Flonase Allergy Relief] 50 mcg/actuation spray,suspension 2 spray intranasal DAILY 30 Days Qty: 16 1RF Rx Instructions: administer into each nostril albuterol sulfate [Ventolin HFA] 90 mcg/actuation HFA aerosol inhaler 2 puff inhalation Q6H PRN (Reason: shortness of breath or wheezing) 30 Days Qty: 8 3RF (DME) cpap supplies See Rx Instructions .Route .MEDSUPPLY Qty: 1 0RF Rx Instructions: As directed (DME) blood pressure monitor Kit See Rx Instructions .Route Qty: 1 0RF Rx Instructions: As directed (DME) pulse oximeter See Rx Instructions .Route .MEDSUPPLY Qty: 1 0RF Rx Instructions: As directed sertraline 100 mg tablet 100 mg PO DAILY gabapentin 100 mg capsule 100 mg PO BEDTIME Qty: 20 0RF lidocaine 5 % adhesive patch,medicated 2 patch topical DAILY Qty: 30 0RF Rx Instructions: leave on most painful area for up to 12 hrs torsemide 20 mg tablet 10 mg PO DAILY rosuvastatin 20 mg tablet 20 mg PO BEDTIME 90 Days Qty: 90 1RF polyethylene glycol 3350 [Miralax] 17 gram/dose powder 17 g PO DAILY PRN (Reason: constipation) 30 Days Qty: 238 0RF Wegovy 0.25 mg/0.5 mL pen injector 0.25 mg subcut QWEEK 28 Days Qty: 2 0RF Rx Instructions: administer weeks 1 through 4 of therapy Referrals: Mi Fisher MD [Primary Care Provider] - Interventions: ED Discharge Assessment Last Done: 11/08/24 18:20 Discharge Date/Time: 11/08/24 18:20 Print Language: Bahraini
[2024-11-08 14:32] LABS: MANUAL DIFF FLAG NO
[2024-11-08 14:33] LABS: Basophils Percent Auto 0.5 % (0-2); Eosinophils Absolute Auto 0.1 X10*3/uL (0.0-0.4); Eosinophils Percent Auto 0.9 % (0-4); Hematocrit 40.9 % (37.0-47.0); Hemoglobin 12.6 g/dl (12.0-16.0); Imm Gran Abs Auto 0.03 X10*3/uL (0.00-0.03); Imm Gran Pct Auto 0.4 % (0.0-0.4); Lymphocytes Absolute Auto 1.9 X10*3/uL (1.2-4.9); Lymphocytes Percent Auto 22.8 % (20-40); Mean Corpuscular HGB Conc 30.8 g/dl (31.0-35.0); Mean Corpuscular Volume 74.8 fL (80.0-98.0); Mean Platelet Volume 10.8 fL (9.4-12.3); Monocytes Absolute Auto 0.7 X10*3/uL (0.1-1.2); Monocytes Percent Auto 8.6 % (2-11); Neutrophils Absolute Auto 5.7 x10*3/uL (2.0-8.3); Neutrophils Percent Auto 66.8 % (45-73); Platelet Count 266 X10*3/uL (160-400); Red Blood Count 5.47 X10*6/uL (4.20-5.50); Red Cell Distribution Width 15.3 % (11.0-16.0); White Blood Count 8.5 X10*3/uL (4.8-10.8)
[2024-11-08 14:42] LABS: INTERNATIONAL NORM RATIO 1.2 (0.9-1.1); Prothrombin Time 13.7 SEC (10.9-12.4)
[2024-11-08 14:45] LABS: Partial Thromboplastin Time 40.8 SEC (26.0-36.8)
[2024-11-08 15:02] LABS: Alanine Aminotransferase 12 U/L (0-31); Albumin Level 4.2 g/dL (3.5-5.0); Alkaline Phosphatase 68 U/L (39-117); Anion Gap 18 (12-20); Aspartate Amino Transferase 21 U/L (5-31); Bilirubin Total 0.5 mg/dL (0.0-1.0); Blood Urea Nitrogen 15 mg/dL (9-16); Calcium 9.7 mg/dL (8.4-10.2); Carbon Dioxide 28 mmol/L (22-29); Chloride 103 mmol/L (96-108); Creatinine Clr Calc Pharmacy 54.7; Estimated Glomerular Filt Rate 50; Glucose Random 105 mg/dL (60-115); Potassium 4.6 mmol/L (3.3-5.1); Sodium 144 mmol/L (135-145); Total Protein 7.8 g/dL (6.5-8.0)
[2024-11-08 15:10] LABS: Troponin-I High Sensitivity < 2.7 ng/L (<3.5-17.0)
[2024-11-08 15:45] VITALS: BP 171/51; PULSE 59; RESP 12; TEMP 36.4; O2SAT 100
--- OUTSIDE RECORDS SUMMARY | 2024-11-08 15:49 | XMS_ITS | Clinical Summary ---
Author Organization [facility] Address [address] [place] [address] Phone Care Team Providers Care Header Setup Operator Name Role Phone Mi Fisher MD Primary Care Provider [phone] Allergies Active Allergy Reactions Criticality Noted Date [...] Overview (01/10/2023): IMO update Neck pain 08/18/2012 Encounters Date Type Department Care Team Description 09/28/2024 1:15 PM EDT Office Visit [facility] [address] [place] [address] Raulito Uriarte MD Stage 3a chronic kidney disease (HCC) (Primary Dx) from Last 3 Months Immunizations Immunization Administration Dates Next Due Influenza, Unspecified 04/17/2018,09/13/2014, [...] Sign Reading Time Taken Comments Blood Pressure 118/70 09/28/2024 12:55 PM EDT Pulse 65 09/28/2024 12:55 PM EDT Temperature - - Respiratory Rate - - Oxygen Saturation 96% 09/28/2024 12:55 PM EDT Inhaled Oxygen Concentration - - Weight 118 kg (259 lb 3.2 oz) 09/28/2024 12:55 P M EDT Height - - Body Mass Index - - Plan of Treatment Upcoming Encounters Date Type Department Care Team (Late st Contact Info) Description 10/04/2025 1:00 PM EDT Office Visit [facility] [address] [place] [address] Raulito Uriarte MD [address] [address] [address] [place] [address] Health Maintenance Due Date Last Done Comments Breast Cancer Screening 1955 Colorectal Cancer Screening: Annual FOBT 2002 Colorectal Cancer Screening: Colonoscopy 2002 Colorectal Cancer Screening: Sigmoidoscopy 2002 Pneumococcal Vaccine: 50+ Years (2 of 2 - PCV) 04/17/2019 04/17/2018 Influenza Vaccine (Season Ended) 2025 04/17/2018, 09/13/2014, 04/11/2011 Hepatitis B Vaccine Aged Out No longe r eligible based on patient's age to complete this topic Insurance [facility] One Care Dual SNP ([id number]) [facility] Care Dual SNP ([id number]) Care Teams Header Setup Operator Relationship Specialty Start Date End Date Mi Fisher MD [address] [place] [address] PCP - General Internal Medicine 09/26/22
[2024-11-08 16:15] VITALS: BP 176/54; PULSE 54
[2024-11-08 16:19] VITALS: BP 176/47; PULSE 50
[2024-11-08 16:23] VITALS: BP 185/67; PULSE 46
[2024-11-08] MEDS: 0.9 % Sodium Chloride 1,000 ML 999 ML IV (16:54)
[2024-11-08] MEDS: Meclizine HCl 25 MG TABLET PO (16:57)
--- NOTE | 2024-11-08 17:51 | PC.NURSE ---
Patient reports that nausea & dizziness have both subsided after medication administration. Normal saline continues to infuse via 22g IV access in left AC. Family member at bedside. Care ongoing by this RN.
[2024-11-08 18:20] VITALS: BP 153/87; PULSE 46; RESP 20; TEMP 36.8; O2SAT 94
== END 2024-11-08 18:20 | disposition home or self-care (01) ==
PROVIDERS: Physician Assistant; Emergency Provider Emergency Medicine; PCP Internal Medicine
DX: R42 Dizziness and giddiness (principal); I48.0 Paroxysmal atrial fibrillation; I12.9 Hypertensive chronic kidney disease with stage 1 through stage 4 chronic kidney disease, or unspecified chronic kidney disease; N18.4 Chronic kidney disease, stage 4 (severe); Z99.2 Dependence on renal dialysis; Z79.01 Long term (current) use of anticoagulants; Z79.899 Other long term (current) drug therapy
CPT/HCPCS: 36415; 70450; 80053; 84484; 85025; 85610; 85730; 93005; 99284

== ENCOUNTER → 2024-11-08 12:55 | Outpatient (BNV) | payer OTHER, SELFPAY | PROVIDERS: Emergency Provider Emergency Medicine; PCP Internal Medicine; Visit Provider Internal Medicine Cardiovascular Disease | DX: R00.1 Bradycardia, unspecified (principal) | CPT/HCPCS: 93010 ==

== ENCOUNTER → 2024-11-08 12:55 | Outpatient (BNV) | payer OTHER, SELFPAY | PROVIDERS: PCP Internal Medicine; Visit Provider Radiology Diagnostic Radiology | DX: R42 Dizziness and giddiness (principal) | CPT/HCPCS: 70450 ==

== ENCOUNTER 2024-11-23 13:54 | Outpatient (AMB) | payer OTHER, SELFPAY ==
--- OUTSIDE RECORDS SUMMARY | 2024-11-23 14:11 | XMS_ITS | Data Portability ---
Author Organization [facility] [place] [facility] Address [address] [place] [id number] Care Team Providers Care Supervisor Sewing Department Name Role Phone HIM CCA OTHER PHILLY BERGMAN Primary Care Provider Assessment Encounter Date Assessment Date Assessment LastModified by Organization Details LastModified Time 01/14/2024 01/14/2024 I have reviewed and agree with the Assessment and Plan as documented by the Telephone Diaphragm Assembler. I provided real-time medical direction via phone for this encounter, and was available for additional phone based assistance as needed. Patient seen for R shoulder and neck pain x 2 weeks. Attributes pain beginning after sleeping on affected side. No anterior CP or SOB, fevers reported through fish worm grower. AVSS and well appearing per report. Pain [...] lidocaine 5 % topical ointment 2023 024 [id number], [address] [place], [place], [phone], 11:36:48 Patient TargetsNo targets recorded. Patient InstructionsNo [...] SNOMED-CT Code Diagnosis ICD10 Code Diagnosis Note [id number] Michael Rollins MD Main - [address] [address] 01/14/2024 16:22:12 01/15/2024 16:55:29 Pain of shoulder region [id number] M25.519 Health Concerns Section Related Observation LastModified by Organization Detai ls LastModified Time None Recorded Concern Status LastModified by Organization Details LastModified Time None Recorded Advance Directives Directive None Recorded Payers Insurance Date Sequence Insurance Name Policy Number Policy Dykes Covered Member ID Dykes Member ID Guarantor Name 01/14/2024 1 [facility] - DOS ON OR AFTER 2022 - DUAL ELIGIBLE - CUSTODIAL OPTIONS AND ONE CARE (MEDICARE REPLACEMENT/ADV ANTAGE - HMO) Mary Kay Asher [id number] Mary Kay Asher Notes Date Note Type Note Provider Name and Address Organization Details Recorded Time 01/14/2024 text/html [facility] Nurse Triage Notes (Concetta Soto): Reason For Request: back pain from shoulder to waist Chief Complaints: Pain PMH: Heart Disease, Hypertension, Other Comments: Macedonian speaking member calling to request visit for back pain and right arm pain x2 weeks. No trauma associated with pain. Has been to the clinic for evaluation of these symptoms. Taking Tylenol every 4 hours with no relief. Reports itching to back and right arm. ................. ................. ................. ................. ................. ................. ................. ................. ..... Telephone Diaphragm Assembler Note From Glenn Bello: Insted note Macedonian speaking member calling to request visit for [...] as this. Pt denies rash or fever, [facility] also checked, none noted. Pt denes SOB, CP, N/V/D, GRAHAM, or pain elsewhere. She has full ROM, but it is a weird feeling to move, and at certain angles pain intensifies. Allergies to Motrin.Pharmacy:[facility] in [place]. consult:Agrees with [facility] that it might be a pinched nerve and that she requires and MRI to make sure nothing is worsening and to find the cause. [facility] is unable to provide other pain management, but Rx for Lidocaine cream was called in to pt's pharmacy. Discussed red flags with pt. Note:Director Of Development And Marketing services were used. ................. ................. ................. ................. ................. ................. ................. ................. ..... Disposition: Fulfilled Michael Rollins MD [address], [place], [address], MANAS - [employer]IN 01/15/2024 11:39:42 OBGyn Episode No OBEpisode recorded.
--- OUTSIDE RECORDS SUMMARY | 2024-11-23 14:11 | XMS_ITS | Clinical Summary ---
Author Organization [facility] Address [address] [place] [address] Phone Care Team Providers Care Chiller Hand Name Role Phone Mi Fisher MD Primary Care Provider [phone] Allergies Active Allergy Reactions Criticality Noted Date [...] Visit [facility] [address] [place] [address] Raulito Uriarte [...] Visit [facility] [address] [place] [address] Raulito Uriarte MD [address] [facility] [address] [place] [address] Health Maintenance Due Date Last [...] patient's age to complete this topic Insurance [facility] One Care Dual SNP ([id number]) [facility] Care Dual SNP ([id number]) Care Teams Chiller Hand Relationship Specialty Start Date End Date Mi Fisher MD [address] [place] [address] PCP - General Internal Medicine 09/26/22
--- NOTE | 2024-11-23 14:14 | A.OFFPC_ITS ---
Vital Signs 11/23/24 14:17 Height 5 ft Weight 257 lb BMI 50.2 BP 136/70 Blood Pressure Location Lt brachial Position Sitting Intake Visit Reasons: [facility] 11/08 dizziness Cell Inspector Required: No Accompanied by: Self / Same As Patient Allergies ibuprofen [From MOTRIN] Allergy (Intermediate, Verified 11/23/24 14:32) REDNESS, HIVES,GI Medication List - Last Reconciled 11/23/24 by Mi Hua MD acetaminophen 1,000 mg (2 x 500 mg) PO Q8H 90 days albuterol sulfate 2.5 mg inhalation Q6H PRN albuterol sulfate 90 mcg/actuation 1 puff PO Q4H PRN 30 days amlodipine 10 mg PO DAILY 90 days apixaban (Eliquis) 5 mg PO BID 30 days blood pressure monitor As directed cetirizine (Zyrtec) 10 mg PO DAILY PRN cholecalciferol (vitamin D3) 50 mcg PO DAILY 90 days [compression stockings As directed] [cpap supplies As directed] cyclobenzaprine 5 mg PO TID PRN flecainide 100 mg PO DIRECTED 90 days fluticasone propionate 50 mcg/actuation (Flonase Allergy Relief) 2 sprays intranasal DAILY 30 days furosemide 20 mg PO DAILY 90 days gabapentin 100 mg PO BEDTIME lidocaine 5% 2 patches topical DAILY lisinopril 40 mg PO DAILY 90 days lorazepam (Ativan) 0.5 mg PO BEDTIME PRN 2 days meclizine 25 mg PO BID PRN metoprolol succinate ER 25 mg PO DAILY 90 days miscellaneous medical supply (Anti-Embolism Stockings) Use daily polyethylene glycol 3350 (Miralax) 17 grams PO DAILY PRN 30 days [pulse oximeter As directed] rosuvastatin 20 mg PO BEDTIME 90 days semaglutide (weight loss) (Wegovy) 0.25 mg (0.5 mL) subcut QWEEK 4 weeks sertraline 100 mg PO DAILY torsemide 10 mg PO DAILY Ventolin HFA 90 mcg/actuation (albuterol sulfate) 2 puffs inhalation Q6H PRN 30 days NS Tobacco use date assessed: 09/24/24 Fall risk assessment: No Falls in past year Last assessed Fall Risk: 11/23/24 Dental Screening Dental Screen Date: 09/24/24 HPI HPI Comments History of Present Illness Details The patient is a 69-year-old female presenting with dizziness and urinary incontinence. Previously, she visited the hospital due to dizziness, where diagnostic workup, including a head CT, returned without significant findings. She experiences dizziness upon standing, though it has improved with prescribed meclizine, for which a complete prescription was not initially provided. Moreover, the patient reports urinary incontinence, characterized by an inability to reach the bathroom in time. This complicates her daily activities requiring frequent clothing changes. She manages hypertension and atrial fibrillation with medications, and her medical history includes a known ibuprofen allergy, manifested as hives. Her current regimen includes antihyp ertensives, cholesterol-lowering drugs, depression management with sertraline, vitamin D supplements, and constipation relief with MiraLAX tablets. She follows sleep apnea treatment with a CPAP machine and is scheduled for further sleep assessment. The patient's nutritional intake and overall appetite have decreased recently. [facility] Medical History (Updated 11/23/24 @ 14:39 by Mi Hua MD) CKD (chronic kidney disease) stage 3, GFR 30-59 ml/min CKD (chronic kidney disease) stage 4, GFR 15-29 ml/min Mild recurrent major depression Morbid obesity Obesity, morbid, BMI 50 or higher Morbid obesity with BMI of 45.0-49.9, adult Venous (peripheral) insufficiency Leg edema Pure hypercholesterolemia Paroxysmal atrial fibrillation Back pain Right hip pain Asthma Left knee pain Venous (peripheral) insufficiency History of atrial fibrillation Migraines Vaginal pruritus Moderate asthma Essential hypertension Surgical History History of mammogram History of tubal ligation Hx laparoscopic cholecystectomy Family History Father HTN (hypertension) CVD (cardiovascular disease) Diabetes Mother HTN (hypertension) CVD (cardiovascular disease) Sister Bone cancer Lymphoma Family/Other Substance use disorder Social History Housing: Apartment Alcohol intake: former Patient Tobacco Use Status: Never used Tobacco e-Cigarette/Vaping Use: Never Used Second Hand Smoke Exposure: No service: No Current occupational status: disabled Cognitive needs: Yes Hearing needs: No Vision needs: No Female Reproductive History Menstrual Age of Menarche: 11 Questionnaire PHQ-9 Over the last 2 weeks, how often have you been bothered by any of the following problems? 1. Little interest or pleasure in doing things: not at all 2. Feeling down, depressed, or hopeless: more than half the days 3. Trouble falling or staying asleep, or sleeping too much: more than half the days 4. Feeling tired or having little energy: more than half the days 5. Poor appetite or overeating: more than half the days 6. Feeling bad about yourself - or that you are a failure or have let yourself or your family down: not at all 7. Trouble concentrating on things, such as reading the newspaper or watching television: more than half the days 8. Moving or speaking so slowly that other people could have noticed. Or the opposite - being so fidgety or restless that you have been moving around a lot more than usual: not at all 9. Thoughts that you would be better off or of hurting yourself in some way: not at all Total score: 10 Depression Screening Interpretation: Positive Depression Screening Follow-up: Existing condition, In treatment and Follow-up Visit Requested Depression Screening Done: Yes 18269 - PHQ-9 Billing: Yes Source: Developed by Drs. Wero Lowery, Anat Stafford, Mark Slater and colleagues, with an educational lex from [employer]. Thrive Questionnaire Date Thrive assessed: 11/23/24 I am a: Patient What is your living situation today?: I have a steady place to live Within the past 12 months, did the food you bought not last and you didn't have the money to get more?: Never true Within the past 12 months, did you worry whether your food would run out before you got money to buy more?: Often true Do you have trouble paying for medicines?: Yes Do you have trouble getting transportation to medical appointments?: No Do you have trouble paying your heating and electricity bill?: No Do you have trouble taking care of your child, family member or friend?: Yes Do you have trouble with day-to-day activities such as bathing, preparing meals, shopping, managing finances, etc.?: Yes Are you currently unemployed and looking for a job?: Yes Are you interested in more education?: Yes Please select the resources that you would like help with: None Currently or been in a relationship where the following occur: No concerns reported THRIVE Score: 1 AUDIT C Alcohol Use Questionnaire (AUDIT-C) 1. How often do you have a drink containing alcohol?: Never Total Score: 0 Score Reviewed/Action Taken: No REGINALD-7 AMB Questionnaire REGINALD-7 Date REGINALD - 7 assessed: 11/23/24 Feeling nervous, anxious, or on edge: 2 = More than half the days Not being able to stop or control worryin = More than half the days Worrying too much about different things: 2 = More than half the days Trouble relaxin = More than half the days Being so restless that it is hard to sit still: 2 = More than half the days Becoming easily annoyed or irritable: 3 = Nearly every day Feeling afraid as if something awful might happen: 2 = More than half the days Total REGINALD-7 score (0-4 normal; 5-9 mild; 10-14 moderate; 15-21 severe): 15 Source: Developed by Drs. Wero Lowery, Anat Stafford, Mark Slater and colleagues, with an educational lex from [employer]. REGINALD-7 Assessment Billing REGINALD-7 Assessment Tool: REGINALD-7 Assessment 15897 Review of Systems Const All systems reviewed & are unremarkable except as noted in HPI and below Card Denies chest pain at rest, Denies chest pain with activity, Denies edema, Denies irregular heart rhythm, Denies claudication, Denies dyspnea, Denies dyspnea on exertion, Denies orthopnea, Denies paroxysmal nocturnal dyspnea and Denies slow heart rate Resp Denies cough, Denies dyspnea and Denies dyspnea on exertion Physical exam (Primary Care) Vital Signs: Last Vital Signs BP 136/70 11/23/24 14:17 BMI result Body Mass Index 50.2 Tobacco/Smoking Status: Tobacco use Status Tobacco use date assessed 09/24/24 11/23/24 14:16 Patient Tobacco Use Status Never used Tobacco 11/23/24 14:16 e-Cigarette/Vaping Use Never Used 11/23/24 14:16 PHQ-9: PHQ-9 Score PHQ-9: Total score 10 11/23/24 14:34 Depression Screening Interpretation: Positive Depression Screening Follow-up: Existing condition, In treatment and Follow-up Visit Requested Thrive Assessment: Date of Thrive Assessment Date Thrive assessed 11/23/24 11/23/24 14:16 Currently or been in a relationship where the following occur: No concerns reported Resp Effort & Inspection: normal respiratory effort Auscultation: clear to auscultation bilaterally Cardio Jugular venous distension: no JVD Rate: regular rate Rhythm: regular rhythm Heart sounds: S1 normal heart sound present and S2 normal heart sound present Extrem General: Yes full ROM Coding Level of Care Code Est Pt Level 4 (54431) Complex EM visit Add On G2211 Diagnoses Urge urinary incontinence N39.41 Stage 3a chronic kidney disease N18.31 Chronic kidney disease stage 3 subtype: stage 3a (GFR 45-59) Morbid obesity with BMI of 50.0-59.9, adult E66.01; Z68.43 Mild recurrent major depression F33.0 KARISSA (obstructive sleep apnea) G47.33 Dyslipidemia E78.5 Paroxysmal atrial fibrillation I48.0 Additional Codes REGINALD-7 Assessment Billing - REGINALD-7 Assessment Tool: REGINALD-7 Assessment 06368 ([id number]) PHQ-9 - 61557 - PHQ-9 Billing: Yes ([id number]) Time Spent (min) 23 Assessment & Plan Assessment & Plan (1) Urge urinary incontinence: Code(s): N39.41 - Urge incontinence Category: Medical (2) CKD (chronic kidney disease) stage 3, GFR 30-59 ml/min: Code(s): N18.30 - Chronic kidney disease, stage 3 unspecified Category: Medical Qualifiers: Chronic kidney disease stage 3 subtype: stage 3a (GFR 45-59) Qualified Code(s): N18.31 - Chronic kidney disease, stage 3a (3) Morbid obesity with BMI of 50.0-59.9, adult: Code(s): E66.01 - Morbid (severe) obesity due to excess calories; Z68.43 - Body mass index [BMI] 50.0-59.9, adult Category: Medical (4) Mild recurrent major depression: Code(s): F33.0 - Major depressive disorder, recurrent, mild Category: Medical (5) KARISSA (obstructive sleep apnea): Code(s): G47.33 - Obstructive sleep apnea (adult) (pediatric) Category: Medical (6) Dyslipidemia: Code(s): E78.5 - Hyperlipidemia, unspecified Category: Medical (7) Paroxysmal atrial fibrillation: Code(s): I48.0 - Paroxysmal atrial fibrillation Category: Medical Plan I will issue a new prescription for meclizine for dizziness management and continue monitoring urinary incontinence. Regarding hypertension and atrial fibrillation, the patient shall maintain her current regimen with oversight to ensure control. The allergic reaction to ibuprofen necessitates using Tylenol as an alternative pain relief method. Given her described decrease in appetite and depression, we will focus on sustaining adequate nutrition while monitoring mental health throughout her current sertraline treatment. A scheduled sleep study will assess obstructive sleep apnea, guiding potential adjustments to her CPAP therapy. Patient was informed and verbally consented to the use of an ambient scribe for clinic note documentation during this visit. During our discussion, we addressed the primary concerns of dizziness and urinary incontinence, emphasizing medication adherence and scheduled follow-ups. I informed the patient about renewing her meclizine prescription, which previously alleviated her dizziness, and discussed the implications of urinary incontinence on her daily life, with a potential follow-up if symptoms continue. I advised continuing the current regimen to manage hypertension, atrial fibrillation, and constipation, highlighted the use of Tylenol over ibuprofen due to the noted allergy, and continued sertraline for depression while monitoring dietary intake. Further, we scheduled a sleep study to reassess her obstructive sleep apnea. The patient understands the care plan and acknowledges the need for ongoing management and potential future interventions. Medications: New commode As directed 1 ea 0RF N39.41 - Urge incontinence menthol 10% (Biofreeze (menthol)) 1 appl topical .once a day PRN 85 grams 3RF pain 30 days M17.11 - Unilateral primary osteoarthritis, right knee [step stool] As directed 1 ea 0RF M17.11 - Unilateral primary osteoarthritis, right knee [heating patches] As directed 1 ea 0RF M17.11 - Unilateral primary osteoarthritis, right knee Changed From meclizine 25 mg PO BID PRN 20 tabs 0RF dizziness To meclizine 25 mg PO BID PRN 60 tabs 1RF dizziness 30 days Patient Instructions: - Take meclizine as prescribed for dizziness relief. - Continue with current medications for blood pressure and atrial fibrillation. - Use Tylenol for pain management. - Monitor and increase nutritional intake if able. - Attend scheduled follow-up and upcoming sleep study. - Report any worsening symptoms or new health concerns.
[2024-11-23 14:17] VITALS: BP 136/70; BMI 50.2
== END 2024-11-23 14:43 | disposition home or self-care (01) ==
LOC: HO.HMCH 13:55
PROVIDERS: PCP Internal Medicine; Visit Provider Internal Medicine
DX: I48.0 Paroxysmal atrial fibrillation (principal); N18.31 Chronic kidney disease, stage 3a; E66.01 Morbid (severe) obesity due to excess calories; Z68.43 Body mass index [BMI] 50.0-59.9, adult; N39.41 Urge incontinence; F33.0 Major depressive disorder, recurrent, mild; G47.33 Obstructive sleep apnea (adult) (pediatric); E78.5 Hyperlipidemia, unspecified

== ENCOUNTER → 2024-11-23 13:54 | Outpatient (BNVA) | payer OTHER, SELFPAY | PROVIDERS: PCP Internal Medicine; Visit Provider Internal Medicine | DX: R42 Dizziness and giddiness (principal); I48.91 Unspecified atrial fibrillation; N39.41 Urge incontinence; I12.9 Hypertensive chronic kidney disease with stage 1 through stage 4 chronic kidney disease, or unspecified chronic kidney disease; N18.31 Chronic kidney disease, stage 3a; E66.01 Morbid (severe) obesity due to excess calories; F33.0 Major depressive disorder, recurrent, mild; G47.33 Obstructive sleep apnea (adult) (pediatric); E78.5 Hyperlipidemia, unspecified; I48.0 Paroxysmal atrial fibrillation; Z99.89 Dependence on other enabling machines and devices; Z68.43 Body mass index [BMI] 50.0-59.9, adult; Z79.899 Other long term (current) drug therapy | CPT/HCPCS: 96127; 99212 ==

== ENCOUNTER 2025-02-08 08:32 | Outpatient (REF) | payer OTHER, SELFPAY ==
--- OUTSIDE RECORDS SUMMARY | 2025-02-08 08:50 | XMS_ITS | Clinical Summary ---
Author Organization [facility] Address [address] [place] [address] Phone Care Team Providers Care Life Teacher Name Role Phone Mi Fisher MD Primary Care Provider [phone] Allergies Active Allergy Reactions Criticality Noted Date [...] (01/10/2023): IMO update Neck pain 08/18/2012 Immunizations Immunization Administration Dates Next Due Influenza, [...] Visit [facility] [address] [place] [address] Raulito Uriarte MD [address] [facility] [address] [place] [address] Health Maintenance Due Date Last Done Comments Breast Cancer Screening 1955 Colorectal Cancer Screening: Annual FOBT 2002 Colorectal Cancer Screening: Colonoscopy 2002 Colorectal Cancer Screening: Sigmoidoscopy 2002 Pneumococcal Vaccine: 50+ Years (2 of 2 - PCV) 04/17/2019 04/17/2018 Influenza Vaccine (#1) 2025 8, 09/13/2014, 04/11/2011 Hepatitis B Vaccine Aged Out No longe r eligible based on patient's age to complete this topic Insurance [facility] One Care Dual SNP ([id number]) [facility] One Care Dual SNP ([id number]) Care Teams Life Teacher Relationship Specialty Start Date End Date Mi Fisher MD [address] [place] [address] PCP - General Internal Medicine 09/26/22
--- OUTSIDE RECORDS SUMMARY | 2025-02-08 08:50 | XMS_ITS | Data Portability ---
Author Organization [facility], [facility] Address [address] [place] [address] Care Team Providers Care High School Mathematics Teacher Name Role Phone HIM [facility] OTHER PHILLY BERGMAN Primary Care Provider [phone] Assessment Encounter Date Assessment Date Assessment LastModified by Organization Details LastModified Time 01/14/2024 01/14/2024 I have reviewed and agree with the Assessment and Plan as documented by the Loan Servicing Officer. I provided real-time medical direction via phone for this encounter, and was available for additional phone based assistance as needed. Patient seen for R shoulder and neck pain x 2 weeks. Attributes pain beginning after sleeping on affected side. No anterior CP or SOB, fevers reported through head charger. AVSS and well appearing per report. Pain [...] lidocaine 5 % topical ointment 2023 [id number] [address] [place], [place], [phone], 11:36:48 Patient TargetsNo targets recorded. Patient InstructionsNo [...] in Arterial blood by Pulse oximetry Systolic And Diastolic Provider Name and Address Organization Details Last Updated DateTime 4 18 /min 92 /min 97.8 [degF] 98 % 98 % 124/88 mm[Hg] Not Available [facility] - production 16:22:14 Social History None recorded. Functional Status None recorded. Mental Status None recorded. Family History Nothing Reported. Medical History No medical history recorded. Gynecological HistoryNo gynecological history recorded. Obstetrics History GPAL:G 0 P 0 0 0 0 Past Encounters Encounter ID Performer Location Encounter Start Date Encounter Closed Date Diagnosis/Indication Diagnosis SNOMED-CT Code Diagnosis ICD10 Code Diagnosis Note [id number] Michael Rollins MD Main - [facility] [address] [place] [phone] 01/14/2024 16:22:12 01/15/2024 16:55:29 Pain of shoulder region [id number] M25.519 Health Concerns Section Related Observation LastModified by Organization Detai ls LastModified Time None Recorded Concern Status LastModified by Organization Details LastModified Time None Recorded Advance Directives Directive None Recorded Payers Insurance Date Sequence Insurance Name Policy Number Policy Dykes Covered Member ID Dykes Member ID Guarantor Name 01/14/2024 1 [facility] - DOS ON OR AFTER 2022 - DUAL ELIGIBLE - CUSTODIAL OPTIONS AND ONE CARE (MEDICARE REPLACEMENT/ADV ANTAGE - HMO) Mary Kay Asher [id number] Mary Kay Asher OBGyn Episode No OBEpisode recorded.
== END 2025-02-08 08:33 | disposition home or self-care (01) ==
LOC: HO.LAB 08:32
PROVIDERS: PCP Internal Medicine; Visit Provider Internal Medicine
DX: Z13.89 Encounter for screening for other disorder (principal)

== ENCOUNTER 2025-02-09 12:45 | Outpatient (AMB) | payer MEDICARE, SELFPAY ==
--- NOTE | 2025-02-09 12:49 | MHC.PC.OV ---
Vital Signs 02/09/25 12:53 Height 5 ft Weight 258 lb BMI 50.4 BP 138/72 Blood Pressure Location Lt brachial Position Sitting Intake Visit Reasons: Annual Exam Intake Note: Patient here for an annual physical exam Pattern Ruler Required: No Accompanied by: Self / Same As Patient Allergies ibuprofen (From MOTRIN) Allergy (Intermediate, Verified 02/09/25 13:03) REDNESS, HIVES,GI Medication List - Last Reconciled 02/09/25 by Mi Hua MD acetaminophen 1,000 mg (2 x 500 mg) PO Q8H 90 days albuterol sulfate 2.5 mg inhalation Q6H PRN albuterol sulfate 90 mcg/actuation 1 puff PO Q4H PRN 30 days amlodipine 10 mg PO DAILY 90 days apixaban (Eliquis) 5 mg PO BID 30 days blood pressure monitor As directed cetirizine (Zyrtec) 10 mg PO DAILY PRN cholecalciferol (vitamin D3) 50 mcg PO DAILY 90 days commode As directed [compression stockings As directed] [cpap supplies As directed] cyclobenzaprine 5 mg PO TID PRN flecainide 100 mg PO DIRECTED 90 days fluticasone propionate 50 mcg/actuation (Flonase Allergy Relief) 2 sprays intranasal DAILY 30 days furosemide 20 mg PO DAILY 90 days gabapentin 100 mg PO BEDTIME [heating patches As directed] lidocaine 5% 2 patches topical DAILY lisinopril 40 mg PO DAILY 90 days lorazepam (Ativan) 0.5 mg PO BEDTIME PRN 2 days meclizine 25 mg PO BID PRN 30 days menthol 10% (Biofreeze (menthol)) 1 appl topical .once a day PRN 30 days metoprolol succinate ER 25 mg PO DAILY 90 days miscellaneous medical supply (Anti-Embolism Stockings) Use daily polyethylene glycol 3350 (Miralax) 17 grams PO DAILY PRN 30 days [pulse oximeter As directed] rosuvastatin 20 mg PO BEDTIME 90 days semaglutide (weight loss) (Wegovy) 0.25 mg (0.5 mL) subcut QWEEK 4 weeks sertraline 100 mg PO DAILY [step stool As directed] torsemide 10 mg PO DAILY Ventolin HFA 90 mcg/actuation (albuterol sulfate) 2 puffs inhalation Q6H PRN 30 days NS Tobacco use date assessed: 09/24/24 Dental Screening Dental Screen Date: 09/24/24 HPI HPI Comments History of Present Illness Details The patient is a 69-year-old female presenting for a physical exam. She has a history of paroxysmal atrial fibrillation, which is managed with anticoagulation therapy, specifically Eliquis 5 mg, and is under the care of [facility]. Her CHADs VASC score is 3 which indicates the need for indefinite anticoagulation therapy. The patient also reports mild mood depression, for which she follows up with psychiatry and is prescribed sertraline 100 mg. She has chronic kidney disease stage 3 and is under nephrology care, with stable blood pressure management using amlodipine 10 mg and lisinopril 40 mg. Preventative care measures include a normal mammogram and DEXA scan performed in February 2024, with plans for a colon cancer screening using a stool test at home. She has not received the pneumonia vaccine and her last Tdap vaccine was in 2011. [facility] Medical History CKD (chronic kidney disease) stage 3, GFR 30-59 ml/min CKD (chronic kidney disease) stage 4, GFR 15-29 ml/min Mild recurrent major depression Morbid obesity Obesity, morbid, BMI 50 or higher Morbid obesity with BMI of 45.0-49.9, adult Venous (peripheral) insufficiency Leg edema Pure hypercholesterolemia Paroxysmal atrial fibrillation Back pain Right hip pain Asthma Left knee pain Venous (peripheral) insufficiency History of atrial fibrillation Migraines Vaginal pruritus Moderate asthma Essential hypertension Surgical History History of mammogram History of tubal ligation Hx laparoscopic cholecystectomy Family History Father HTN (hypertension) CVD (cardiovascular disease) Diabetes Mother HTN (hypertension) CVD (cardiovascular disease) Sister Bone cancer Lymphoma Family/Other Substance use disorder Social History Housing: Apartment Alcohol intake: former Patient Tobacco Use Status: Never used Tobacco e-Cigarette/Vaping Use: Never Used Second Hand Smoke Exposure: No service: No Current occupational status: disabled Cognitive needs: Yes Hearing needs: No Vision needs: No Female Reproductive History Menstrual Age of Menarche: 11 Questionnaire Thrive Questionnaire Date Thrive assessed: 11/23/24 I am a: Patient What is your living situation today?: I have a steady place to live Within the past 12 months, did the food you bought not last and you didn't have the money to get more?: Never true Within the past 12 months, did you worry whether your food would run out before you got money to buy more?: Often true Do you have trouble paying for medicines?: Yes Do you have trouble getting transportation to medical appointments?: No Do you have trouble paying your heating and electricity bill?: No Do you have trouble taking care of your child, family member or friend?: Yes Do you have trouble with day-to-day activities such as bathing, preparing meals, shopping, managing finances, etc.?: Yes Are you currently unemployed and looking for a job?: Yes Are you interested in more education?: Yes Please select the resources that you would like help with: None Currently or been in a relationship where the following occur: No concerns reported THRIVE Score: 1 REGINALD-7 AMB Questionnaire REGINALD-7 Date REGINALD - 7 assessed: 11/23/24 Source: Developed by Drs. Wero Lowery, Anat Stafford, Mark Slater and colleagues, with an educational lex from [employer]. Review of Systems Const All systems reviewed & are unremarkable except as noted in HPI and below Card Denies chest pain at rest, Denies chest pain with activity, Denies edema, Denies irregular heart rhythm, Denies claudication, Denies dyspnea, Denies dyspnea on exertion, Denies orthopnea, Denies paroxysmal nocturnal dyspnea and Denies slow heart rate Resp Denies cough, Denies dyspnea and Denies dyspnea on exertion GI Denies abdominal pain, Denies change in bowel habits, Denies excessive flatus, Denies nausea and Denies vomiting Denies urinary incontinence, Denies urinary hesitancy and Denies urinary urgency Musc Denies abnormal gait, Denies atrophy, Denies deformity and Denies limited range of motion Skin/Breast Denies bleeding lesions, Denies changing lesions and Denies rash Neuro Denies abnormal gait, Denies behavioral changes and Denies lack of coordination Psych Denies behavioral changes Physical exam (Primary Care) Vital Signs: Last Vital Signs BP 138/72 02/09/25 12:53 BMI result Body Mass Index 50.4 Tobacco/Smoking Status: Tobacco use Status Tobacco use date assessed 09/24/24 02/09/25 12:53 Patient Tobacco Use Status Never used Tobacco 02/09/25 12:53 e-Cigarette/Vaping Use Never Used 02/09/25 12:53 Thrive Assessment: Date of Thrive Assessment Date Thrive assessed 11/23/24 02/09/25 12:53 Currently or been in a relationship where the following occur: No concerns reported [facility] Head: Yes normal to inspection, Yes normocephalic and Yes atraumatic Ears: external ears normal Eyes General: appearance normal, both eyes and all related structures Eyelids: Yes eyelids normal Conjunctivae: conjunctivae normal Neck Neck: Yes normal visual inspection and Yes supple Resp Effort & Inspection: normal respiratory effort Auscultation: clear to auscultation bilaterally Cardio Jugular venous distension: no JVD Rate: regular rate Rhythm: regular rhythm Heart sounds: S1 normal heart sound present and S2 normal heart sound present GI Inspection: Yes normal to inspection Palpation (GI): Soft to palpation and nontender Auscultation: normal bowel sounds Skin General skin exam: no rashes or lesions noted Neuro General: no focal motor deficits Extrem General: Yes full ROM Psych Appearance: grossly normal Immunizations pneumoc 20-ruth conj-dip cr(PF) 0.5 mL IM syringe Performing Provider: Mi Hua MD Performing Location[place] [facility] Administered by: SILVIANO Jain on 02/09/25 13:25 Dose Route Admin Location Dispensed Lot Number Expiration Date [facility] Customer Sales Representative 0.5 mL IM Right Deltoid 0.5 mL [id number] 01/12/26 [facility] Total Dispensed Waste 0.5 mL 0 % VIS Given Date VIS Provided VIS Publication Date 02/09/25 Single Vaccine 24 Eligibility Eligibility Date Funding Source Not [facility] Eligible 02/09/25 Private Boostrix Tdap 2.5 Lf unit-8 mcg-5 Lf/0.5 mL intramuscular syringe Performing Provider: Mi Hua MD Performing Location: [facility] Administered by: SILVIANO Jain on 02/09/25 13:25 Dose Route Admin Location Dispensed Lot Number Expiration Date [facility] Customer Sales Representative 0.5 mL IM Left Deltoid 0.5 mL [id number] 09/04/26 88914-339-35 [facility] Total Dispensed Waste 0.5 mL 0 % VIS Given Date VIS Provided VIS Publication Date 02/09/25 Single Vaccine 24 Eligibility Eligibility Date Funding Source Not [facility] Eligible 02/09/25 Private Coding Level of Care Code Est Pt Prev Care >65y(11913) Diagnoses Physical exam Z00.00 Stage 3a chronic kidney disease N18.31 Chronic kidney disease stage 3 subtype: stage 3a (GFR 45-59) Morbid obesity with BMI of 50.0-59.9, adult E66.01; Z68.43 Paroxysmal atrial fibrillation I48.0 Mild recurrent major depression F33.0 Time Spent (min) 33 Assessment & Plan Assessment & Plan (1) Physical exam: Code(s): Z00.00 - Encounter for general adult medical examination without abnormal findings Category: Medical (2) CKD (chronic kidney disease) stage 3, GFR 30-59 ml/min: Code(s): N18.30 - Chronic kidney disease, stage 3 unspecified Category: Medical Qualifiers: Chronic kidney disease stage 3 subtype: stage 3a (GFR 45-59) Qualified Code(s): N18.31 - Chronic kidney disease, stage 3a (3) Morbid obesity with BMI of 50.0-59.9, adult: Code(s): E66.01 - Morbid (severe) obesity due to excess calories; Z68.43 - Body mass index [BMI] 50.0-59.9, adult Category: Medical (4) Paroxysmal atrial fibrillation: Code(s): I48.0 - Paroxysmal atrial fibrillation Category: Medical (5) Mild recurrent major depression: Code(s): F33.0 - Major depressive disorder, recurrent, mild Category: Medical Plan The patient will continue anticoagulation therapy with Eliquis 5 mg for paroxysmal atrial fibrillation, as her CHADs VASC score supports indefinite use. For mild mood depression, she will maintain her current regimen of sertraline 100 mg and continue follow-up with psychiatry. Chronic kidney disease stage 3 will be monitored by nephrology, with blood pressure management using amlodipine 10 mg and lisinopril 40 mg. Preventative care includes scheduling a pneumonia vaccine and updating the Tdap vaccine. A colon cancer screening with a stool test will be conducted at home. Patient was informed and verbally consented to the use of an ambient scribe for clinic note documentation during this visit. Orders: Orders Pneumococcal 20 Immunization Today Z23 - Encounter for immunization Lipid Panel 6 Months E78.5 - Hyperlipidemia, unspecified Comprehensive Raymond. Panel Fast 6 Months E66.01 - Morbid (severe) obesity due to excess calories, Z68.43 - Body mass index [BMI] 50.0-59.9, adult TDaP Immunization Today Z23 - Encounter for immunization Vitamin D 25-OH Total 6 Months E55.9 - Vitamin D deficiency, unspecified Referrals Cologuard Test Z12.11 - Encounter for screening for malignant neoplasm of colon, Z12.12 - Encounter for screening for malignant neoplasm of rectum Medications: Refilled metoprolol succinate ER 25 mg PO DAILY 90 tabs 1RF 90 days Patient Instructions: - Continue taking Eliquis 5 mg as prescribed for atrial fibrillation. - Maintain sertraline 100 mg for mood depression and follow up with psychiatry. - Monitor blood pressure and continue amlodipine and lisinopril as prescribed. - Schedule and receive pneumonia and Tdap vaccines today - Complete colon cancer screening with the stool test at home.
[2025-02-09 12:53] VITALS: BP 138/72; BMI 50.4
--- OUTSIDE RECORDS SUMMARY | 2025-02-09 13:28 | XMS_ITS | Data Portability ---
Author Organization [facility] Address [address] [place] [id number] Care Team Providers Care Final Application Reviewer Name Role Phone HIM CCA OTHER PHILLY BERGMAN Primary Care Provider [phone] Assessment Encounter Date Assessment Date Assessment LastModified by Organization Details LastModified Time 01/14/2024 01/14/2024 I have reviewed and agree with the Assessment and Plan as documented by the Surgical Services Tech. I provided real-time medical direction via phone for this encounter, and was available for additional phone based assistance as needed. Patient seen for R shoulder and neck pain x 2 weeks. Attributes pain beginning after sleeping on affected side. No anterior CP or SOB, fevers reported through science interpreter. AVSS and well appearing per report. Pain [...] lidocaine 5 % topical ointment 2023 024 [id number], [address] [place], [place], [phone], 11:36:48 Patient TargetsNo targets recorded. Patient InstructionsNo [...] SNOMED-CT Code Diagnosis ICD10 Code Diagnosis Note [id number] Michael Rollins MD Main - [facility]ED [address] [place] [phone] 01/14/2024 16:22:12 01/15/2024 16:55:29 Pain of shoulder region [id number] M25.519 Health Concerns Section Related Observation LastModified by Organization Detai ls LastModified Time None Recorded Concern Status LastModified by Organization Details LastModified Time None Recorded Advance Directives Directive None Recorded Payers Insurance Date Sequence Insurance Name Policy Number Policy Dykes Covered Member ID Dykes Member ID Guarantor Name 01/14/2024 1 [facility] - DOS ON OR AFTER 2022 - DUAL ELIGIBLE - FDC OPTIONS AND ONE CARE (MEDICARE REPLACEMENT/ADV ANTAGE - HMO) Mary Kay Asher [id number] Mary Kay Asher OBGyn Episode No OBEpisode recorded.
--- OUTSIDE RECORDS SUMMARY | 2025-02-09 13:28 | XMS_ITS | Clinical Summary ---
Author Organization [facility] Address [address] [place] [address] Phone Care Team Providers Care Coupler Name Role Phone Mi Fisher MD Primary Care Provider [phone] Allergies Active Allergy Reactions Criticality Noted Date [...] Visit [facility] [address] [place] [address] Raulito Uriarte MD [address] [facility] [address] [place] [address] Health Maintenance Due Date Last [...] patient's age to complete this topic Insurance [facility] One Care Dual SNP ([id number]) CCA One Care Dual SNP ([id number]) Care Teams Coupler Relationship Specialty Start Date End Date Mi Fisher MD [address] [place] [address] PCP - General Internal Medicine 09/26/22
--- OUTSIDE RECORDS SUMMARY | 2025-02-09 13:28 | XMS_ITS | Encounter Summary ---
Author Organization [facility] Address [address] [place] [address] Care Team Providers Care Cream Separator Operator Name Role Phone Nalini Goldberg MD Primary Care Provider Silas Velazquez MD Primary Care Provider Nalini Salcido MD Primary Care Provider Huey gary Encounter Details Date Type Department Care Team Description 01/27/2014 Jumbo Operator Report Medical Records [address] [place] [address] Jermaine Barfield MD [address] [place] [id number] Social History Tobacco Use Types Packs/Day Years Used Date Smoking Tobacco: Never Smokeless Tobacco: Never Alcohol Use Standard Drinks/Week Comments No 0 (1 standard drink = 0.6 oz pur e alcohol) Sex Assigned at Date Recorded Not on file documented as of this encounter Plan of Treatment Not on file documented as of this encounter Visit Diagnoses Not on filedocumented in this encounter Care Teams Cream Separator Operator Relationship Specialty Start Date End Date Nalini Goldberg MD PCP - General Internal Medicine 04/28/12 03/01/16 Silas Arias MD PCP - General Internal Medicine 03/02/16 03/19/16 Nalini Goldberg MD PCP - General Internal Medicine 03/20/16 documented as of this encounter
== END 2025-02-09 13:24 | disposition home or self-care (01) ==
LOC: HO.HMCH 12:46
PROVIDERS: PCP Internal Medicine; Visit Provider Internal Medicine
DX: Z00.00 Encounter for general adult medical examination without abnormal findings (principal); N18.31 Chronic kidney disease, stage 3a; E66.01 Morbid (severe) obesity due to excess calories; Z68.43 Body mass index [BMI] 50.0-59.9, adult; I48.0 Paroxysmal atrial fibrillation; F33.0 Major depressive disorder, recurrent, mild; Z23 Encounter for immunization

== ENCOUNTER → 2025-02-09 12:45 | Outpatient (BNVA) | payer MEDICARE, SELFPAY | PROVIDERS: PCP Internal Medicine; Visit Provider Internal Medicine | DX: Z00.00 Encounter for general adult medical examination without abnormal findings (principal); Z23 Encounter for immunization; N18.31 Chronic kidney disease, stage 3a; E66.01 Morbid (severe) obesity due to excess calories; Z68.43 Body mass index [BMI] 50.0-59.9, adult; I48.0 Paroxysmal atrial fibrillation; F33.0 Major depressive disorder, recurrent, mild; Z79.01 Long term (current) use of anticoagulants; Z79.899 Other long term (current) drug therapy | CPT/HCPCS: 90471; 90472; 90677; 90715; 99397 ==

== ENCOUNTER → 2025-03-04 12:45 | Outpatient (BNV) | payer MEDICARE, SELFPAY | PROVIDERS: PCP Internal Medicine; Visit Provider Internal Medicine | DX: Z12.31 Encounter for screening mammogram for malignant neoplasm of breast (principal) | CPT/HCPCS: 77063; 77067 ==

== ENCOUNTER 2025-03-04 12:49 | Outpatient (REF) | payer MEDICARE, SELFPAY ==
--- OUTSIDE RECORDS SUMMARY | 2025-03-04 13:09 | XMS_ITS | Clinical Summary ---
Author Organization [facility] Address [address] [place] [address] Phone Care Team Providers Care Wire Harness Assembler Name Role Phone Mi Fisher MD Primary Care Provider [phone] Allergies Active Allergy Reactions Criticality Noted Date [...] Visit [facility] [address] [place] [address] Raulito Uriarte MD [address] [facility] [address] [place] [address] Health Maintenance Due Date Last [...] to complete this topic Insurance [facility] One Care Dual SNP ([id number]) [employer] One Care Dual SNP ([id number]) Care Teams Wire Harness Assembler Relationship Specialty Start Date End Date Mi Fisher MD [address] [place] [address] PCP - General Internal Medicine 09/26/22
== END 2025-03-04 12:50 | disposition home or self-care (01) ==
LOC: HO.MAMMO 12:49
PROVIDERS: PCP Internal Medicine; Visit Provider Internal Medicine
DX: Z12.31 Encounter for screening mammogram for malignant neoplasm of breast (principal)
CPT/HCPCS: 77063; 77067